=== PATIENT | male | born 1945 | race Caucasian/White ===

== ENCOUNTER → 2016-09-11 | Outpatient (CLI) | payer MEDICARE, OTHER ==
[~2016-09-11] MED LIST: ASPI-231 PO; ATEN50TA PO; ATOR80TA OR; CAPT25TA76 PO; CLOP75TA28 OR; GLYB5TAB8 OR; METF500T OR
== END | disposition home or self-care (01) ==
LOC: Rad HDHVI 09:05
PROVIDERS: ATTEND Internal Medicine Cardiovascular Disease
DX: I25.5 Ischemic cardiomyopathy (principal); I71.4 Abdominal aortic aneurysm, without rupture; I10 Essential (primary) hypertension; I25.2 Old myocardial infarction; E78.00 Pure hypercholesterolemia, unspecified
CPT/HCPCS: 93306

== ENCOUNTER → 2017-02-18 | Outpatient (CLI) | payer MEDICARE, OTHER ==
[~2017-02-18] VITALS: Ht 180.3 cm; Wt 105.7 kg
[~2017-02-18] MED LIST changes: +ADENOSINE 90 MG/30 ML INJ IV ONE
== END | disposition home or self-care (01) ==
LOC: Rad HDHVI 13:11
PROVIDERS: ATTEND Internal Medicine Cardiovascular Disease
DX: I25.5 Ischemic cardiomyopathy (principal); I10 Essential (primary) hypertension; E78.00 Pure hypercholesterolemia, unspecified; E11.9 Type 2 diabetes mellitus without complications; I25.2 Old myocardial infarction; Z95.0 Presence of cardiac pacemaker; Z95.1 Presence of aortocoronary bypass graft
CPT/HCPCS: 78452; 93005; 96374; 96375; A9500

== ENCOUNTER → 2017-02-19 | Outpatient (CLI) | payer MEDICARE, OTHER ==
[~2017-02-19] MED LIST changes: +ADENOSINE 89 MG in GIVE UN-DILUTED 0 ML IV ONE; -ADENOSINE 90 MG/30 ML INJ IV ONE
== END | disposition home or self-care (01) ==
LOC: Rad HDHVI 13:29
PROVIDERS: ATTEND Internal Medicine Cardiovascular Disease
DX: I20.0 Unstable angina (principal); I25.5 Ischemic cardiomyopathy; I10 Essential (primary) hypertension; E78.9 Disorder of lipoprotein metabolism, unspecified; Z95.0 Presence of cardiac pacemaker
CPT/HCPCS: 93306; J0153

== ENCOUNTER → 2017-05-28 | Outpatient (CLI) | payer MEDICARE, OTHER ==
[~2017-05-28] MED LIST changes: -ADENOSINE 89 MG in GIVE UN-DILUTED 0 ML IV ONE; +CAPT25TA5 PO; -CAPT25TA76 PO
[2017-05-28 13:07] LABS: Basophils # (auto) 0.1 uL; Basophils % (auto) 0.7 % (0.0-2.0); Eosinophils # (auto) 0.2 uL; Eosinophils % (auto) 2.3 % (0.0-7.0); Hematocrit 49.3 % (41.0-53.0); Lymphocytes # (auto) 2.1 uL; Lymphocytes % (auto) 24.6 % (10.0-50.0); Mean Corpuscular Hemoglobin 32.8 pg (28.0-32.0); Mean Corpuscular Hgb Conc. 34.5 g/dL (32.0-36.0); Mean Corpuscular Volume 95.2 fL (80.0-100.0); Monocytes # (auto) 0.7 uL; Monocytes % (auto) 8.4 % (0.0-12.0); Neutrophils # (auto) 5.4 uL; Nucleated Red Blood Cells % 1.2 %; Platelet Count (auto) 138 10^3/uL (140-450); Red Blood Cells 5.18 10^6/uL (4.5-5.90); Red Cell Distribution Width 13.5 % (11.8-14.3); White Blood Cell 8.4 10^3/uL (4.4-10.8)
[2017-05-28 13:14] LABS: Urine Blood Negative /uL (Negative); Urine Specific Gravity 1.023 (1.001-1.035)
[2017-05-28 13:30] LABS: Albumin 3.9 g/dL (3.4-5.0); BUN/Creatinine Ratio 16.9; Bilirubin, Direct 0.2 mg/dL (0-0.2); Bilirubin, Total 0.8 mg/dL (0.2-1.0); Calcium 8.9 mg/dL (8.5-10.1); Potassium 3.9 mmol/L (3.5-5.1); Total Protein 7.3 g/dL (6.4-8.2)
== END | disposition home or self-care (01) ==
LOC: LAB 08:08
PROVIDERS: ATTEND Internal Medicine Cardiovascular Disease
DX: I10 Essential (primary) hypertension (principal); E11.9 Type 2 diabetes mellitus without complications; E78.00 Pure hypercholesterolemia, unspecified; K74.1 Hepatic sclerosis; R97.20 Elevated prostate specific antigen [PSA]; R53.81 Other malaise; E03.9 Hypothyroidism, unspecified; D64.9 Anemia, unspecified
CPT/HCPCS: 36415; 80048; 80061; 80076; 81003; 82306; 83036; 84153; 84403; 84443; 85025

== ENCOUNTER → 2017-10-11 | Outpatient (CLI) | payer MEDICARE, OTHER ==
[~2017-10-11] MED LIST changes: +ISOS30TA4 PO; +LEVO150T68 PO
== END | disposition home or self-care (01) ==
LOC: Rad HDHVI 10:45
PROVIDERS: ATTEND Internal Medicine Cardiovascular Disease
DX: I51.7 Cardiomegaly (principal); E11.9 Type 2 diabetes mellitus without complications; I10 Essential (primary) hypertension; E78.00 Pure hypercholesterolemia, unspecified
CPT/HCPCS: 93306

== ENCOUNTER → 2017-10-22 | Outpatient (CLI) | payer MEDICARE, OTHER ==
[~2017-10-22] VITALS: Ht 180.3 cm; Wt 104.3 kg
[~2017-10-22] MED LIST changes: -ISOS30TA4 PO; -LEVO150T68 PO
== END | disposition home or self-care (01) ==
LOC: Rad HDHVI 14:21
PROVIDERS: ATTEND Internal Medicine Cardiovascular Disease
DX: I20.9 Angina pectoris, unspecified (principal); I25.5 Ischemic cardiomyopathy; I11.0 Hypertensive heart disease with heart failure; I50.23 Acute on chronic systolic (congestive) heart failure; E11.9 Type 2 diabetes mellitus without complications
CPT/HCPCS: 78452; 93017; 96374; A9500

== ENCOUNTER → 2017-10-29 | Outpatient (CLI) | payer MEDICARE, OTHER ==
[~2017-10-29] MED LIST changes: +ISOS30TA4 PO; +LEVO150T68 PO
[2017-10-29 08:00] VITALS: BP 123/68
[2017-10-29 12:02] LABS: Basophils # (auto) 0.1 uL; Basophils % (auto) 0.7 % (0.0-2.0); Eosinophils # (auto) 0.2 uL; Eosinophils % (auto) 1.9 % (0.0-7.0); Hematocrit 49.7 % (41.0-53.0); Lymphocytes # (auto) 2.3 uL; Lymphocytes % (auto) 26.6 % (10.0-50.0); Mean Corpuscular Hemoglobin 32.7 pg (28.0-32.0); Mean Corpuscular Hgb Conc. 34.2 g/dL (32.0-36.0); Mean Corpuscular Volume 95.5 fL (80.0-100.0); Monocytes # (auto) 0.7 uL; Monocytes % (auto) 7.8 % (0.0-12.0); Neutrophils # (auto) 5.5 uL; Nucleated Red Blood Cells % 0.4 %; Platelet Count (auto) 133 10^3/uL (140-450); Red Cell Distribution Width 13.4 % (11.8-14.3); White Blood Cell 8.7 10^3/uL (4.4-10.8)
[2017-10-29 12:14] LABS: INR 1.1 (0.9-1.15); Partial Thromboplastin Time 29.1 sec (22.64-33.71)
[2017-10-29 12:27] LABS: BUN/Creatinine Ratio 16.1; Potassium 4.1 mmol/L (3.5-5.1)
== END | disposition home or self-care (01) ==
LOC: Rad HDHVI 08:03
PROVIDERS: ATTEND Internal Medicine Cardiovascular Disease
DX: Z01.818 Encounter for other preprocedural examination (principal); E78.00 Pure hypercholesterolemia, unspecified; E11.22 Type 2 diabetes mellitus with diabetic chronic kidney disease; I12.9 Hypertensive chronic kidney disease with stage 1 through stage 4 chronic kidney disease, or unspecified chronic kidney disease; N18.2 Chronic kidney disease, stage 2 (mild); Z95.810 Presence of automatic (implantable) cardiac defibrillator; Z79.82 Long term (current) use of aspirin
CPT/HCPCS: 36415; 71046; 80048; 82962; 85025; 85610; 85730; 93005; G0463

== ENCOUNTER 2017-10-31 08:00 | Day surgery (SDC) | payer MEDICARE, OTHER ==
[~2017-10-31] VITALS: Ht 180.3 cm; Wt 104.8 kg
[~2017-10-31 08:00] MED LIST changes: -ATOR80TA OR
[2017-10-31] MEDS ORDERED: ANGIOMAX 250 MG VIAL IV ONE (09:31)
[2017-10-31] MEDS ORDERED: fentaNYL CITRATE 100 MCG/2 ML VL ONE (09:31)
[2017-10-31] MEDS ORDERED: SODIUM CHL 0.9% 0 ML ONE (09:32)
[2017-10-31] MEDS ORDERED: MIDAZOLAM HCL 1MG/1ML-2 ML VIAL ONE (09:32)
[2017-10-31] MEDS ORDERED: IOHEXOL 350 MG/ML 100ML IJ ONE (09:34)
[2017-10-31] MEDS ORDERED: LIDOCAINE HCL 2 %PF INJ 10ML AMP IJ ONE (09:34)
== END 2017-10-31 12:20 | disposition home or self-care (01) ==
LOC: CATH 08:00
PROVIDERS: ATTEND Internal Medicine Cardiovascular Disease
DX: I25.10 Atherosclerotic heart disease of native coronary artery without angina pectoris (principal); E66.9 Obesity, unspecified; Z68.32 Body mass index [BMI] 32.0-32.9, adult; Z95.1 Presence of aortocoronary bypass graft; I25.5 Ischemic cardiomyopathy; E78.5 Hyperlipidemia, unspecified; E11.9 Type 2 diabetes mellitus without complications; I25.2 Old myocardial infarction; F17.210 Nicotine dependence, cigarettes, uncomplicated; Z95.810 Presence of automatic (implantable) cardiac defibrillator; Z79.01 Long term (current) use of anticoagulants
CPT/HCPCS: 93459; C1760; C1894; J1644; J2250; J3010; J7030; Q9967; 99152

== ENCOUNTER → 2018-10-29 | Outpatient (CLI) | payer MEDICARE, OTHER | END | disposition home or self-care (01) | LOC: Rad HDHVI 08:47 | PROVIDERS: ATTEND Internal Medicine Cardiovascular Disease | DX: I65.22 Occlusion and stenosis of left carotid artery (principal); I11.0 Hypertensive heart disease with heart failure; I50.23 Acute on chronic systolic (congestive) heart failure; I25.10 Atherosclerotic heart disease of native coronary artery without angina pectoris; E11.9 Type 2 diabetes mellitus without complications; I25.5 Ischemic cardiomyopathy; R09.89 Other specified symptoms and signs involving the circulatory and respiratory systems | CPT/HCPCS: 93306; 93880 ==

== ENCOUNTER → 2018-11-03 | Outpatient (CLI) | payer MEDICARE, OTHER ==
[~2018-11-03] VITALS: Ht 180.3 cm; Wt 106.6 kg
[~2018-11-03] MED LIST changes: +ADENOSINE 90 MG in GIVE UN-DILUTED 0 ML IV ONE; +ADENOSINE 90 MG/30 ML INJ IV ONE
[2018-11-03 12:11] LABS: Urine Blood Negative /uL (Negative); Urine Specific Gravity 1.022 (1.001-1.035)
[2018-11-03 12:21] LABS: Eosinophils # (auto) 0.1 uL; Lymphocytes # (auto) 1.9 uL; White Blood Cell 7.8 10^3/uL (4.4-10.8)
[2018-11-03 12:27] LABS: Basophils # (auto) 0.1 uL; Basophils % (auto) 0.9 % (0.0-2.0); Eosinophils % (auto) 1.9 % (0.0-7.0); Hematocrit 51.8 % (41.0-53.0); Hemoglobin 17.6 g/dL (13.5-17.5); Mean Corpuscular Volume 96.9 fL (80.0-100.0); Monocytes # (auto) 0.7 uL; Monocytes % (auto) 9.2 % (0.0-12.0); Nucleated Red Blood Cells % 0.1 %; Platelet Count (auto) 137 10^3/uL (140-450); Red Blood Cells 5.34 10^6/uL (4.5-5.90); Red Cell Distribution Width 13.5 % (11.8-14.3)
[2018-11-03 12:35] LABS: Potassium 4.5 mmol/L (3.5-5.1)
[2018-11-03 12:43] LABS: Free T4 (Free Thyroxine) 1.36 ng/dL (0.89-1.76)
[2018-11-03 12:44] LABS: Prostate Specific Antigen 0.36 ng/mL (0.0-4.0)
[2018-11-03 13:29] LABS: Albumin 3.8 g/dL (3.4-5.0); BUN/Creatinine Ratio 14.7; Bilirubin, Total 0.6 mg/dL (0.2-1.0); Calcium 8.8 mg/dL (8.5-10.1); Total Protein 7.1 g/dL (6.4-8.2)
== END | disposition home or self-care (01) ==
LOC: Rad HDHVI 07:53
PROVIDERS: ATTEND Internal Medicine Cardiovascular Disease
DX: N39.0 Urinary tract infection, site not specified (principal); E03.9 Hypothyroidism, unspecified; E11.9 Type 2 diabetes mellitus without complications; E55.9 Vitamin D deficiency, unspecified; E29.1 Testicular hypofunction; C61 Malignant neoplasm of prostate; D51.9 Vitamin B12 deficiency anemia, unspecified; I11.0 Hypertensive heart disease with heart failure; I50.23 Acute on chronic systolic (congestive) heart failure; I25.5 Ischemic cardiomyopathy; I47.2 Ventricular tachycardia; R06.02 Shortness of breath
CPT/HCPCS: 36415; 78452; 80053; 80061; 81003; 82306; 82607; 83036; 84153; 84403; 84439; 84443; 85025; 93005; 96374; 96375; A9500; J0153

== ENCOUNTER 2019-02-13 11:23 | Inpatient (IN) | payer MEDICARE, OTHER ==
[~2019-02-13] VITALS: Ht 180.3 cm; Wt 105.2 kg
[~2019-02-13 11:23] MED LIST changes: -ADENOSINE 90 MG in GIVE UN-DILUTED 0 ML IV ONE; -ADENOSINE 90 MG/30 ML INJ IV ONE; -CLOP75TA28 OR; +CLOP75TA28 PO; -METF500T OR; +METF500T PO
[2019-02-13] MEDS ORDERED: LIDOCAINE 2%HCL (LOCAL ANESTH.) INJ 20ML MDV ONE (12:30)
[2019-02-13] MEDS ORDERED: fentaNYL CITRATE 100 MCG/2 ML VL ONE (13:40)
[2019-02-13] MEDS ORDERED: MIDAZOLAM HCL 1MG/1ML-2 ML VIAL ONE (13:40)
[2019-02-13] MEDS ORDERED: VANCOMYCIN HCL 1000 MG VL ONE (13:40)
[2019-02-13] MEDS ORDERED: ceFAZolin 1GM/50ML 50 ML IV ONE (13:40)
[2019-02-13] MEDS ORDERED: VANCOMYCIN 1GM/250ML 250 ML IV ONE (14:52)
[2019-02-13] MEDS ORDERED: MORPHINE SULF INJ 2 MG/ML SYRINGE 1ML IV PRN (15:45)
[2019-02-13] MEDS ORDERED: HYDROcodone-ACET 5/325MG TAB PO PRN (15:45)
[2019-02-13] MEDS ORDERED: NITROGLYCERIN 0.4 MG SL TAB SL PRN (15:45)
[2019-02-13] MEDS ORDERED: ACETAMINOPHEN 325 MG TAB PO PRN (15:45)
[2019-02-13] MEDS ORDERED: IVAB1.7T PO (16:06)
[2019-02-13] MEDS ORDERED: GLIP10TA9 PO (16:06)
[2019-02-13] MEDS ORDERED: ATOR1TAB PO (16:06)
[2019-02-13] MEDS ORDERED: CHOL200021 PO (16:06)
[2019-02-13] MEDS ORDERED: SACU1TAB PO (16:06)
[2019-02-13] MEDS ORDERED: NITR0.4S29 SL (16:06)
--- NOTE | 2019-02-13 16:45 | NUR ---
Telemetry admit from IT SECURITY ARCHITECT CLARISSADERRICK GOMEZ admitted to Telemetry unit after SBAR received. Patient oriented to DEON ERIC, primary RN, unit, room, bed, and unit policies regarding patient care and visiting hours. Patient now on continuous telemetry monitoring, tele box # [id number] and telemetry reading on arrival to unit is paced 77. Patient weighed by bed scale and encouraged to call if they need something. All questions and concerns addressed, patient verbalized understanding. Note: []
[2019-02-13 16:50] VITALS: BP 114/71
[2019-02-13] MEDS: ACCU-CHEK COMFORT CURVE STRIP VI SCH ×2 (17:06→21:31)
[2019-02-13 17:19] VITALS: BP 114/71
[2019-02-13] MEDS: metFORMIN HYDROCHLORIDE 500 MG TAB PO SCH (17:44)
[2019-02-13] MEDS: glipiZIDE 5 MG TAB PO SCH (17:44)
--- NOTE | 2019-02-13 19:30 | NUR ---
Opening Shift Note Assumed care of patient, awake and alertx4. Very pleasant gentlemen. No S/S of distress/SOB or pain. Using Ice packs draped over left shoulder. Dressing to left upper chest clean dry and intact. IV to left wrist patent and flushed with 10 mls NS. Steady gait, BRP. Will administer meds per orders. Instructed on POC and to call for assist PRN, will continue to monitor for changes Q1hr and PRN.
[2019-02-13] MEDS: ceFAZolin 1GM/50ML 50 ML IV SCH (21:30)
--- NOTE | 2019-02-13 21:43 | NUR ---
BS is 124. Asymptomatic. Sugar free jello given for snack
[2019-02-13] MEDS ORDERED: SACUBITRIL-VALSARTAN 24mg/26mg TAB PO SCH (22:00)
[2019-02-13] MEDS ORDERED: ATORVASTATIN 20 MG TAB PO SCH (22:00)
[2019-02-13] MEDS ORDERED: IVABRADINE 5 MG PO SCH (22:00)
[2019-02-14 00:19] VITALS: BP 110/65
[2019-02-14 06:09] VITALS: BP 128/65
[2019-02-14] MEDS ORDERED: LEVOTHYROXINE SODIUM 50 MCG TAB PO SCH (07:00)
[2019-02-14] MEDS: ceFAZolin 1GM/50ML 50 ML IV SCH (07:02)
[2019-02-14] MEDS: ACCU-CHEK COMFORT CURVE STRIP VI SCH (07:02)
--- NOTE | 2019-02-14 07:40 | NUR ---
RECEIVED REPORT FROM NIGHT NURSE. PATIENT RESTING IN BED, NO DISTRESS NOTED. WILL CONTINUE TO MONITOR.
[2019-02-14] MEDS: metFORMIN HYDROCHLORIDE 500 MG TAB PO SCH (08:00)
[2019-02-14] MEDS: glipiZIDE 5 MG TAB PO SCH (08:30)
[2019-02-14 09:00] VITALS: BP_SYST 109; BP_SYST 122; BP_DIAS 76; BP_DIAS 84
[2019-02-14] MEDS ORDERED: CHOLECALCIFEROL (VITD3) 1,000 UNIT TAB PO SCH (10:00)
[2019-02-14] MEDS ORDERED: ATENOLOL 50 MG TAB PO SCH (10:00)
[2019-02-14] MEDS ORDERED: ISOSORBIDE MONONITRATE 60 MG TAB PO SCH (10:00)
== END 2019-02-14 10:20 | disposition home or self-care (01) | DRG 245 ==
LOC: CATH 11:23 → TELE-CENTR 16:32
PROVIDERS: ADMIT Internal Medicine Cardiovascular Disease; ATTEND Internal Medicine Cardiovascular Disease
PROC: 0JPT0PZ Removal of Cardiac Rhythm Related Device from Trunk Subcutaneous Tissue and Fascia, Open Approach (ICD-10-PCS; principal; 2019-02-13)
PROC: 0JH609Z Insertion of Cardiac Resynchronization Defibrillator Pulse Generator into Chest Subcutaneous Tissue and Fascia, Open Approach (ICD-10-PCS; 2019-02-13)
DX: I11.0 Hypertensive heart disease with heart failure (principal); I25.5 Ischemic cardiomyopathy; I50.23 Acute on chronic systolic (congestive) heart failure; E11.9 Type 2 diabetes mellitus without complications; E66.9 Obesity, unspecified; J44.9 Chronic obstructive pulmonary disease, unspecified; N28.9 Disorder of kidney and ureter, unspecified; F17.210 Nicotine dependence, cigarettes, uncomplicated; E78.5 Hyperlipidemia, unspecified; I25.2 Old myocardial infarction; Z95.1 Presence of aortocoronary bypass graft; Z79.899 Other long term (current) drug therapy; Z68.32 Body mass index [BMI] 32.0-32.9, adult
CPT/HCPCS: 36415; 71046; 80048; 82962; 85025; 85610; 85730; 93005; G0378; G0463; J0690; J2250

== ENCOUNTER → 2019-11-24 | Outpatient (CLI) | payer MEDICARE, OTHER ==
[~2019-11-24] MED LIST changes: +ATOR1TAB PO; -CAPT25TA5 PO; +CHOL200021 PO; +GLIP10TA9 PO; -GLYB5TAB8 OR; +IVAB1.7T PO; +NITR0.4S29 SL; +SACU1TAB PO
== END | disposition home or self-care (01) ==
LOC: Rad HDHVI 07:53
PROVIDERS: ATTEND Internal Medicine Cardiovascular Disease
DX: I50.23 Acute on chronic systolic (congestive) heart failure (principal); I25.5 Ischemic cardiomyopathy; R06.02 Shortness of breath
CPT/HCPCS: 93306

== ENCOUNTER → 2019-12-22 | Outpatient (CLI) | payer MEDICARE, OTHER ==
[~2019-12-22] VITALS: Ht 180.3 cm; Wt 105.2 kg
[~2019-12-22] MED LIST changes: +ADENOSINE 88 MG in GIVE UN-DILUTED 0 ML IV ONE; +ADENOSINE 90 MG/30 ML INJ IV ONE
== END | disposition home or self-care (01) ==
LOC: Rad HDHVI 08:50
PROVIDERS: ATTEND Internal Medicine Cardiovascular Disease
DX: I10 Essential (primary) hypertension (principal); I25.2 Old myocardial infarction; I25.10 Atherosclerotic heart disease of native coronary artery without angina pectoris; E78.00 Pure hypercholesterolemia, unspecified; E11.9 Type 2 diabetes mellitus without complications; F17.210 Nicotine dependence, cigarettes, uncomplicated; R07.9 Chest pain, unspecified; Z95.1 Presence of aortocoronary bypass graft; Z95.0 Presence of cardiac pacemaker
CPT/HCPCS: 78452; 93005; 96374; 96375; A9500; J0153

== ENCOUNTER → 2019-12-23 | Outpatient (CLI) | payer MEDICARE, OTHER ==
[~2019-12-23] MED LIST changes: -ADENOSINE 88 MG in GIVE UN-DILUTED 0 ML IV ONE; -ADENOSINE 90 MG/30 ML INJ IV ONE
[2019-12-23 12:07] LABS: Urine Blood Negative /uL (Negative); Urine Specific Gravity 1.022 (1.001-1.035)
[2019-12-23 12:20] LABS: Basophils # (auto) 0.1 10 ^3/uL (0-0.2); Eosinophils # (auto) 0.1 10 ^3/uL (0-0.8); Monocytes # (auto) 0.7 10 ^3/uL (0-1.3); Nucleated Red Blood Cells % 0.1 %
[2019-12-23 12:21] LABS: Basophils % (auto) 1.1 % (0.0-2.0); Eosinophils % (auto) 1.4 % (0.0-7.0); Hematocrit 52.6 % (41.0-53.0); Hemoglobin 17.8 g/dL (13.5-17.5); Lymphocytes # (auto) 2.6 10 ^3/uL (0.4-5.4); Lymphocytes % (auto) 33.2 % (10.0-50.0); Mean Corpuscular Hemoglobin 33.7 pg (28.0-32.0); Mean Corpuscular Hgb Conc. 33.9 g/dL (32.0-36.0); Mean Corpuscular Volume 99.6 fL (80.0-100.0); Monocytes % (auto) 8.5 % (0.0-12.0); Neutrophils # (auto) 4.4 10 ^3/uL (1.6-8.6); Neutrophils % (auto) 55.8 % (37.0-80.0); Platelet Count (auto) 135 10^3/uL (140-450); Red Blood Cells 5.29 10^6/uL (4.5-5.90); Red Cell Distribution Width 13.8 % (11.8-14.3); White Blood Cell 7.9 10^3/uL (4.4-10.8)
[2019-12-23 12:24] LABS: Free T4 (Free Thyroxine) 1.39 ng/dL (0.89-1.76)
[2019-12-23 12:25] LABS: Prostate Specific Antigen 0.29 ng/mL (0.0-4.0)
[2019-12-23 13:10] LABS: Albumin 3.7 g/dL (3.4-5.0)
[2019-12-23 13:20] LABS: BUN/Creatinine Ratio 14.7; Potassium 4.2 mmol/L (3.5-5.1)
[2019-12-23 13:21] LABS: Bilirubin, Total 1.1 mg/dL (0.2-1.0); Calcium 8.4 mg/dL (8.5-10.1)
== END | disposition home or self-care (01) ==
LOC: LAB 09:28
PROVIDERS: ATTEND Internal Medicine Cardiovascular Disease
DX: E03.9 Hypothyroidism, unspecified (principal); K90.9 Intestinal malabsorption, unspecified; D51.9 Vitamin B12 deficiency anemia, unspecified; N39.0 Urinary tract infection, site not specified; R39.15 Urgency of urination; R32 Unspecified urinary incontinence; Z79.899 Other long term (current) drug therapy; Z00.00 Encounter for general adult medical examination without abnormal findings
CPT/HCPCS: 36415; 80053; 80061; 81003; 82306; 82607; 83036; 84153; 84403; 84439; 84443; 85025

== ENCOUNTER → 2020-09-05 | Outpatient (CLI) | payer MEDICARE, OTHER ==
[~2020-09-05] MED LIST changes: +ATOR-47 PO; -ATOR1TAB PO; +LEV150T PO; -LEVO150T68 PO
== END | disposition home or self-care (01) ==
LOC: Rad HDHVI 10:05
PROVIDERS: ATTEND Internal Medicine Cardiovascular Disease
DX: I25.5 Ischemic cardiomyopathy (principal); I42.0 Dilated cardiomyopathy
CPT/HCPCS: 93306

== ENCOUNTER → 2020-11-02 | Outpatient (CLI) | payer MEDICARE, OTHER ==
[2020-11-02 15:41] LABS: Basophils # (auto) 0.1 10 ^3/uL (0-0.2); Basophils % (auto) 0.7 % (0.0-2.0); Eosinophils # (auto) 0.1 10 ^3/uL (0-0.8); Eosinophils % (auto) 1.5 % (0.0-7.0); Hematocrit 46.6 % (41.0-53.0); Hemoglobin 15.9 g/dL (13.5-17.5); Lymphocytes # (auto) 2.6 10 ^3/uL (0.4-5.4); Lymphocytes % (auto) 33.6 % (10.0-50.0); Mean Corpuscular Hemoglobin 33.6 pg (28.0-32.0); Mean Corpuscular Hgb Conc. 34.1 g/dL (32.0-36.0); Mean Corpuscular Volume 98.5 fL (80.0-100.0); Monocytes # (auto) 0.8 10 ^3/uL (0-1.3); Monocytes % (auto) 10.2 % (0.0-12.0); Neutrophils # (auto) 4.1 10 ^3/uL (1.6-8.6); Nucleated Red Blood Cells % 0.4 %; Platelet Count (auto) 129 10^3/uL (140-450); Red Blood Cells 4.73 10^6/uL (4.5-5.90); White Blood Cell 7.6 10^3/uL (4.4-10.8)
[2020-11-02 15:52] LABS: BUN/Creatinine Ratio 18.8; Calcium 8.6 mg/dL (8.5-10.1); Potassium 4.6 mmol/L (3.5-5.1)
[2020-11-02 16:52] LABS: INR 1.1 (0.9-1.15); Partial Thromboplastin Time 30.1 sec (23.0-31.2)
== END | disposition home or self-care (01) ==
LOC: Rad HDHVI 12:13
PROVIDERS: ATTEND Internal Medicine Cardiovascular Disease
DX: Z01.812 Encounter for preprocedural laboratory examination (principal); I11.0 Hypertensive heart disease with heart failure; I50.23 Acute on chronic systolic (congestive) heart failure; Z95.0 Presence of cardiac pacemaker
CPT/HCPCS: 36415; 71046; 80048; 85025; 85610; 85730

== ENCOUNTER 2021-05-07 05:06 | Inpatient (IN) | payer MEDICARE, OTHER ==
[~2021-05-07] VITALS: Ht 180.3 cm; Wt 102.5 kg
[~2021-05-07 05:06] MED LIST changes: -ASPI-231 PO; +ASPI1TAB20 PO; +ISOS1TAB28 PO; -ISOS30TA4 PO
[2021-05-07] MEDS ORDERED: NITROGLYCERIN 0.4 MG SL TAB SL ONE (05:30)
[2021-05-07] MEDS ORDERED: dilTIAZem 25 MG/5 ML VIAL IV ONE (05:30)
[2021-05-07] MEDS ORDERED: MORPHINE SULFATE 4 MG/ML SYR/VIAL IV ONE (05:30)
[2021-05-07 06:12] LABS: Basophils # (auto) 0.1 10 ^3/uL (0-0.2); Basophils % (auto) 0.7 % (0.0-2.0); Eosinophils # (auto) 0.1 10 ^3/uL (0-0.8); Eosinophils % (auto) 1.3 % (0.0-7.0); Hematocrit 50.3 % (41.0-53.0); Hemoglobin 16.9 g/dL (13.5-17.5); Lymphocytes # (auto) 1.5 10 ^3/uL (0.4-5.4); Lymphocytes % (auto) 18.7 % (10.0-50.0); Mean Corpuscular Hgb Conc. 33.7 g/dL (32.0-36.0); Mean Corpuscular Volume 100.8 fL (80.0-100.0); Monocytes # (auto) 0.9 10 ^3/uL (0-1.3); Monocytes % (auto) 10.8 % (0.0-12.0); Neutrophils # (auto) 5.4 10 ^3/uL (1.6-8.6); Neutrophils % (auto) 68.5 % (37.0-80.0); Red Blood Cells 4.99 10^6/uL (4.5-5.90); Red Cell Distribution Width 14.6 % (11.8-14.3); White Blood Cell 7.9 10^3/uL (4.4-10.8)
[2021-05-07 06:24] LABS: INR 1.13 (0.9-1.15); Partial Thromboplastin Time 29.8 sec (23.6-33.0)
[2021-05-07 06:30] LABS: Potassium 4.7 mmol/L (3.5-5.1)
[2021-05-07 06:35] LABS: Albumin 3.6 g/dL (3.4-5.0); BUN/Creatinine Ratio 15.3; Calcium 8.4 mg/dL (8.5-10.1); Magnesium 2.2 mg/dL (1.6-2.6)
[2021-05-07 06:40] LABS: Bilirubin, Total 0.8 mg/dL (0.2-1.0)
[2021-05-07] MEDS ORDERED: ONDANSETRON HCL 4 MG/2 ML VIAL ONE (06:57)
[2021-05-07] MEDS ORDERED: MORPHINE SULFATE INJECTION 2 MG/ML SYRG ONE (06:57)
[2021-05-07] MEDS ORDERED: MORPHINE SULFATE INJECTION 2 MG/ML SYRG IV ONE (07:00)
[2021-05-07] MEDS ORDERED: ONDANSETRON HCL 4 MG/2 ML VIAL IV ONE (07:00)
[2021-05-07] MEDS ORDERED: METOPROLOL TARTRATE 1MG/1ML-5ML VIAL IV ONE (09:45)
[2021-05-07] MEDS ORDERED: NITROGLYCERIN 0.4 MG SL TAB SL PRN (10:15)
[2021-05-07] MEDS ORDERED: DIGOXIN (250MCG/ML) 2 ML AMPULE IV ONE (10:15)
[2021-05-07] MEDS ORDERED: AMIODARONE HCL 150 MG in D5W 5% 100 ML IV ONE (10:15)
[2021-05-07] MEDS ORDERED: ONDANSETRON HCL 4 MG/2 ML VIAL IV PRN (10:15)
[2021-05-07] MEDS ORDERED: ACETAMINOPHEN 500 MG TAB PO PRN (10:15)
[2021-05-07] MEDS ORDERED: MORPHINE SULFATE INJECTION 2 MG/ML SYRG IV PRN ×2 (10:15)
[2021-05-07] MEDS ORDERED: HYDROcodone-ACET 5/325MG TAB PO PRN (10:15)
[2021-05-07] MEDS ORDERED: AMIODARONE 450mg/250ml AE 250 ML IV SCH ×2 (10:15→16:15)
[2021-05-07] MEDS ORDERED: DEXTROSE (50%) 50ML SYRG IV PRN (10:30)
[2021-05-07] MEDS: InsuLIN REG 1unit/0.01ml Soln (100units/ml) SC SCH ×3 (11:30→22:00)
[2021-05-07] MEDS: ACCU-CHEK COMFORT CURVE STRIP VI SCH ×3 (11:38→21:59)
[2021-05-07] MEDS ORDERED: ADENOSINE 6 MG/2 ML INJ IV ONE ×3 (12:06→13:15)
[2021-05-07] MEDS ORDERED: LIDOCAINE 4MG/ML IV SOLN 500 ML IV SCH ×2 (12:30→15:45)
[2021-05-07] MEDS ORDERED: LIDOCAINE 50MG/5ML INJ 5ML SYRINGE IV ONE (12:30)
[2021-05-07] MEDS ORDERED: LIDOCAINE HCL 100 MG/5ML (2%) SYRG INJ IV ONE (12:45)
[2021-05-07] MEDS ORDERED: MIDAZOLAM HCL 5 MG/ML-1ML VIAL IV ONE (13:00)
[2021-05-07] MEDS ORDERED: fentaNYL CITRATE 100 MCG/2 ML VL IV ONE (13:00)
[2021-05-07] MEDS ORDERED: HEPARIN SODIUM (PORCINE) 5000 UNITS/ML 1ML VIAL IV ONE (13:00)
[2021-05-07] MEDS: AMIODARONE HCL 200 MG TAB PO SCH (21:25)
[2021-05-07] MEDS: ATORVASTATIN 20 MG TAB PO SCH (21:58)
[2021-05-07] MEDS: ENOXAPARIN SOD 100 MG/1 ML SYRINGE SC SCH (22:00)
[2021-05-07] MEDS: IVABRADINE 5 MG TAB PO SCH (22:00)
[2021-05-08 04:18] LABS: Basophils # (auto) 0.1 10 ^3/uL (0-0.2); Basophils % (auto) 0.6 % (0.0-2.0); Eosinophils # (auto) 0.1 10 ^3/uL (0-0.8); Hemoglobin 16.1 g/dL (13.5-17.5); Nucleated Red Blood Cells % 0.1 %
[2021-05-08 04:21] LABS: Eosinophils % (auto) 1.2 % (0.0-7.0); Hematocrit 47.9 % (41.0-53.0); Lymphocytes # (auto) 2.5 10 ^3/uL (0.4-5.4); Lymphocytes % (auto) 23.4 % (10.0-50.0); Mean Corpuscular Hgb Conc. 33.7 g/dL (32.0-36.0); Mean Corpuscular Volume 100.9 fL (80.0-100.0); Monocytes % (auto) 9.6 % (0.0-12.0); Neutrophils # (auto) 6.8 10 ^3/uL (1.6-8.6); Neutrophils % (auto) 65.2 % (37.0-80.0); Red Blood Cells 4.75 10^6/uL (4.5-5.90); Red Cell Distribution Width 14.2 % (11.8-14.3); White Blood Cell 10.5 10^3/uL (4.4-10.8)
[2021-05-08 04:59] LABS: Potassium 4.1 mmol/L (3.5-5.1)
[2021-05-08 05:05] LABS: Albumin 3.7 g/dL (3.4-5.0); BUN/Creatinine Ratio 18.9; Bilirubin, Total 0.8 mg/dL (0.2-1.0); Calcium 8.5 mg/dL (8.5-10.1); Total Protein 7.1 g/dL (6.4-8.2)
[2021-05-08] MEDS: InsuLIN REG 1unit/0.01ml Soln (100units/ml) SC SCH ×4 (07:00→21:52)
[2021-05-08] MEDS: ACCU-CHEK COMFORT CURVE STRIP VI SCH ×4 (07:00→21:56)
[2021-05-08] MEDS: LEVOTHYROXINE SODIUM 100 MCG TAB PO SCH (07:43)
[2021-05-08] MEDS ORDERED: FUROSEMIDE 20 MG/2 ML VIAL IV ONE (10:15)
[2021-05-08] MEDS ORDERED: CARVEDILOL 3.125 MG TAB PO ONE (10:15)
[2021-05-08 10:20] VITALS: BP 123/65
[2021-05-08] MEDS: ASPirin-EC 81 mg tab PO SCH (11:03)
[2021-05-08] MEDS: AMIODARONE HCL 200 MG TAB PO SCH ×2 (11:04→21:56)
[2021-05-08] MEDS: ENOXAPARIN SOD 100 MG/1 ML SYRINGE SC SCH ×2 (11:13→23:16)
[2021-05-08] MEDS: CLOPIDOGREL BISULFATE 75 MG TAB PO SCH (11:13)
[2021-05-08] MEDS: IVABRADINE 5 MG TAB PO SCH ×2 (12:35→21:57)
[2021-05-08 13:00] VITALS: BP 123/65
[2021-05-08] MEDS ORDERED: INFLUENZA QUAD 2021-2022 0.5 ML SYRG IM ONE (14:15)
[2021-05-08] MEDS ORDERED: RANO1000 PO (16:11)
[2021-05-08] MEDS ORDERED: UMEC1AER IN (16:11)
[2021-05-08 16:45] VITALS: BP 115/66
[2021-05-08] MEDS ORDERED: FUROSEMIDE 20 MG/2 ML VIAL IV SCH (18:00)
[2021-05-08 20:00] VITALS: BP 126/75
[2021-05-08] MEDS: SACUBITRIL-VALSARTAN 24mg/26mg TAB PO SCH (21:55)
[2021-05-08] MEDS: ATORVASTATIN 20 MG TAB PO SCH (21:56)
[2021-05-08] MEDS: CARVEDILOL 3.125 MG TAB PO SCH (21:57)
[2021-05-08 22:25] VITALS: BP 126/75
[2021-05-09 05:25] VITALS: BP 146/74
[2021-05-09] MEDS ORDERED: FUROSEMIDE 20 MG TAB PO SCH (06:00)
[2021-05-09] MEDS: LEVOTHYROXINE SODIUM 100 MCG TAB PO SCH (06:23)
[2021-05-09] MEDS: ACCU-CHEK COMFORT CURVE STRIP VI SCH ×2 (06:23→12:24)
[2021-05-09] MEDS: InsuLIN REG 1unit/0.01ml Soln (100units/ml) SC SCH ×2 (06:24→12:40)
[2021-05-09 06:53] LABS: Basophils # (auto) 0.1 10 ^3/uL (0-0.2); Basophils % (auto) 1.4 % (0.0-2.0); Eosinophils # (auto) 0.1 10 ^3/uL (0-0.8); Eosinophils % (auto) 1.7 % (0.0-7.0); Hematocrit 46.5 % (41.0-53.0); Hemoglobin 16.3 g/dL (13.5-17.5); Lymphocytes # (auto) 2.4 10 ^3/uL (0.4-5.4); Lymphocytes % (auto) 30.9 % (10.0-50.0); Mean Corpuscular Hemoglobin 35.1 pg (28.0-32.0); Mean Corpuscular Volume 100.3 fL (80.0-100.0); Monocytes # (auto) 0.9 10 ^3/uL (0-1.3); Monocytes % (auto) 11.3 % (0.0-12.0); Neutrophils # (auto) 4.2 10 ^3/uL (1.6-8.6); Neutrophils % (auto) 54.7 % (37.0-80.0); Nucleated Red Blood Cells % 0.3 %; Red Blood Cells 4.64 10^6/uL (4.5-5.90); Red Cell Distribution Width 13.9 % (11.8-14.3); White Blood Cell 7.6 10^3/uL (4.4-10.8)
[2021-05-09 07:15] LABS: BUN/Creatinine Ratio 19.3; Calcium 8.7 mg/dL (8.5-10.1); Potassium 3.8 mmol/L (3.5-5.1)
[2021-05-09 08:00] VITALS: BP 132/70
[2021-05-09 09:00] VITALS: BP 132/70
[2021-05-09] MEDS: AMIODARONE HCL 200 MG TAB PO SCH (09:32)
[2021-05-09] MEDS: CARVEDILOL 3.125 MG TAB PO SCH (09:33)
[2021-05-09] MEDS: ASPirin-EC 81 mg tab PO SCH (09:33)
[2021-05-09] MEDS: CLOPIDOGREL BISULFATE 75 MG TAB PO SCH (09:34)
[2021-05-09] MEDS: SACUBITRIL-VALSARTAN 24mg/26mg TAB PO SCH (09:34)
[2021-05-09] MEDS: ENOXAPARIN SOD 100 MG/1 ML SYRINGE SC SCH (09:35)
[2021-05-09] MEDS ORDERED: FAMOTIDINE 20 MG TAB PO SCH (10:00)
[2021-05-09] MEDS: IVABRADINE 5 MG TAB PO SCH (10:00)
[2021-05-09 13:00] VITALS: BP 127/62
== END 2021-05-09 16:30 | disposition home or self-care (01) | DRG 308 ==
LOC: ER 05:06 → EDBD 05:06 → OVERFLOW 10:01 → CENTRAL 05-08 10:20 → TELE-CENTR 05-08 12:30
PROVIDERS: ADMIT Nurse Practitioner Acute Care; ATTEND Internal Medicine Cardiovascular Disease
PROC: 5A2204Z Restoration of Cardiac Rhythm, Single (ICD-10-PCS; principal; 2021-05-07)
DX: I47.1 Supraventricular tachycardia (principal); I50.21 Acute systolic (congestive) heart failure; I42.0 Dilated cardiomyopathy; I24.9 Acute ischemic heart disease, unspecified; I25.5 Ischemic cardiomyopathy; I25.10 Atherosclerotic heart disease of native coronary artery without angina pectoris; J44.9 Chronic obstructive pulmonary disease, unspecified; Z20.822 Contact with and (suspected) exposure to COVID-19; E11.9 Type 2 diabetes mellitus without complications; E66.9 Obesity, unspecified; Z68.31 Body mass index [BMI] 31.0-31.9, adult; F17.210 Nicotine dependence, cigarettes, uncomplicated; E78.5 Hyperlipidemia, unspecified; I11.0 Hypertensive heart disease with heart failure; Z79.84 Long term (current) use of oral hypoglycemic drugs; Z79.02 Long term (current) use of antithrombotics/antiplatelets; Z79.899 Other long term (current) drug therapy; Z82.49 Family history of ischemic heart disease and other diseases of the circulatory system; Z83.3 Family history of diabetes mellitus; Z95.1 Presence of aortocoronary bypass graft; Z95.5 Presence of coronary angioplasty implant and graft; Z95.810 Presence of automatic (implantable) cardiac defibrillator
CPT/HCPCS: 36415; 71045; 80048; 80053; 82962; 83036; 83735; 83880; 84443; 84484; 85025; 85379; 85610; 85730; 87426; 93005; 93306; 96365; 96367; 96372; 96375; 96376; 99291; G0378; J0153; J1815; J2250; J2405; J7060

== ENCOUNTER → 2021-09-20 | Outpatient (CLI) | payer MEDICARE, OTHER ==
[~2021-09-20] MED LIST changes: +RANO1000 PO; +UMEC1AER IN
== END | disposition home or self-care (01) ==
LOC: Rad HDHVI 11:21
PROVIDERS: ATTEND Internal Medicine Cardiovascular Disease
DX: I51.7 Cardiomegaly (principal); J40 Bronchitis, not specified as acute or chronic; M47.814 Spondylosis without myelopathy or radiculopathy, thoracic region; Z95.1 Presence of aortocoronary bypass graft
CPT/HCPCS: 71046

== ENCOUNTER → 2022-01-10 | Outpatient (CLI) | payer MEDICARE, OTHER ==
[2022-01-10 11:22] LABS: Basophils # (auto) 0.1 10 ^3/uL (0-0.2); Eosinophils # (auto) 0.2 10 ^3/uL (0-0.8); Monocytes # (auto) 0.6 10 ^3/uL (0-1.3); Neutrophils # (auto) 4.1 10 ^3/uL (1.6-8.6); Nucleated Red Blood Cells % 0.1 %
[2022-01-10 11:25] LABS: Urine Blood Negative /uL (Negative); Urine Specific Gravity 1.012 (1.001-1.035)
[2022-01-10 11:26] LABS: Basophils % (auto) 0.8 % (0.0-2.0); Eosinophils % (auto) 2.9 % (0.0-7.0); Hematocrit 43.7 % (41.0-53.0); Hemoglobin 14.7 g/dL (13.5-17.5); Lymphocytes # (auto) 1.8 10 ^3/uL (0.4-5.4); Lymphocytes % (auto) 26.8 % (10.0-50.0); Mean Corpuscular Hemoglobin 34.5 pg (28.0-32.0); Mean Corpuscular Hgb Conc. 33.6 g/dL (32.0-36.0); Mean Corpuscular Volume 102.8 fL (80.0-100.0); Monocytes % (auto) 8.8 % (0.0-12.0); Neutrophils % (auto) 60.7 % (37.0-80.0); Red Blood Cells 4.25 10^6/uL (4.5-5.90); Red Cell Distribution Width 14.8 % (11.8-14.3); White Blood Cell 6.7 10^3/uL (4.4-10.8)
[2022-01-10 11:47] LABS: Free T4 (Free Thyroxine) 1.29 ng/dL (0.89-1.76); Prostate Specific Antigen 0.67 ng/mL (0.0-4.0)
[2022-01-10 11:52] LABS: Calcium 9.2 mg/dL (8.5-10.1); Potassium 4.5 mmol/L (3.5-5.1)
[2022-01-10 11:59] LABS: BUN/Creatinine Ratio 19.9; Bilirubin, Total 0.8 mg/dL (0.2-1.0); Total Protein 7.6 g/dL (6.4-8.2)
== END | disposition home or self-care (01) ==
LOC: Rad HDHVI 08:30
PROVIDERS: ATTEND Internal Medicine Cardiovascular Disease
DX: I34.0 Nonrheumatic mitral (valve) insufficiency (principal); R07.89 Other chest pain; C61 Malignant neoplasm of prostate; D64.9 Anemia, unspecified; D51.3 Other dietary vitamin B12 deficiency anemia; E11.9 Type 2 diabetes mellitus without complications; E55.9 Vitamin D deficiency, unspecified; I10 Essential (primary) hypertension; R00.2 Palpitations; R53.1 Weakness; R30.0 Dysuria; Z95.0 Presence of cardiac pacemaker
CPT/HCPCS: 36415; 80053; 80061; 81003; 82306; 82607; 83036; 84153; 84403; 84439; 84443; 85025; 93306

== ENCOUNTER → 2022-01-15 | Outpatient (CLI) | payer MEDICARE, OTHER | END | disposition home or self-care (01) | LOC: Rad HDHVI 12:19 | PROVIDERS: ATTEND Internal Medicine Cardiovascular Disease | DX: I65.23 Occlusion and stenosis of bilateral carotid arteries (principal); M79.89 Other specified soft tissue disorders | CPT/HCPCS: 93925 ==

== ENCOUNTER → 2022-01-24 | Outpatient (CLI) | payer MEDICARE, OTHER ==
[~2022-01-24] VITALS: Ht 180.3 cm; Wt 107.5 kg
[~2022-01-24] MED LIST changes: +ADENOSINE 90 MG in GIVE UN-DILUTED 0 ML IV ONE; +ADENOSINE 90 MG/30 ML INJ IV ONE; +ALBUTEROL SULF 2.5 MG/0.5ML(0.5%) NEB SOLN ONE
== END | disposition home or self-care (01) ==
LOC: Rad HDHVI 08:06
PROVIDERS: ATTEND Internal Medicine Cardiovascular Disease
DX: R06.02 Shortness of breath (principal); R07.9 Chest pain, unspecified; E78.5 Hyperlipidemia, unspecified; I10 Essential (primary) hypertension; E11.9 Type 2 diabetes mellitus without complications; R42 Dizziness and giddiness; I25.10 Atherosclerotic heart disease of native coronary artery without angina pectoris; I25.2 Old myocardial infarction; Z95.1 Presence of aortocoronary bypass graft; Z95.0 Presence of cardiac pacemaker; F17.210 Nicotine dependence, cigarettes, uncomplicated
CPT/HCPCS: 78452; 93005; 94640; 96374; 96375; A9500; J0153

== ENCOUNTER → 2022-04-25 | Outpatient (CLI) | payer MEDICARE, OTHER ==
[~2022-04-25] MED LIST changes: -ADENOSINE 90 MG in GIVE UN-DILUTED 0 ML IV ONE; -ADENOSINE 90 MG/30 ML INJ IV ONE; -ALBUTEROL SULF 2.5 MG/0.5ML(0.5%) NEB SOLN ONE
== END | disposition home or self-care (01) ==
LOC: Rad HDHVI 10:40
PROVIDERS: ATTEND Internal Medicine Cardiovascular Disease
DX: M16.31 Unilateral osteoarthritis resulting from hip dysplasia, right hip (principal); M25.551 Pain in right hip; M31.9 Necrotizing vasculopathy, unspecified; M51.36 Other intervertebral disc degeneration, lumbar region; M48.061 Spinal stenosis, lumbar region without neurogenic claudication; M51.9 Unspecified thoracic, thoracolumbar and lumbosacral intervertebral disc disorder
CPT/HCPCS: 72131; 73700

== ENCOUNTER → 2022-07-25 | Outpatient (CLI) | payer MEDICARE, OTHER ==
[2022-07-25 11:35] LABS: Hemoglobin 15.6 g/dL (13.5-17.5); Lymphocytes # (auto) 1.6 10 ^3/uL (0.4-5.4); Monocytes # (auto) 0.7 10 ^3/uL (0-1.3); Urine Blood Negative /uL (Negative); Urine Specific Gravity 1.026 (1.001-1.035)
[2022-07-25 11:37] LABS: Basophils # (auto) 0.1 10 ^3/uL (0-0.2); Basophils % (auto) 0.8 % (0.0-2.0); Eosinophils # (auto) 0.1 10 ^3/uL (0-0.8); Hematocrit 46.8 % (41.0-53.0); Lymphocytes % (auto) 23.3 % (10.0-50.0); Mean Corpuscular Hemoglobin 34.2 pg (28.0-32.0); Mean Corpuscular Hgb Conc. 33.4 g/dL (32.0-36.0); Mean Corpuscular Volume 102.4 fL (80.0-100.0); Monocytes % (auto) 9.6 % (0.0-12.0); Neutrophils # (auto) 4.4 10 ^3/uL (1.6-8.6); Neutrophils % (auto) 64.3 % (37.0-80.0); Red Blood Cells 4.57 10^6/uL (4.5-5.90); White Blood Cell 6.9 10^3/uL (4.4-10.8)
[2022-07-25 12:02] LABS: Calcium 8.9 mg/dL (8.5-10.1)
[2022-07-25 12:09] LABS: BUN/Creatinine Ratio 16.7; Bilirubin, Total 0.5 mg/dL (0.2-1.0); Total Protein 7.1 g/dL (6.4-8.2)
[2022-07-25 13:02] LABS: Free T4 (Free Thyroxine) 0.99 ng/dL (0.89-1.76); Prostate Specific Antigen 0.31 ng/mL (0.0-4.0)
== END | disposition home or self-care (01) ==
LOC: LAB 08:31
PROVIDERS: ATTEND Internal Medicine Cardiovascular Disease
DX: I10 Essential (primary) hypertension (principal); E55.9 Vitamin D deficiency, unspecified
CPT/HCPCS: 36415; 80053; 80061; 81003; 82306; 82607; 83036; 84153; 84403; 84439; 84443; 85025

== ENCOUNTER → 2023-01-24 | Outpatient (CLI) | payer MEDICARE, OTHER | END | disposition home or self-care (01) | LOC: Rad HDHVI 07:57 | PROVIDERS: ATTEND Internal Medicine Cardiovascular Disease | DX: I08.3 Combined rheumatic disorders of mitral, aortic and tricuspid valves (principal); I11.9 Hypertensive heart disease without heart failure; E78.5 Hyperlipidemia, unspecified | CPT/HCPCS: 93306 ==

== ENCOUNTER → 2023-08-12 | Outpatient (CLI) | payer MEDICARE, OTHER | END | disposition home or self-care (01) | LOC: Rad HDHVI 12:45 | PROVIDERS: ATTEND Internal Medicine Cardiovascular Disease | DX: M79.89 Other specified soft tissue disorders (principal) | CPT/HCPCS: 93970 ==

== ENCOUNTER → 2023-08-14 | Outpatient (CLI) | payer MEDICARE, OTHER | END | disposition home or self-care (01) | LOC: LAB 12:49 | PROVIDERS: ATTEND Internal Medicine Cardiovascular Disease | DX: R94.4 Abnormal results of kidney function studies (principal) | CPT/HCPCS: 36415; 82565; 84520 ==

== ENCOUNTER 2023-10-17 07:19 | Day surgery (SDC) | payer MEDICARE, OTHER ==
[2023-10-16 15:09] LABS: Basophils # (auto) 0.1 10 ^3/uL (0-0.2); Eosinophils # (auto) 0.1 10 ^3/uL (0-0.8); Lymphocytes # (auto) 1.6 10 ^3/uL (0.4-5.4); Neutrophils # (auto) 4.4 10 ^3/uL (1.6-8.6); Nucleated Red Blood Cells % 0.1 %; Red Cell Distribution Width 14.5 % (11.8-14.3)
[2023-10-16 15:11] LABS: Basophils % (auto) 1.3 % (0.0-2.0); Eosinophils % (auto) 1.5 % (0.0-7.0); Hematocrit 40.5 % (41.0-53.0); Hemoglobin 13.6 g/dL (13.5-17.5); Lymphocytes % (auto) 24.1 % (10.0-50.0); Mean Corpuscular Hemoglobin 34.8 pg (28.0-32.0); Mean Corpuscular Hgb Conc. 33.7 g/dL (32.0-36.0); Mean Corpuscular Volume 103.4 fL (80.0-100.0); Monocytes # (auto) 0.5 10 ^3/uL (0-1.3); Monocytes % (auto) 7.9 % (0.0-12.0); Neutrophils % (auto) 65.2 % (37.0-80.0); Red Blood Cells 3.91 10^6/uL (4.5-5.90); White Blood Cell 6.7 10^3/uL (4.4-10.8)
[2023-10-16 15:26] LABS: Chloride 106 mmol/L (98-107); Potassium 4.8 mmol/L (3.5-5.1); Sodium 139 mmol/L (136-145)
[2023-10-16 15:27] LABS: Anion Gap 3 (5-15); Carbon Dioxide 30 mmol/L (20-30)
[2023-10-16 15:28] LABS: Calcium 8.9 mg/dL (8.5-10.1)
[2023-10-16 15:32] LABS: Glucose 102 mg/dL (74-106)
[2023-10-16 15:33] LABS: BUN/Creatinine Ratio 14.7 (10.0-20.0); Blood Urea Nitrogen 20 mg/dL (9-23)
[2023-10-16 15:39] LABS: INR 1.18 (0.9-1.15); Partial Thromboplastin Time 33.1 SEC (24.5-34.5); Prothrombin Time 12.3 sec (9.3-11.8)
[~2023-10-17] VITALS: Ht 180.3 cm; Wt 100.2 kg
[~2023-10-17 07:19] MED LIST changes: +AMIO400T7 PO; +APIX2.5T PO; -CHOL200021 PO; +CHOL20007 PO; -CLOP75TA28 PO; +DAPA1TAB4 PO; +FURO40TA4 PO; +GABA-1250 PO; +IPRIH INH; -LEV150T PO; +LEV50T PO; +METF-370 PO; -METF500T PO; +POTA-220 PO; +TADA5TAB11 PO
[2023-10-17] MEDS: fentaNYL CITRATE 100 MCG/2 ML VL ONE (10:58)
[2023-10-17] MEDS: ANGIOMAX 250 MG VIAL IV ONE (10:58)
[2023-10-17] MEDS: MIDAZOLAM HCL 2MG/2ML 2ml VIAL (1mg/ml) ONE (10:59)
[2023-10-17] MEDS: SODIUM CHL 0.9% 50 ML ONE (10:59)
[2023-10-17] MEDS: IODIXANOL 320MG/ML 100ML BTL IV ONE ×2 (11:54→12:51)
[2023-10-17] MEDS: HYDROmorphone HCL 2 MG/ML VL/or syr ONE (12:18)
[2023-10-17] MEDS: diphenhdrAMINE HCL 50 MG/1 ML VL ONE (12:51)
[2023-10-17] MEDS: methylPREDNISolone SOD SUCC 125 MG/2 ML VL ONE (12:51)
[2023-10-17] MEDS ORDERED: CLOPIDOGREL BISULFATE 75 MG TAB ONE (13:18)
[2023-10-17 13:27] VITALS: BP 137/74; PULSE 70; RESP 17; TEMP 98; O2SAT 97
[2023-10-17 13:42] VITALS: BP 130/78; PULSE 70; RESP 18; O2SAT 94
[2023-10-17 13:57] VITALS: BP 140/85; PULSE 70; RESP 16; O2SAT 95
[2023-10-17 14:15] VITALS: BP 139/82; PULSE 70; RESP 18; O2SAT 93
[2023-10-17] MEDS ORDERED: [UNRECOGNIZED DRUG - CODE] PO (14:21)
[2023-10-17 14:42] VITALS: BP 138/77; PULSE 70; RESP 16; O2SAT 95
[2023-10-17 15:03] VITALS: BP 140/78; PULSE 70; RESP 17; O2SAT 96
== END 2023-10-17 15:24 | disposition home or self-care (01) ==
LOC: CATH 07:19
PROVIDERS: ATTEND Internal Medicine Cardiovascular Disease
DX: I73.9 Peripheral vascular disease, unspecified (principal); E11.40 Type 2 diabetes mellitus with diabetic neuropathy, unspecified; E11.21 Type 2 diabetes mellitus with diabetic nephropathy; I11.0 Hypertensive heart disease with heart failure; I50.9 Heart failure, unspecified; J44.9 Chronic obstructive pulmonary disease, unspecified; I25.2 Old myocardial infarction; F17.210 Nicotine dependence, cigarettes, uncomplicated; Z79.82 Long term (current) use of aspirin; Z95.1 Presence of aortocoronary bypass graft; Z95.818 Presence of other cardiac implants and grafts; Z83.3 Family history of diabetes mellitus; Z80.8 Family history of malignant neoplasm of other organs or systems; Z82.49 Family history of ischemic heart disease and other diseases of the circulatory system; Z79.4 Long term (current) use of insulin; Z79.84 Long term (current) use of oral hypoglycemic drugs; Z79.899 Other long term (current) drug therapy; Z98.890 Other specified postprocedural states
CPT/HCPCS: 36247; 36415; 75625; 75716; 80048; 85025; 85610; 85730; C1725; C1760; C1769; C1887; C1894; C2623; C9766; C9774; J0583; J1170; J1200; J1644; J2250; J2930; J3010; J7030; Q9967; 75710; 99152; 99153

== ENCOUNTER 2023-12-28 11:36 | Inpatient (IN) | payer MEDICARE, OTHER ==
[~2023-12-28] VITALS: Ht 180.3 cm; Wt 101.8 kg
[~2023-12-28 11:36] MED LIST changes: -TADA5TAB11 PO; +[UNRECOGNIZED DRUG - CODE] PO
[2023-12-28 13:30] LABS: Basophils # (auto) 0 10 ^3/uL (0-0.2); Basophils % (auto) 0.7 % (0.0-2.0); Eosinophils # (auto) 0.1 10 ^3/uL (0-0.8); Lymphocytes # (auto) 1.4 10 ^3/uL (0.4-5.4); Monocytes # (auto) 0.7 10 ^3/uL (0-1.3)
[2023-12-28 13:32] LABS: Eosinophils % (auto) 1.2 % (0.0-7.0); Hematocrit 37.3 % (41.0-53.0); Hemoglobin 12.6 g/dL (13.5-17.5); Lymphocytes % (auto) 21.8 % (10.0-50.0); Mean Corpuscular Hgb Conc. 33.8 g/dL (32.0-36.0); Mean Corpuscular Volume 103.5 fL (80.0-100.0); Monocytes % (auto) 10.4 % (0.0-12.0); Neutrophils # (auto) 4.3 10 ^3/uL (1.6-8.6); Neutrophils % (auto) 65.9 % (37.0-80.0); Nucleated Red Blood Cells % 0.3 %; Red Cell Distribution Width 15.6 % (11.8-14.3); White Blood Cell 6.5 10^3/uL (4.4-10.8)
[2023-12-28 13:45] LABS: Alanine Aminotransferase 41 U/L (7-40); Albumin 3.9 g/dL (3.2-4.8); Alkaline Phosphatase 82 U/L (46-116); Anion Gap 2 (5-15); Aspartate Aminotransferase 23 U/L (13-40); BUN/Creatinine Ratio 15.4 (10.0-20.0); Blood Urea Nitrogen 20 mg/dL (9-23); Calcium 8.9 mg/dL (8.5-10.1); Carbon Dioxide 25 mmol/L (20-30); Chloride 112 mmol/L (98-107); Glucose 105 mg/dL (74-106); Potassium 4.5 mmol/L (3.5-5.1); Sodium 139 mmol/L (136-145)
[2023-12-28 13:46] LABS: Bilirubin, Total 0.7 mg/dL (0.2-1.0); INR 1.23 (0.9-1.15); Partial Thromboplastin Time 30.4 SEC (24.5-34.5); Prothrombin Time 12.8 sec (9.3-11.8); Total Protein 6.4 g/dL (5.7-8.2)
[2023-12-28] MEDS: FUROSEMIDE 20 MG/2 ML VIAL IV ONE (14:47)
[2023-12-28] MEDS: IOHEXOL 350 MG/ML 100ML IJ ONE (15:10)
[2023-12-28] MEDS: methylPREDNISolone SOD SUCC 125 MG/2 ML VL IV ONE (16:15)
[2023-12-28] MEDS ORDERED: MORPHINE SULFATE INJ 2 MG/ml SYRG IV PRN (16:15)
[2023-12-28] MEDS ORDERED: NITROGLYCERIN 0.4 MG SL TAB SL PRN (16:15)
[2023-12-28 17:17] VITALS: BP 122/65; PULSE 70; RESP 16; O2SAT 95
[2023-12-28 18:40] VITALS: PULSE 64; RESP 18; O2SAT 93
[2023-12-28 18:50] VITALS: PULSE 68; RESP 18; O2SAT 96
[2023-12-28] MEDS: IPRATROPIUM BROM 0.5 MG/2.5ML INH SOL NEB SCH (19:48)
[2023-12-28] MEDS: ALBUTEROL SULF 2.5 MG/0.5ML(0.5%) NEB SOLN NEB SCH (19:48)
[2023-12-28 20:09] VITALS: PULSE 70; RESP 18; O2SAT 98
[2023-12-28] MEDS: ATORVASTATIN 20 MG TAB PO SCH (21:35)
[2023-12-28] MEDS: methylPREDNISolone SOD SUCC 125 MG/2 ML VL IV SCH (21:35)
[2023-12-28] MEDS: SACUBITRIL-VALSARTAN 24mg/26mg TAB PO SCH (21:35)
[2023-12-28] MEDS: APIXABAN 2.5 MG TAB PO SCH (21:35)
[2023-12-28] MEDS: GABAPENTIN 300 MG CAP PO SCH (21:35)
[2023-12-28] MEDS: FUROSEMIDE 20 MG/2 ML VIAL IV SCH (21:36)
[2023-12-28] MEDS: IVABRADINE 5 MG TAB PO SCH (23:04)
[2023-12-29] VITALS (18 sets, daily range): BP systolic 110–118; BP diastolic 70–71; PULSE 67–75; RESP 16–20; TEMP 97.5–97.9; O2SAT 92–100
[2023-12-29 07:17] LABS: Basophils # (auto) 0 10 ^3/uL (0-0.2); Basophils % (auto) 0.1 % (0.0-2.0); Eosinophils # (auto) 0 10 ^3/uL (0-0.8); Hemoglobin 14.1 g/dL (13.5-17.5); Lymphocytes # (auto) 0.4 10 ^3/uL (0.4-5.4); Mean Corpuscular Volume 102.9 fL (80.0-100.0); Monocytes # (auto) 0.1 10 ^3/uL (0-1.3); Neutrophils # (auto) 5.1 10 ^3/uL (1.6-8.6); Nucleated Red Blood Cells % 0.1 %; White Blood Cell 5.6 10^3/uL (4.4-10.8)
[2023-12-29 07:19] LABS: Hematocrit 40.8 % (41.0-53.0); Lymphocytes % (auto) 7.3 % (10.0-50.0); Mean Corpuscular Hemoglobin 35.4 pg (28.0-32.0); Mean Corpuscular Hgb Conc. 34.4 g/dL (32.0-36.0); Monocytes % (auto) 1.3 % (0.0-12.0); Neutrophils % (auto) 91.3 % (37.0-80.0); Red Blood Cells 3.97 10^6/uL (4.5-5.90); Red Cell Distribution Width 15.4 % (11.8-14.3)
[2023-12-29] MEDS: AMIODARONE HCL 200 MG TAB PO SCH (07:22)
[2023-12-29 07:23] LABS: Alanine Aminotransferase 41 U/L (7-40); Albumin 4.4 g/dL (3.2-4.8); Alkaline Phosphatase 93 U/L (46-116); Anion Gap 3 (5-15); Aspartate Aminotransferase 23 U/L (13-40); BUN/Creatinine Ratio 19.9 (10.0-20.0); Blood Urea Nitrogen 28 mg/dL (9-23); Calcium 9.5 mg/dL (8.5-10.1); Carbon Dioxide 27 mmol/L (20-30); Chloride 107 mmol/L (98-107); Potassium 4.1 mmol/L (3.5-5.1); Sodium 137 mmol/L (136-145)
[2023-12-29] MEDS: LEVOTHYROXINE SODIUM 50 MCG TAB PO SCH (07:23)
[2023-12-29 07:24] LABS: Bilirubin, Total 0.7 mg/dL (0.2-1.0); Total Protein 7.1 g/dL (5.7-8.2)
[2023-12-29] MEDS: ATENOLOL 25 MG TAB PO SCH (07:24)
[2023-12-29] MEDS: ISOSORBIDE MONONITRATE ER 60 MG TAB PO SCH (07:24)
[2023-12-29] MEDS: ASPirin-EC 81 mg tab PO SCH (07:25)
[2023-12-29 07:31] LABS: Glucose 219 mg/dL (74-106)
[2023-12-29] MEDS: HYDROcodone-ACET 5/325MG TAB PO PRN (15:54)
[2023-12-29] MEDS: THROAT LOZENGES(CEPASTAT) MT PRN (22:38)
[2023-12-30] VITALS (18 sets, daily range): BP systolic 99–134; BP diastolic 54–82; PULSE 68–85; RESP 16–80; TEMP 97.6–98; O2SAT 19–99
[2023-12-30] MEDS: LEVOTHYROXINE PO SCH (08:58)
[2023-12-30] MEDS: [UNRECOGNIZED DRUG - OTHER] PO SCH (08:58)
[2023-12-30 11:12] LABS: Hemoglobin 12.8 g/dL (13.5-17.5)
[2023-12-30 11:15] LABS: Hematocrit 37.5 % (41.0-53.0); Mean Corpuscular Hgb Conc. 34.1 g/dL (32.0-36.0); Mean Corpuscular Volume 102.5 fL (80.0-100.0); Red Blood Cells 3.66 10^6/uL (4.5-5.90); Red Cell Distribution Width 15.6 % (11.8-14.3); White Blood Cell 12.8 10^3/uL (4.4-10.8)
[2023-12-30 11:20] LABS: Chloride 105 mmol/L (98-107); Potassium 4.3 mmol/L (3.5-5.1); Sodium 136 mmol/L (136-145)
[2023-12-30 11:21] LABS: Anion Gap 5 (5-15); Carbon Dioxide 26 mmol/L (20-30)
[2023-12-30 11:22] LABS: Calcium 9.1 mg/dL (8.5-10.1)
[2023-12-30 11:26] LABS: BUN/Creatinine Ratio 20.4 (10.0-20.0); Blood Urea Nitrogen 33 mg/dL (9-23)
[2023-12-30 11:31] LABS: Glucose 325 mg/dL (74-106)
[2023-12-30 12:10] LABS: Band Neutrophils % (manual) 0; Basophils % (manual) 0 (0.0-2.0); Blast Cells 0; Eosinophils % (manual) 0 (0-7); Metamyelocytes % 0; Myelocytes % 0; Promyelocytes % 0; Reactive Lymphocytes 0
[2023-12-30] MEDS: metOLazone 5 MG TAB PO SCH (12:52)
[2023-12-30] MEDS: MILRINONE 20MG/100ML 100 ML IV SCH (13:00)
[2023-12-30 14:44] LABS: Lymphocytes % (manual) 6 (10.0-50.0); Monocytes % (manual) 6 (0-12)
[2023-12-30 14:45] LABS: Macrocytosis Slight; Platelet Estimate Adequate
[2023-12-30] MEDS ORDERED: RANO10003 PO (15:59)
[2023-12-30] MEDS ORDERED: LEVO200T7 PO (16:00)
[2023-12-30] MEDS: FUROSEMIDE 100 MG/10ML VIAL IV SCH (21:08)
[2023-12-31] VITALS (23 sets, daily range): BP systolic 106–118; BP diastolic 53–62; PULSE 64–75; RESP 17–20; TEMP 97.9–98.3; O2SAT 87–100
[2023-12-31] MEDS: DOCUSATE SOD 100 MG CAP PO SCH (21:57)
[2023-12-31] MEDS: POLYETHYLENE GLYCOL 17 GM PWDR PO PRN (21:57)
[2023-12-31] MEDS: ACETYLCYSTEINE 20%(200MG/ML) SOL 4ML NEB SCH (22:10)
[2024-01-01] VITALS (20 sets, daily range): BP systolic 105–131; BP diastolic 42–70; PULSE 58–93; RESP 16–20; TEMP 97.5–98.2; O2SAT 86–99
[2024-01-02] VITALS (19 sets, daily range): BP systolic 95–111; BP diastolic 45–56; PULSE 60–72; RESP 16–20; TEMP 97.3–97.9; O2SAT 92–98
[2024-01-02] MEDS: SORE THROAT SPRAY 6OZ BOTTLE MT PRN (09:05)
[2024-01-02] MEDS: BUMETANIDE 2.5mg/10ml (0.25 mg/ml) INJ IV SCH (10:00)
[2024-01-02] MEDS: LEVOTHYROXINE SODIUM 50 MCG TAB PO SCH (10:36)
[2024-01-02 10:59] LABS: Calcium 9.3 mg/dL (8.5-10.1); Potassium 3.4 mmol/L (3.5-5.1)
[2024-01-02 11:00] LABS: Anion Gap 6 (5-15); Carbon Dioxide 33 mmol/L (20-30)
[2024-01-02 11:05] LABS: Blood Urea Nitrogen 53 mg/dL (9-23)
[2024-01-02 11:12] LABS: Chloride 88 mmol/L (98-107); Sodium 127 mmol/L (136-145)
[2024-01-02 11:14] LABS: Glucose 664 mg/dL (74-106)
[2024-01-02] MEDS ORDERED: DEXTROSE (50%) 50ML SYRG IV PRN (11:45)
[2024-01-02] MEDS: InsuLIN REG 1unit/0.01ml Soln (100units/ml) SC ONE ×2 (11:49→17:18)
[2024-01-02] MEDS: MILRINONE 20MG/100ML 100 ML IV SCH (15:30)
[2024-01-02] MEDS: POTASSIUM EFFERVESENT TAB 25 MEQ PO ONE (16:34)
[2024-01-02] MEDS: ACCU-CHEK COMFORT CURVE STRIP VI SCH (16:34)
[2024-01-02] MEDS: InsuLIN REG 1unit/0.01ml Soln (100units/ml) SC SCH ×2 (16:50→22:28)
[2024-01-02] MEDS: ACETAMINOPHEN 325 MG TAB PO PRN (19:02)
[2024-01-02] MEDS: LACTULOSE 20Gm/30ML SOLN PO SCH (22:42)
[2024-01-03] VITALS (22 sets, daily range): BP systolic 95–129; BP diastolic 45–60; PULSE 18–74; RESP 14–22; TEMP 97.7–98.3; O2SAT 90–100
[2024-01-03 06:32] LABS: Basophils # (auto) 0 10 ^3/uL (0-0.2); Basophils % (auto) 0.1 % (0.0-2.0); Eosinophils # (auto) 0 10 ^3/uL (0-0.8); Hematocrit 41.7 % (41.0-53.0); Hemoglobin 14.5 g/dL (13.5-17.5); Lymphocytes # (auto) 0.7 10 ^3/uL (0.4-5.4); Lymphocytes % (auto) 4.5 % (10.0-50.0); Mean Corpuscular Hemoglobin 34.7 pg (28.0-32.0); Mean Corpuscular Hgb Conc. 34.8 g/dL (32.0-36.0); Mean Corpuscular Volume 99.7 fL (80.0-100.0); Monocytes # (auto) 1.4 10 ^3/uL (0-1.3); Monocytes % (auto) 9.3 % (0.0-12.0); Neutrophils # (auto) 13.1 10 ^3/uL (1.6-8.6); Neutrophils % (auto) 86.1 % (37.0-80.0); Nucleated Red Blood Cells % 0.1 %; Red Blood Cells 4.18 10^6/uL (4.5-5.90); Red Cell Distribution Width 14.9 % (11.8-14.3); White Blood Cell 15.2 10^3/uL (4.4-10.8)
[2024-01-03 06:34] LABS: Anion Gap 4 (5-15); Carbon Dioxide 36 mmol/L (20-30); Chloride 90 mmol/L (98-107); Potassium 3.5 mmol/L (3.5-5.1); Sodium 130 mmol/L (136-145)
[2024-01-03 06:40] LABS: BUN/Creatinine Ratio 33.3 (10.0-20.0); Blood Urea Nitrogen 59 mg/dL (9-23); Glucose 285 mg/dL (74-106)
[2024-01-03] MEDS: POTASSIUM EFFERVESENT TAB 25 MEQ PO ONE (14:05)
[2024-01-03] MEDS: ceFAZolin 1GM/50ML 50 ML IV SCH (14:07)
[2024-01-04] VITALS (18 sets, daily range): BP systolic 90–107; BP diastolic 41–63; PULSE 70–92; RESP 14–72; TEMP 36.6; O2SAT 90–100
[2024-01-04 06:00] LABS: Chloride 87 mmol/L (98-107); Potassium 3.3 mmol/L (3.5-5.1); Sodium 130 mmol/L (136-145)
[2024-01-04 06:06] LABS: BUN/Creatinine Ratio 34.8 (10.0-20.0); Blood Urea Nitrogen 57 mg/dL (9-23); Glucose 282 mg/dL (74-106)
[2024-01-04 06:11] LABS: Anion Gap 2.99999 (5-15)
[2024-01-04 06:14] LABS: Carbon Dioxide > 40 mmol/L (20-30)
[2024-01-04] MEDS: POTASSIUM EFFERVESENT TAB 25 MEQ PO ONE (09:39)
[2024-01-04] MEDS: JARDIANCE 25 MG PO SCH (09:40)
[2024-01-04 14:25] LABS: Base Excess 12.9 mmol/L (-2.0-2.0)
== END 2024-01-04 20:35 | disposition home or self-care (01) | DRG 291 ==
LOC: ER 11:36 → TELE 16:11 → TELE-EAST 12-29 14:06
PROVIDERS: ADMIT Nurse Practitioner Family; ATTEND Internal Medicine Cardiovascular Disease
DX: I11.0 Hypertensive heart disease with heart failure (principal); I50.43 Acute on chronic combined systolic (congestive) and diastolic (congestive) heart failure; J96.01 Acute respiratory failure with hypoxia; J44.1 Chronic obstructive pulmonary disease with (acute) exacerbation; J98.11 Atelectasis; I48.20 Chronic atrial fibrillation, unspecified; Z68.35 Body mass index [BMI] 35.0-35.9, adult; J43.9 Emphysema, unspecified; D69.6 Thrombocytopenia, unspecified; E03.9 Hypothyroidism, unspecified; E11.40 Type 2 diabetes mellitus with diabetic neuropathy, unspecified; E11.65 Type 2 diabetes mellitus with hyperglycemia; E66.9 Obesity, unspecified; E78.00 Pure hypercholesterolemia, unspecified; G47.33 Obstructive sleep apnea (adult) (pediatric); I25.10 Atherosclerotic heart disease of native coronary artery without angina pectoris; I25.5 Ischemic cardiomyopathy; E11.51 Type 2 diabetes mellitus with diabetic peripheral angiopathy without gangrene; K59.00 Constipation, unspecified; F17.210 Nicotine dependence, cigarettes, uncomplicated; E11.21 Type 2 diabetes mellitus with diabetic nephropathy; I25.2 Old myocardial infarction; Z95.1 Presence of aortocoronary bypass graft; Z95.810 Presence of automatic (implantable) cardiac defibrillator; Z79.01 Long term (current) use of anticoagulants; Z87.01 Personal history of pneumonia (recurrent); Z82.49 Family history of ischemic heart disease and other diseases of the circulatory system; Z83.3 Family history of diabetes mellitus; Z79.4 Long term (current) use of insulin; Z68.31 Body mass index [BMI] 31.0-31.9, adult
CPT/HCPCS: 36415; 36600; 71045; 71275; 80048; 80053; 82805; 82962; 83605; 83880; 84484; 85007; 85025; 85027; 85379; 85610; 85730; 87040; 93005; 94640; 97110; 97116; 97163; 97530; G0378; J1815

== ENCOUNTER → 2024-01-06 | Outpatient (CLI) | payer MEDICARE, OTHER ==
[~2024-01-06] MED LIST changes: +LEVO200T7 PO; -RANO1000 PO; +RANO10003 PO
[2024-01-06 12:15] LABS: Basophils # (auto) 0 10 ^3/uL (0-0.2); Basophils % (auto) 0.4 % (0.0-2.0); Eosinophils # (auto) 0.1 10 ^3/uL (0-0.8); Hematocrit 41.2 % (41.0-53.0); Lymphocytes # (auto) 1.2 10 ^3/uL (0.4-5.4); Neutrophils # (auto) 5.6 10 ^3/uL (1.6-8.6); Neutrophils % (auto) 69.8 % (37.0-80.0)
[2024-01-06 12:17] LABS: Eosinophils % (auto) 1.6 % (0.0-7.0); Hemoglobin 14.4 g/dL (13.5-17.5); Lymphocytes % (auto) 15.4 % (10.0-50.0); Mean Corpuscular Hemoglobin 35.2 pg (28.0-32.0); Mean Corpuscular Hgb Conc. 35.1 g/dL (32.0-36.0); Mean Corpuscular Volume 100.4 fL (80.0-100.0); Monocytes % (auto) 12.8 % (0.0-12.0); Nucleated Red Blood Cells % 0.1 %; Red Cell Distribution Width 14.9 % (11.8-14.3); White Blood Cell 8.1 10^3/uL (4.4-10.8)
[2024-01-06 12:28] LABS: Chloride 93 mmol/L (98-107); Potassium 3.9 mmol/L (3.5-5.1); Sodium 131 mmol/L (136-145)
[2024-01-06 12:29] LABS: Anion Gap 1 (5-15); Carbon Dioxide 37 mmol/L (20-30)
[2024-01-06 12:30] LABS: Calcium 8.7 mg/dL (8.5-10.1)
[2024-01-06 12:34] LABS: Glucose 277 mg/dL (74-106)
[2024-01-06 12:35] LABS: BUN/Creatinine Ratio 35.7 (10.0-20.0); Blood Urea Nitrogen 55 mg/dL (9-23); Magnesium 2.6 mg/dL (1.6-2.6)
== END | disposition home or self-care (01) ==
LOC: LAB 11:30
PROVIDERS: ATTEND Internal Medicine Cardiovascular Disease
DX: I50.43 Acute on chronic combined systolic (congestive) and diastolic (congestive) heart failure (principal)
CPT/HCPCS: 36415; 80048; 83735; 83880; 85025

== ENCOUNTER → 2024-01-06 | Outpatient (CLI) | payer MEDICARE, OTHER ==
[2024-01-06] MEDS: DOPamine 1600MCG/ML D5W 250 ML IV SCH (12:30)
[2024-01-06] MEDS: DOPamine 1600MCG/ML D5W 250 ML IV ONE (14:43)
[2024-01-06 14:53] VITALS: BP 98/53; PULSE 70
[2024-01-06 15:10] VITALS: BP 88/51; PULSE 70
[2024-01-06 15:25] VITALS: BP 101/50; PULSE 70
[2024-01-06] MEDS: ALBUMIN 25% 100 ML IV ONE ×2 (17:21→17:30)
[2024-01-06 18:00] VITALS: BP 103/59; PULSE 73; RESP 18; O2SAT 97
== END | disposition home or self-care (01) ==
LOC: Rad HDHVI 12:32
PROVIDERS: ATTEND Internal Medicine Cardiovascular Disease
DX: I11.0 Hypertensive heart disease with heart failure (principal); I50.43 Acute on chronic combined systolic (congestive) and diastolic (congestive) heart failure; I25.10 Atherosclerotic heart disease of native coronary artery without angina pectoris; I48.20 Chronic atrial fibrillation, unspecified; J44.9 Chronic obstructive pulmonary disease, unspecified; E03.9 Hypothyroidism, unspecified; I25.2 Old myocardial infarction; E78.00 Pure hypercholesterolemia, unspecified; E11.40 Type 2 diabetes mellitus with diabetic neuropathy, unspecified; E11.51 Type 2 diabetes mellitus with diabetic peripheral angiopathy without gangrene; F17.210 Nicotine dependence, cigarettes, uncomplicated; Z79.01 Long term (current) use of anticoagulants; Z79.4 Long term (current) use of insulin
CPT/HCPCS: 71046; 96365; 96367; G0463; J1265; P9047; 96366

== ENCOUNTER → 2024-01-08 | Outpatient (CLI) | payer MEDICARE, OTHER ==
[2024-01-08] VITALS (10 sets, daily range): BP systolic 88–110; BP diastolic 30–57; PULSE 69–70; RESP 20; O2SAT 97
[~2024-01-08] MED LIST changes: +CYANOCOBALAMIN (B-12) 1000 MCG/1 ML VIAL IM ONE
[2024-01-08] MEDS: DOBUTamine 1000MCG/ML 250 ML IV ONE ×2 (09:40→10:35)
[2024-01-08] MEDS: CYANOCOBALAMIN (B-12) 1000 MCG/1 ML VIAL ONE (12:45)
== END | disposition home or self-care (01) ==
LOC: CHF HDHVI 09:35
PROVIDERS: ATTEND Internal Medicine Cardiovascular Disease
DX: I11.0 Hypertensive heart disease with heart failure (principal); I50.43 Acute on chronic combined systolic (congestive) and diastolic (congestive) heart failure; I25.10 Atherosclerotic heart disease of native coronary artery without angina pectoris; I25.5 Ischemic cardiomyopathy; I48.20 Chronic atrial fibrillation, unspecified; J43.9 Emphysema, unspecified; E11.40 Type 2 diabetes mellitus with diabetic neuropathy, unspecified; E11.51 Type 2 diabetes mellitus with diabetic peripheral angiopathy without gangrene; E78.00 Pure hypercholesterolemia, unspecified; E03.9 Hypothyroidism, unspecified; Z79.4 Long term (current) use of insulin; Z79.01 Long term (current) use of anticoagulants; Z87.891 Personal history of nicotine dependence; Z95.810 Presence of automatic (implantable) cardiac defibrillator
CPT/HCPCS: 96365; 96366; 96372; G0463; J1250; J3420

== ENCOUNTER → 2024-01-14 | Outpatient (CLI) | payer MEDICARE, OTHER ==
[2024-01-14] VITALS (12 sets, daily range): BP systolic 69–113; BP diastolic 31–59; PULSE 69–74; RESP 18; O2SAT 95
[~2024-01-14] MED LIST changes: -CYANOCOBALAMIN (B-12) 1000 MCG/1 ML VIAL IM ONE
[2024-01-14] MEDS: DOBUTamine 1000MCG/ML 250 ML IV ONE ×2 (08:55→09:16)
[2024-01-14] MEDS: ALBUMIN 25% 100 ML IV ONE ×2 (09:28→09:30)
[2024-01-14] MEDS: ACETAMINOPHEN 500 MG TAB PO ONE ×2 (10:46→10:47)
== END | disposition home or self-care (01) ==
LOC: CHF HDHVI 08:57
PROVIDERS: ATTEND Internal Medicine Cardiovascular Disease
DX: I11.0 Hypertensive heart disease with heart failure (principal); I50.43 Acute on chronic combined systolic (congestive) and diastolic (congestive) heart failure; I95.9 Hypotension, unspecified; I25.10 Atherosclerotic heart disease of native coronary artery without angina pectoris; I25.5 Ischemic cardiomyopathy; I48.20 Chronic atrial fibrillation, unspecified; J43.9 Emphysema, unspecified; E11.40 Type 2 diabetes mellitus with diabetic neuropathy, unspecified; E11.51 Type 2 diabetes mellitus with diabetic peripheral angiopathy without gangrene; E03.9 Hypothyroidism, unspecified; Z79.899 Other long term (current) drug therapy; Z87.891 Personal history of nicotine dependence; Z95.810 Presence of automatic (implantable) cardiac defibrillator
CPT/HCPCS: 96365; 96366; 96367; G0463; J1250; P9047

== ENCOUNTER → 2024-01-17 | Outpatient (CLI) | payer MEDICARE, OTHER ==
[2024-01-17] VITALS (9 sets, daily range): BP systolic 90–120; BP diastolic 44–81; PULSE 69–72; RESP 16; O2SAT 99
[2024-01-17] MEDS: DOBUTamine 1000MCG/ML 250 ML IV ONE ×2 (09:00→09:07)
== END | disposition home or self-care (01) ==
LOC: CHF HDHVI 08:53
PROVIDERS: ATTEND Internal Medicine Cardiovascular Disease
DX: I11.0 Hypertensive heart disease with heart failure (principal); I50.43 Acute on chronic combined systolic (congestive) and diastolic (congestive) heart failure; I25.10 Atherosclerotic heart disease of native coronary artery without angina pectoris; I25.2 Old myocardial infarction; I25.5 Ischemic cardiomyopathy; I48.20 Chronic atrial fibrillation, unspecified; J43.9 Emphysema, unspecified; E11.40 Type 2 diabetes mellitus with diabetic neuropathy, unspecified; E11.51 Type 2 diabetes mellitus with diabetic peripheral angiopathy without gangrene; E78.00 Pure hypercholesterolemia, unspecified; E03.9 Hypothyroidism, unspecified; Z95.810 Presence of automatic (implantable) cardiac defibrillator; Z87.891 Personal history of nicotine dependence; Z79.01 Long term (current) use of anticoagulants; Z79.4 Long term (current) use of insulin; Z79.899 Other long term (current) drug therapy
CPT/HCPCS: 96365; 96366; G0463; J1250

== ENCOUNTER → 2024-01-20 | Outpatient (CLI) | payer MEDICARE, OTHER ==
[2024-01-20] VITALS (9 sets, daily range): BP systolic 97–129; BP diastolic 52–58; PULSE 69–70; RESP 20; O2SAT 93
[~2024-01-20] MED LIST changes: +DOBUTamine 1000MCG/ML 250 ML IV SCH
[2024-01-20] MEDS: DOBUTamine 1000MCG/ML 250 ML IV ONE ×2 (09:15→09:18)
== END | disposition home or self-care (01) ==
LOC: CHF HDHVI 08:54
PROVIDERS: ATTEND Internal Medicine Cardiovascular Disease
DX: I11.0 Hypertensive heart disease with heart failure (principal); I50.23 Acute on chronic systolic (congestive) heart failure; I25.5 Ischemic cardiomyopathy; I25.10 Atherosclerotic heart disease of native coronary artery without angina pectoris; I48.20 Chronic atrial fibrillation, unspecified; J43.9 Emphysema, unspecified; E03.9 Hypothyroidism, unspecified; I25.2 Old myocardial infarction; E78.00 Pure hypercholesterolemia, unspecified; E11.40 Type 2 diabetes mellitus with diabetic neuropathy, unspecified; E11.51 Type 2 diabetes mellitus with diabetic peripheral angiopathy without gangrene; Z79.01 Long term (current) use of anticoagulants; Z79.4 Long term (current) use of insulin; Z87.891 Personal history of nicotine dependence; Z95.810 Presence of automatic (implantable) cardiac defibrillator; Z79.899 Other long term (current) drug therapy
CPT/HCPCS: 96365; 96366; G0463; J1250

== ENCOUNTER → 2024-01-22 | Outpatient (CLI) | payer MEDICARE, OTHER ==
[2024-01-22] VITALS (10 sets, daily range): BP systolic 96–138; BP diastolic 46–76; PULSE 70–72; RESP 16; O2SAT 6–96
[~2024-01-22] MED LIST changes: -DOBUTamine 1000MCG/ML 250 ML IV SCH
[2024-01-22] MEDS: DOBUTamine 1000MCG/ML 250 ML IV ONE ×2 (08:36→08:47)
== END | disposition home or self-care (01) ==
LOC: CHF HDHVI 08:31
PROVIDERS: ATTEND Internal Medicine Cardiovascular Disease
DX: I11.0 Hypertensive heart disease with heart failure (principal); I50.43 Acute on chronic combined systolic (congestive) and diastolic (congestive) heart failure; I25.5 Ischemic cardiomyopathy; I25.10 Atherosclerotic heart disease of native coronary artery without angina pectoris; I48.20 Chronic atrial fibrillation, unspecified; E03.9 Hypothyroidism, unspecified; I25.2 Old myocardial infarction; E78.00 Pure hypercholesterolemia, unspecified; E11.40 Type 2 diabetes mellitus with diabetic neuropathy, unspecified; E11.51 Type 2 diabetes mellitus with diabetic peripheral angiopathy without gangrene; J44.9 Chronic obstructive pulmonary disease, unspecified; Z79.01 Long term (current) use of anticoagulants; Z79.4 Long term (current) use of insulin; Z79.899 Other long term (current) drug therapy; Z87.891 Personal history of nicotine dependence; Z95.810 Presence of automatic (implantable) cardiac defibrillator
CPT/HCPCS: 96365; 96366; G0463; J1250

== ENCOUNTER → 2024-01-28 | Outpatient (CLI) | payer MEDICARE, OTHER ==
[2024-01-28] VITALS (10 sets, daily range): BP systolic 104–122; BP diastolic 52–64; PULSE 69–70; RESP 18; O2SAT 97
[2024-01-28] MEDS: DOBUTamine 1000MCG/ML 250 ML IV ONE ×2 (08:57→09:09)
== END | disposition home or self-care (01) ==
LOC: CHF HDHVI 08:55
PROVIDERS: ATTEND Internal Medicine Cardiovascular Disease
DX: I11.0 Hypertensive heart disease with heart failure (principal); I50.43 Acute on chronic combined systolic (congestive) and diastolic (congestive) heart failure; I25.10 Atherosclerotic heart disease of native coronary artery without angina pectoris; I25.5 Ischemic cardiomyopathy; I25.2 Old myocardial infarction; I48.20 Chronic atrial fibrillation, unspecified; J43.9 Emphysema, unspecified; E11.42 Type 2 diabetes mellitus with diabetic polyneuropathy; E11.51 Type 2 diabetes mellitus with diabetic peripheral angiopathy without gangrene; Z79.01 Long term (current) use of anticoagulants; Z79.4 Long term (current) use of insulin; Z87.891 Personal history of nicotine dependence; Z95.810 Presence of automatic (implantable) cardiac defibrillator
CPT/HCPCS: 96365; 96366; G0463; J1250

== ENCOUNTER → 2024-01-28 | Outpatient (CLI) | payer MEDICARE, OTHER ==
[2024-01-28 13:09] LABS: Basophils # (auto) 0 10 ^3/uL (0-0.2); Basophils % (auto) 0.7 % (0.0-2.0); Eosinophils # (auto) 0.1 10 ^3/uL (0-0.8); Eosinophils % (auto) 1.5 % (0.0-7.0); Hematocrit 35.7 % (41.0-53.0); Lymphocytes # (auto) 1.7 10 ^3/uL (0.4-5.4); Lymphocytes % (auto) 34.1 % (10.0-50.0); Mean Corpuscular Hgb Conc. 33.7 g/dL (32.0-36.0); Mean Corpuscular Volume 100.9 fL (80.0-100.0); Monocytes # (auto) 0.7 10 ^3/uL (0-1.3); Monocytes % (auto) 14.1 % (0.0-12.0); Neutrophils # (auto) 2.5 10 ^3/uL (1.6-8.6); Neutrophils % (auto) 49.6 % (37.0-80.0); Nucleated Red Blood Cells % 0.2 %; Red Blood Cells 3.53 10^6/uL (4.5-5.90); Red Cell Distribution Width 14.9 % (11.8-14.3)
[2024-01-28 13:35] LABS: Alanine Aminotransferase 167 U/L (7-40); Alkaline Phosphatase 78 U/L (46-116); Anion Gap 2 (5-15); Aspartate Aminotransferase 100 U/L (13-40); BUN/Creatinine Ratio 19.5 (10.0-20.0); Blood Urea Nitrogen 26 mg/dL (9-23); Calcium 9.2 mg/dL (8.5-10.1); Carbon Dioxide 33 mmol/L (20-30); Chloride 105 mmol/L (98-107); Glucose 57 mg/dL (74-106); Magnesium 1.9 mg/dL (1.6-2.6); Potassium 4.4 mmol/L (3.5-5.1); Sodium 140 mmol/L (136-145)
[2024-01-28 13:36] LABS: Bilirubin, Total 0.5 mg/dL (0.2-1.0)
[2024-01-28 13:37] LABS: Total Protein 6.4 g/dL (5.7-8.2)
== END | disposition home or self-care (01) ==
LOC: LAB 12:55
PROVIDERS: ATTEND Internal Medicine Cardiovascular Disease
DX: I11.0 Hypertensive heart disease with heart failure (principal); I50.43 Acute on chronic combined systolic (congestive) and diastolic (congestive) heart failure; D64.9 Anemia, unspecified
CPT/HCPCS: 36415; 80053; 83735; 83880; 85025

== ENCOUNTER → 2024-01-31 | Outpatient (CLI) | payer MEDICARE, OTHER ==
[2024-01-31] VITALS (9 sets, daily range): BP systolic 100–119; BP diastolic 55–76; PULSE 70–74; RESP 16; O2SAT 97–99
[2024-01-31] MEDS: DOBUTamine 1000MCG/ML 250 ML IV ONE ×2 (08:51→08:58)
== END | disposition home or self-care (01) ==
LOC: CHF HDHVI 08:29
PROVIDERS: ATTEND Internal Medicine Cardiovascular Disease
DX: I11.0 Hypertensive heart disease with heart failure (principal); I50.23 Acute on chronic systolic (congestive) heart failure; I25.5 Ischemic cardiomyopathy; I25.10 Atherosclerotic heart disease of native coronary artery without angina pectoris; I25.2 Old myocardial infarction; I48.0 Paroxysmal atrial fibrillation; E11.42 Type 2 diabetes mellitus with diabetic polyneuropathy; E11.51 Type 2 diabetes mellitus with diabetic peripheral angiopathy without gangrene; J44.9 Chronic obstructive pulmonary disease, unspecified; E03.9 Hypothyroidism, unspecified; Z87.891 Personal history of nicotine dependence; Z95.810 Presence of automatic (implantable) cardiac defibrillator; Z79.01 Long term (current) use of anticoagulants; Z79.4 Long term (current) use of insulin; E78.00 Pure hypercholesterolemia, unspecified; Z79.899 Other long term (current) drug therapy; Z95.1 Presence of aortocoronary bypass graft
CPT/HCPCS: 96365; 96366; G0463; J1250

== ENCOUNTER → 2024-02-04 | Outpatient (CLI) | payer MEDICARE, OTHER ==
[2024-02-04] VITALS (10 sets, daily range): BP systolic 98–127; BP diastolic 47–77; PULSE 69–71; RESP 20; O2SAT 97
[2024-02-04] MEDS: DOBUTamine 1000MCG/ML 250 ML IV ONE ×2 (09:00→09:23)
== END | disposition home or self-care (01) ==
LOC: CHF HDHVI 09:09
PROVIDERS: ATTEND Internal Medicine Cardiovascular Disease
DX: I11.0 Hypertensive heart disease with heart failure (principal); I50.43 Acute on chronic combined systolic (congestive) and diastolic (congestive) heart failure; I25.10 Atherosclerotic heart disease of native coronary artery without angina pectoris; I25.5 Ischemic cardiomyopathy; I25.2 Old myocardial infarction; I48.0 Paroxysmal atrial fibrillation; J43.9 Emphysema, unspecified; E11.51 Type 2 diabetes mellitus with diabetic peripheral angiopathy without gangrene; E11.42 Type 2 diabetes mellitus with diabetic polyneuropathy; Z95.810 Presence of automatic (implantable) cardiac defibrillator; Z87.891 Personal history of nicotine dependence
CPT/HCPCS: 96365; 96366; G0463; J1250

== ENCOUNTER → 2024-02-07 | Outpatient (CLI) | payer MEDICARE, OTHER ==
[2024-02-07] VITALS (9 sets, daily range): BP systolic 100–125; BP diastolic 48–65; PULSE 69–70; RESP 18–20; O2SAT 96–98
[~2024-02-07] MED LIST changes: +IODIXANOL 320MG/ML 100ML BTL IV ONE
[2024-02-07] MEDS: DOBUTamine 1000MCG/ML 250 ML IV ONE ×2 (09:01→09:10)
[2024-02-07] MEDS: diphenhdrAMINE HCL 50 MG/1 ML VL ONE (12:26)
[2024-02-07] MEDS: diphenhdrAMINE HCL 50 MG/1 ML VL IV ONE (12:28)
[2024-02-07] MEDS: methylPREDNISolone SOD SUCC 125 MG/2 ML VL ONE (12:31)
[2024-02-07] MEDS: methylPREDNISolone SOD SUCC 125 MG/2 ML VL IV ONE (12:32)
== END | disposition home or self-care (01) ==
LOC: CHF HDHVI 08:55
PROVIDERS: ATTEND Internal Medicine Cardiovascular Disease
DX: I11.0 Hypertensive heart disease with heart failure (principal); I50.43 Acute on chronic combined systolic (congestive) and diastolic (congestive) heart failure; J43.9 Emphysema, unspecified; I25.10 Atherosclerotic heart disease of native coronary artery without angina pectoris; I25.5 Ischemic cardiomyopathy; I25.2 Old myocardial infarction; I48.0 Paroxysmal atrial fibrillation; E11.42 Type 2 diabetes mellitus with diabetic polyneuropathy; E11.51 Type 2 diabetes mellitus with diabetic peripheral angiopathy without gangrene; Z87.891 Personal history of nicotine dependence; Z95.810 Presence of automatic (implantable) cardiac defibrillator
CPT/HCPCS: 71260; 96365; 96366; 96375; G0463; J1200; J1250; J2919; Q9967

== ENCOUNTER → 2024-02-10 | Outpatient (CLI) | payer MEDICARE, OTHER ==
[2024-02-10] VITALS (10 sets, daily range): BP systolic 110–131; BP diastolic 53–70; PULSE 69–70; RESP 18; O2SAT 98
[~2024-02-10] MED LIST changes: -IODIXANOL 320MG/ML 100ML BTL IV ONE
[2024-02-10] MEDS: DOBUTamine 1000MCG/ML 250 ML IV ONE (09:42)
[2024-02-10] MEDS: DOBUTamine 1000MCG/ML 250 ML IV SCH (09:47)
== END | disposition home or self-care (01) ==
LOC: CHF HDHVI 09:35
PROVIDERS: ATTEND Internal Medicine Cardiovascular Disease
DX: I11.0 Hypertensive heart disease with heart failure (principal); I50.43 Acute on chronic combined systolic (congestive) and diastolic (congestive) heart failure; I25.10 Atherosclerotic heart disease of native coronary artery without angina pectoris; I25.5 Ischemic cardiomyopathy; I25.2 Old myocardial infarction; I48.0 Paroxysmal atrial fibrillation; E11.42 Type 2 diabetes mellitus with diabetic polyneuropathy; E11.51 Type 2 diabetes mellitus with diabetic peripheral angiopathy without gangrene; Z87.891 Personal history of nicotine dependence; Z95.810 Presence of automatic (implantable) cardiac defibrillator
CPT/HCPCS: 96365; 96366; G0463; J1250

== ENCOUNTER → 2024-02-11 | Outpatient (CLI) | payer MEDICARE, OTHER ==
[2024-02-11 11:21] LABS: Basophils # (auto) 0 10 ^3/uL (0-0.2); Eosinophils # (auto) 0.1 10 ^3/uL (0-0.8); Lymphocytes # (auto) 1.3 10 ^3/uL (0.4-5.4); Monocytes # (auto) 0.7 10 ^3/uL (0-1.3); Nucleated Red Blood Cells % 0.1 %
[2024-02-11 11:23] LABS: Basophils % (auto) 0.4 % (0.0-2.0); Eosinophils % (auto) 1.3 % (0.0-7.0); Hematocrit 34.5 % (41.0-53.0); Hemoglobin 11.8 g/dL (13.5-17.5); Lymphocytes % (auto) 19.5 % (10.0-50.0); Mean Corpuscular Hemoglobin 34.7 pg (28.0-32.0); Mean Corpuscular Hgb Conc. 34.3 g/dL (32.0-36.0); Mean Corpuscular Volume 101.1 fL (80.0-100.0); Monocytes % (auto) 9.9 % (0.0-12.0); Neutrophils # (auto) 4.7 10 ^3/uL (1.6-8.6); Neutrophils % (auto) 68.9 % (37.0-80.0); Red Blood Cells 3.41 10^6/uL (4.5-5.90); Red Cell Distribution Width 15.4 % (11.8-14.3); White Blood Cell 6.8 10^3/uL (4.4-10.8)
[2024-02-11 11:55] LABS: Alanine Aminotransferase 85 U/L (7-40); Albumin 3.8 g/dL (3.2-4.8); Alkaline Phosphatase 80 U/L (46-116); Anion Gap 3 (5-15); Aspartate Aminotransferase 34 U/L (13-40); Blood Urea Nitrogen 24 mg/dL (9-23); Calcium 9.1 mg/dL (8.7-10.4); Carbon Dioxide 34 mmol/L (20-30); Chloride 104 mmol/L (98-107); Glucose 175 mg/dL (74-106); Magnesium 2.2 mg/dL (1.6-2.6); Potassium 4.5 mmol/L (3.5-5.1); Sodium 141 mmol/L (136-145)
[2024-02-11 11:56] LABS: Bilirubin, Total 0.8 mg/dL (0.2-1.0); Total Protein 6.1 g/dL (5.7-8.2)
== END | disposition home or self-care (01) ==
LOC: LAB 11:07
PROVIDERS: ATTEND Internal Medicine Cardiovascular Disease
DX: I50.43 Acute on chronic combined systolic (congestive) and diastolic (congestive) heart failure (principal)
CPT/HCPCS: 36415; 80053; 83735; 83880; 85025

== ENCOUNTER → 2024-02-12 | Outpatient (CLI) | payer MEDICARE, OTHER ==
[2024-02-12] VITALS (10 sets, daily range): BP systolic 96–138; BP diastolic 51–63; PULSE 69–72; RESP 18; O2SAT 98
[2024-02-12] MEDS: DOBUTamine 1000MCG/ML 250 ML IV ONE ×2 (09:05→09:13)
== END | disposition home or self-care (01) ==
LOC: CHF HDHVI 09:01
PROVIDERS: ATTEND Internal Medicine Cardiovascular Disease
DX: I11.0 Hypertensive heart disease with heart failure (principal); I50.43 Acute on chronic combined systolic (congestive) and diastolic (congestive) heart failure; I25.5 Ischemic cardiomyopathy; I25.10 Atherosclerotic heart disease of native coronary artery without angina pectoris; I25.2 Old myocardial infarction; I48.0 Paroxysmal atrial fibrillation; J43.9 Emphysema, unspecified; E11.42 Type 2 diabetes mellitus with diabetic polyneuropathy; E11.51 Type 2 diabetes mellitus with diabetic peripheral angiopathy without gangrene; E78.00 Pure hypercholesterolemia, unspecified; Z79.4 Long term (current) use of insulin; Z79.01 Long term (current) use of anticoagulants; Z87.891 Personal history of nicotine dependence; Z95.810 Presence of automatic (implantable) cardiac defibrillator
CPT/HCPCS: 96365; 96366; G0463; J1250

== ENCOUNTER → 2024-02-17 | Outpatient (CLI) | payer MEDICARE, OTHER ==
[2024-02-17] VITALS (10 sets, daily range): BP systolic 114–166; BP diastolic 52–82; PULSE 69–70; RESP 18; O2SAT 96
[2024-02-17] MEDS: DOPamine 1600MCG/ML D5W 250 ML IV ONE (10:35)
[2024-02-17] MEDS: DOBUTamine 1000MCG/ML 250 ML IV ONE (10:36)
== END | disposition home or self-care (01) ==
LOC: CHF HDHVI 10:03
PROVIDERS: ATTEND Internal Medicine Cardiovascular Disease
DX: I11.0 Hypertensive heart disease with heart failure (principal); I50.23 Acute on chronic systolic (congestive) heart failure; I25.5 Ischemic cardiomyopathy; I25.10 Atherosclerotic heart disease of native coronary artery without angina pectoris; J43.9 Emphysema, unspecified; I25.2 Old myocardial infarction; I48.0 Paroxysmal atrial fibrillation; E78.00 Pure hypercholesterolemia, unspecified; E11.42 Type 2 diabetes mellitus with diabetic polyneuropathy; E11.51 Type 2 diabetes mellitus with diabetic peripheral angiopathy without gangrene; E03.9 Hypothyroidism, unspecified; E66.9 Obesity, unspecified; Z68.35 Body mass index [BMI] 35.0-35.9, adult; Z79.01 Long term (current) use of anticoagulants; Z79.4 Long term (current) use of insulin; Z87.891 Personal history of nicotine dependence; Z79.899 Other long term (current) drug therapy; Z95.810 Presence of automatic (implantable) cardiac defibrillator
CPT/HCPCS: 96365; 96366; G0463; J1250

== ENCOUNTER → 2024-02-20 | Outpatient (CLI) | payer MEDICARE, OTHER ==
[2024-02-20] VITALS (9 sets, daily range): BP systolic 96–136; BP diastolic 48–70; PULSE 69–70; RESP 20; O2SAT 97
[2024-02-20] MEDS: DOBUTamine 1000MCG/ML 250 ML IV ONE ×2 (09:33→10:11)
[2024-02-20] MEDS: CYANOCOBALAMIN (B-12) 1000 MCG/1 ML VIAL ONE (11:36)
[2024-02-20] MEDS: CYANOCOBALAMIN (B-12) 1000 MCG/1 ML VIAL IM ONE (12:23)
== END | disposition home or self-care (01) ==
LOC: CHF HDHVI 08:51
PROVIDERS: ATTEND Internal Medicine Cardiovascular Disease
DX: I11.0 Hypertensive heart disease with heart failure (principal); I50.43 Acute on chronic combined systolic (congestive) and diastolic (congestive) heart failure; I25.10 Atherosclerotic heart disease of native coronary artery without angina pectoris; I25.5 Ischemic cardiomyopathy; I25.2 Old myocardial infarction; I48.0 Paroxysmal atrial fibrillation; J43.9 Emphysema, unspecified; E11.42 Type 2 diabetes mellitus with diabetic polyneuropathy; E11.51 Type 2 diabetes mellitus with diabetic peripheral angiopathy without gangrene; E78.00 Pure hypercholesterolemia, unspecified; E03.9 Hypothyroidism, unspecified; Z87.891 Personal history of nicotine dependence; Z95.810 Presence of automatic (implantable) cardiac defibrillator
CPT/HCPCS: 96365; 96366; 96372; G0463; J1250; J3420

== ENCOUNTER → 2024-02-24 | Outpatient (CLI) | payer MEDICARE, OTHER ==
[2024-02-24] VITALS (10 sets, daily range): BP systolic 109–150; BP diastolic 49–62; PULSE 68–69; RESP 18; O2SAT 94
[2024-02-24] MEDS: BACITRACIN TOP OINT 1 UD PKG TOP ONE ×2 (10:32→10:52)
[2024-02-24] MEDS: DOBUTamine 1000MCG/ML 250 ML IV ONE (10:37)
[2024-02-24] MEDS: DOBUTamine 1000MCG/ML 250 ML IV SCH (10:50)
[2024-02-24] MEDS: ACETAMINOPHEN 500 MG TAB PO ONE ×2 (12:45→12:59)
== END | disposition home or self-care (01) ==
LOC: CHF HDHVI 13:43
PROVIDERS: ATTEND Internal Medicine Cardiovascular Disease
DX: I11.0 Hypertensive heart disease with heart failure (principal); I50.23 Acute on chronic systolic (congestive) heart failure; I25.5 Ischemic cardiomyopathy; I25.10 Atherosclerotic heart disease of native coronary artery without angina pectoris; J43.9 Emphysema, unspecified; E03.9 Hypothyroidism, unspecified; I25.2 Old myocardial infarction; E78.00 Pure hypercholesterolemia, unspecified; I48.20 Chronic atrial fibrillation, unspecified; E11.42 Type 2 diabetes mellitus with diabetic polyneuropathy; E11.51 Type 2 diabetes mellitus with diabetic peripheral angiopathy without gangrene; Z79.01 Long term (current) use of anticoagulants; Z79.4 Long term (current) use of insulin; Z79.899 Other long term (current) drug therapy; Z87.891 Personal history of nicotine dependence; Z95.810 Presence of automatic (implantable) cardiac defibrillator
CPT/HCPCS: 96365; 96366; G0463; J1250

== ENCOUNTER → 2024-02-26 | Outpatient (CLI) | payer MEDICARE, OTHER ==
[2024-02-26] VITALS (10 sets, daily range): BP systolic 104–137; BP diastolic 47–58; PULSE 69–71; RESP 18; O2SAT 96
[~2024-02-26] MED LIST changes: -LEV50T PO; +LEVO-848 PO
[2024-02-26] MEDS: DOBUTamine 1000MCG/ML 250 ML IV ONE ×2 (09:00→09:05)
== END | disposition home or self-care (01) ==
LOC: CHF HDHVI 09:01
PROVIDERS: ATTEND Internal Medicine Cardiovascular Disease
DX: I11.0 Hypertensive heart disease with heart failure (principal); I50.23 Acute on chronic systolic (congestive) heart failure; I25.5 Ischemic cardiomyopathy; I25.10 Atherosclerotic heart disease of native coronary artery without angina pectoris; I48.20 Chronic atrial fibrillation, unspecified; J43.9 Emphysema, unspecified; E03.9 Hypothyroidism, unspecified; I25.2 Old myocardial infarction; E78.00 Pure hypercholesterolemia, unspecified; E11.42 Type 2 diabetes mellitus with diabetic polyneuropathy; E11.51 Type 2 diabetes mellitus with diabetic peripheral angiopathy without gangrene; Z79.899 Other long term (current) drug therapy; Z79.01 Long term (current) use of anticoagulants; Z79.4 Long term (current) use of insulin; Z87.891 Personal history of nicotine dependence; Z95.810 Presence of automatic (implantable) cardiac defibrillator; Z95.1 Presence of aortocoronary bypass graft
CPT/HCPCS: 96365; 96366; G0463; J1250

== ENCOUNTER → 2024-03-05 | Outpatient (CLI) | payer MEDICARE, OTHER ==
[2024-03-05] VITALS (10 sets, daily range): BP systolic 125–159; BP diastolic 49–70; PULSE 70–72; RESP 16; O2SAT 100
[2024-03-05] MEDS: DOBUTamine 1000MCG/ML 250 ML IV ONE ×2 (10:32→10:39)
== END | disposition home or self-care (01) ==
LOC: CHF HDHVI 10:23
PROVIDERS: ATTEND Internal Medicine Cardiovascular Disease
DX: I11.0 Hypertensive heart disease with heart failure (principal); I50.43 Acute on chronic combined systolic (congestive) and diastolic (congestive) heart failure; I25.5 Ischemic cardiomyopathy; I25.10 Atherosclerotic heart disease of native coronary artery without angina pectoris; I48.20 Chronic atrial fibrillation, unspecified; J43.9 Emphysema, unspecified; E03.9 Hypothyroidism, unspecified; I25.2 Old myocardial infarction; E78.00 Pure hypercholesterolemia, unspecified; E11.42 Type 2 diabetes mellitus with diabetic polyneuropathy; E11.51 Type 2 diabetes mellitus with diabetic peripheral angiopathy without gangrene; Z79.01 Long term (current) use of anticoagulants; Z79.4 Long term (current) use of insulin; Z79.899 Other long term (current) drug therapy; Z87.891 Personal history of nicotine dependence; Z95.810 Presence of automatic (implantable) cardiac defibrillator
CPT/HCPCS: 96365; 96366; G0463; J1250

== ENCOUNTER → 2024-03-10 | Outpatient (CLI) | payer MEDICARE, OTHER ==
[2024-03-10] VITALS (10 sets, daily range): BP systolic 117–138; BP diastolic 56–63; PULSE 69–71; RESP 16; O2SAT 97
[2024-03-10] MEDS: DOBUTamine 1000MCG/ML 250 ML IV ONE ×2 (09:16→09:19)
== END | disposition home or self-care (01) ==
LOC: CHF HDHVI 08:46
PROVIDERS: ATTEND Internal Medicine Cardiovascular Disease
DX: I11.0 Hypertensive heart disease with heart failure (principal); I50.43 Acute on chronic combined systolic (congestive) and diastolic (congestive) heart failure; I25.10 Atherosclerotic heart disease of native coronary artery without angina pectoris; I48.20 Chronic atrial fibrillation, unspecified; J43.9 Emphysema, unspecified; E03.9 Hypothyroidism, unspecified; I25.2 Old myocardial infarction; E78.00 Pure hypercholesterolemia, unspecified; E11.42 Type 2 diabetes mellitus with diabetic polyneuropathy; E11.51 Type 2 diabetes mellitus with diabetic peripheral angiopathy without gangrene; E66.9 Obesity, unspecified; Z68.35 Body mass index [BMI] 35.0-35.9, adult; Z79.01 Long term (current) use of anticoagulants; Z79.4 Long term (current) use of insulin; Z79.899 Other long term (current) drug therapy; Z87.891 Personal history of nicotine dependence; Z95.810 Presence of automatic (implantable) cardiac defibrillator
CPT/HCPCS: 96365; 96366; G0463; J1250

== ENCOUNTER → 2024-03-12 | Outpatient (CLI) | payer MEDICARE, OTHER ==
[2024-03-12] VITALS (9 sets, daily range): BP systolic 119–138; BP diastolic 48–78; PULSE 70–71; RESP 16; O2SAT 97
[2024-03-12] MEDS: DOBUTamine 1000MCG/ML 250 ML IV ONE ×2 (08:56→09:13)
== END | disposition home or self-care (01) ==
LOC: CHF HDHVI 08:48
PROVIDERS: ATTEND Internal Medicine Cardiovascular Disease
DX: I11.0 Hypertensive heart disease with heart failure (principal); I50.23 Acute on chronic systolic (congestive) heart failure; I25.5 Ischemic cardiomyopathy; I25.10 Atherosclerotic heart disease of native coronary artery without angina pectoris; I48.20 Chronic atrial fibrillation, unspecified; J43.9 Emphysema, unspecified; E03.9 Hypothyroidism, unspecified; E66.9 Obesity, unspecified; I25.2 Old myocardial infarction; E78.00 Pure hypercholesterolemia, unspecified; E11.42 Type 2 diabetes mellitus with diabetic polyneuropathy; E11.51 Type 2 diabetes mellitus with diabetic peripheral angiopathy without gangrene; Z68.35 Body mass index [BMI] 35.0-35.9, adult; Z79.01 Long term (current) use of anticoagulants; Z79.4 Long term (current) use of insulin; Z87.891 Personal history of nicotine dependence; Z95.810 Presence of automatic (implantable) cardiac defibrillator; Z79.899 Other long term (current) drug therapy
CPT/HCPCS: 96365; 96366; G0463; J1250

== ENCOUNTER → 2024-03-12 | Outpatient (CLI) | payer MEDICARE, OTHER ==
[2024-03-12 13:19] LABS: Basophils # (auto) 0.1 10 ^3/uL (0-0.2); Basophils % (auto) 0.8 % (0.0-2.0); Eosinophils # (auto) 0.2 10 ^3/uL (0-0.8); Eosinophils % (auto) 2.1 % (0.0-7.0); Hemoglobin 12.3 g/dL (13.5-17.5); Lymphocytes # (auto) 1.5 10 ^3/uL (0.4-5.4); Lymphocytes % (auto) 20.7 % (10.0-50.0); Mean Corpuscular Hemoglobin 34.3 pg (28.0-32.0); Mean Corpuscular Hgb Conc. 33.2 g/dL (32.0-36.0); Mean Corpuscular Volume 103.4 fL (80.0-100.0); Monocytes # (auto) 0.8 10 ^3/uL (0-1.3); Neutrophils # (auto) 4.9 10 ^3/uL (1.6-8.6); Neutrophils % (auto) 65.4 % (37.0-80.0); Platelet Count (auto) 145 10^3/uL (140-450); Red Blood Cells 3.58 10^6/uL (4.5-5.90); Red Cell Distribution Width 15.5 % (11.8-14.3); White Blood Cell 7.5 10^3/uL (4.4-10.8)
[2024-03-12 13:50] LABS: Alanine Aminotransferase 34 U/L (7-40); Alkaline Phosphatase 83 U/L (46-116); Anion Gap 4 (5-15); Aspartate Aminotransferase 25 U/L (13-40); BUN/Creatinine Ratio 16.8 (10.0-20.0); Blood Urea Nitrogen 22 mg/dL (9-23); Calcium 9.3 mg/dL (8.7-10.4); Carbon Dioxide 30 mmol/L (20-30); Chloride 106 mmol/L (98-107); Glucose 78 mg/dL (74-106); Potassium 3.8 mmol/L (3.5-5.1); Sodium 140 mmol/L (136-145)
[2024-03-12 13:51] LABS: Bilirubin, Total 0.6 mg/dL (0.2-1.0); Total Protein 6.6 g/dL (5.7-8.2)
== END | disposition home or self-care (01) ==
LOC: LAB 13:02
PROVIDERS: ATTEND Internal Medicine Cardiovascular Disease
DX: I50.43 Acute on chronic combined systolic (congestive) and diastolic (congestive) heart failure (principal)
CPT/HCPCS: 36415; 80053; 83880; 85025

== ENCOUNTER → 2024-04-09 | Outpatient (CLI) | payer MEDICARE, OTHER ==
[2024-04-09 14:29] LABS: Basophils # (auto) 0.1 10 ^3/uL (0-0.2); Eosinophils # (auto) 0.1 10 ^3/uL (0-0.8); Hemoglobin 12.3 g/dL (13.5-17.5)
[2024-04-09 14:30] LABS: Basophils % (auto) 0.9 % (0.0-2.0); Eosinophils % (auto) 1.7 % (0.0-7.0); Hematocrit 35.6 % (41.0-53.0); Lymphocytes # (auto) 1.3 10 ^3/uL (0.4-5.4); Lymphocytes % (auto) 17.1 % (10.0-50.0); Mean Corpuscular Hemoglobin 35.2 pg (28.0-32.0); Mean Corpuscular Hgb Conc. 34.6 g/dL (32.0-36.0); Mean Corpuscular Volume 101.7 fL (80.0-100.0); Monocytes # (auto) 0.8 10 ^3/uL (0-1.3); Monocytes % (auto) 10.4 % (0.0-12.0); Neutrophils # (auto) 5.4 10 ^3/uL (1.6-8.6); Neutrophils % (auto) 69.9 % (37.0-80.0); Nucleated Red Blood Cells % 0.1 %; Platelet Count (auto) 155 10^3/uL (140-450); Red Cell Distribution Width 14.1 % (11.8-14.3); White Blood Cell 7.7 10^3/uL (4.4-10.8)
[2024-04-09 14:53] LABS: Alanine Aminotransferase 47 U/L (7-40); Albumin 4.1 g/dL (3.2-4.8); Alkaline Phosphatase 103 U/L (46-116); Anion Gap 4 (5-15); Aspartate Aminotransferase 37 U/L (13-40); BUN/Creatinine Ratio 14.4 (10.0-20.0); Blood Urea Nitrogen 19 mg/dL (9-23); Calcium 9.3 mg/dL (8.7-10.4); Carbon Dioxide 31 mmol/L (20-30); Chloride 103 mmol/L (98-107); Glucose 160 mg/dL (74-106); Magnesium 2.3 mg/dL (1.6-2.6); Potassium 4.5 mmol/L (3.5-5.1); Sodium 138 mmol/L (136-145)
[2024-04-09 14:54] LABS: Bilirubin, Total 0.6 mg/dL (0.2-1.0); Total Protein 6.8 g/dL (5.7-8.2)
== END | disposition home or self-care (01) ==
LOC: LAB 14:10
PROVIDERS: ATTEND Internal Medicine Cardiovascular Disease
DX: I11.0 Hypertensive heart disease with heart failure (principal); I50.43 Acute on chronic combined systolic (congestive) and diastolic (congestive) heart failure; D64.9 Anemia, unspecified
CPT/HCPCS: 36415; 80053; 83735; 83880; 85025

== ENCOUNTER → 2024-04-16 | Outpatient (CLI) | payer MEDICARE, OTHER ==
[2024-04-16] VITALS (10 sets, daily range): BP systolic 110–137; BP diastolic 44–59; PULSE 70–71; RESP 16; O2SAT 98
[~2024-04-16] MED LIST changes: +ACETAMINOPHEN 500 MG TAB PO ONE; +DOBUTamine 1000MCG/ML 250 ML IV ONE
[2024-04-16] MEDS: DOBUTamine 1000MCG/ML 250 ML IV ONE (09:17)
[2024-04-16] MEDS: ACETAMINOPHEN 500 MG TAB PO ONE (11:40)
== END | disposition home or self-care (01) ==
LOC: CHF HDHVI 08:57
PROVIDERS: ATTEND Internal Medicine Cardiovascular Disease
DX: I11.0 Hypertensive heart disease with heart failure (principal); I50.43 Acute on chronic combined systolic (congestive) and diastolic (congestive) heart failure; I25.5 Ischemic cardiomyopathy; I25.2 Old myocardial infarction; I25.10 Atherosclerotic heart disease of native coronary artery without angina pectoris; J43.9 Emphysema, unspecified; I48.0 Paroxysmal atrial fibrillation; R51.9 Headache, unspecified; E11.51 Type 2 diabetes mellitus with diabetic peripheral angiopathy without gangrene; E11.42 Type 2 diabetes mellitus with diabetic polyneuropathy; E03.9 Hypothyroidism, unspecified; E78.00 Pure hypercholesterolemia, unspecified; Z79.899 Other long term (current) drug therapy; Z79.01 Long term (current) use of anticoagulants; Z79.4 Long term (current) use of insulin; Z87.891 Personal history of nicotine dependence; Z95.810 Presence of automatic (implantable) cardiac defibrillator
CPT/HCPCS: 96365; 96366; G0463; J1250

== ENCOUNTER → 2024-04-23 | Outpatient (CLI) | payer MEDICARE, OTHER ==
[2024-04-23] VITALS (9 sets, daily range): BP systolic 114–142; BP diastolic 44–61; PULSE 69; RESP 16; O2SAT 94
[~2024-04-23] MED LIST changes: -ACETAMINOPHEN 500 MG TAB PO ONE; -DOBUTamine 1000MCG/ML 250 ML IV ONE
[2024-04-23] MEDS: DOBUTamine 1000MCG/ML 250 ML IV ONE ×2 (08:56→09:00)
== END | disposition home or self-care (01) ==
LOC: CHF HDHVI 08:42
PROVIDERS: ATTEND Internal Medicine Cardiovascular Disease
DX: I11.0 Hypertensive heart disease with heart failure (principal); I50.23 Acute on chronic systolic (congestive) heart failure; I25.5 Ischemic cardiomyopathy; I25.10 Atherosclerotic heart disease of native coronary artery without angina pectoris; I48.20 Chronic atrial fibrillation, unspecified; J43.9 Emphysema, unspecified; E03.9 Hypothyroidism, unspecified; I25.2 Old myocardial infarction; E78.00 Pure hypercholesterolemia, unspecified; E11.42 Type 2 diabetes mellitus with diabetic polyneuropathy; E11.51 Type 2 diabetes mellitus with diabetic peripheral angiopathy without gangrene; Z79.01 Long term (current) use of anticoagulants; Z79.4 Long term (current) use of insulin; Z79.899 Other long term (current) drug therapy; Z87.891 Personal history of nicotine dependence; Z95.810 Presence of automatic (implantable) cardiac defibrillator
CPT/HCPCS: 96365; 96366; G0463; J1250

== ENCOUNTER → 2024-04-28 | Outpatient (CLI) | payer MEDICARE, OTHER ==
[2024-04-28] VITALS (10 sets, daily range): BP systolic 117–158; BP diastolic 43–68; PULSE 69–70; RESP 18; O2SAT 96
[2024-04-28] MEDS: DOBUTamine 1000MCG/ML 250 ML IV ONE ×2 (12:06→12:13)
[2024-04-28] MEDS: CYANOCOBALAMIN (B-12) 1000 MCG/1 ML VIAL IM ONE (13:30)
[2024-04-28] MEDS: ACETAMINOPHEN 500 MG TAB PO ONE ×2 (14:00→14:11)
[2024-04-28] MEDS: CYANOCOBALAMIN (B-12) 1000 MCG/1 ML VIAL ONE (14:11)
== END | disposition home or self-care (01) ==
LOC: CHF HDHVI 11:55
PROVIDERS: ATTEND Internal Medicine Cardiovascular Disease
DX: I11.0 Hypertensive heart disease with heart failure (principal); I50.23 Acute on chronic systolic (congestive) heart failure; I25.5 Ischemic cardiomyopathy; I25.10 Atherosclerotic heart disease of native coronary artery without angina pectoris; I48.20 Chronic atrial fibrillation, unspecified; J43.9 Emphysema, unspecified; E03.9 Hypothyroidism, unspecified; I25.2 Old myocardial infarction; E78.00 Pure hypercholesterolemia, unspecified; E11.42 Type 2 diabetes mellitus with diabetic polyneuropathy; E11.51 Type 2 diabetes mellitus with diabetic peripheral angiopathy without gangrene; E66.9 Obesity, unspecified; Z68.35 Body mass index [BMI] 35.0-35.9, adult; Z79.01 Long term (current) use of anticoagulants; Z79.4 Long term (current) use of insulin; Z79.899 Other long term (current) drug therapy; Z87.891 Personal history of nicotine dependence; Z95.810 Presence of automatic (implantable) cardiac defibrillator
CPT/HCPCS: 96365; 96366; 96372; G0463; J1250; J3420

== ENCOUNTER → 2024-04-30 | Outpatient (CLI) | payer MEDICARE, OTHER ==
[2024-04-30] VITALS (9 sets, daily range): BP systolic 105–131; BP diastolic 43–53; PULSE 69–70; RESP 16; O2SAT 94
[2024-04-30] MEDS: DOBUTamine 1000MCG/ML 250 ML IV ONE ×2 (09:15→09:30)
== END | disposition home or self-care (01) ==
LOC: CHF HDHVI 08:52
PROVIDERS: ATTEND Internal Medicine Cardiovascular Disease
DX: I11.0 Hypertensive heart disease with heart failure (principal); I50.23 Acute on chronic systolic (congestive) heart failure; I25.10 Atherosclerotic heart disease of native coronary artery without angina pectoris; I25.5 Ischemic cardiomyopathy; I25.2 Old myocardial infarction; I48.20 Chronic atrial fibrillation, unspecified; J43.9 Emphysema, unspecified; E11.42 Type 2 diabetes mellitus with diabetic polyneuropathy; E11.51 Type 2 diabetes mellitus with diabetic peripheral angiopathy without gangrene; E03.9 Hypothyroidism, unspecified; E78.00 Pure hypercholesterolemia, unspecified; Z79.01 Long term (current) use of anticoagulants; Z79.4 Long term (current) use of insulin; Z79.899 Other long term (current) drug therapy; Z87.891 Personal history of nicotine dependence; Z95.810 Presence of automatic (implantable) cardiac defibrillator
CPT/HCPCS: 96365; 96366; G0463; J1250

== ENCOUNTER → 2024-05-04 | Outpatient (CLI) | payer MEDICARE, OTHER ==
[~2024-05-04] MED LIST changes: +DOBUTamine 1000MCG/ML 0 ML IV ONE; +VANCOMYCIN 1GM/200ML PREMIX 0 ML IV ONE
[2024-05-04 12:45] VITALS: BP 118/56; PULSE 70; RESP 20; O2SAT 97
[2024-05-04] MEDS: VANCOMYCIN 1GM/200ML PREMIX 250 ML IV ONE ×2 (12:45→14:44)
[2024-05-04] MEDS: ACETAMINOPHEN 500 MG TAB PO ONE ×2 (15:34→15:53)
[2024-05-04 15:52] VITALS: BP 124/76; PULSE 70; RESP 18; O2SAT 96
== END | disposition home or self-care (01) ==
LOC: CHF HDHVI 12:57
PROVIDERS: ATTEND Internal Medicine Cardiovascular Disease
DX: T63.301A Toxic effect of unspecified spider venom, accidental (unintentional), initial encounter (principal); E03.9 Hypothyroidism, unspecified; E11.9 Type 2 diabetes mellitus without complications; E78.00 Pure hypercholesterolemia, unspecified; I25.2 Old myocardial infarction; J43.9 Emphysema, unspecified
CPT/HCPCS: 93005; 96365; G0463; J1250; J3370

== ENCOUNTER → 2024-05-05 | Outpatient (CLI) | payer MEDICARE, OTHER ==
[2024-05-05] VITALS (10 sets, daily range): BP systolic 110–154; BP diastolic 48–70; PULSE 69–70; RESP 18; O2SAT 96
[~2024-05-05] MED LIST changes: -DOBUTamine 1000MCG/ML 0 ML IV ONE; -VANCOMYCIN 1GM/200ML PREMIX 0 ML IV ONE
[2024-05-05] MEDS: ACETAMINOPHEN 500 MG TAB PO ONE ×2 (08:55→10:54)
[2024-05-05] MEDS: VANCOMYCIN 1GM/200ML PREMIX 250 ML IV SCH (09:00)
[2024-05-05] MEDS: DOBUTamine 1000MCG/ML 250 ML IV ONE ×2 (09:09→09:34)
== END | disposition home or self-care (01) ==
LOC: CHF HDHVI 08:50
PROVIDERS: ATTEND Internal Medicine Cardiovascular Disease
DX: I25.5 Ischemic cardiomyopathy (principal); I11.0 Hypertensive heart disease with heart failure; I50.23 Acute on chronic systolic (congestive) heart failure; I48.91 Unspecified atrial fibrillation; I25.10 Atherosclerotic heart disease of native coronary artery without angina pectoris; J43.9 Emphysema, unspecified; E03.9 Hypothyroidism, unspecified; E78.00 Pure hypercholesterolemia, unspecified; E11.42 Type 2 diabetes mellitus with diabetic polyneuropathy; E11.51 Type 2 diabetes mellitus with diabetic peripheral angiopathy without gangrene; Z79.4 Long term (current) use of insulin; Z87.891 Personal history of nicotine dependence
CPT/HCPCS: 96365; 96366; 96368; G0463; J1250; J3370; 96367

== ENCOUNTER → 2024-05-07 | Outpatient (CLI) | payer MEDICARE, OTHER ==
[2024-05-07] VITALS (9 sets, daily range): BP systolic 114–134; BP diastolic 46–61; PULSE 69–70; RESP 18; O2SAT 97
[2024-05-07] MEDS: DOBUTamine 1000MCG/ML 250 ML IV ONE ×2 (08:58→09:04)
== END | disposition home or self-care (01) ==
LOC: CHF HDHVI 08:46
PROVIDERS: ATTEND Internal Medicine Cardiovascular Disease
DX: I25.5 Ischemic cardiomyopathy (principal); I11.0 Hypertensive heart disease with heart failure; I50.23 Acute on chronic systolic (congestive) heart failure; E11.42 Type 2 diabetes mellitus with diabetic polyneuropathy; E11.51 Type 2 diabetes mellitus with diabetic peripheral angiopathy without gangrene; E03.9 Hypothyroidism, unspecified; I48.91 Unspecified atrial fibrillation; J43.9 Emphysema, unspecified; Z79.899 Other long term (current) drug therapy
CPT/HCPCS: 96365; 96366; G0463; J1250

== ENCOUNTER → 2024-05-14 | Outpatient (CLI) | payer MEDICARE, OTHER ==
[2024-05-14] VITALS (10 sets, daily range): BP systolic 100–131; BP diastolic 45–69; PULSE 69–71; RESP 16; O2SAT 97
[2024-05-14] MEDS: DOBUTamine 1000MCG/ML 250 ML IV ONE ×2 (09:00→09:05)
== END | disposition home or self-care (01) ==
LOC: CHF HDHVI 08:51
PROVIDERS: ATTEND Internal Medicine Cardiovascular Disease
DX: I11.0 Hypertensive heart disease with heart failure (principal); I50.43 Acute on chronic combined systolic (congestive) and diastolic (congestive) heart failure; I25.10 Atherosclerotic heart disease of native coronary artery without angina pectoris; I25.5 Ischemic cardiomyopathy; I25.2 Old myocardial infarction; I48.0 Paroxysmal atrial fibrillation; J43.9 Emphysema, unspecified; E11.51 Type 2 diabetes mellitus with diabetic peripheral angiopathy without gangrene; E11.42 Type 2 diabetes mellitus with diabetic polyneuropathy; E78.00 Pure hypercholesterolemia, unspecified; E03.9 Hypothyroidism, unspecified; Z87.891 Personal history of nicotine dependence; Z95.810 Presence of automatic (implantable) cardiac defibrillator
CPT/HCPCS: 96365; 96366; G0463; J1250

== ENCOUNTER → 2024-05-18 | Outpatient (CLI) | payer MEDICARE, OTHER ==
[2024-05-18 15:25] LABS: Basophils # (auto) 0.1 10 ^3/uL (0-0.2); Eosinophils # (auto) 0.1 10 ^3/uL (0-0.8); Eosinophils % (auto) 1.7 % (0.0-7.0); Hematocrit 37.7 % (41.0-53.0); Hemoglobin 12.5 g/dL (13.5-17.5); Lymphocytes # (auto) 1.7 10 ^3/uL (0.4-5.4); Lymphocytes % (auto) 25.6 % (10.0-50.0); Mean Corpuscular Hemoglobin 32.3 pg (28.0-32.0); Mean Corpuscular Hgb Conc. 33.1 g/dL (32.0-36.0); Mean Corpuscular Volume 97.5 fL (80.0-100.0); Monocytes # (auto) 0.6 10 ^3/uL (0-1.3); Monocytes % (auto) 8.9 % (0.0-12.0); Neutrophils # (auto) 4.1 10 ^3/uL (1.6-8.6); Neutrophils % (auto) 62.8 % (37.0-80.0); Nucleated Red Blood Cells % 0.1 %; Platelet Count (auto) 150 10^3/uL (140-450); Red Blood Cells 3.87 10^6/uL (4.5-5.90); Red Cell Distribution Width 14.1 % (11.8-14.3); White Blood Cell 6.5 10^3/uL (4.4-10.8)
[2024-05-18 16:37] LABS: Alanine Aminotransferase 56 U/L (7-40); Alkaline Phosphatase 102 U/L (46-116); Anion Gap 6 (5-15); BUN/Creatinine Ratio 16.5 (10.0-20.0); Blood Urea Nitrogen 23 mg/dL (9-23); Calcium 9.5 mg/dL (8.7-10.4); Carbon Dioxide 29 mmol/L (20-31); Chloride 104 mmol/L (98-107); Glucose 134 mg/dL (74-106); Magnesium 2.2 mg/dL (1.6-2.6); Potassium 4.5 mmol/L (3.5-5.1); Sodium 139 mmol/L (136-145)
[2024-05-18 16:38] LABS: Albumin 4.2 g/dL (3.2-4.8); Aspartate Aminotransferase 39 U/L (13-40)
[2024-05-18 16:39] LABS: Bilirubin, Total 0.6 mg/dL (0.2-1.0); Total Protein 7.2 g/dL (5.7-8.2)
== END | disposition home or self-care (01) ==
LOC: LAB 15:05
PROVIDERS: ATTEND Internal Medicine Cardiovascular Disease
DX: I11.0 Hypertensive heart disease with heart failure (principal); I50.43 Acute on chronic combined systolic (congestive) and diastolic (congestive) heart failure; D64.9 Anemia, unspecified
CPT/HCPCS: 36415; 80053; 83735; 83880; 85025

== ENCOUNTER → 2024-05-21 | Outpatient (CLI) | payer MEDICARE, OTHER ==
[2024-05-21] VITALS (9 sets, daily range): BP systolic 105–137; BP diastolic 44–66; PULSE 69–72; RESP 16–18; O2SAT 97
[2024-05-21] MEDS: DOBUTamine 1000MCG/ML 250 ML IV ONE ×2 (09:03→09:37)
--- NOTE | 2024-06-10 13:29 | DVHSR ---
APPROVED REPORT EXAM: Two-dimensional and M-mode echocardiogram with Doppler and color Doppler. DIMENSIONS LVDd7.0 (3.8-5.7cm)LA (2D)5.5 (1.9-4.0cm)Aortic Root3.5 (2.0-3.7cm) LVDs6.0 (2.5-4.0cm)LA (MM) (1.9-4.0cm)Aortic Cusp Exc1.5 (1.5-2.0cm) EF (%) 29.0 (55-70%)Rt. Atrium4.1 (1.9-4.0cm)Asc. Aorta cm IVSd1.1 (0.7-1.1cm)RV (D)4.5 (1.8-2.4cm) PWd1.1 (0.7-1.1cm) Mitral Valve MitralMitral Stenosis E wave0.89m/sMV Mean GR.mmHg A wave0.27m/sMV Peak GR.42mmHg E/A ratio3.32D MVAcm2 DECEL [id number] 1/2 Timems Aortic Valve Aortic ValveAortic Stenosis V10.98m/Vidya Mean GR.4mmHg V21.39m/Vidya Peak GR.8mmHg Pulmonic Valve V20.80m/s Tricuspid Valve TR Velocity2.70m/s [id number] LEFT VENTRICLE The Ejection Fraction is 25-35%. ATRIA The left atrium is mildly dilated. The right atrium is mildly dilated. MITRAL VALVE Mitral annular calcification is mild. Mitral regurgitation is mild. PULMONIC VALVE The pulmonic valve is not well visualized. TRICUSPID VALVE The tricuspid valve is grossly normal. There is mild tricuspid regurgitation. AORTIC VALVE The aortic valve is mildlysclerotic. No aortic regurgitation is present. GREAT VESSELS The aortic root is normal size. PERICARDIAL EFFUSION There is no pericardial effusion. Other Information Technically limited study due to body habitus. Conclusion EF <25% LAE MILD MAC KAMLA MILD AV SCLEROSIS LVE
== END | disposition home or self-care (01) ==
LOC: Rad HDHVI 08:48
PROVIDERS: ATTEND Internal Medicine Cardiovascular Disease
DX: I11.0 Hypertensive heart disease with heart failure (principal); I50.23 Acute on chronic systolic (congestive) heart failure; I25.5 Ischemic cardiomyopathy; I25.10 Atherosclerotic heart disease of native coronary artery without angina pectoris; J43.9 Emphysema, unspecified; E03.9 Hypothyroidism, unspecified; I25.2 Old myocardial infarction; I48.20 Chronic atrial fibrillation, unspecified; E11.42 Type 2 diabetes mellitus with diabetic polyneuropathy; E11.51 Type 2 diabetes mellitus with diabetic peripheral angiopathy without gangrene; I08.1 Rheumatic disorders of both mitral and tricuspid valves; E78.00 Pure hypercholesterolemia, unspecified; E66.9 Obesity, unspecified; Z68.35 Body mass index [BMI] 35.0-35.9, adult; Z79.01 Long term (current) use of anticoagulants; Z79.4 Long term (current) use of insulin; Z87.891 Personal history of nicotine dependence; Z95.810 Presence of automatic (implantable) cardiac defibrillator; Z79.899 Other long term (current) drug therapy; Z95.1 Presence of aortocoronary bypass graft
CPT/HCPCS: 93306; 96365; 96366; G0463; J1250

== ENCOUNTER → 2024-05-26 | Outpatient (CLI) | payer MEDICARE, OTHER ==
[2024-05-26] VITALS (9 sets, daily range): BP systolic 107–137; BP diastolic 49–57; PULSE 69–70; RESP 18; O2SAT 96
[2024-05-26] MEDS: DOBUTamine 1000MCG/ML 250 ML IV ONE ×2 (09:07→09:38)
[2024-05-26] MEDS: CYANOCOBALAMIN (B-12) 1000 MCG/1 ML VIAL IM ONE (12:03)
[2024-05-26] MEDS: CYANOCOBALAMIN (B-12) 1000 MCG/1 ML VIAL ONE (13:03)
== END | disposition home or self-care (01) ==
LOC: CHF HDHVI 08:57
PROVIDERS: ATTEND Internal Medicine Cardiovascular Disease
DX: I11.0 Hypertensive heart disease with heart failure (principal); I50.43 Acute on chronic combined systolic (congestive) and diastolic (congestive) heart failure; I25.5 Ischemic cardiomyopathy; I25.10 Atherosclerotic heart disease of native coronary artery without angina pectoris; I25.2 Old myocardial infarction; J43.9 Emphysema, unspecified; I48.0 Paroxysmal atrial fibrillation; E11.42 Type 2 diabetes mellitus with diabetic polyneuropathy; E11.51 Type 2 diabetes mellitus with diabetic peripheral angiopathy without gangrene; E78.00 Pure hypercholesterolemia, unspecified; Z79.4 Long term (current) use of insulin; Z79.01 Long term (current) use of anticoagulants; Z87.891 Personal history of nicotine dependence; Z95.810 Presence of automatic (implantable) cardiac defibrillator
CPT/HCPCS: 96365; 96366; 96372; G0463; J1250; J3420

== ENCOUNTER → 2024-05-28 | Outpatient (CLI) | payer MEDICARE, OTHER ==
[2024-05-28] VITALS (8 sets, daily range): BP systolic 98–142; BP diastolic 41–60; PULSE 69–70; RESP 18; O2SAT 98
[2024-05-28] MEDS: DOBUTamine 1000MCG/ML 250 ML IV ONE ×2 (09:12→10:36)
== END | disposition home or self-care (01) ==
LOC: CHF HDHVI 08:52
PROVIDERS: ATTEND Internal Medicine Cardiovascular Disease
DX: I11.0 Hypertensive heart disease with heart failure (principal); I50.23 Acute on chronic systolic (congestive) heart failure; I25.5 Ischemic cardiomyopathy; I25.10 Atherosclerotic heart disease of native coronary artery without angina pectoris; J43.9 Emphysema, unspecified; I25.2 Old myocardial infarction; I48.0 Paroxysmal atrial fibrillation; E78.00 Pure hypercholesterolemia, unspecified; E11.42 Type 2 diabetes mellitus with diabetic polyneuropathy; E11.51 Type 2 diabetes mellitus with diabetic peripheral angiopathy without gangrene; E03.9 Hypothyroidism, unspecified; Z79.899 Other long term (current) drug therapy; Z95.1 Presence of aortocoronary bypass graft; Z79.01 Long term (current) use of anticoagulants; Z79.4 Long term (current) use of insulin; Z87.891 Personal history of nicotine dependence; Z95.810 Presence of automatic (implantable) cardiac defibrillator
CPT/HCPCS: 96365; 96366; G0463; J1250

== ENCOUNTER → 2024-06-01 | Outpatient (CLI) | payer MEDICARE, OTHER ==
[2024-06-01] VITALS (10 sets, daily range): BP systolic 114–153; BP diastolic 42–72; PULSE 69–70; RESP 18; O2SAT 98
[2024-06-01] MEDS: DOBUTamine 1000MCG/ML 250 ML IV ONE ×2 (09:27→09:31)
== END | disposition home or self-care (01) ==
LOC: CHF HDHVI 08:41
PROVIDERS: ATTEND Internal Medicine Cardiovascular Disease
DX: I11.0 Hypertensive heart disease with heart failure (principal); I50.43 Acute on chronic combined systolic (congestive) and diastolic (congestive) heart failure; I25.5 Ischemic cardiomyopathy; I25.10 Atherosclerotic heart disease of native coronary artery without angina pectoris; I25.2 Old myocardial infarction; I48.0 Paroxysmal atrial fibrillation; J43.9 Emphysema, unspecified; E11.42 Type 2 diabetes mellitus with diabetic polyneuropathy; E11.51 Type 2 diabetes mellitus with diabetic peripheral angiopathy without gangrene; E03.9 Hypothyroidism, unspecified; Z79.4 Long term (current) use of insulin; Z79.01 Long term (current) use of anticoagulants; Z87.891 Personal history of nicotine dependence; Z95.810 Presence of automatic (implantable) cardiac defibrillator
CPT/HCPCS: 96365; 96366; G0463; J1250

== ENCOUNTER → 2024-06-04 | Outpatient (CLI) | payer MEDICARE, OTHER ==
[2024-06-04] VITALS (9 sets, daily range): BP systolic 123–134; BP diastolic 45–58; PULSE 68–71; RESP 18; O2SAT 94
[2024-06-04] MEDS: DOBUTamine 1000MCG/ML 250 ML IV ONE ×2 (09:18→09:43)
[2024-06-04] MEDS: ACETAMINOPHEN 500 MG TAB PO ONE ×2 (10:29→10:31)
== END | disposition home or self-care (01) ==
LOC: CHF HDHVI 08:46
PROVIDERS: ATTEND Internal Medicine Cardiovascular Disease
DX: I11.0 Hypertensive heart disease with heart failure (principal); I50.43 Acute on chronic combined systolic (congestive) and diastolic (congestive) heart failure; I25.5 Ischemic cardiomyopathy; I25.10 Atherosclerotic heart disease of native coronary artery without angina pectoris; I25.2 Old myocardial infarction; I48.0 Paroxysmal atrial fibrillation; E11.42 Type 2 diabetes mellitus with diabetic polyneuropathy; E11.51 Type 2 diabetes mellitus with diabetic peripheral angiopathy without gangrene; J43.9 Emphysema, unspecified; E03.9 Hypothyroidism, unspecified; Z79.01 Long term (current) use of anticoagulants; Z87.891 Personal history of nicotine dependence; Z95.810 Presence of automatic (implantable) cardiac defibrillator
CPT/HCPCS: 96365; 96366; G0463; J1250

== ENCOUNTER → 2024-06-15 | Outpatient (CLI) | payer MEDICARE, OTHER ==
[2024-06-15] VITALS (8 sets, daily range): BP systolic 120–142; BP diastolic 55–65; PULSE 65–73; RESP 18; O2SAT 96
[2024-06-15] MEDS: DOBUTamine 1000MCG/ML 250 ML IV ONE (08:18)
[2024-06-15] MEDS: DOBUTamine 1000MCG/ML 250 ML IV STA (08:32)
[2024-06-15] MEDS: ACETAMINOPHEN 500 MG TAB PO ONE ×2 (11:03→11:15)
== END | disposition home or self-care (01) ==
LOC: CHF HDHVI 08:01
PROVIDERS: ATTEND Internal Medicine Cardiovascular Disease
DX: I11.0 Hypertensive heart disease with heart failure (principal); I50.43 Acute on chronic combined systolic (congestive) and diastolic (congestive) heart failure; I25.5 Ischemic cardiomyopathy; I25.10 Atherosclerotic heart disease of native coronary artery without angina pectoris; I25.2 Old myocardial infarction; R06.02 Shortness of breath; I48.0 Paroxysmal atrial fibrillation; J43.9 Emphysema, unspecified; E11.42 Type 2 diabetes mellitus with diabetic polyneuropathy; E11.51 Type 2 diabetes mellitus with diabetic peripheral angiopathy without gangrene; E78.00 Pure hypercholesterolemia, unspecified; E03.9 Hypothyroidism, unspecified; Z79.4 Long term (current) use of insulin; Z79.01 Long term (current) use of anticoagulants; Z87.891 Personal history of nicotine dependence; Z95.810 Presence of automatic (implantable) cardiac defibrillator
CPT/HCPCS: 96365; 96366; G0463; J1250

== ENCOUNTER → 2024-06-23 | Outpatient (CLI) | payer MEDICARE, OTHER ==
[2024-06-23] VITALS (10 sets, daily range): BP systolic 117–145; BP diastolic 47–61; PULSE 69–70; RESP 16; O2SAT 92
[2024-06-23] MEDS: DOBUTamine 1000MCG/ML 250 ML IV ONE ×2 (08:55→09:06)
[2024-06-23] MEDS: CYANOCOBALAMIN (B-12) 1000 MCG/1 ML VIAL ONE (10:51)
[2024-06-23] MEDS: CYANOCOBALAMIN (B-12) 1000 MCG/1 ML VIAL IM ONE (11:39)
== END | disposition home or self-care (01) ==
LOC: CHF HDHVI 08:51
PROVIDERS: ATTEND Internal Medicine Cardiovascular Disease
DX: I11.0 Hypertensive heart disease with heart failure (principal); I50.23 Acute on chronic systolic (congestive) heart failure; I25.5 Ischemic cardiomyopathy; D64.9 Anemia, unspecified; I25.10 Atherosclerotic heart disease of native coronary artery without angina pectoris; E03.9 Hypothyroidism, unspecified; I25.2 Old myocardial infarction; I48.0 Paroxysmal atrial fibrillation; E78.00 Pure hypercholesterolemia, unspecified; E11.42 Type 2 diabetes mellitus with diabetic polyneuropathy; E11.51 Type 2 diabetes mellitus with diabetic peripheral angiopathy without gangrene; I48.20 Chronic atrial fibrillation, unspecified; Z95.1 Presence of aortocoronary bypass graft; Z79.01 Long term (current) use of anticoagulants; Z79.4 Long term (current) use of insulin; Z87.891 Personal history of nicotine dependence; Z95.810 Presence of automatic (implantable) cardiac defibrillator; Z79.899 Other long term (current) drug therapy
CPT/HCPCS: 96365; 96366; 96372; G0463; J1250; J3420

== ENCOUNTER → 2024-06-26 | Outpatient (CLI) | payer MEDICARE, OTHER ==
[2024-06-26] VITALS (9 sets, daily range): BP systolic 99–127; BP diastolic 42–59; PULSE 69; RESP 16; O2SAT 95
[2024-06-26] MEDS: DOBUTamine 1000MCG/ML 250 ML IV ONE ×2 (11:59→12:13)
[2024-06-26] MEDS: ACETAMINOPHEN 500 MG TAB or CAP PO ONE ×2 (14:35→15:01)
== END | disposition home or self-care (01) ==
LOC: CHF HDHVI 11:59
PROVIDERS: ATTEND Internal Medicine Cardiovascular Disease
DX: I11.0 Hypertensive heart disease with heart failure (principal); I50.23 Acute on chronic systolic (congestive) heart failure; I25.5 Ischemic cardiomyopathy; I25.10 Atherosclerotic heart disease of native coronary artery without angina pectoris; I25.2 Old myocardial infarction; I48.20 Chronic atrial fibrillation, unspecified; J43.9 Emphysema, unspecified; E11.42 Type 2 diabetes mellitus with diabetic polyneuropathy; E11.51 Type 2 diabetes mellitus with diabetic peripheral angiopathy without gangrene; E03.9 Hypothyroidism, unspecified; E78.00 Pure hypercholesterolemia, unspecified; Z79.4 Long term (current) use of insulin; Z79.01 Long term (current) use of anticoagulants; Z79.899 Other long term (current) drug therapy; Z87.891 Personal history of nicotine dependence; Z95.810 Presence of automatic (implantable) cardiac defibrillator
CPT/HCPCS: 96365; 96366; G0463; J1250

== ENCOUNTER → 2024-06-29 | Outpatient (CLI) | payer MEDICARE, OTHER ==
[2024-06-29] VITALS (9 sets, daily range): BP systolic 114–136; BP diastolic 49–56; PULSE 69–75; RESP 16; O2SAT 96
[2024-06-29] MEDS: DOBUTamine 1000MCG/ML 250 ML IV ONE ×2 (09:31→09:42)
[2024-06-29] MEDS: ACETAMINOPHEN 500 MG TAB or CAP PO ONE ×2 (11:55→12:20)
== END | disposition home or self-care (01) ==
LOC: CHF HDHVI 09:26
PROVIDERS: ATTEND Internal Medicine Cardiovascular Disease
DX: I11.0 Hypertensive heart disease with heart failure (principal); I50.23 Acute on chronic systolic (congestive) heart failure; I25.5 Ischemic cardiomyopathy; I25.10 Atherosclerotic heart disease of native coronary artery without angina pectoris; I48.20 Chronic atrial fibrillation, unspecified; E03.9 Hypothyroidism, unspecified; I25.2 Old myocardial infarction; E78.00 Pure hypercholesterolemia, unspecified; E11.42 Type 2 diabetes mellitus with diabetic polyneuropathy; E11.51 Type 2 diabetes mellitus with diabetic peripheral angiopathy without gangrene; E66.9 Obesity, unspecified; Z68.35 Body mass index [BMI] 35.0-35.9, adult; Z79.01 Long term (current) use of anticoagulants; Z79.4 Long term (current) use of insulin; Z79.899 Other long term (current) drug therapy; Z87.891 Personal history of nicotine dependence; Z95.1 Presence of aortocoronary bypass graft; Z95.810 Presence of automatic (implantable) cardiac defibrillator
CPT/HCPCS: 96365; 96366; G0463; J1250

== ENCOUNTER → 2024-07-01 | Outpatient (CLI) | payer MEDICARE, OTHER ==
[2024-07-01] VITALS (9 sets, daily range): BP systolic 108–133; BP diastolic 46–55; PULSE 69–80; RESP 18; O2SAT 98
[2024-07-01] MEDS: DOBUTamine 1000MCG/ML 250 ML IV ONE ×2 (09:28→09:29)
[2024-07-01] MEDS: ACETAMINOPHEN 500 MG TAB or CAP PO ONE ×2 (12:03→12:04)
== END | disposition home or self-care (01) ==
LOC: CHF HDHVI 09:07
PROVIDERS: ATTEND Internal Medicine Cardiovascular Disease
DX: I11.0 Hypertensive heart disease with heart failure (principal); I50.23 Acute on chronic systolic (congestive) heart failure; I25.5 Ischemic cardiomyopathy; I25.10 Atherosclerotic heart disease of native coronary artery without angina pectoris; I48.20 Chronic atrial fibrillation, unspecified; E03.9 Hypothyroidism, unspecified; I25.2 Old myocardial infarction; E78.00 Pure hypercholesterolemia, unspecified; E11.42 Type 2 diabetes mellitus with diabetic polyneuropathy; E11.51 Type 2 diabetes mellitus with diabetic peripheral angiopathy without gangrene; J43.9 Emphysema, unspecified; E66.9 Obesity, unspecified; Z95.810 Presence of automatic (implantable) cardiac defibrillator; Z95.1 Presence of aortocoronary bypass graft; Z87.891 Personal history of nicotine dependence; Z79.899 Other long term (current) drug therapy; Z79.4 Long term (current) use of insulin; Z79.01 Long term (current) use of anticoagulants; Z68.35 Body mass index [BMI] 35.0-35.9, adult
CPT/HCPCS: 96365; 96366; G0463; J1250

== ENCOUNTER → 2024-07-07 | Outpatient (CLI) | payer MEDICARE, OTHER ==
[2024-07-07] VITALS (10 sets, daily range): BP systolic 97–119; BP diastolic 46–57; PULSE 69–71; RESP 18; O2SAT 96
[2024-07-07] MEDS: ACETAMINOPHEN 500 MG TAB or CAP PO ONE ×2 (08:50→11:48)
[2024-07-07] MEDS: DOBUTamine 1000MCG/ML 250 ML IV ONE ×2 (09:07→09:10)
== END | disposition home or self-care (01) ==
LOC: CHF HDHVI 08:47
PROVIDERS: ATTEND Internal Medicine Cardiovascular Disease
DX: R51.9 Headache, unspecified (principal); E78.5 Hyperlipidemia, unspecified; I48.91 Unspecified atrial fibrillation; I11.0 Hypertensive heart disease with heart failure; I50.9 Heart failure, unspecified; E03.9 Hypothyroidism, unspecified; Z79.899 Other long term (current) drug therapy; Z87.891 Personal history of nicotine dependence; Z68.35 Body mass index [BMI] 35.0-35.9, adult
CPT/HCPCS: 96365; 96366; G0463; J1250

== ENCOUNTER → 2024-07-16 | Outpatient (CLI) | payer MEDICARE, OTHER ==
[2024-07-16] VITALS (10 sets, daily range): BP systolic 107–118; BP diastolic 42–49; PULSE 69–70; RESP 16; O2SAT 98
[2024-07-16] MEDS: ONDANSETRON HCL 4 MG/2 ML VIAL ONE (09:12)
[2024-07-16] MEDS: DOBUTamine 1000MCG/ML 250 ML IV ONE ×2 (09:12→09:20)
[2024-07-16] MEDS: ONDANSETRON HCL 4 MG/2 ML VIAL IV ONE (09:19)
[2024-07-16] MEDS: ACETAMINOPHEN 500 MG TAB or CAP PO ONE ×2 (09:34→09:35)
--- NOTE | 2024-07-16 11:08 | DVH ---
EXAM: XY CHEST TWO VIEWS ROUTINE CLINICAL HISTORY: SOB COMPARISON: XY CHEST TWO VIEWS ROUTINE on DOS: 01/06/24, XY CHEST TWO VIEWS ROUTINE on DOS: 10/16/23, C HEST TWO VIEWS ROUTINE on DOS: 07/24/21 TECHNIQUE: Frontal and lateral view of the chest was obtained FINDINGS: Lines and Tubes: Cardiac pacemaker projects over left chest wall. Lungs: No focal consolidation. Pleura: No effusion. No pneumothorax. Cardiomediastinal contours: Unremarkable Bones: No acute osseous abnormality. Diffuse osteopenia. IMPRESSION: No acute cardiopulmonary disease.
[2024-07-16] MEDS: LACTULOSE 20Gm/30ML SOLN ONE (11:36)
[2024-07-16] MEDS: LACTULOSE 20Gm/30ML SOLN PO ONE (12:13)
== END | disposition home or self-care (01) ==
LOC: CHF HDHVI 08:59
PROVIDERS: ATTEND Internal Medicine Cardiovascular Disease
DX: I50.23 Acute on chronic systolic (congestive) heart failure (principal); I25.5 Ischemic cardiomyopathy; R06.02 Shortness of breath; R11.0 Nausea; E11.9 Type 2 diabetes mellitus without complications; I48.91 Unspecified atrial fibrillation; I25.2 Old myocardial infarction; E66.01 Morbid (severe) obesity due to excess calories; Z68.35 Body mass index [BMI] 35.0-35.9, adult; Z79.899 Other long term (current) drug therapy
CPT/HCPCS: 71046; 96365; 96366; 96375; G0463; J1250; J2405

== ENCOUNTER → 2024-07-21 | Outpatient (CLI) | payer MEDICARE, OTHER ==
[2024-07-21] VITALS (9 sets, daily range): BP systolic 121–139; BP diastolic 50–61; PULSE 68–70; RESP 16; O2SAT 99
[2024-07-21] MEDS: DOBUTamine 1000MCG/ML 250 ML IV ONE ×2 (09:02→09:12)
== END | disposition home or self-care (01) ==
LOC: CHF HDHVI 08:30
PROVIDERS: ATTEND Internal Medicine Cardiovascular Disease
DX: I11.0 Hypertensive heart disease with heart failure (principal); I50.23 Acute on chronic systolic (congestive) heart failure; I25.5 Ischemic cardiomyopathy; E66.01 Morbid (severe) obesity due to excess calories; I25.2 Old myocardial infarction; E11.9 Type 2 diabetes mellitus without complications; E03.9 Hypothyroidism, unspecified; I25.10 Atherosclerotic heart disease of native coronary artery without angina pectoris; I48.20 Chronic atrial fibrillation, unspecified; E11.42 Type 2 diabetes mellitus with diabetic polyneuropathy; E11.51 Type 2 diabetes mellitus with diabetic peripheral angiopathy without gangrene; I48.0 Paroxysmal atrial fibrillation; E78.00 Pure hypercholesterolemia, unspecified; Z87.891 Personal history of nicotine dependence; Z79.01 Long term (current) use of anticoagulants; Z79.4 Long term (current) use of insulin; Z95.1 Presence of aortocoronary bypass graft; Z95.810 Presence of automatic (implantable) cardiac defibrillator; Z79.899 Other long term (current) drug therapy; Z68.35 Body mass index [BMI] 35.0-35.9, adult
CPT/HCPCS: 96365; 96366; G0463; J1250

== ENCOUNTER → 2024-07-28 | Outpatient (CLI) | payer MEDICARE, OTHER ==
[2024-07-28] VITALS (10 sets, daily range): BP systolic 111–141; BP diastolic 51–87; PULSE 69–84; RESP 18; O2SAT 96
[~2024-07-28] VITALS: Ht 30.5 cm; Wt 0.5 kg
[2024-07-28] MEDS: DOBUTamine 1000MCG/ML 250 ML IV ONE ×2 (08:56→09:08)
[2024-07-28] MEDS: ACETAMINOPHEN 325 MG TAB PO ONE (11:10)
[2024-07-28] MEDS: ACETAMINOPHEN 500 MG TAB or CAP PO ONE (11:11)
[2024-07-28] MEDS: CYANOCOBALAMIN (B-12) 1000 MCG/1 ML VIAL IM ONE (11:55)
[2024-07-28] MEDS: CYANOCOBALAMIN (B-12) 1000 MCG/1 ML VIAL ONE (11:56)
== END | disposition home or self-care (01) ==
LOC: CHF HDHVI 08:57
PROVIDERS: ATTEND Internal Medicine Cardiovascular Disease
DX: I11.0 Hypertensive heart disease with heart failure (principal); I50.23 Acute on chronic systolic (congestive) heart failure; D64.9 Anemia, unspecified; E66.01 Morbid (severe) obesity due to excess calories; E78.5 Hyperlipidemia, unspecified; E11.65 Type 2 diabetes mellitus with hyperglycemia; I25.10 Atherosclerotic heart disease of native coronary artery without angina pectoris; I48.91 Unspecified atrial fibrillation; E03.9 Hypothyroidism, unspecified; Z79.899 Other long term (current) drug therapy; Z68.35 Body mass index [BMI] 35.0-35.9, adult; Z87.891 Personal history of nicotine dependence
CPT/HCPCS: 96365; 96366; 96372; G0463; J1250; J3420

== ENCOUNTER → 2024-08-05 | Outpatient (CLI) | payer MEDICARE, OTHER ==
[2024-08-05] VITALS (9 sets, daily range): BP systolic 102–121; BP diastolic 45–70; PULSE 69–70; RESP 16; O2SAT 97
[2024-08-05] MEDS: DOBUTamine 1000MCG/ML 250 ML IV ONE ×2 (08:48→09:30)
== END | disposition home or self-care (01) ==
LOC: CHF HDHVI 08:46
PROVIDERS: ATTEND Internal Medicine Cardiovascular Disease
DX: I11.0 Hypertensive heart disease with heart failure (principal); I50.23 Acute on chronic systolic (congestive) heart failure; I25.5 Ischemic cardiomyopathy; I25.10 Atherosclerotic heart disease of native coronary artery without angina pectoris; I48.20 Chronic atrial fibrillation, unspecified; E03.9 Hypothyroidism, unspecified; I25.2 Old myocardial infarction; E78.00 Pure hypercholesterolemia, unspecified; E11.42 Type 2 diabetes mellitus with diabetic polyneuropathy; E11.51 Type 2 diabetes mellitus with diabetic peripheral angiopathy without gangrene; J43.9 Emphysema, unspecified; E66.01 Morbid (severe) obesity due to excess calories; Z68.35 Body mass index [BMI] 35.0-35.9, adult; Z95.810 Presence of automatic (implantable) cardiac defibrillator; Z95.1 Presence of aortocoronary bypass graft; Z87.891 Personal history of nicotine dependence; Z79.899 Other long term (current) drug therapy; Z79.4 Long term (current) use of insulin; Z79.01 Long term (current) use of anticoagulants
CPT/HCPCS: 96365; 96366; G0463; J1250

== ENCOUNTER → 2024-08-12 | Outpatient (CLI) | payer MEDICARE, OTHER ==
[2024-08-12] VITALS (10 sets, daily range): BP systolic 110–147; BP diastolic 46–68; PULSE 68–71; RESP 18; O2SAT 97
[~2024-08-12] MED LIST changes: +BACITRACIN TOP OINT 1 UD PKG TOP ONE
[2024-08-12] MEDS: DOBUTamine 1000MCG/ML 250 ML IV ONE ×2 (09:06→09:10)
[2024-08-12] MEDS: ACETAMINOPHEN 325 MG TAB PO ONE (11:20)
[2024-08-12] MEDS: ACETAMINOPHEN 500 MG TAB or CAP PO ONE (11:21)
[2024-08-12] MEDS: BACITRACIN TOP OINT 1 UD PKG TOP ONE (12:23)
== END | disposition home or self-care (01) ==
LOC: CHF HDHVI 08:53
PROVIDERS: ATTEND Internal Medicine Cardiovascular Disease
DX: I11.0 Hypertensive heart disease with heart failure (principal); I50.23 Acute on chronic systolic (congestive) heart failure; I25.5 Ischemic cardiomyopathy; J43.9 Emphysema, unspecified; J18.9 Pneumonia, unspecified organism; F17.200 Nicotine dependence, unspecified, uncomplicated; R06.02 Shortness of breath; R51.9 Headache, unspecified; Z95.1 Presence of aortocoronary bypass graft
CPT/HCPCS: 96365; 96366; G0463; J1250

== ENCOUNTER → 2024-08-19 | Outpatient (CLI) | payer MEDICARE, OTHER ==
[2024-08-19] VITALS (10 sets, daily range): BP systolic 110–136; BP diastolic 47–72; PULSE 68–72; RESP 18; O2SAT 98
[~2024-08-19] MED LIST changes: -BACITRACIN TOP OINT 1 UD PKG TOP ONE; +KETOROLAC TROMETH 30 MG/ML 1ML VIAL IV ONE
[2024-08-19] MEDS: DOBUTamine 1000MCG/ML 250 ML IV ONE ×2 (08:58→09:10)
[2024-08-19] MEDS: KETOROLAC TROMETH 60MG/2ML VIAL IM ONE (10:15)
[2024-08-19] MEDS: KETOROLAC TROMETH 60MG/2ML VIAL ONE (10:49)
== END | disposition home or self-care (01) ==
LOC: CHF HDHVI 08:49
PROVIDERS: ATTEND Internal Medicine Cardiovascular Disease
DX: I11.0 Hypertensive heart disease with heart failure (principal); I50.23 Acute on chronic systolic (congestive) heart failure; E11.51 Type 2 diabetes mellitus with diabetic peripheral angiopathy without gangrene; E11.42 Type 2 diabetes mellitus with diabetic polyneuropathy; E11.65 Type 2 diabetes mellitus with hyperglycemia; I48.0 Paroxysmal atrial fibrillation; I25.5 Ischemic cardiomyopathy; M54.50 Low back pain, unspecified; J43.9 Emphysema, unspecified; F17.200 Nicotine dependence, unspecified, uncomplicated; I25.10 Atherosclerotic heart disease of native coronary artery without angina pectoris; E66.01 Morbid (severe) obesity due to excess calories; I25.2 Old myocardial infarction; E78.00 Pure hypercholesterolemia, unspecified; R06.02 Shortness of breath; Z68.35 Body mass index [BMI] 35.0-35.9, adult; Z95.1 Presence of aortocoronary bypass graft
CPT/HCPCS: 96365; 96366; 96372; G0463; J1250; J1885

== ENCOUNTER → 2024-08-24 | Outpatient (CLI) | payer MEDICARE, OTHER ==
[2024-08-24] VITALS (10 sets, daily range): BP systolic 103–119; BP diastolic 46–60; PULSE 69–72; RESP 16; O2SAT 96–98
[~2024-08-24] MED LIST changes: -KETOROLAC TROMETH 30 MG/ML 1ML VIAL IV ONE
[2024-08-24] MEDS: DOBUTamine 1000MCG/ML 250 ML IV ONE ×2 (08:43→09:10)
[2024-08-24] MEDS: ACETAMINOPHEN 325 MG TAB PO ONE (11:21)
[2024-08-24] MEDS: ACETAMINOPHEN 500 MG TAB or CAP PO ONE (11:21)
== END | disposition home or self-care (01) ==
LOC: CHF HDHVI 08:57
PROVIDERS: ATTEND Internal Medicine Cardiovascular Disease
DX: I11.0 Hypertensive heart disease with heart failure (principal); I50.23 Acute on chronic systolic (congestive) heart failure; E11.42 Type 2 diabetes mellitus with diabetic polyneuropathy; E11.65 Type 2 diabetes mellitus with hyperglycemia; E11.51 Type 2 diabetes mellitus with diabetic peripheral angiopathy without gangrene; I25.5 Ischemic cardiomyopathy; I25.10 Atherosclerotic heart disease of native coronary artery without angina pectoris; J43.9 Emphysema, unspecified; I25.2 Old myocardial infarction; I48.0 Paroxysmal atrial fibrillation; E78.00 Pure hypercholesterolemia, unspecified; E66.01 Morbid (severe) obesity due to excess calories; J18.9 Pneumonia, unspecified organism; E03.9 Hypothyroidism, unspecified; R51.9 Headache, unspecified; Z79.899 Other long term (current) drug therapy; Z68.35 Body mass index [BMI] 35.0-35.9, adult; Z95.1 Presence of aortocoronary bypass graft; Z79.4 Long term (current) use of insulin; Z79.01 Long term (current) use of anticoagulants
CPT/HCPCS: 96365; 96366; G0463; J1250

== ENCOUNTER → 2024-08-27 | Outpatient (CLI) | payer MEDICARE, OTHER ==
[2024-08-27] VITALS (10 sets, daily range): BP systolic 97–131; BP diastolic 46–59; PULSE 69–70; RESP 18; O2SAT 96
[2024-08-27] MEDS: DOBUTamine 1000MCG/ML 250 ML IV ONE ×2 (09:07→09:32)
[2024-08-27] MEDS: CYANOCOBALAMIN (B-12) 1000 MCG/1 ML VIAL ONE (09:32)
[2024-08-27] MEDS: KETOROLAC TROMETH 60MG/2ML VIAL ONE (10:14)
[2024-08-27] MEDS: KETOROLAC TROMETH 60MG/2ML VIAL IM ONE (10:15)
[2024-08-27] MEDS: CYANOCOBALAMIN (B-12) 1000 MCG/1 ML VIAL IM ONE (10:19)
== END | disposition home or self-care (01) ==
LOC: CHF HDHVI 08:42
PROVIDERS: ATTEND Internal Medicine Cardiovascular Disease
DX: I11.0 Hypertensive heart disease with heart failure (principal); I50.23 Acute on chronic systolic (congestive) heart failure; D64.9 Anemia, unspecified; I25.5 Ischemic cardiomyopathy; M54.9 Dorsalgia, unspecified; I25.10 Atherosclerotic heart disease of native coronary artery without angina pectoris; E03.9 Hypothyroidism, unspecified; I25.2 Old myocardial infarction; I48.0 Paroxysmal atrial fibrillation; E11.42 Type 2 diabetes mellitus with diabetic polyneuropathy; E11.51 Type 2 diabetes mellitus with diabetic peripheral angiopathy without gangrene; E66.01 Morbid (severe) obesity due to excess calories; Z68.35 Body mass index [BMI] 35.0-35.9, adult; Z79.01 Long term (current) use of anticoagulants; Z79.4 Long term (current) use of insulin; Z79.899 Other long term (current) drug therapy; Z87.891 Personal history of nicotine dependence; Z95.1 Presence of aortocoronary bypass graft
CPT/HCPCS: 96365; 96366; 96372; G0463; J1250; J1885; J3420

== ENCOUNTER → 2024-09-03 | Outpatient (CLI) | payer MEDICARE, OTHER ==
[2024-09-03] VITALS (9 sets, daily range): BP systolic 106–128; BP diastolic 45–88; PULSE 69–71; RESP 18; O2SAT 100
[2024-09-03] MEDS: DOBUTamine 1000MCG/ML 250 ML IV ONE ×2 (09:09→09:18)
== END | disposition home or self-care (01) ==
LOC: CHF HDHVI 08:49
PROVIDERS: ATTEND Internal Medicine Cardiovascular Disease
DX: I13.0 Hypertensive heart and chronic kidney disease with heart failure and stage 1 through stage 4 chronic kidney disease, or unspecified chronic kidney disease (principal); E11.22 Type 2 diabetes mellitus with diabetic chronic kidney disease; I50.23 Acute on chronic systolic (congestive) heart failure; N18.2 Chronic kidney disease, stage 2 (mild); E11.65 Type 2 diabetes mellitus with hyperglycemia; E11.51 Type 2 diabetes mellitus with diabetic peripheral angiopathy without gangrene; E11.42 Type 2 diabetes mellitus with diabetic polyneuropathy; I25.10 Atherosclerotic heart disease of native coronary artery without angina pectoris; I25.5 Ischemic cardiomyopathy; E03.9 Hypothyroidism, unspecified; I25.2 Old myocardial infarction; I48.0 Paroxysmal atrial fibrillation; E78.00 Pure hypercholesterolemia, unspecified; J43.9 Emphysema, unspecified; E66.01 Morbid (severe) obesity due to excess calories; Z68.35 Body mass index [BMI] 35.0-35.9, adult; Z95.1 Presence of aortocoronary bypass graft; Z87.891 Personal history of nicotine dependence; Z79.899 Other long term (current) drug therapy; Z79.4 Long term (current) use of insulin
CPT/HCPCS: 96365; 96366; G0463; J1250

== ENCOUNTER → 2024-09-10 | Outpatient (CLI) | payer MEDICARE, OTHER ==
[2024-09-10] VITALS (10 sets, daily range): BP systolic 107–127; BP diastolic 40–55; PULSE 69–70; RESP 16; O2SAT 99
[2024-09-10] MEDS: DOBUTamine 1000MCG/ML 250 ML IV ONE ×2 (08:49→08:53)
== END | disposition home or self-care (01) ==
LOC: CHF HDHVI 08:41
PROVIDERS: ATTEND Internal Medicine Cardiovascular Disease
DX: I13.0 Hypertensive heart and chronic kidney disease with heart failure and stage 1 through stage 4 chronic kidney disease, or unspecified chronic kidney disease (principal); E11.22 Type 2 diabetes mellitus with diabetic chronic kidney disease; I50.23 Acute on chronic systolic (congestive) heart failure; N18.4 Chronic kidney disease, stage 4 (severe); I25.10 Atherosclerotic heart disease of native coronary artery without angina pectoris; I25.5 Ischemic cardiomyopathy; I25.2 Old myocardial infarction; I48.0 Paroxysmal atrial fibrillation; J43.9 Emphysema, unspecified; E11.51 Type 2 diabetes mellitus with diabetic peripheral angiopathy without gangrene; E11.42 Type 2 diabetes mellitus with diabetic polyneuropathy; E78.5 Hyperlipidemia, unspecified; E03.9 Hypothyroidism, unspecified; Z87.891 Personal history of nicotine dependence; Z95.810 Presence of automatic (implantable) cardiac defibrillator
CPT/HCPCS: 96365; 96366; G0463; J1250

== ENCOUNTER → 2024-09-15 | Outpatient (CLI) | payer MEDICARE, OTHER ==
[2024-09-15] VITALS (9 sets, daily range): BP systolic 108–127; BP diastolic 44–57; PULSE 69–70; RESP 16; O2SAT 99
[2024-09-15] MEDS: DOBUTamine 1000MCG/ML 250 ML IV ONE ×2 (08:46→09:02)
[2024-09-15] MEDS: ACETAMINOPHEN 500 MG TAB or CAP PO ONE ×2 (10:13→10:20)
[2024-09-15] MEDS: KETOROLAC TROMETH 60MG/2ML VIAL ONE (10:40)
[2024-09-15] MEDS: KETOROLAC TROMETH 60MG/2ML VIAL IM ONE (10:46)
== END | disposition home or self-care (01) ==
LOC: CHF HDHVI 08:42
PROVIDERS: ATTEND Internal Medicine Cardiovascular Disease
DX: I13.0 Hypertensive heart and chronic kidney disease with heart failure and stage 1 through stage 4 chronic kidney disease, or unspecified chronic kidney disease (principal); E11.22 Type 2 diabetes mellitus with diabetic chronic kidney disease; N18.4 Chronic kidney disease, stage 4 (severe); I50.23 Acute on chronic systolic (congestive) heart failure; I25.5 Ischemic cardiomyopathy; M54.50 Low back pain, unspecified; I25.10 Atherosclerotic heart disease of native coronary artery without angina pectoris; J43.9 Emphysema, unspecified; E03.9 Hypothyroidism, unspecified; I25.2 Old myocardial infarction; I48.0 Paroxysmal atrial fibrillation; E11.42 Type 2 diabetes mellitus with diabetic polyneuropathy; E11.51 Type 2 diabetes mellitus with diabetic peripheral angiopathy without gangrene; E78.00 Pure hypercholesterolemia, unspecified; Z79.01 Long term (current) use of anticoagulants; Z79.4 Long term (current) use of insulin; Z79.82 Long term (current) use of aspirin; E66.01 Morbid (severe) obesity due to excess calories; Z68.35 Body mass index [BMI] 35.0-35.9, adult; Z79.899 Other long term (current) drug therapy; Z95.1 Presence of aortocoronary bypass graft; Z87.891 Personal history of nicotine dependence; Z95.810 Presence of automatic (implantable) cardiac defibrillator
CPT/HCPCS: 96365; 96366; 96372; G0463; J1250; J1885

== ENCOUNTER → 2024-09-17 | Outpatient (CLI) | payer MEDICARE, OTHER ==
[2024-09-17] VITALS (9 sets, daily range): BP systolic 110–131; BP diastolic 43–60; PULSE 69–70; RESP 18; O2SAT 98
[2024-09-17] MEDS: DOBUTamine 1000MCG/ML 250 ML IV ONE ×2 (08:59→09:05)
== END | disposition home or self-care (01) ==
LOC: CHF HDHVI 08:50
PROVIDERS: ATTEND Internal Medicine Cardiovascular Disease
DX: I13.0 Hypertensive heart and chronic kidney disease with heart failure and stage 1 through stage 4 chronic kidney disease, or unspecified chronic kidney disease (principal); E11.22 Type 2 diabetes mellitus with diabetic chronic kidney disease; N18.4 Chronic kidney disease, stage 4 (severe); I50.23 Acute on chronic systolic (congestive) heart failure; I48.91 Unspecified atrial fibrillation; I25.5 Ischemic cardiomyopathy; E03.9 Hypothyroidism, unspecified; E66.01 Morbid (severe) obesity due to excess calories; Z79.01 Long term (current) use of anticoagulants; Z79.899 Other long term (current) drug therapy; Z87.891 Personal history of nicotine dependence; Z95.810 Presence of automatic (implantable) cardiac defibrillator; Z95.1 Presence of aortocoronary bypass graft; Z68.35 Body mass index [BMI] 35.0-35.9, adult
CPT/HCPCS: 96365; 96366; G0463; J1250

== ENCOUNTER → 2024-09-22 | Outpatient (CLI) | payer MEDICARE, OTHER ==
[2024-09-22] VITALS (9 sets, daily range): BP systolic 104–131; BP diastolic 37–55; PULSE 69–70; RESP 18; O2SAT 100
[~2024-09-22] VITALS: Ht 33 cm; Wt 90.3 kg
[2024-09-22] MEDS: DOBUTamine 1000MCG/ML 250 ML IV ONE ×2 (09:02→09:12)
[2024-09-22] MEDS: CYANOCOBALAMIN (B-12) 1000 MCG/1 ML VIAL ONE (11:54)
[2024-09-22] MEDS: CYANOCOBALAMIN (B-12) 1000 MCG/1 ML VIAL IM ONE (12:18)
== END | disposition home or self-care (01) ==
LOC: CHF HDHVI 08:54
PROVIDERS: ATTEND Internal Medicine Cardiovascular Disease
DX: I13.0 Hypertensive heart and chronic kidney disease with heart failure and stage 1 through stage 4 chronic kidney disease, or unspecified chronic kidney disease (principal); E11.22 Type 2 diabetes mellitus with diabetic chronic kidney disease; N18.4 Chronic kidney disease, stage 4 (severe); I50.23 Acute on chronic systolic (congestive) heart failure; D64.9 Anemia, unspecified; I25.10 Atherosclerotic heart disease of native coronary artery without angina pectoris; I25.5 Ischemic cardiomyopathy; I48.91 Unspecified atrial fibrillation; E03.9 Hypothyroidism, unspecified; E66.01 Morbid (severe) obesity due to excess calories; Z79.4 Long term (current) use of insulin; Z95.810 Presence of automatic (implantable) cardiac defibrillator; Z95.1 Presence of aortocoronary bypass graft; Z79.899 Other long term (current) drug therapy; Z87.891 Personal history of nicotine dependence
CPT/HCPCS: 96365; 96366; 96372; G0463; J1250; J3420

== ENCOUNTER → 2024-09-24 | Outpatient (CLI) | payer MEDICARE, OTHER ==
[2024-09-24] VITALS (9 sets, daily range): BP systolic 109–132; BP diastolic 41–60; PULSE 69–70; RESP 18; O2SAT 98
[2024-09-24] MEDS: DOBUTamine 1000MCG/ML 250 ML IV ONE ×2 (09:07→09:10)
[2024-09-24] MEDS: ACETAMINOPHEN 500 MG TAB or CAP PO ONE ×2 (10:38→10:39)
== END | disposition home or self-care (01) ==
LOC: CHF HDHVI 08:57
PROVIDERS: ATTEND Internal Medicine Cardiovascular Disease
DX: I11.0 Hypertensive heart disease with heart failure (principal); I50.23 Acute on chronic systolic (congestive) heart failure; E11.22 Type 2 diabetes mellitus with diabetic chronic kidney disease; I13.0 Hypertensive heart and chronic kidney disease with heart failure and stage 1 through stage 4 chronic kidney disease, or unspecified chronic kidney disease; N18.4 Chronic kidney disease, stage 4 (severe); E03.9 Hypothyroidism, unspecified; E78.5 Hyperlipidemia, unspecified; F32.A Depression, unspecified; I25.10 Atherosclerotic heart disease of native coronary artery without angina pectoris; Z87.891 Personal history of nicotine dependence; Z79.899 Other long term (current) drug therapy
CPT/HCPCS: 96365; 96366; G0463; J1250

== ENCOUNTER → 2024-10-06 | Outpatient (CLI) | payer MEDICARE, OTHER ==
[2024-10-06] VITALS (9 sets, daily range): BP systolic 108–140; BP diastolic 44–62; PULSE 69–70; RESP 16–18; O2SAT 96
[2024-10-06] MEDS: DOBUTamine 1000MCG/ML 250 ML IV ONE ×2 (07:40→08:57)
[2024-10-06] MEDS: KETOROLAC TROMETH 60MG/2ML VIAL ONE (08:01)
[2024-10-06] MEDS: KETOROLAC TROMETH 60MG/2ML VIAL IM ONE (09:03)
== END | disposition home or self-care (01) ==
LOC: CHF HDHVI 08:52
PROVIDERS: ATTEND Internal Medicine Cardiovascular Disease
DX: I13.0 Hypertensive heart and chronic kidney disease with heart failure and stage 1 through stage 4 chronic kidney disease, or unspecified chronic kidney disease (principal); E11.22 Type 2 diabetes mellitus with diabetic chronic kidney disease; I50.23 Acute on chronic systolic (congestive) heart failure; N18.4 Chronic kidney disease, stage 4 (severe); M54.50 Low back pain, unspecified; I25.10 Atherosclerotic heart disease of native coronary artery without angina pectoris; I25.2 Old myocardial infarction; I48.0 Paroxysmal atrial fibrillation; J43.9 Emphysema, unspecified; E11.42 Type 2 diabetes mellitus with diabetic polyneuropathy; E11.51 Type 2 diabetes mellitus with diabetic peripheral angiopathy without gangrene; E03.9 Hypothyroidism, unspecified; E78.5 Hyperlipidemia, unspecified; F32.A Depression, unspecified; Z79.899 Other long term (current) drug therapy; Z95.810 Presence of automatic (implantable) cardiac defibrillator
CPT/HCPCS: 96365; 96366; 96372; G0463; J1250; J1885

== ENCOUNTER → 2024-10-08 | Outpatient (CLI) | payer MEDICARE, OTHER ==
[2024-10-08] VITALS (9 sets, daily range): BP systolic 104–136; BP diastolic 44–68; PULSE 69–70; RESP 18; O2SAT 97
[2024-10-08] MEDS: DOBUTamine 1000MCG/ML 250 ML IV ONE ×2 (07:53→08:59)
[2024-10-08] MEDS: ACETAMINOPHEN 325 MG TAB PO ONE (10:23)
[2024-10-08] MEDS: ACETAMINOPHEN 500 MG TAB or CAP PO ONE (10:45)
== END | disposition home or self-care (01) ==
LOC: CHF HDHVI 08:46
PROVIDERS: ATTEND Internal Medicine Cardiovascular Disease
DX: I13.0 Hypertensive heart and chronic kidney disease with heart failure and stage 1 through stage 4 chronic kidney disease, or unspecified chronic kidney disease (principal); I50.23 Acute on chronic systolic (congestive) heart failure; N18.4 Chronic kidney disease, stage 4 (severe); I25.10 Atherosclerotic heart disease of native coronary artery without angina pectoris; F32.A Depression, unspecified; J43.9 Emphysema, unspecified; E03.9 Hypothyroidism, unspecified; I25.2 Old myocardial infarction; I48.0 Paroxysmal atrial fibrillation; E11.22 Type 2 diabetes mellitus with diabetic chronic kidney disease; E11.42 Type 2 diabetes mellitus with diabetic polyneuropathy; E11.65 Type 2 diabetes mellitus with hyperglycemia; E78.00 Pure hypercholesterolemia, unspecified; G47.33 Obstructive sleep apnea (adult) (pediatric); E11.51 Type 2 diabetes mellitus with diabetic peripheral angiopathy without gangrene; I25.5 Ischemic cardiomyopathy; E66.01 Morbid (severe) obesity due to excess calories; Z68.35 Body mass index [BMI] 35.0-35.9, adult; Z79.4 Long term (current) use of insulin; Z87.891 Personal history of nicotine dependence; Z79.899 Other long term (current) drug therapy; Z95.1 Presence of aortocoronary bypass graft
CPT/HCPCS: 96365; 96366; G0463; J1250

== ENCOUNTER → 2024-10-13 | Outpatient (CLI) | payer MEDICARE, OTHER ==
[~2024-10-13] VITALS: Ht 30.5 cm; Wt 90.3 kg
[2024-10-13] VITALS (9 sets, daily range): BP systolic 118–135; BP diastolic 48–63; PULSE 68–70; RESP 16; O2SAT 99
[~2024-10-13] MED LIST changes: +IOHEXOL 350 MG/ML 100ML IJ ONE
[2024-10-13] MEDS: DOBUTamine 1000MCG/ML 0 ML IV ONE (08:57)
[2024-10-13] MEDS: DOBUTamine 1000MCG/ML 250 ML IV ONE ×2 (09:39→10:49)
[2024-10-13] MEDS: diphenhdrAMINE HCL 50 MG/1 ML VL ONE (10:35)
[2024-10-13] MEDS: methylPREDNISolone SOD SUCC 125 MG/2 ML VL ONE (10:35)
[2024-10-13] MEDS: diphenhdrAMINE HCL 50 MG/1 ML VL IV ONE (10:41)
[2024-10-13] MEDS: methylPREDNISolone SOD SUCC 125 MG/2 ML VL IV ONE (10:42)
[2024-10-13] MEDS: ACETAMINOPHEN 500 MG TAB or CAP PO ONE (10:54)
[2024-10-13] MEDS: ACETAMINOPHEN 325 MG TAB PO ONE (10:54)
[2024-10-13] MEDS: FUROSEMIDE 20 MG TAB ONE (10:56)
[2024-10-13] MEDS: FUROSEMIDE 20 MG TAB PO ONE (10:57)
[2024-10-13] MEDS: KETOROLAC TROMETH 60MG/2ML VIAL ONE (13:07)
[2024-10-13] MEDS: KETOROLAC TROMETH 60MG/2ML VIAL IM ONE (13:13)
--- NOTE | 2024-10-13 13:36 | DVH ---
EXAM: CT NECK WITH CONTRAST SOFT INDICATION: PAIN/ MASS Exam Date: 10/13/2024 10:37 AM COMPARISON: None TECHNIQUE: CT of the neck with intravenous contrast. RADIATION DOSE: CTDIvol: 14.91 mGy, DLP: 384.62 mGy*cm FINDINGS: There is no evidence of cervical mass lesion, pathologically enlarged lymph nodes or fluid collection . Mild diffuse esophageal wall thickening. The fat planes of the neck appear intact. The airway and larynx are unremarkable. The parotid, submandibular and thyroid glands are unremarkable. The vascular structures of the neck appear patent. Vascular calcifications are present in the aorta a nd its main branches. The visualized lung apices are clear. The limited visualized portions of the brain are unremarkable. Multilevel degenerative changes of the spine. IMPRESSION: No evidence of cervical mass lesion, pathologically enlarged lymph nodes or fluid collection. Mild diffuse esophageal wall thickening; nonspecific. Differential considerations could include esoph agitis. EGD could be considered to further evaluate if clinically indicated.
== END | disposition home or self-care (01) ==
LOC: CHF HDHVI 08:43
PROVIDERS: ATTEND Internal Medicine Cardiovascular Disease
DX: I13.0 Hypertensive heart and chronic kidney disease with heart failure and stage 1 through stage 4 chronic kidney disease, or unspecified chronic kidney disease (principal); E11.22 Type 2 diabetes mellitus with diabetic chronic kidney disease; N18.4 Chronic kidney disease, stage 4 (severe); I50.43 Acute on chronic combined systolic (congestive) and diastolic (congestive) heart failure; I25.10 Atherosclerotic heart disease of native coronary artery without angina pectoris; I25.5 Ischemic cardiomyopathy; I48.91 Unspecified atrial fibrillation; K22.89 Other specified disease of esophagus; E03.9 Hypothyroidism, unspecified; E11.40 Type 2 diabetes mellitus with diabetic neuropathy, unspecified; E66.01 Morbid (severe) obesity due to excess calories; F32.A Depression, unspecified; Z87.891 Personal history of nicotine dependence; Z79.899 Other long term (current) drug therapy; Z79.82 Long term (current) use of aspirin; Z95.1 Presence of aortocoronary bypass graft
CPT/HCPCS: 70491; 96365; 96366; 96372; 96375; G0463; J1200; J1250; J1885; J2919; Q9967

== ENCOUNTER → 2024-10-15 | Outpatient (CLI) | payer MEDICARE, OTHER ==
[2024-10-15] VITALS (10 sets, daily range): BP systolic 100–128; BP diastolic 37–80; PULSE 68–73; RESP 16; O2SAT 97
[~2024-10-15] MED LIST changes: -IOHEXOL 350 MG/ML 100ML IJ ONE
[2024-10-15] MEDS: DOBUTamine 1000MCG/ML 250 ML IV ONE ×2 (08:55→09:06)
== END | disposition home or self-care (01) ==
LOC: CHF HDHVI 08:47
PROVIDERS: ATTEND Internal Medicine Cardiovascular Disease
DX: I13.0 Hypertensive heart and chronic kidney disease with heart failure and stage 1 through stage 4 chronic kidney disease, or unspecified chronic kidney disease (principal); E11.22 Type 2 diabetes mellitus with diabetic chronic kidney disease; N18.4 Chronic kidney disease, stage 4 (severe); I50.23 Acute on chronic systolic (congestive) heart failure; I25.5 Ischemic cardiomyopathy; I25.10 Atherosclerotic heart disease of native coronary artery without angina pectoris; I48.91 Unspecified atrial fibrillation; E03.9 Hypothyroidism, unspecified; E11.40 Type 2 diabetes mellitus with diabetic neuropathy, unspecified; E66.01 Morbid (severe) obesity due to excess calories; F32.A Depression, unspecified; Z68.35 Body mass index [BMI] 35.0-35.9, adult; Z87.891 Personal history of nicotine dependence; Z79.899 Other long term (current) drug therapy; Z95.1 Presence of aortocoronary bypass graft; Z95.810 Presence of automatic (implantable) cardiac defibrillator; Z79.82 Long term (current) use of aspirin
CPT/HCPCS: 96365; 96366; G0463; J1250

== ENCOUNTER → 2024-10-20 | Outpatient (CLI) | payer MEDICARE, OTHER ==
[2024-10-20] VITALS (9 sets, daily range): BP systolic 101–119; BP diastolic 45–56; PULSE 69–71; RESP 16; O2SAT 97
[2024-10-20] MEDS: DOBUTamine 1000MCG/ML 250 ML IV ONE ×2 (08:46→09:10)
[2024-10-20] MEDS: CYANOCOBALAMIN (B-12) 1000 MCG/1 ML VIAL ONE (11:35)
[2024-10-20] MEDS: CYANOCOBALAMIN (B-12) 1000 MCG/1 ML VIAL IM ONE (12:13)
== END | disposition home or self-care (01) ==
LOC: CHF HDHVI 08:44
PROVIDERS: ATTEND Internal Medicine Cardiovascular Disease
DX: I13.0 Hypertensive heart and chronic kidney disease with heart failure and stage 1 through stage 4 chronic kidney disease, or unspecified chronic kidney disease (principal); E11.22 Type 2 diabetes mellitus with diabetic chronic kidney disease; N18.4 Chronic kidney disease, stage 4 (severe); I50.23 Acute on chronic systolic (congestive) heart failure; D64.9 Anemia, unspecified; I25.5 Ischemic cardiomyopathy; I25.10 Atherosclerotic heart disease of native coronary artery without angina pectoris; I48.91 Unspecified atrial fibrillation; E03.9 Hypothyroidism, unspecified; E66.01 Morbid (severe) obesity due to excess calories; E11.40 Type 2 diabetes mellitus with diabetic neuropathy, unspecified; F32.A Depression, unspecified; Z68.35 Body mass index [BMI] 35.0-35.9, adult; Z95.1 Presence of aortocoronary bypass graft; Z79.899 Other long term (current) drug therapy; Z87.891 Personal history of nicotine dependence; Z95.810 Presence of automatic (implantable) cardiac defibrillator; Z79.82 Long term (current) use of aspirin
CPT/HCPCS: 96365; 96366; 96372; G0463; J1250; J3420

== ENCOUNTER → 2024-10-27 | Outpatient (CLI) | payer MEDICARE, OTHER ==
[2024-10-27] VITALS (9 sets, daily range): BP systolic 110–125; BP diastolic 47–59; PULSE 69–71; RESP 16; O2SAT 98
[2024-10-27] MEDS: DOBUTamine 1000MCG/ML 250 ML IV ONE ×2 (08:39→09:01)
[2024-10-27] MEDS: KETOROLAC TROMETH 60MG/2ML VIAL ONE (10:22)
[2024-10-27] MEDS: KETOROLAC TROMETH 60MG/2ML VIAL IM ONE (10:30)
== END | disposition home or self-care (01) ==
LOC: CHF HDHVI 08:46
PROVIDERS: ATTEND Internal Medicine Cardiovascular Disease
DX: I11.0 Hypertensive heart disease with heart failure (principal); I50.23 Acute on chronic systolic (congestive) heart failure; E78.5 Hyperlipidemia, unspecified; E66.01 Morbid (severe) obesity due to excess calories; E11.22 Type 2 diabetes mellitus with diabetic chronic kidney disease; I13.0 Hypertensive heart and chronic kidney disease with heart failure and stage 1 through stage 4 chronic kidney disease, or unspecified chronic kidney disease; N18.4 Chronic kidney disease, stage 4 (severe); I50.9 Heart failure, unspecified; I48.91 Unspecified atrial fibrillation; I25.10 Atherosclerotic heart disease of native coronary artery without angina pectoris; E03.9 Hypothyroidism, unspecified; Z87.891 Personal history of nicotine dependence; Z79.899 Other long term (current) drug therapy; Z68.35 Body mass index [BMI] 35.0-35.9, adult
CPT/HCPCS: 96365; 96366; 96372; G0463; J1250; J1885

== ENCOUNTER → 2024-10-29 | Outpatient (CLI) | payer MEDICARE, OTHER ==
[2024-10-29] VITALS (8 sets, daily range): BP systolic 99–132; BP diastolic 42–69; PULSE 69–72; RESP 16–18; O2SAT 97
[2024-10-29] MEDS: CYANOCOBALAMIN (B-12) 1000 MCG/1 ML VIAL ONE (08:51)
[2024-10-29] MEDS: DOBUTamine 1000MCG/ML 250 ML IV ONE ×2 (08:51→09:08)
== END | disposition home or self-care (01) ==
LOC: CHF HDHVI 08:48
PROVIDERS: ATTEND Internal Medicine Cardiovascular Disease
DX: I13.0 Hypertensive heart and chronic kidney disease with heart failure and stage 1 through stage 4 chronic kidney disease, or unspecified chronic kidney disease (principal); I50.43 Acute on chronic combined systolic (congestive) and diastolic (congestive) heart failure; N18.4 Chronic kidney disease, stage 4 (severe); E11.22 Type 2 diabetes mellitus with diabetic chronic kidney disease; E11.42 Type 2 diabetes mellitus with diabetic polyneuropathy; E11.65 Type 2 diabetes mellitus with hyperglycemia; E11.51 Type 2 diabetes mellitus with diabetic peripheral angiopathy without gangrene; F32.A Depression, unspecified; E78.00 Pure hypercholesterolemia, unspecified; I25.2 Old myocardial infarction; J44.9 Chronic obstructive pulmonary disease, unspecified; I25.10 Atherosclerotic heart disease of native coronary artery without angina pectoris; I48.0 Paroxysmal atrial fibrillation; E03.9 Hypothyroidism, unspecified; G47.33 Obstructive sleep apnea (adult) (pediatric); E66.01 Morbid (severe) obesity due to excess calories; R05.9 Cough, unspecified; Z68.35 Body mass index [BMI] 35.0-35.9, adult; Z79.899 Other long term (current) drug therapy; Z87.891 Personal history of nicotine dependence; Z95.1 Presence of aortocoronary bypass graft; Z79.4 Long term (current) use of insulin
CPT/HCPCS: 94640; 96365; 96366; G0463; J1250

== ENCOUNTER → 2024-11-03 | Outpatient (CLI) | payer MEDICARE, OTHER ==
[2024-11-03] VITALS (9 sets, daily range): BP systolic 112–128; BP diastolic 47–59; PULSE 69–71; RESP 16–18; O2SAT 97
[2024-11-03] MEDS: DOBUTamine 1000MCG/ML 250 ML IV ONE ×2 (08:40→08:56)
--- NOTE | 2024-11-06 13:52 | DVHSR ---
APPROVED REPORT EXAM: Two-dimensional and M-mode echocardiogram with Doppler and color Doppler. DIMENSIONS LVDd6.7 (3.8-5.7cm)LA (2D)5.4 (1.9-4.0cm)Aortic Root3.5 (2.0-3.7cm) LVDs6.1 (2.5-4.0cm)LA (MM) (1.9-4.0cm)Aortic Cusp Exc1.7 (1.5-2.0cm) EF (%) 18.2 (55-70%)Rt. Atrium4.1 (1.9-4.0cm)Asc. Aorta cm IVSd1.1 (0.7-1.1cm)RV (D)3.8 (1.8-2.4cm) PWd1.5 (0.7-1.1cm) Mitral Valve MitralMitral Stenosis E wave0.98m/sMV Mean GR.mmHg A wave0.18m/sMV Peak GR.34mmHg E/A ratio5.42D MVAcm2 DECEL [id number] 1/2 Timems Aortic Valve Aortic ValveAortic Stenosis V10.99m/Vidya Mean GR.3mmHg V21.10m/Vidya Peak GR.5mmHg Pulmonic Valve V20.70m/s Tricuspid Valve TR Velocity2.17m/s [id number] LEFT VENTRICLE The Ejection Fraction is <25%. ATRIA The left atrium is mildly dilated. The right atrium is mildly dilated. MITRAL VALVE The mitral valve is normal in structure and function. Mitral regurgitation is mild. PULMONIC VALVE The pulmonic valve is not well visualized. TRICUSPID VALVE The tricuspid valve is grossly normal. There is trace tricuspid regurgitation. AORTIC VALVE The aortic valve is mildlysclerotic. No aortic regurgitation is present. GREAT VESSELS The aortic root is normal size. PERICARDIAL EFFUSION There is no pericardial effusion. Conclusion EF <20% LVE LAE MILD MR
== END | disposition home or self-care (01) ==
LOC: Rad HDHVI 07:58
PROVIDERS: ATTEND Internal Medicine Cardiovascular Disease
DX: I13.0 Hypertensive heart and chronic kidney disease with heart failure and stage 1 through stage 4 chronic kidney disease, or unspecified chronic kidney disease (principal); E11.22 Type 2 diabetes mellitus with diabetic chronic kidney disease; I50.43 Acute on chronic combined systolic (congestive) and diastolic (congestive) heart failure; N18.4 Chronic kidney disease, stage 4 (severe); I25.10 Atherosclerotic heart disease of native coronary artery without angina pectoris; I25.5 Ischemic cardiomyopathy; I25.2 Old myocardial infarction; I48.0 Paroxysmal atrial fibrillation; J44.9 Chronic obstructive pulmonary disease, unspecified; E11.42 Type 2 diabetes mellitus with diabetic polyneuropathy; E11.51 Type 2 diabetes mellitus with diabetic peripheral angiopathy without gangrene; E78.00 Pure hypercholesterolemia, unspecified; F32.A Depression, unspecified; Z87.891 Personal history of nicotine dependence; Z79.01 Long term (current) use of anticoagulants; Z79.899 Other long term (current) drug therapy; Z79.82 Long term (current) use of aspirin; Z95.810 Presence of automatic (implantable) cardiac defibrillator
CPT/HCPCS: 93306; 96365; 96366; G0463; J1250

== ENCOUNTER → 2024-11-05 | Outpatient (CLI) | payer MEDICARE, OTHER ==
[2024-11-05] VITALS (10 sets, daily range): BP systolic 107–124; BP diastolic 43–53; PULSE 69–74; RESP 16; O2SAT 93
[2024-11-05] MEDS: DOBUTamine 1000MCG/ML 250 ML IV ONE ×2 (09:00→09:07)
== END | disposition home or self-care (01) ==
LOC: CHF HDHVI 08:42
PROVIDERS: ATTEND Internal Medicine Cardiovascular Disease
DX: I11.0 Hypertensive heart disease with heart failure (principal); I50.23 Acute on chronic systolic (congestive) heart failure; I48.91 Unspecified atrial fibrillation; E03.9 Hypothyroidism, unspecified; I25.2 Old myocardial infarction; F32.A Depression, unspecified; I13.0 Hypertensive heart and chronic kidney disease with heart failure and stage 1 through stage 4 chronic kidney disease, or unspecified chronic kidney disease; E11.22 Type 2 diabetes mellitus with diabetic chronic kidney disease; N18.4 Chronic kidney disease, stage 4 (severe); I50.9 Heart failure, unspecified; I25.10 Atherosclerotic heart disease of native coronary artery without angina pectoris; Z68.35 Body mass index [BMI] 35.0-35.9, adult
CPT/HCPCS: 96365; 96366; G0463; J1250

== ENCOUNTER → 2024-11-10 | Outpatient (CLI) | payer MEDICARE, OTHER ==
[2024-11-10] VITALS (9 sets, daily range): BP systolic 111–136; BP diastolic 44–58; PULSE 69–76; RESP 16; O2SAT 100
[2024-11-10] MEDS: DOBUTamine 1000MCG/ML 250 ML IV ONE ×2 (08:47→09:06)
== END | disposition home or self-care (01) ==
LOC: CHF HDHVI 08:49
PROVIDERS: ATTEND Internal Medicine Cardiovascular Disease
DX: I13.0 Hypertensive heart and chronic kidney disease with heart failure and stage 1 through stage 4 chronic kidney disease, or unspecified chronic kidney disease (principal); E11.22 Type 2 diabetes mellitus with diabetic chronic kidney disease; I50.43 Acute on chronic combined systolic (congestive) and diastolic (congestive) heart failure; N18.4 Chronic kidney disease, stage 4 (severe); I25.5 Ischemic cardiomyopathy; I25.10 Atherosclerotic heart disease of native coronary artery without angina pectoris; I25.2 Old myocardial infarction; I48.0 Paroxysmal atrial fibrillation; E11.42 Type 2 diabetes mellitus with diabetic polyneuropathy; E11.51 Type 2 diabetes mellitus with diabetic peripheral angiopathy without gangrene; E78.00 Pure hypercholesterolemia, unspecified; F32.A Depression, unspecified; Z87.891 Personal history of nicotine dependence; Z95.810 Presence of automatic (implantable) cardiac defibrillator
CPT/HCPCS: 96365; 96366; G0463; J1250

== ENCOUNTER → 2024-11-12 | Outpatient (CLI) | payer MEDICARE, OTHER ==
[2024-11-12] VITALS (9 sets, daily range): BP systolic 99–133; BP diastolic 47–67; PULSE 69–71; RESP 16; O2SAT 98
[2024-11-12] MEDS: DOBUTamine 1000MCG/ML 250 ML IV ONE ×2 (08:55→09:05)
[2024-11-12] MEDS: ACETAMINOPHEN 500 MG TAB or CAP PO ONE (10:12)
[2024-11-12] MEDS: ACETAMINOPHEN 325 MG TAB PO ONE (10:13)
[2024-11-12] MEDS: KETOROLAC TROMETH 60MG/2ML VIAL ONE (10:29)
[2024-11-12] MEDS: KETOROLAC TROMETH 60MG/2ML VIAL IM ONE (10:36)
== END | disposition home or self-care (01) ==
LOC: CHF HDHVI 08:46
PROVIDERS: ATTEND Internal Medicine Cardiovascular Disease
DX: I13.0 Hypertensive heart and chronic kidney disease with heart failure and stage 1 through stage 4 chronic kidney disease, or unspecified chronic kidney disease (principal); I50.23 Acute on chronic systolic (congestive) heart failure; E11.22 Type 2 diabetes mellitus with diabetic chronic kidney disease; N18.4 Chronic kidney disease, stage 4 (severe); M54.50 Low back pain, unspecified; E11.42 Type 2 diabetes mellitus with diabetic polyneuropathy; E11.51 Type 2 diabetes mellitus with diabetic peripheral angiopathy without gangrene; E11.65 Type 2 diabetes mellitus with hyperglycemia; I25.5 Ischemic cardiomyopathy; I25.10 Atherosclerotic heart disease of native coronary artery without angina pectoris; I48.91 Unspecified atrial fibrillation; E03.9 Hypothyroidism, unspecified; I25.2 Old myocardial infarction; E78.00 Pure hypercholesterolemia, unspecified; J44.9 Chronic obstructive pulmonary disease, unspecified; F32.A Depression, unspecified; G47.33 Obstructive sleep apnea (adult) (pediatric); E66.01 Morbid (severe) obesity due to excess calories; Z68.35 Body mass index [BMI] 35.0-35.9, adult; Z79.899 Other long term (current) drug therapy; Z87.891 Personal history of nicotine dependence; Z95.1 Presence of aortocoronary bypass graft; Z95.810 Presence of automatic (implantable) cardiac defibrillator; Z79.4 Long term (current) use of insulin; Z79.01 Long term (current) use of anticoagulants; Z79.82 Long term (current) use of aspirin
CPT/HCPCS: 96365; 96366; 96372; G0463; J1250; J1885

== ENCOUNTER → 2024-11-17 | Outpatient (CLI) | payer MEDICARE, OTHER ==
[2024-11-17] VITALS (9 sets, daily range): BP systolic 110–130; BP diastolic 41–53; PULSE 68–70; RESP 16–18; O2SAT 99
[2024-11-17] MEDS: DOBUTamine 1000MCG/ML 250 ML IV ONE ×2 (09:14→09:25)
--- NOTE | 2024-11-17 10:17 | DVH ---
CLINICAL INFORMATION: Low-back pain. TECHNIQUE: Axial CT images of the lumbar spine were obtained without IV contrast. Coronal and sagitt al reformatted images were obtained, reviewed, and stored. One or more of the following dose reducti on techniques were used: Automated exposure control. Adjustment of mA and/or kV according to patient size. CTDIvol = 33.9 mGy DLP = 988.27 mGy-cm COMPARISON: LS2CT on DOS: 04/25/22, LS SPINE WO CONTRAST on DOS: 04/25/22 FINDINGS: Straightening of the normal lumbar lordosis. No significant spondylolisthesis. Mild dextroconvex curv ature of the lumbar spine. Vertebral body heights are maintained. Postsurgical changes of prior grey ectomies at L4 and L5. No acute fracture. Paraspinal soft tissues are unremarkable. Moderate fatty a trophy of the paraspinal musculature in the lower lumbosacral spine. Partially visualized aneurysmal appearance of the distal infrarenal abdominal aorta measuring up to 4 cm in diameter in transverse di mension, incompletely included in the field of view in the AP dimension. Leads extend into the sterile tech ior epidural space of the T12-L1 level course cephalad, the [id number] of the exam. Lumbar disc levels: L1-L2: Severe disc space narrowing with associated endplate sclerosis and endplate spurring. No signi ficant spinal canal stenosis. Facet hypertrophy and dorsal spurring with moderate to severe bilateral neural foraminal stenoses. Vacuum disc disease also noted. L2-L3: Severe disc space narrowing with associated endplate sclerosis and endplate spurring. Posterio r disc osteophyte complex mildly indenting the ventral aspect of the thecal sac. Mild spinal canal st enosis. Facet hypertrophy and dorsal spurring contributes to moderate to severe bilateral neural fora radha stenoses. Vacuum disc disease. L3-L4: Severe disc space narrowing. Posterior disc osteophyte complex moderately indenting the ventra l aspect of the thecal sac with decompressive laminectomy. Facet and uncinate hypertrophy with severe bilateral neural foraminal stenoses. Vacuum disc disease also noted. L4-L5: There is osseous fusion across the L4-L5 disc space. Decompressive laminectomy. Facet hypertr ophy and dorsal spurring with moderate to severe bilateral neural foraminal stenoses. L5-S1: Moderate to severe spinal canal stenosis. Decompressive laminectomy. Facet hypertrophy and liu uri spurring contributes to moderate to severe bilateral neural foraminal stenoses. Vacuum disc disea se also noted IMPRESSION: 1. No evidence of acute fracture or spondylolisthesis. 2. Postsurgical changes of L4 and L5 laminectomies. 3. Degenerative disc disease and facet disease with associated spinal canal and neural foraminal sten oses as detailed above. 4. Partially visualized infrarenal abdominal aortic aneurysm. Correlate with clinical findings. Dedic ated CT of the abdomen and pelvis could be considered to further characterize if clinically indicated . 5. Additional findings as detailed above.
== END | disposition home or self-care (01) ==
LOC: Rad HDHVI 08:46
PROVIDERS: ATTEND Internal Medicine Cardiovascular Disease
DX: I13.0 Hypertensive heart and chronic kidney disease with heart failure and stage 1 through stage 4 chronic kidney disease, or unspecified chronic kidney disease (principal); I50.23 Acute on chronic systolic (congestive) heart failure; N18.4 Chronic kidney disease, stage 4 (severe); E11.22 Type 2 diabetes mellitus with diabetic chronic kidney disease; M47.816 Spondylosis without myelopathy or radiculopathy, lumbar region; I71.43 Infrarenal abdominal aortic aneurysm, without rupture; E11.42 Type 2 diabetes mellitus with diabetic polyneuropathy; E11.65 Type 2 diabetes mellitus with hyperglycemia; E11.51 Type 2 diabetes mellitus with diabetic peripheral angiopathy without gangrene; J44.9 Chronic obstructive pulmonary disease, unspecified; F32.A Depression, unspecified; E03.9 Hypothyroidism, unspecified; I25.10 Atherosclerotic heart disease of native coronary artery without angina pectoris; I25.5 Ischemic cardiomyopathy; I25.2 Old myocardial infarction; G47.33 Obstructive sleep apnea (adult) (pediatric); I48.0 Paroxysmal atrial fibrillation; M54.50 Low back pain, unspecified; E78.00 Pure hypercholesterolemia, unspecified; E66.01 Morbid (severe) obesity due to excess calories; Z68.35 Body mass index [BMI] 35.0-35.9, adult; Z79.899 Other long term (current) drug therapy; Z87.891 Personal history of nicotine dependence; Z95.1 Presence of aortocoronary bypass graft; Z79.01 Long term (current) use of anticoagulants; Z79.4 Long term (current) use of insulin; Z79.82 Long term (current) use of aspirin; Z95.810 Presence of automatic (implantable) cardiac defibrillator
CPT/HCPCS: 72131; 96365; 96366; G0463; J1250

== ENCOUNTER → 2024-11-19 | Outpatient (CLI) | payer MEDICARE, OTHER ==
[2024-11-19] VITALS (8 sets, daily range): BP systolic 108–124; BP diastolic 44–51; PULSE 65–70; RESP 16–71; O2SAT 99
[2024-11-19] MEDS: CYANOCOBALAMIN (B-12) 1000 MCG/1 ML VIAL ONE (08:56)
[2024-11-19] MEDS: DOBUTamine 1000MCG/ML 250 ML IV ONE ×2 (08:56→09:11)
[2024-11-19] MEDS: CYANOCOBALAMIN (B-12) 1000 MCG/1 ML VIAL IM ONE (09:07)
== END | disposition home or self-care (01) ==
LOC: CHF HDHVI 08:47
PROVIDERS: ATTEND Internal Medicine Cardiovascular Disease
DX: I13.0 Hypertensive heart and chronic kidney disease with heart failure and stage 1 through stage 4 chronic kidney disease, or unspecified chronic kidney disease (principal); I50.23 Acute on chronic systolic (congestive) heart failure; N18.4 Chronic kidney disease, stage 4 (severe); E11.22 Type 2 diabetes mellitus with diabetic chronic kidney disease; D64.9 Anemia, unspecified; E11.42 Type 2 diabetes mellitus with diabetic polyneuropathy; E11.65 Type 2 diabetes mellitus with hyperglycemia; E11.51 Type 2 diabetes mellitus with diabetic peripheral angiopathy without gangrene; I25.10 Atherosclerotic heart disease of native coronary artery without angina pectoris; I25.5 Ischemic cardiomyopathy; J44.9 Chronic obstructive pulmonary disease, unspecified; E03.9 Hypothyroidism, unspecified; G47.33 Obstructive sleep apnea (adult) (pediatric); I48.0 Paroxysmal atrial fibrillation; I25.2 Old myocardial infarction; F32.A Depression, unspecified; E11.40 Type 2 diabetes mellitus with diabetic neuropathy, unspecified; E78.00 Pure hypercholesterolemia, unspecified; E66.01 Morbid (severe) obesity due to excess calories; Z68.35 Body mass index [BMI] 35.0-35.9, adult; Z79.899 Other long term (current) drug therapy; Z87.891 Personal history of nicotine dependence; Z95.1 Presence of aortocoronary bypass graft; Z79.01 Long term (current) use of anticoagulants; Z79.4 Long term (current) use of insulin; Z79.82 Long term (current) use of aspirin
CPT/HCPCS: 96365; 96366; 96372; G0463; J1250; J3420

== ENCOUNTER → 2024-11-26 | Outpatient (CLI) | payer MEDICARE, OTHER ==
[2024-11-26] VITALS (9 sets, daily range): BP systolic 106–127; BP diastolic 45–57; PULSE 69–72; RESP 16; O2SAT 99
[2024-11-26] MEDS: DOBUTamine 1000MCG/ML 250 ML IV ONE ×2 (08:56→09:20)
[2024-11-26] MEDS: ACETAMINOPHEN 325 MG TAB PO ONE (10:07)
[2024-11-26] MEDS: ACETAMINOPHEN 500 MG TAB or CAP PO ONE (10:07)
== END | disposition home or self-care (01) ==
LOC: CHF HDHVI 08:45
PROVIDERS: ATTEND Internal Medicine Cardiovascular Disease
DX: I13.0 Hypertensive heart and chronic kidney disease with heart failure and stage 1 through stage 4 chronic kidney disease, or unspecified chronic kidney disease (principal); E11.22 Type 2 diabetes mellitus with diabetic chronic kidney disease; I50.43 Acute on chronic combined systolic (congestive) and diastolic (congestive) heart failure; N18.4 Chronic kidney disease, stage 4 (severe); I25.5 Ischemic cardiomyopathy; R06.02 Shortness of breath; M54.50 Low back pain, unspecified; I25.10 Atherosclerotic heart disease of native coronary artery without angina pectoris; I25.2 Old myocardial infarction; I48.0 Paroxysmal atrial fibrillation; E11.51 Type 2 diabetes mellitus with diabetic peripheral angiopathy without gangrene; E11.42 Type 2 diabetes mellitus with diabetic polyneuropathy; E78.00 Pure hypercholesterolemia, unspecified; E03.9 Hypothyroidism, unspecified; F41.9 Anxiety disorder, unspecified; F32.A Depression, unspecified; E66.01 Morbid (severe) obesity due to excess calories; Z68.35 Body mass index [BMI] 35.0-35.9, adult; Z87.891 Personal history of nicotine dependence; Z79.01 Long term (current) use of anticoagulants; Z79.4 Long term (current) use of insulin; Z79.82 Long term (current) use of aspirin; Z79.899 Other long term (current) drug therapy; Z95.810 Presence of automatic (implantable) cardiac defibrillator
CPT/HCPCS: 96365; 96366; G0463; J1250

== ENCOUNTER → 2024-12-01 | Outpatient (CLI) | payer MEDICARE, OTHER ==
[2024-12-01] VITALS (9 sets, daily range): BP systolic 113–125; BP diastolic 39–56; PULSE 69–71; RESP 18; O2SAT 97
[2024-12-01] MEDS: DOBUTamine 1000MCG/ML 250 ML IV ONE ×2 (08:55→09:05)
[2024-12-01] MEDS: ACETAMINOPHEN 500 MG TAB or CAP PO ONE (09:36)
[2024-12-01] MEDS: ACETAMINOPHEN 325 MG TAB PO ONE (09:37)
[2024-12-01] MEDS: BUMETANIDE INJECTION 10 ML ONE (10:38)
[2024-12-01] MEDS: BUMETANIDE 2.5mg/10ml (0.25 mg/ml) INJ IV ONE (10:40)
[2024-12-01] MEDS: POTASSIUM CHL 20 Meq TABLET PO ONE (10:43)
[2024-12-01] MEDS: KETOROLAC TROMETH 60MG/2ML VIAL ONE (10:43)
[2024-12-01] MEDS: POTASSIUM CHL 10 Meq TABLET PO ONE (10:45)
[2024-12-01] MEDS: KETOROLAC TROMETH 60MG/2ML VIAL IM ONE (10:56)
== END | disposition home or self-care (01) ==
LOC: CHF HDHVI 08:47
PROVIDERS: ATTEND Internal Medicine Cardiovascular Disease
DX: I13.0 Hypertensive heart and chronic kidney disease with heart failure and stage 1 through stage 4 chronic kidney disease, or unspecified chronic kidney disease (principal); E11.22 Type 2 diabetes mellitus with diabetic chronic kidney disease; I50.43 Acute on chronic combined systolic (congestive) and diastolic (congestive) heart failure; N18.4 Chronic kidney disease, stage 4 (severe); I25.5 Ischemic cardiomyopathy; I25.2 Old myocardial infarction; I25.10 Atherosclerotic heart disease of native coronary artery without angina pectoris; I48.0 Paroxysmal atrial fibrillation; E11.51 Type 2 diabetes mellitus with diabetic peripheral angiopathy without gangrene; E11.42 Type 2 diabetes mellitus with diabetic polyneuropathy; E78.00 Pure hypercholesterolemia, unspecified; E03.9 Hypothyroidism, unspecified; F41.9 Anxiety disorder, unspecified; F32.A Depression, unspecified; Z79.01 Long term (current) use of anticoagulants; Z79.4 Long term (current) use of insulin; Z79.82 Long term (current) use of aspirin; Z87.891 Personal history of nicotine dependence; Z95.810 Presence of automatic (implantable) cardiac defibrillator
CPT/HCPCS: 96365; 96366; 96372; 96375; G0463; J1250; J1885

== ENCOUNTER → 2024-12-03 | Outpatient (CLI) | payer MEDICARE, OTHER ==
[2024-12-03] VITALS (9 sets, daily range): BP systolic 100–133; BP diastolic 47–60; PULSE 69–72; RESP 18; O2SAT 98
[~2024-12-03] MED LIST changes: +LEVO200T PO; +VERI2.5T PO
[2024-12-03] MEDS: DOBUTamine 1000MCG/ML 250 ML IV ONE ×2 (08:56→09:08)
[2024-12-03] MEDS: POTASSIUM CHL 20 Meq TABLET PO ONE ×2 (08:59→10:21)
[2024-12-03] MEDS: BUMETANIDE INJECTION 10 ML ONE (08:59)
[2024-12-03] MEDS: BUMETANIDE 2.5mg/10ml (0.25 mg/ml) INJ IV ONE (10:19)
== END | disposition home or self-care (01) ==
LOC: CHF HDHVI 08:52
PROVIDERS: ATTEND Internal Medicine Cardiovascular Disease
DX: I13.0 Hypertensive heart and chronic kidney disease with heart failure and stage 1 through stage 4 chronic kidney disease, or unspecified chronic kidney disease (principal); E11.22 Type 2 diabetes mellitus with diabetic chronic kidney disease; I50.43 Acute on chronic combined systolic (congestive) and diastolic (congestive) heart failure; N18.4 Chronic kidney disease, stage 4 (severe); I25.5 Ischemic cardiomyopathy; I25.10 Atherosclerotic heart disease of native coronary artery without angina pectoris; I25.2 Old myocardial infarction; I48.0 Paroxysmal atrial fibrillation; E11.51 Type 2 diabetes mellitus with diabetic peripheral angiopathy without gangrene; E11.42 Type 2 diabetes mellitus with diabetic polyneuropathy; E78.00 Pure hypercholesterolemia, unspecified; E03.9 Hypothyroidism, unspecified; F41.9 Anxiety disorder, unspecified; F32.A Depression, unspecified; Z79.4 Long term (current) use of insulin; Z79.82 Long term (current) use of aspirin; Z79.899 Other long term (current) drug therapy; Z79.01 Long term (current) use of anticoagulants; Z87.891 Personal history of nicotine dependence; Z95.810 Presence of automatic (implantable) cardiac defibrillator
CPT/HCPCS: 96365; 96366; 96375; G0463; J1250

== ENCOUNTER 2024-12-09 03:06 | Inpatient (IN) | payer MEDICARE, OTHER ==
[2024-12-09] VITALS (10 sets, daily range): BP systolic 105–123; BP diastolic 51–60; PULSE 70–74; RESP 16–24; TEMP 97.6–98.5; O2SAT 97–100
[~2024-12-09] VITALS: Ht 180.3 cm; Wt 90.0 kg
[~2024-12-09 03:06] MED LIST changes: -LEVO200T PO; -VERI2.5T PO
--- NOTE | 2024-12-09 03:40 | ED.PDOC ---
History of Present Illness HPI Comments 79 y/o M presents with spouse for 3x day history of nonradiating, diffused abdominal pain, with associated nausea, vomiting, small stools, and excessive flatulence. Patient endorses on pain worsening, today, and describes it as tight in quality. States on feeling constipated but states on no improvement with stool softener use. Patient denies any bloody or bilious vomitus, diarrhea, rectal pain, urinary symptoms, fever, chills, or further associated symptoms or modifiers. Patient has a history of CAD, CHF, DM, HLD, HTN, ID, CABG, AICD, thyroid disease, and tobacco abuse. Chief Complaint: Constipation Time Seen by MD: 03:30 Reviewed Notes: Nurses Notes, Medications, Allergies Allergies: Coded Allergies: Iodixanol (Verified Allergy, Unknown, 02/07/24) ITCHING, REDNESS Home Meds Reported Medications Levothyroxine Sodium (Levothyroxine Sodium) 200 Mcg Tab, 200 MCG PO QAM, MCG TAKE WITH LEVOTHYROXINE 50 MCG TABLET FOR TOTAL 250 MCG DAILY 12/30/23 Ranolazine (Ranolazine ER) 1,000 Mg Tab, 1000 MG PO BID, TAB 12/30/23 Tadalafil (Tadalafil) 20 Mg Tab, 1 TAB PO DIRECTED PRN for ED 10/17/23 Umeclidinium-Vilanterol (Anoro Ellipta 62.5-25 Mcg/INH) 1 Aer Aer, 1 PUFF IN DAILY for COPD 10/16/23 Levothyroxine Sodium (SYNTHROID TABLET) 50 Mcg Tb, 1 TAB PO QAM for HYPOTHYROIDISM TAKE WITH LEVOTHYROXINE 200 MCG TABLET FOR TOTAL 250 MCG DAILY 10/16/23 Ipratropium [place] Hfa (Atrovent Hfa) 17 Mcg Aer, 2 PUFF INH BID PRN for SHORTNESS OF BREATH 10/16/23 Amiodarone HCl (Amiodarone Hydrochloride) 400 Mg Tab, 1 TAB PO DAILY for ARRHYTHMIA 10/16/23 Dapagliflozin Propanediol (Farxiga) 10 Mg Tab, 1 TAB PO DAILY for DIABETES 10/16/23 Furosemide (Furosemide) 40 Mg Tab, 1 TAB PO DAILY for EDEMA 10/16/23 Potassium Chloride (Klor-Con M20) 20 Meq Tab, 1 TAB PO DAILY for SUPPLEMENT 10/16/23 Apixaban Base (ELIQUIS) 2.5 Mg Tab, 1 TAB PO BID for ARRYTHMIA 10/16/23 Gabapentin (Gabapentin) 300 Mg Cap, 1 CAP PO TID for PERIPHERAL NEUROPATHY 10/16/23 Ivabradine Hydrochloride (Corlanor) 5 Mg Tab, 1 TAB PO BID for HEART FAILURE 10/16/23 Atorvastatin Calcium (ATORVASTATIN CALCIUM) 80 Mg Tab, 1 TAB PO QPM for HIGH CHOLESTEROL 10/16/23 Cholecalciferol (VITAMIN D3) 2,000 Unit Tab, 1 TAB PO DAILY for SUPPLEMENT 10/16/23 Metformin Hydrochloride (Metformin Hcl) 500 Mg Tab, 1 TAB PO BID for DIABETES 10/16/23 Nitroglycerin (NTROSTAT SUBLINGUAL) 0.4 Mg Sl, 1 MG SL PRN for FOR CHEST PAIN *MAY REPEAT EVERY 5 MINUTES X 3 TOTAL IF NO RELIEF, INITIATE ANALGESIC THERAPY. NOTIFY PHYSICIAN *Do not crush. 02/13/19 Glipizide (Glipizide) 10 Mg Tab, 1 TAB PO BID for DIABETES 02/13/19 Sacubitril-Valsartan (Entresto 24-26 mg) 1 Tab Tab, 1 TAB PO BID for HYPERTENSION 02/13/19 Isosorbide Mononitrate (Isosorbide Mononitrate Er) 30 Mg Tab, 1 TAB PO DAILY for ANGINA 10/29/17 Atenolol (Atenolol) 50 Mg Tab, 1 TAB PO DAILY for HYPERTENSION 06/27/12 Aspirin (Aspir-81) 81 Mg Tab, 1 TAB PO DAILY for HEART ATTACK PREVENTION 06/27/12 Information Source: Patient, Spouse Mode of Arrival: EMS Severity: Moderate Timing: Days Duration: Since onset Prehospital treatment: Other (see HPI) Past Medical History PAST MEDICAL HISTORY: CAD, CHF, DM, High Lipids, HTN, ID, Thyroid Surgical History: CABG Surgical History (Other): AICD Family History Family History: Unobtainable Social History Smoker: Cigarettes, Greater Than 1 Pack/Day Alcohol: Denies ETOH Use Drugs: Denies Drug Use Lives In: Home All Other Systems: Reviewed and Negative (Comprehensive systems review obtained and negative except for what is stated in the HPI.) Physical Exam General Appearance: No Apparent Distress, Normal HEENT: Normal ENT Inspection, Pharynx Normal, TMs Normal Neck: Full Range of Motion, Non-Tender, Normal, Normal Inspection Respiratory: Chest Non-Tender, Lungs Clear, No Accessory Muscle Use, No Respiratory Distress, Normal Breath Sounds Cardiovascular: No Edema, No JVD, No Murmur, No Gallop, Normal Peripheral Pulses, Regular Rate/Rhythm Breast Exam: Deferred Gastrointestinal: Diffuse (tenderness ), No Organomegaly, No Pulsatile Mass, Normal Bowel Sounds, Soft, Tenderness (diffused ) Genitalia: Deferred Pelvic: Deferred Rectal: Deferred Extremities: No calf tenderness, Normal capillary refill, Normal inspection, Normal range of motion, Non-tender, No pedal edema Musculoskeletal : Apperance: Normal Neurologic: Alert, seam finisher II-XII nml as Tested, No Motor Deficits, Normal Affect, Normal Mood, No Sensory Deficits Cerebellar Function: Normal Reflexes: Normal Skin: Dry, Normal Color, Warm Lymphatic: No Adenopathy Was a procedure done? Was a procedure done?: No Differential Dx Considerations may include: constipation, bowel obstruction, gastritis, gastroenteritis, cholelithiasis, cholecystitis, appendicitis, diverticulitis, UTI, among others X-Ray, Labs, Meds, VS Vital Signs Date Time Temp Pulse Resp B/P (MAP) Pulse Ox O2 Delivery O2 Flow Rate FiO2 12/09/24 05:32 69 21 98 Nasal Cannula 2.0 12/09/24 05:28 97.8 69 21 133/62 (85) 98 97.8 12/09/24 03:24 98.0 70 16 113/57 (75) 97 98.0 Lab Test 12/09/24 04:50 12/09/24 03:44 Range/Units Urine Color Yellow Yellow Urine Clarity Clear Clear Urine pH 5.5 5.0-9.0 Urine Specific [place] 1.021 1.001-1.035 Urine Protein Trace H Negative Urine Ketones Negative Negative Urine Blood Negative Negative /uL Urine Nitrite Negative Negative Urine Bilirubin Negative Negative Urine Urobilinogen Normal Negative mg/dL Urine Leukocyte Esterase Negative Negative /uL Urine RBC 1 0 - 3 /hpf Urine Microscopic WBC 1 0-3 /HPF Urine Squamous Epithelial Cells Few <5 /hpf Urine Bacteria None seen None Seen /hpf Urine Hyaline Casts Few 0 - 2 /lpf Urine Glucose 4+ H Normal mg/dL White Blood Count 6.6 4.4-10.8 10^3/uL Red Blood Count 3.44 L 4.5-5.90 10^6/uL Hemoglobin 9.0 L 13.5-17.5 g/dL Hematocrit 28.0 L 41.0-53.0 % Mean Corpuscular Volume 81.3 80.0-100.0 fL Mean Corpuscular Hemoglobin 26.1 L 28.0-32.0 pg Mean Corpuscular Hemoglobin Concent 32.1 32.0-36.0 g/dL Red Cell Distribution Width 17.1 H 11.8-14.3 % Platelet Count 168 140-450 10^3/uL Mean Platelet Volume 8.9 6.9-10.8 fL Neutrophils (%) (Auto) 82.4 H 37.0-80.0 % Lymphocytes (%) (Auto) 8.1 L 10.0-50.0 % Monocytes (%) (Auto) 9.1 0.0-12.0 % Eosinophils (%) (Auto) 0.2 0.0-7.0 % Basophils (%) (Auto) 0.2 0.0-2.0 % Neutrophils # (Auto) 5.4 1.6-8.6 10 ^3/uL Lymphocytes # (Auto) 0.5 0.4-5.4 10 ^3/uL Monocytes # (Auto) 0.6 0-1.3 10 ^3/uL Eosinophils # (Auto) 0 0-0.8 10 ^3/uL Basophils # (Auto) 0 0-0.2 10 ^3/uL Nucleated Red Blood Cells 0.0 % Sodium Level 135 L 136-145 mmol/L Potassium Level 4.3 3.5-5.1 mmol/L Chloride Level 101 98-107 mmol/L Carbon Dioxide Level 24 20-31 mmol/L Anion Gap 10 5-15 Blood Urea Nitrogen 22 9-23 mg/dL Creatinine 1.41 H 0.700-1.30 mg/dL Glomerular Filtration Rate Calc 51 >90 mL/min BUN/Creatinine Ratio 15.6 10.0-20.0 Serum Glucose 194 H 74-106 mg/dL Calcium Level 8.7 8.7-10.4 mg/dL Total Bilirubin 0.7 0.2-1.0 mg/dL Aspartate Amino Transferase (AST) 44 H 13-40 U/L Alanine Aminotransferase (ALT) 55 H 7-40 U/L Alkaline Phosphatase 150 H 46-116 U/L Total Protein 7.1 5.7-8.2 g/dL Albumin 4.4 3.2-4.8 g/dL Lipase 29 12-53 U/L Current Medications Medications (Trade) Dose Ordered Sig/Migue Route Start Time Stop Time Status Last Admin Sodium Chloride 1,000 ml @ 1,000 mls/hr Q1H ONCE IVB 12/09/24 03:45 12/09/24 04:44 DC 12/09/24 05:31 Ketorolac Tromethamine (Toradol Injection) 15 mg ONCE ONCE IV 12/09/24 03:45 12/09/24 03:46 DC 12/09/24 05:34 Ondansetron HCl (Zofran) 4 mg ONCE ONCE IV 12/09/24 03:45 12/09/24 03:46 DC 12/09/24 05:33 Diphenhydramine HCl (Benadryl Injection) 25 mg ONCE ONCE IV 12/09/24 05:45 12/09/24 05:46 DC 12/09/24 05:55 Methylprednisolone Sodium Succinate (Solu Medrol) 40 mg ONCE ONCE IV 12/09/24 05:45 12/09/24 05:46 DC 12/09/24 05:54 Time of 1ST Reevaluation: 04:00 Reevaluation 1ST: Unchanged Patient Education/Counseling: Diagnosis, Treatment Family Education/Counseling: Diagnosis, Treatment Departure 1 Departure Time of Disposition: 05:59 Impression: Primary Impression: Intractable abdominal pain Additional Impressions: Partial bowel obstruction Normocytic anemia Disposition: ADMITTED INPATIENT Condition: Guarded Discharged With: Self Comments Abdominal Pain with Suspected Partial Bowel Obstruction Chief Complaint: Abdominal pain with nausea and vomiting History of Present Illness: Patient is a 79-year-old male presenting with three days of diffuse abdominal pain accompanied by nausea and vomiting. He reports minimal stool output but is passing flatus. The pain is described as diffuse throughout the abdomen. Associated symptoms include abdominal distention. Review of Systems: Constitutional: Negative for fever Gastrointestinal: Positive for abdominal pain, nausea, vomiting, decreased bowel movements, and abdominal distention. Passing flatus. All other systems reviewed and negative Physical Exam: Abdomen: - Distended - Diffusely tender - Passing flatus Lab Results: CBC: - Hemoglobin: 9.28 g/dL (Low) - MCV: 81 (Normal) Chemistry: - Creatinine: 1.41 mg/dL (Elevated) - Glucose: 194 mg/dL (Elevated) Imaging and Other Relevant Results: CT Abdomen/Pelvis: Results pending Medical Decision Making: Summary Statement: 79-year-old male presenting with three days of diffuse abdominal pain, nausea, vomiting, and minimal stool output, concerning for partial bowel obstruction. Notable for normocytic anemia and acute kidney injury. Problem List: 1. Suspected partial bowel obstruction 2. Normocytic anemia (Hgb 9.28) 3. Acute kidney injury (Cr 1.41) 4. Hyperglycemia Differential Diagnosis: 1. Partial bowel obstruction 2. Ileus 3. Gastroenteritis 4. Mesenteric ischemia 5. Intra-abdominal malignancy ED Course: Patient presented with symptoms concerning for partial bowel obstruction. Labs revealed significant normocytic anemia and mild acute kidney injury. CT abdomen/pelvis ordered and pending. Given clinical presentation and lab abnormalities, admission is warranted. Assessment and Plan: 1. Suspected Partial Bowel Obstruction: - Admit to hospital for further evaluation and management - NPO status - IV fluid hydration - Serial abdominal exams - Await CT abdomen/pelvis results 2. Normocytic Anemia (Hgb 9.28): - Further workup during admission - Consider GI source given abdominal symptoms 3. Acute Kidney Injury: - IV fluid hydration - Monitor urine output - Trend creatinine 4. Hyperglycemia: - Monitor blood glucose - Consider diabetic protocol if persistent Billing Information: ICD-10: K56.69 - Other intestinal obstruction ICD-10: D64.9 - Anemia, unspecified ICD-10: N17.9 - Acute kidney failure, unspecified ICD-10: R10.84 - Generalized abdominal pain Critical Care Note Critical Care Time?: No Stability Stability form required: No Heart Score Heart Score: Heart Score Response (Comments) Value History N/A 0 EKG N/A 0 Age N/A 0 Risk Factors N/A 0 Troponin N/A 0 Total 0 I personally scribed for RAMONITA IRIZARRY MD ([email or web address]) on 12/09/24 at 03:40. Electronically submitted by Skip Ferreira [email or web address]). RAMONITA IRIZARRY MD December 09, 2024 03:40
[2024-12-09 03:55] LABS: Basophils # (auto) 0 10 ^3/uL (0-0.2); Basophils % (auto) 0.2 % (0.0-2.0); Eosinophils # (auto) 0 10 ^3/uL (0-0.8); Eosinophils % (auto) 0.2 % (0.0-7.0); Lymphocytes # (auto) 0.5 10 ^3/uL (0.4-5.4); Lymphocytes % (auto) 8.1 % (10.0-50.0); Mean Corpuscular Hemoglobin 26.1 pg (28.0-32.0); Mean Corpuscular Hgb Conc. 32.1 g/dL (32.0-36.0); Mean Corpuscular Volume 81.3 fL (80.0-100.0); Monocytes # (auto) 0.6 10 ^3/uL (0-1.3); Monocytes % (auto) 9.1 % (0.0-12.0); Neutrophils # (auto) 5.4 10 ^3/uL (1.6-8.6); Neutrophils % (auto) 82.4 % (37.0-80.0); Platelet Count (auto) 168 10^3/uL (140-450); Red Blood Cells 3.44 10^6/uL (4.5-5.90); Red Cell Distribution Width 17.1 % (11.8-14.3); White Blood Cell 6.6 10^3/uL (4.4-10.8)
[2024-12-09] MEDS: IOHEXOL 300 MG/ML 100ML BOTTLE IJ ONE (04:40)
[2024-12-09 04:52] LABS: Albumin 4.4 g/dL (3.2-4.8); Anion Gap 10 (5-15); BUN/Creatinine Ratio 15.6 (10.0-20.0); Blood Urea Nitrogen 22 mg/dL (9-23); Calcium 8.7 mg/dL (8.7-10.4); Carbon Dioxide 24 mmol/L (20-31); Chloride 101 mmol/L (98-107); Lipase 29 U/L (12-53); Potassium 4.3 mmol/L (3.5-5.1); Total Protein 7.1 g/dL (5.7-8.2)
[2024-12-09 04:53] LABS: Bilirubin, Total 0.7 mg/dL (0.2-1.0)
[2024-12-09 05:01] LABS: Urine Bacteria None Seen /hpf (None Seen)
[2024-12-09 05:03] LABS: Alkaline Phosphatase 150 U/L (46-116); Glucose 194 mg/dL (74-106); Sodium 135 mmol/L (136-145)
[2024-12-09 05:04] LABS: Alanine Aminotransferase 55 U/L (7-40); Aspartate Aminotransferase 44 U/L (13-40)
[2024-12-09 05:11] LABS: Urine Blood Negative /uL (Negative); Urine Clarity Clear (Clear); Urine Color Yellow (Yellow); Urine Hyaline Cast FEW /lpf (0 - 2); Urine Protein, UAD TRACE (Negative); Urine Specific Gravity 1.021 (1.001-1.035); Urine Squamous Epithelial Cell FEW /hpf (<5); Urine Urobilinogen Normal (Negative); Urine WBC 1 /HPF (0-3); Urine pH 5.5 (5.0-9.0)
[2024-12-09] MEDS: SODIUM CHLORIDE 0.9% 1,000 ML IVB ONE (05:31)
[2024-12-09] MEDS: ONDANSETRON HCL 4 MG/2 ML VIAL IV ONE (05:33)
[2024-12-09] MEDS: KETOROLAC TROMETH 30 MG/ML 1ML VIAL IV ONE (05:34)
[2024-12-09] MEDS: methylPREDNISolone SOD SUCC 40 MG/ML VL IV ONE (05:54)
[2024-12-09] MEDS: diphenhdrAMINE HCL 50 MG/1 ML VL IV ONE (05:55)
--- NOTE | 2024-12-09 06:55 | DVHHP2 ---
History of Present Illness Reason for Visit: SBO History of Present Illness 79-year-old male with history of CAD sp CABG, CHF, DM2, COPD, hypothyroidism, and abdominal aortic aneurysm s/p ICD, presents with 3-day history of obstipation, diffuse abdominal pain, associated nausea, vomiting, small stools, and excessive flatulence. He reports the abdominal pain has worsened today, describing it as tight in quality. Last bowel movement was yesterday, but with incomplete evacuation. Denies hematemesis, melena, hematochezia, rectal pain, fever, chills, dysuria, or other urinary symptoms. He endorsed only partial relief with stool softeners. Patient refused opioids, requesting only Toradol for pain relief. Allergies: Iodinated contrast Review of Systems Review of Systems Positive: abdominal pain, nausea, constipation, bloating Negative: chest pain, shortness of breath, fever, diarrhea, urinary symptoms Allergies: Coded Allergies: Iodixanol (Verified Allergy, Unknown, 02/07/24) ITCHING, REDNESS Medications Current Medications Medications Dose Ordered Sig/Migue Route Start Time Stop Time Status Last Admin Dose Admin Sodium Chloride 1,000 ml @ 60 mls/hr [id number] IV 12/09/24 06:30 Ketorolac Tromethamine 15 mg Q6HPRN PRN IV 12/09/24 06:30 12/14/24 06:29 Exam Vital Signs Vital Signs Date Time Temp Pulse Resp B/P (MAP) Pulse Ox O2 Delivery O2 Flow Rate FiO2 12/09/24 05:32 69 21 98 Nasal Cannula 2.0 12/09/24 05:28 97.8 133/62 (85) 97.8 Exam General: Alert, in mild discomfort Abdomen: Distended, tympanic, diffusely tender to palpation, no rebound or guarding Rectal: Deferred Other Systems: Non-focal Labs/Xrays Labs Test 12/09/24 04:50 12/09/24 03:44 Range/Units Urine Color Yellow Yellow Urine Clarity Clear Clear Urine pH 5.5 5.0-9.0 Urine Specific Nicholls 1.021 1.001-1.035 Urine Protein Trace H Negative Urine Ketones Negative Negative Urine Blood Negative Negative /uL Urine Nitrite Negative Negative Urine Bilirubin Negative Negative Urine Urobilinogen Normal Negative mg/dL Urine Leukocyte Esterase Negative Negative /uL Urine RBC 1 0 - 3 /hpf Urine Microscopic WBC 1 0-3 /HPF Urine Squamous Epithelial Cells Few <5 /hpf Urine Bacteria None seen None Seen /hpf Urine Hyaline Casts Few 0 - 2 /lpf Urine Glucose 4+ H Normal mg/dL White Blood Count 6.6 4.4-10.8 10^3/uL Red Blood Count 3.44 L 4.5-5.90 10^6/uL Hemoglobin 9.0 L 13.5-17.5 g/dL Hematocrit 28.0 L 41.0-53.0 % Mean Corpuscular Volume 81.3 80.0-100.0 fL Mean Corpuscular Hemoglobin 26.1 L 28.0-32.0 pg Mean Corpuscular Hemoglobin Concent 32.1 32.0-36.0 g/dL Red Cell Distribution Width 17.1 H 11.8-14.3 % Platelet Count 168 140-450 10^3/uL Mean Platelet Volume 8.9 6.9-10.8 fL Neutrophils (%) (Auto) 82.4 H 37.0-80.0 % Lymphocytes (%) (Auto) 8.1 L 10.0-50.0 % Monocytes (%) (Auto) 9.1 0.0-12.0 % Eosinophils (%) (Auto) 0.2 0.0-7.0 % Basophils (%) (Auto) 0.2 0.0-2.0 % Neutrophils # (Auto) 5.4 1.6-8.6 10 ^3/uL Lymphocytes # (Auto) 0.5 0.4-5.4 10 ^3/uL Monocytes # (Auto) 0.6 0-1.3 10 ^3/uL Eosinophils # (Auto) 0 0-0.8 10 ^3/uL Basophils # (Auto) 0 0-0.2 10 ^3/uL Nucleated Red Blood Cells 0.0 % Sodium Level 135 L 136-145 mmol/L Potassium Level 4.3 3.5-5.1 mmol/L Chloride Level 101 98-107 mmol/L Carbon Dioxide Level 24 20-31 mmol/L Anion Gap 10 5-15 Blood Urea Nitrogen 22 9-23 mg/dL Creatinine 1.41 H 0.700-1.30 mg/dL Glomerular Filtration Rate Calc 51 >90 mL/min BUN/Creatinine Ratio 15.6 10.0-20.0 Serum Glucose 194 H 74-106 mg/dL Calcium Level 8.7 8.7-10.4 mg/dL Total Bilirubin 0.7 0.2-1.0 mg/dL Aspartate Amino Transferase (AST) 44 H 13-40 U/L Alanine Aminotransferase (ALT) 55 H 7-40 U/L Alkaline Phosphatase 150 H 46-116 U/L Total Protein 7.1 5.7-8.2 g/dL Albumin 4.4 3.2-4.8 g/dL Lipase 29 12-53 U/L Assessment/Plan Assessment/Plan #Small bowel obstruction #CAD sp CABG #CHF #DM2 #COPD #Afib? #Hypothyroidism #AAA #s/p ICD #Tobacco use disorder #Diabetes with hyperglycemia #Normocytic anemia (likely chronic disease or GI-related) #Elevated transaminases and alkaline phosphatase #MARIANNE on CKD Plan: Admit Telemetry NPO CT Abdomen/Pelvis with contrast showed SBO pending surgical evaluation IV hydration No anticoagulation for now until surgical decision No PO meds for no, sign out given to am team to define restart of home meds IV Toradol for pain control per patient preference Case discussed with Dr Berger Full code Plan discussed with: Patient, Other My Orders Orders - FERDINAND MASTERSON RESIDENT Procedure Category Date Status Time Admit ADMIT 12/09/24 Transmitted 06:26 Code Status CODE 12/09/24 Transmitted 06:26 Vital Signs CHARLI 12/09/24 In Process 06:26 Review Orders With CHARLI 12/09/24 In Process Adm. 06:26 Npo (Nothing By DIET 12/09/24 Transmitted Mouth) Diet Breakfast Sodium Chloride 0.9% PHA 12/09/24 In Process 06:30 Notify Of Changes CHARLI 12/09/24 In Process From Base 06:26 Advance Directive CHARLI 12/09/24 In Process 06:26 Patient Condition ORDERS 12/09/24 Transmitted 06:26 Allergies CHARLI 12/09/24 In Process 06:26 Ketorolac Injection PHA 12/09/24 In Process (Toradol Injection) 06:30 PTPTT LAB 12/09/24 In Process 06:41 Iron Panel LAB 12/09/24 In Process 06:41 Ferritin LAB 12/09/24 In Process 06:41 Folate (Folic Acid) LAB 12/09/24 In Process 06:41 Vitamin B12 LAB 12/09/24 In Process 06:41 Date of Service: December 09, 2024 Billing Provider: BOB BERGER MD Common Visit Codes: 96416-[id number] INP/OBS CARE (HIGH) Secondary Visit Codes: 86874-[id number] CARE PLAN 30 MINUTES FERDINAND MASTERSON RESIDENT December 09, 2024 06:55
[2024-12-09 07:09] LABS: INR 1.24 (0.9-1.15); Partial Thromboplastin Time 29.9 SEC (24.5-34.5); Prothrombin Time 12.9 sec (9.3-11.8)
[2024-12-09 07:17] LABS: % Iron Saturation 6.2 % (20-55)
--- NOTE | 2024-12-09 07:18 | DVH ---
CLINICAL INFORMATION: Abdominal pain. TECHNIQUE: Axial CT images of the abdomen and pelvis were obtained after the uneventful administratio n of 100 mL Omnipaque 300 IV contrast. Coronal and sagittal reformatted images were obtained, reviewe d, and stored. All CT scans at this medical facility are performed using dose modulation techniques a s appropriate to a performed exam including the following: Automated exposure control was utilized; a djustment of the MA and/or KV according to patient size; and use of iterative reconstruction techniqu e. CTDIvol = 14.6 mGy DLP = 850.29 mGy-cm COMPARISON: No prior dedicated imaging of the abdomen and pelvis was available for comparison at the time of dictation. Correlation made to CT lumbar spine exam dated 11/17/2024. FINDINGS: Lung bases: Atelectasis in the lung bases. Partially visualized moderate cardiomegaly. Liver: Unremarkable. No abnormal density or focal lesion. Biliary: Multiple small calcified gallstones layering dependently in the gallbladder. Spleen: Unremarkable. Pancreas: Moderate atrophy. Adrenal glands: Unremarkable. No mass. Kidneys: No hydronephrosis. Right renal cysts, with the largest measuring up to 2.9 cm. Aorta/Vascular: Fusiform infrarenal abdominal aortic aneurysm measuring up to 4.9 cm in AP dimension and 5.0 cm in transverse dimension. Dense atherosclerotic calcification. Retroperitoneum: No mass or lymphadenopathy. Bowel/mesentery: Dilated fluid-filled small bowel loops with transition to nondilated small bowel of the central aspect of the abdomen, suspected small-bowel obstruction. Appendix is not visualized. No free air or free fluid visualized. Pelvic organs: Grossly unremarkable. Bladder: Unremarkable. No mass. Abdominal wall: No mass or hernia. Stimulator device in the left gluteal subcutaneous tissues with le ad extending into the spinal canal at the T12-L1 level and extending cephalad along the dorsal epidur al space to the T7-T8 level. Bones: No acute fracture or focal intraosseous lesion. IMPRESSION: 1. Suspected small-bowel obstruction as described above. 2. Fusiform infrarenal abdominal aortic aneurysm measuring up to 5 cm in greatest dimension. 3. Cholelithiasis. 4. Additional findings as detailed above.
[2024-12-09 07:21] LABS: Ferritin 31.6 ng/mL (22-322)
[2024-12-09 07:22] LABS: Folate (Folic Acid) 21.37 ng/mL (>5.38)
[2024-12-09] MEDS: SODIUM CHLORIDE 0.9% 1,000 ML IV SCH (08:54)
[2024-12-09] MEDS: KETOROLAC TROMETH 30 MG/ML 1ML VIAL IV PRN (09:05)
[2024-12-09] MEDS ORDERED: MORPHINE SULFATE INJ 2 MG/ml SYRG IV PRN (10:30)
--- NOTE | 2024-12-09 10:44 | DVHPNRES ---
Progress Note Date Seen: December 09, 2024 Resident Creating Document: DAMION SMITH RESIDENT Has the PT tested + for MRSA If YES, has PT been informed?: No Medical Necessity Reason Pt with a Central, PICC or Fol: No Medical Necessity Reason History of Present Illness 79-year-old male with history of CAD sp CABG, CHF, DM2, COPD, hypothyroidism, and abdominal aortic aneurysm s/p ICD, presents with 3-day history of obstipation, diffuse abdominal pain, associated nausea, vomiting, small stools, and excessive flatulence. He reports the abdominal pain has worsened today, describing it as tight in quality. Last bowel movement was yesterday, but with incomplete evacuation. Denies hematemesis, melena, hematochezia, rectal pain, fever, chills, dysuria, or other urinary symptoms. He endorsed only partial relief with stool softeners. Patient refused opioids, requesting only Toradol for pain relief. Pmhx: CAD sp CABG, CHF, DM2, COPD, hypothyroidism, and abdominal aortic aneurysm, Pshx: AICD, Spinal fixation, nerve stimulator 12/09/2024 Patient is 79-year-old male with a past medical history of CAD status post CABG few years back, CHF, diabetes, COPD, hypothyroidism and and a history of aortic aneurysm presented to the ED with abdominal pain that started about 3 days ago. According to the patient, 3 days ago he started having mild abdominal pain that became generalized. Pain associated with nausea and vomiting, passing of flatulence,but with small bowel movement. The abdominal pain became progressively worse thus prompting him to come to the ED to be evaluated. He denied any fever,chills, melena stool hematochezia or rectal pain or any abdominal surgeries. Nose notable scars in his upper abdomen epigastrium region without from the CABG. Patient denied any urinary symptoms however he did. Initial vitals revealed mildly low blood pressure, mildly elevated creatinine, a hemoglobin anemia with hemoglobin of 9.0, iron studies reveal iron level of 22 with saturation level of 6.2 urinalysis was unremarkable for infection it showed 5 levels of glucose in the urine. Subjective Review of Systems Constitutional: Denies fever no chills no feeling of malaise HEENT: Denies headache, ear pain, ear discharges, conjunctivitis, nasal discharge throat pain Cardiovascular: Denies chest pain, palpitation, orthopnea, PND, or pedal edema Respiratory: Denies shortness of breath, cough cough, sputum production, hemoptysis, GI: severe abdominal pain, nausea, vomiting, No diarrhea, hematemesis, hematochezia, : Denies frequency, urgency, hematuria, Endocrine: Denies unintentional weight gain or weight loss, feeling of hot flashes, Issac: Denies easy bruising, bleeding disorders, epistaxis Musculoskeletal: back pain, spinal stenosis Psych: No evidence of depression, idalmis, suicidal ideation Objective vital signs Vital Sign Date Time Temp Pulse Resp B/P (MAP) Pulse Ox O2 Delivery O2 Flow Rate FiO2 12/09/24 08:00 70 12/09/24 05:32 21 98 Nasal Cannula 2.0 12/09/24 05:28 97.8 133/62 (85) 97.8 medications Current Medications Medications Dose Ordered Sig/Migue Route Start Time Stop Time Status Last Admin Dose Admin Sodium Chloride 1,000 ml @ 60 mls/hr [id number] IV 12/09/24 06:30 12/09/24 08:54 60 MLS/HR Ketorolac Tromethamine 15 mg Q6HPRN PRN IV 12/09/24 06:30 12/14/24 06:29 12/09/24 09:05 15 MG Morphine Sulfate 1 mg Q6HPRN PRN IV 12/09/24 10:30 Examination General Appearance: Alert, Oriented X3, Cooperative, mild distress, on 2 L NC HEENT: Atraumatic, PERRLA, EOMI, Mucous membrane moist/pink Respiratory: Clear to auscultation, Normal air movement Cardiovascular: Regular rate, Normal S1, Normal S2, No murmurs, no chest wall tenderness Abdominal: distention, tenderness, bowel sounds present, scars noted in the epigastric region from CABG Extremities: No clubbing, No cyanosis, No edema, Normal pulses, No tenderness/swelling Skin: No rashes, No breakdown, No significant lesion Neuro: Normal gait, Normal speech, Strength at 5/5 X4 ext, Normal tone, Sensation intact, Cranial nerves 3-12 NL, Reflexes 2+ Psych/Mental Status: Mental status NL, Mood NL laboratory and microbiology Laboratory Tests 12/09/24 03:44 Test 12/09/24 03:44 Range/Units Serum Glucose 194 H 74-106 mg/dL Problem List/Assessment/Plan Problem List/Assessment/Plan Assessment and plan Diffuses abdominal likely secondary to small-bowel obstruction CAD sp CABG, CHF not in exacerbation DM2 Diabetes with hyperglycemia Possible gastroparesis COPD, not in exacerbation hypothyroid and abdominal aortic aneurysm Afib? MARIANNE due to VMN MARIANNE on CKD Hypothyroidism AAA 5cm noted on CT c Presence of AICD Tobacco use disorder Normocytic anemia (likely chronic disease or GI-related) Mildly elevated transaminases and alkaline phosphatase Plan Keep on Telemetry Keep patient NPO Pain management, non opiate medication prefered IV hydration NG tube; A trial of NG tube was stuck in the esophagus Vascular Surgery consult for AAA; recommended follow up in six-months Surgical consult pending Continue IV home medications Goal of care discussed more than 20 minute: Full code Case and plan discussed with Dr. Becerra Plan discussed with: Patient My Orders My Orders Orders - DAMION SMITH RESIDENT Procedure Category Date Status Time Kub Abdomen Single XY 12/09/24 Taken View 10:16 Consult CONS 12/09/24 Transmitted Vascular/Endovascular 10:16 Morphine Sulfate PHA 12/09/24 In Process Injection 10:30 DAMION SMITH RESIDENT December 09, 2024 10:44
--- NOTE | 2024-12-09 10:54 | DVH ---
Date: 12/09/2024 10:19 AM Examination: XY KUB ABDOMEN SINGLE VIEW History: confirm ng tube placement Comparison: None TECHNIQUE: Frontal views of the abdomen was obtained. FINDINGS: Visualized bowel is unremarkable. Enteric tube tip is coiled in the proximal esophagus. Cardiac pacem sarah projects over left chest wall. The lung bases are unremarkable. Cardiac pacemaker projects over left chest wall. Evaluation is limited due to multiple external wires projecting over the chest. IMPRESSION: Enteric tube tip is coiled in the proximal esophagus. Recommend repositioning
[2024-12-09] MEDS: MORPHINE SULFATE INJ 2 MG/ml SYRG IV PRN (11:38)
[2024-12-09] MEDS ORDERED: IPRATROPIUM BROMIDE HFA AER IN PRN (13:15)
--- NOTE | 2024-12-09 13:42 | DVHPN2 ---
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 NEUROPATHY CKD III COPD HX OF TOBACCO USE PAD INFRA RENAL AAA CHOLELITHIASIS vital signs Vital Sign Date Time Temp Pulse Resp B/P (MAP) Pulse Ox O2 Delivery O2 Flow Rate FiO2 12/09/24 11:40 70 18 123/60 (81) 97 12/09/24 08:00 97.6 97.6 12/09/24 08:00 Nasal Cannula* 2 28 medications Current Medications Medications Dose Ordered Sig/Migue Route Start Time Stop Time Status Last Admin Dose Admin Sodium Chloride 1,000 ml @ 60 mls/hr [id number] IV 12/09/24 06:30 12/09/24 08:54 60 MLS/HR Ketorolac Tromethamine 15 mg Q6HPRN PRN IV 12/09/24 06:30 12/14/24 06:29 12/09/24 09:05 15 MG Morphine Sulfate 1 mg Q6HPRN PRN IV 12/09/24 10:30 12/09/24 11:38 1 MG Furosemide 40 mg DAILY PO 12/10/24 10:00 UNV Gabapentin 400 mg TID PO 12/09/24 14:00 UNV Ipratropium [place] 2 BID PRN IN 12/09/24 13:15 UNV Ivabradine 5 mg BID PO 12/09/24 22:00 UNV Levothyroxine Sodium 50 mcg QAM PO 12/10/24 07:00 UNV Sacubitril/ Valsartan 1 tab BID PO 12/09/24 22:00 UNV Amiodarone HCl 400 mg DAILY PO 12/10/24 10:00 UNV Metoclopramide HCl 5 mg Q8HR IV 12/09/24 14:00 UNV laboratory and microbiology Laboratory Tests 12/09/24 03:44 Test 12/09/24 03:44 Range/Units Serum Glucose 194 H 74-106 mg/dL Problem List SS COMPLEX ABD PAIN CT C/W SBO PMH: ORGANIC HD ISCHEMIC CM S/P CABG S/P PTCA STENT HX OF PTCA STENT S/P BiV AICD 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
--- NOTE | 2024-12-09 13:42 | DVHPN2 ---
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 NEUROPATHY CKD III COPD HX OF TOBACCO USE PAD INFRA RENAL AAA CHOLELITHIASIS vital signs Vital Sign Date Time Temp Pulse Resp B/P (MAP) Pulse Ox O2 Delivery O2 Flow Rate FiO2 12/09/24 11:40 70 18 123/60 (81) 97 12/09/24 08:00 97.6 97.6 12/09/24 08:00 Nasal Cannula* 2 28 medications Current Medications Medications Dose Ordered Sig/Migue Route Start Time Stop Time Status Last Admin Dose Admin Sodium Chloride 1,000 ml @ 60 mls/hr [id number] IV 12/09/24 06:30 12/09/24 08:54 60 MLS/HR Ketorolac Tromethamine 15 mg Q6HPRN PRN IV 12/09/24 06:30 12/14/24 06:29 12/09/24 09:05 15 MG Morphine Sulfate 1 mg Q6HPRN PRN IV 12/09/24 10:30 12/09/24 11:38 1 MG Furosemide 40 mg DAILY PO 12/10/24 10:00 UNV Gabapentin 400 mg TID PO 12/09/24 14:00 UNV Ipratropium [place] 2 BID PRN IN 12/09/24 13:15 UNV Ivabradine 5 mg BID PO 12/09/24 22:00 UNV Levothyroxine Sodium 50 mcg QAM PO 12/10/24 07:00 UNV Sacubitril/ Valsartan 1 tab BID PO 12/09/24 22:00 UNV Amiodarone HCl 400 mg DAILY PO 12/10/24 10:00 UNV Metoclopramide HCl 5 mg Q8HR IV 12/09/24 14:00 UNV laboratory and microbiology Laboratory Tests 12/09/24 03:44 Test 12/09/24 03:44 Range/Units Serum Glucose 194 H 74-106 mg/dL Problem List SS COMPLEX ABD PAIN CT C/W SBO PMH: ORGANIC HD ISCHEMIC CM S/P CABG S/P PTCA STENT HX OF PTCA STENT S/P BiV AICD 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
--- NOTE | 2024-12-09 14:36 | DVHCONRES ---
Date Seen: December 09, 2024 Resident Creating Document: LUCERO FOX Jr., MD Referring Physician er Reason for Consultation AAA and sbo History of Present Illness 79-year-old male with history of CAD sp CABG, CHF, DM2, COPD, hypothyroidism, and abdominal aortic aneurysm s/p ICD, presents with 3-day history of obstipation, diffuse abdominal pain, associated nausea, vomiting, small stools, and excessive flatulence. He reports the abdominal pain has worsened today, describing it as tight in quality. Last bowel movement was yesterday, but with incomplete evacuation. Denies hematemesis, melena, hematochezia, rectal pain, fever, chills, dysuria, or other urinary symptoms. He endorsed only partial relief with stool softeners. pt. unable to tolerate ngt. pt. has been know to have AAA but unaware of size. CT today demonstrates 5cm Past Medical History CAD sp CABG, CHF, DM2, COPD, hypothyroidism, and abdominal aortic aneurysm s/p ICD, Past Surgical History cabg appy Family History: Alcoholism G8 FATHER FH: uterine cancer G8 MOTHER Family history: Cardiovascular disease G8 FATHER Family history: Diabetes mellitus G8 MOTHER G8 FATHER Family history: Hypercholesterolemia (situation) Family history: Hypertension G8 MOTHER G8 FATHER Social History non smoker Allergies: Coded Allergies: Iodixanol (Verified Allergy, Unknown, 02/07/24) ITCHING, REDNESS Home Meds Reported Medications Levothyroxine Sodium (Levothyroxine Sodium) 200 Mcg Tab, 200 MCG PO QAM, MCG TAKE WITH LEVOTHYROXINE 50 MCG TABLET FOR TOTAL 250 MCG DAILY 12/30/23 Ranolazine (Ranolazine ER) 1,000 Mg Tab, 1000 MG PO BID, TAB 12/30/23 Tadalafil (Tadalafil) 20 Mg Tab, 1 TAB PO DIRECTED PRN for ED 10/17/23 Umeclidinium-Vilanterol (Anoro Ellipta 62.5-25 Mcg/INH) 1 Aer Aer, 1 PUFF IN DA GWEN for COPD 10/16/23 Levothyroxine Sodium (SYNTHROID TABLET) 50 Mcg Tb, 1 TAB PO QAM for HYPOTHYROIDISM TAKE WITH LEVOTHYROXINE 200 MCG TABLET FOR TOTAL 250 MCG DAILY 10/16/23 Ipratropium [place] Hfa (Atrovent Hfa) 17 Mcg Aer, 2 PUFF INH BID PRN for SHORTNESS OF BREATH 10/16/23 Amiodarone HCl (Amiodarone Hydrochloride) 400 Mg Tab, 1 TAB PO DAILY for ARRHYTHMIA 10/16/23 Dapagliflozin Propanediol (Farxiga) 10 Mg Tab, 1 TAB PO DAILY for DIABETES 10/16/23 Furosemide (Furosemide) 40 Mg Tab, 1 TAB PO DAILY for EDEMA 10/16/23 Potassium Chloride (Klor-Con M20) 20 Meq Tab, 1 TAB PO DAILY for SUPPLEMENT 10/16/23 Apixaban Base (ELIQUIS) 2.5 Mg Tab, 1 TAB PO BID for ARRYTHMIA 10/16/23 Gabapentin (Gabapentin) 300 Mg Cap, 1 CAP PO TID for PERIPHERAL NEUROPATHY 10/16/23 Ivabradine Hydrochloride (Corlanor) 5 Mg Tab, 1 TAB PO BID for HEART FAILURE 10/16/23 Atorvastatin Calcium (ATORVASTATIN CALCIUM) 80 Mg Tab, 1 TAB PO QPM for HIGH CHOLESTEROL 10/16/23 Cholecalciferol (VITAMIN D3) 2,000 Unit Tab, 1 TAB PO DAILY for SUPPLEMENT 10/16/23 Metformin Hydrochloride (Metformin Hcl) 500 Mg Tab, 1 TAB PO BID for DIABETES 10/16/23 Nitroglycerin (NTROSTAT SUBLINGUAL) 0.4 Mg Sl, 1 MG SL PRN for FOR CHEST PAIN *MAY REPEAT EVERY 5 MINUTES X 3 TOTAL IF NO RELIEF, INITIATE ANALGESIC THERAPY. NOTIFY PHYSICIAN *Do not crush. 02/13/19 Glipizide (Glipizide) 10 Mg Tab, 1 TAB PO BID for DIABETES 02/13/19 Sacubitril-Valsartan (Entresto 24-26 mg) 1 Tab Tab, 1 TAB PO BID for HYPERTENSION 02/13/19 Isosorbide Mononitrate (Isosorbide Mononitrate Er) 30 Mg Tab, 1 TAB PO DAILY for ANGINA 10/29/17 Atenolol (Atenolol) 50 Mg Tab, 1 TAB PO DAILY for HYPERTENSION 06/27/12 Aspirin (Aspir-81) 81 Mg Tab, 1 TAB PO DAILY for HEART ATTACK PREVENTION 06/27/12 Current Medications Current Medications Medications (Trade) Dose Ordered Sig/Migue Route PRN Reason Start Time Stop Time Status Last Admin Sodium Chloride 1,000 ml @ 60 mls/hr [id number] IV 12/09/24 06:30 12/09/24 08:54 Ketorolac Tromethamine (Toradol Injection) 15 mg Q6HPRN PRN IV MILD PAIN (1-3 PAIN SCALE) 12/09/24 06:30 12/14/24 06:29 12/09/24 09:05 Morphine Sulfate 2 mg Q6HPRN PRN IV SEVERE PAIN (7-10 PAIN SCALE) 12/09/24 10:30 12/09/24 10:23 DC Morphine Sulfate 1 mg Q6HPRN PRN IV SEVERE PAIN (7-10 PAIN SCALE) 12/09/24 10:30 12/09/24 11:38 Furosemide (Lasix Tablet) 40 mg DAILY PO 12/10/24 10:00 Gabapentin (Neurontin Capsule) 400 mg TID PO 12/09/24 14:00 UNV Ipratropium [place] (Atrovent Hfa) 2 BID PRN IN SHORTNESS OF BREATH 12/09/24 13:15 Ivabradine (Corlanor) 5 mg BID PO 12/09/24 22:00 Levothyroxine Sodium (Synthroid Tablet) 50 mcg QAM PO 12/10/24 07:00 Sacubitril/ Valsartan (Entresto 24-26 Mg tab) 1 tab BID PO 12/09/24 22:00 Amiodarone HCl (Cordarone Tablet) 400 mg DAILY PO 12/10/24 10:00 Metoclopramide HCl (Reglan Injection) 5 mg Q8HR IV 12/09/24 14:00 Review of Systems all systems reviewed otherwise negative Vital Signs Vital Signs Date Time Temp Pulse Resp B/P (MAP) Pulse Ox O2 Delivery O2 Flow Rate FiO2 12/09/24 12:55 70 18 98 Nasal Cannula* 2 28 12/09/24 12:15 115/78 12/09/24 08:00 97.6 97.6 Physical Exam abd. mild distended, minimal diffuse tenderness. no rebound/guarding. lower ext. pulse exam intact bilaterally Labs/Diagnostic Data Labs Test 12/09/24 11:59 12/09/24 04:50 12/09/24 03:44 Range/Units POC Glucose 190 H 70-106 mg/dl Urine Color Yellow Yellow Urine Clarity Clear Clear Urine pH 5.5 5.0-9.0 Urine Specific [place] 1.021 1.001-1.035 Urine Protein Trace H Negative Urine Ketones Negative Negative Urine Blood Negative Negative /uL Urine Nitrite Negative Negative Urine Bilirubin Negative Negative Urine Urobilinogen Normal Negative mg/dL Urine Leukocyte Esterase Negative Negative /uL Urine RBC 1 0 - 3 /hpf Urine Microscopic WBC 1 0-3 /HPF Urine Squamous Epithelial Cells Few <5 /hpf Urine Bacteria None seen None Seen /hpf Urine Hyaline Casts Few 0 - 2 /lpf Urine Glucose 4+ H Normal mg/dL White Blood Count 6.6 4.4-10.8 10^3/uL Red Blood Count 3.44 L 4.5-5.90 10^6/uL Hemoglobin 9.0 L 13.5-17.5 g/dL Hematocrit 28.0 L 41.0-53.0 % Mean Corpuscular Volume 81.3 80.0-100.0 fL Mean Corpuscular Hemoglobin 26.1 L 28.0-32.0 pg Mean Corpuscular Hemoglobin Concent 32.1 32.0-36.0 g/dL Red Cell Distribution Width 17.1 H 11.8-14.3 % Platelet Count 168 140-450 10^3/uL Mean Platelet Volume 8.9 6.9-10.8 fL Neutrophils (%) (Auto) 82.4 H 37.0-80.0 % Lymphocytes (%) (Auto) 8.1 L 10.0-50.0 % Monocytes (%) (Auto) 9.1 0.0-12.0 % Eosinophils (%) (Auto) 0.2 0.0-7.0 % Basophils (%) (Auto) 0.2 0.0-2.0 % Neutrophils # (Auto) 5.4 1.6-8.6 10 ^3/uL Lymphocytes # (Auto) 0.5 0.4-5.4 10 ^3/uL Monocytes # (Auto) 0.6 0-1.3 10 ^3/uL Eosinophils # (Auto) 0 0-0.8 10 ^3/uL Basophils # (Auto) 0 0-0.2 10 ^3/uL Nucleated Red Blood Cells 0.0 % Prothrombin Time 12.9 H 9.3-11.8 sec Prothrombin Time INR 1.24 H 0.9-1.15 Activated Partial Thromboplast Time 29.9 24.5-34.5 SEC Sodium Level 135 L 136-145 mmol/L Potassium Level 4.3 3.5-5.1 mmol/L Chloride Level 101 98-107 mmol/L Carbon Dioxide Level 24 20-31 mmol/L Anion Gap 10 5-15 Blood Urea Nitrogen 22 9-23 mg/dL Creatinine 1.41 H 0.700-1.30 mg/dL Glomerular Filtration Rate Calc 51 >90 mL/min BUN/Creatinine Ratio 15.6 10.0-20.0 Serum Glucose 194 H 74-106 mg/dL Calcium Level 8.7 8.7-10.4 mg/dL Iron Level 22 L 65-175 ug/dL Total Iron Binding Capacity 355 250-425 ug/dL Percent Iron Saturation 6.2 L 20-55 % Ferritin 31.6 22-322 ng/mL Total Bilirubin 0.7 0.2-1.0 mg/dL Aspartate Amino Transferase (AST) 44 H 13-40 U/L Alanine Aminotransferase (ALT) 55 H 7-40 U/L Alkaline Phosphatase 150 H 46-116 U/L Total Protein 7.1 5.7-8.2 g/dL Albumin 4.4 3.2-4.8 g/dL Lipase 29 12-53 U/L Vitamin B12 Level 805 211-911 pg/mL Folic Acid 21.37 >5.38 ng/mL PROCEDURE(s): ABPLIV - CT AB PEL WITH IV CON ONLY REASON: abd pain ORDER NUMBER(s): [id number], ACCESSION NUMBER(s): [id number] CLINICAL INFORMATION: Abdominal pain. TECHNIQUE: Axial CT images of the abdomen and pelvis were obtained after the uneventful administration of 100 mL Omnipaque 300 IV contrast. Coronal and sagittal reformatted images were obtained, reviewed, and stored. All CT scans at this medical facility are performed using dose modulation techniques as appropriate to a performed exam including the following: Automated exposure control was utilized; adjustment of the MA and/or KV according to patient size; and use of iterative reconstruction technique. CTDIvol = 14.6 mGy DLP = 850.29 mGy-cm COMPARISON: No prior dedicated imaging of the abdomen and pelvis was available for comparison at the time of dictation. Correlation made to CT lumbar spine exam dated 11/17/2024. FINDINGS: Lung bases: Atelectasis in the lung bases. Partially visualized moderate cardiomegaly. Liver: Unremarkable. No abnormal density or focal lesion. Biliary: Multiple small calcified gallstones layering dependently in the gallbladder. Spleen: Unremarkable. Pancreas: Moderate atrophy. Adrenal glands: Unremarkable. No mass. Kidneys: No hydronephrosis. Right renal cysts, with the largest measuring up to 2.9 cm. Aorta/Vascular: Fusiform infrarenal abdominal aortic aneurysm measuring up to 4.9 cm in AP dimension and 5.0 cm in transverse dimension. Dense atherosclerotic calcification. Retroperitoneum: No mass or lymphadenopathy. Bowel/mesentery: Dilated fluid-filled small bowel loops with transition to nondilated small bowel of the central aspect of the abdomen, suspected small- bowel obstruction. Appendix is not visualized. No free air or free fluid visualized. Pelvic organs: Grossly unremarkable. Bladder: Unremarkable. No mass. Abdominal wall: No mass or hernia. Stimulator device in the left gluteal subcutaneous tissues with lead extending into the spinal canal at the T12-L1 level and extending cephalad along the dorsal epidural space to the T7-T8 level. Bones: No acute fracture or focal intraosseous lesion. IMPRESSION: 1. Suspected small-bowel obstruction as described above. 2. Fusiform infrarenal abdominal aortic aneurysm measuring up to 5 cm in greatest dimension. Assessment abd. pain. partial sbo, asymptomatic 5cm AAA npo oob ambulate monitor electrolytes. repeat aaa u/s 6months Plan/Recommendation abd. pain. partial sbo, asymptomatic 5cm AAA npo oob ambulate monitor electrolytes. repeat aaa u/s 6months Plan discussed with: Patient LUCERO FOX Jr., MD December 09, 2024 14:36
[2024-12-09] MEDS ORDERED: LEVO200T PO (16:03)
[2024-12-09] MEDS ORDERED: VERI2.5T PO (16:10)
[2024-12-09] MEDS: METOCLOPRAMIDE HCL 5MG/ml INJ 2ml VIAL IV SCH (16:31)
[2024-12-09] MEDS ORDERED: DEXTROSE (50%) 50ML SYRG IV PRN (18:15)
[2024-12-09] MEDS: IPRATROPIUM BROM 0.5 MG/2.5ML INH SOL NEB PRN (19:12)
[2024-12-09] MEDS ORDERED: ENOXAPARIN SOD 100 MG/1 ML SYRINGE SC ONE (21:45)
[2024-12-09] MEDS: InsuLIN REG 1unit/0.01ml Soln (100units/ml) SC SCH (22:00)
[2024-12-09] MEDS: ACCU-CHEK COMFORT CURVE STRIP VI SCH (22:00)
[2024-12-09] MEDS: IVABRADINE 5 MG TAB PO SCH (22:00)
[2024-12-09] MEDS: SACUBITRIL-VALSARTAN 24mg/26mg TAB PO SCH (22:45)
[2024-12-09] MEDS: GABAPENTIN 100 MG CAP PO SCH (22:45)
[2024-12-09] MEDS: ENOXAPARIN SOD 100 MG/1 ML SYRINGE SC SCH (22:45)
[2024-12-10] VITALS (11 sets, daily range): BP systolic 88–107; BP diastolic 46–58; PULSE 69–71; RESP 16–20; TEMP 97.5–98.1; O2SAT 96–100
[2024-12-10] MEDS: LEVOTHYROXINE SODIUM 50 MCG TAB PO SCH (06:27)
[2024-12-10] MEDS: AMIODARONE HCL 200 MG TAB PO SCH (10:04)
[2024-12-10] MEDS: FUROSEMIDE 40 MG TAB PO SCH (10:06)
--- NOTE | 2024-12-10 11:38 | DVHPN2 ---
Progress Note - Dictate Date Seen: December 10, 2024 Has the PT tested + for MRSA If YES, has PT been informed?: No Medical Necessity Reason Pt with a Central, PICC or Fol: No Subjective PT WITH SS COMPLEX ABD PAIN CT C/W SBO PMH: ORGANIC HD ISCHEMIC CM S/P CABG S/P PTCA STENT HX OF PTCA STENT S/P BiV AICD INTERMITTENT DOBUTAMINE INFUSION DIABETES VASCULOPATHY NEPHROPATHY NEUROPATHY CKD III COPD HX OF TOBACCO USE PAD INFRA RENAL AAA CHOLELITHIASIS vital signs Vital Sign Date Time Temp Pulse Resp B/P (MAP) Pulse Ox O2 Delivery O2 Flow Rate FiO2 12/10/24 10:06 102/55 12/10/24 09:58 97 Nasal Cannula 2.0 12/10/24 09:58 28 12/10/24 09:00 97.6 71 17 97.6 Total Intake and Output 12/09/24 12/09/24 12/10/24 15:00 23:00 07:00 Intake Total 400 ml 0 ml Output Total 500 ml 850 ml Balance -100 ml -850 ml medications Current Medications Medications Dose Ordered Sig/Migue Route Start Time Stop Time Status Last Admin Dose Admin Sodium Chloride 1,000 ml @ 60 mls/hr [id number] IV 12/09/24 06:30 12/10/24 10:45 60 MLS/HR Ketorolac Tromethamine 15 mg Q6HPRN PRN IV 12/09/24 06:30 12/14/24 06:29 12/10/24 04:54 15 MG Morphine Sulfate 1 mg Q6HPRN PRN IV 12/09/24 10:30 12/09/24 21:23 1 MG Furosemide 40 mg DAILY PO 12/10/24 10:00 12/10/24 10:06 40 MG Gabapentin 400 mg BID PO 12/09/24 22:00 12/10/24 10:03 400 MG Ipratropium [place] 2 BID PRN IN 12/09/24 13:15 Cancel Ivabradine 5 mg BID PO 12/09/24 22:00 12/10/24 10:03 5 MG Levothyroxine Sodium 50 mcg QAM PO 12/10/24 07:00 12/10/24 06:27 50 MCG Sacubitril/ Valsartan 1 tab BID PO 12/09/24 22:00 12/10/24 10:04 1 TAB Amiodarone HCl 400 mg DAILY PO 12/10/24 10:00 12/10/24 10:04 400 MG Metoclopramide HCl 5 mg Q8HR IV 12/09/24 14:00 12/10/24 06:27 5 MG Ipratropium [place] 0.5 mg Q8HPRN PRN NEB 12/09/24 16:45 12/09/24 19:12 0.5 MG Diagnostic Test (Pha) 1 strip ACHS 12/09/24 22:00 12/10/24 07:47 1 STRIP Insulin Human Regular ACHS SC 12/09/24 22:00 12/09/24 22:00 3 UNITS Dextrose 50 ml UD PRN IV 12/09/24 18:15 Enoxaparin Sodium 90 mg Q12HR SC 12/09/24 22:00 12/10/24 10:05 90 MG laboratory and microbiology Laboratory Tests 12/09/24 03:44 Test 12/09/24 03:44 Range/Units Serum Glucose 194 H 74-106 mg/dL Problem List SS COMPLEX ABD PAIN CT C/W SBO PMH: ORGANIC HD ISCHEMIC CM S/P CABG S/P PTCA STENT HX OF PTCA STENT S/P BiV AICD INTERMITTENT DOBUTAMINE INFUSION DIABETES VASCULOPATHY NEPHROPATHY NEUROPATHY CKD III COPD HX OF TOBACCO USE PAD INFRA RENAL AAA CHOLELITHIASIS Assessment/Plan [facility] HOME MEDS DIABETIC GASTROPARESIS reglan MILIRINONE DRIP RECHECK KUB, LABS CHECK K+ Plan discussed with: Patient, Spouse Critical Care Time(min): 35 MIRIAN VALENTINO MD December 10, 2024 11:38
[2024-12-10] MEDS ORDERED: MILRINONE 20MG/100ML 100 ML IV SCH (11:45)
--- NOTE | 2024-12-10 13:19 | DVH ---
Date: 12/10/2024 11:53 AM Examination: XY KUB ABDOMEN SINGLE VIEW History: sbo Comparison: XY KUB ABDOMEN SINGLE VIEW on DOS: 12/09/24, XY KUB ABDOMEN SINGLE VIEW on DOS: 12/09/24 TECHNIQUE: Frontal views of the abdomen was obtained. FINDINGS: Diffusely dilated loops of small bowel measuring up to 4 cm Cardiac pacemaker projects over left chest wall. NG tube not seen The lung bases are unremarkable. Cardiac pacemaker projects over left chest wall. Evaluation is limited due to multiple external wires projecting over the chest. IMPRESSION: NG tube not seen Diffusely dilated loops of small bowel measuring up to 4 cm
--- NOTE | 2024-12-10 13:20 | DVHPN2 ---
Subjective History of Present Illness 79-year-old male with history of CAD sp CABG, CHF, DM2, COPD, hypothyroidism, and abdominal aortic aneurysm s/p ICD, presents with 3-day history of obstipation, diffuse abdominal pain, associated nausea, vomiting, small stools, and excessive flatulence. He reports the abdominal pain has worsened today, describing it as tight in quality. Last bowel movement was yesterday, but with incomplete evacuation. Denies hematemesis, melena, hematochezia, rectal pain, fever, chills, dysuria, or other urinary symptoms. He endorsed only partial relief with stool softeners. Patient refused opioids, requesting only Toradol for pain relief. Pmhx: CAD sp CABG, CHF, DM2, COPD, hypothyroidism, and abdominal aortic aneurysm, Pshx: AICD, Spinal fixation, nerve stimulator patient seen at bedside today. Reviewed: H&P Changes from previous H/P or p: No Changes General: Per HPI Objective Vitals Vital Signs Date Time Temp Pulse Resp B/P (MAP) Pulse Ox O2 Delivery O2 Flow Rate FiO2 12/10/24 10:06 102/55 12/10/24 09:58 97 Nasal Cannula 2.0 12/10/24 09:58 28 12/10/24 09:00 97.6 71 17 97.6 Intake/Output Intake and Output 12/10/24 07:00 Intake Total 400 ml Output Total 1350 ml Balance -950 ml Intake Oral 0 ml IV Total 400 ml Output Urine Total 1350 ml Exam General Appearance: Alert, Oriented X3, Cooperative, mild distress, on 2 L NC HEENT: Atraumatic, PERRLA, EOMI, Mucous membrane moist/pink Respiratory: Clear to auscultation, Normal air movement Cardiovascular: Regular rate, Normal S1, Normal S2, No murmurs, no chest wall tenderness Abdominal: tenderness improving, bowel sounds hypoactive/absent, scars noted in the epigastric region from CABG Extremities: No clubbing, No cyanosis, No edema, Normal pulses, No tenderness/swelling Skin: No rashes, No breakdown, No significant lesion Neuro: Normal gait, Normal speech, Strength at 5/5 X4 ext, Normal tone, Sensation intact, Cranial nerves 3-12 NL, Reflexes 2+ Psych/Mental Status: Mental status NL, Mood NL Medications Current Medications Medications Dose Ordered Sig/Migue Route Start Time Stop Time Status Last Admin Dose Admin Sodium Chloride 1,000 ml @ 60 mls/hr [id number] IV 12/09/24 06:30 12/10/24 10:45 60 MLS/HR Ketorolac Tromethamine 15 mg Q6HPRN PRN IV 12/09/24 06:30 12/14/24 06:29 12/10/24 04:54 15 MG Morphine Sulfate 1 mg Q6HPRN PRN IV 12/09/24 10:30 12/09/24 21:23 1 MG Furosemide 40 mg DAILY PO 12/10/24 10:00 12/10/24 10:06 40 MG Gabapentin 400 mg BID PO 12/09/24 22:00 12/10/24 10:03 400 MG Ipratropium [place] 2 BID PRN IN 12/09/24 13:15 Cancel Ivabradine 5 mg BID PO 12/09/24 22:00 12/10/24 10:03 5 MG Levothyroxine Sodium 50 mcg QAM PO 12/10/24 07:00 12/10/24 06:27 50 MCG Sacubitril/ Valsartan 1 tab BID PO 12/09/24 22:00 12/10/24 10:04 1 TAB Amiodarone HCl 400 mg DAILY PO 12/10/24 10:00 12/10/24 10:04 400 MG Metoclopramide HCl 5 mg Q8HR IV 12/09/24 14:00 12/10/24 06:27 5 MG Ipratropium [place] 0.5 mg Q8HPRN PRN NEB 12/09/24 16:45 12/09/24 19:12 0.5 MG Diagnostic Test (Pha) 1 strip ACHS 12/09/24 22:00 12/10/24 11:37 1 STRIP Insulin Human Regular ACHS SC 12/09/24 22:00 12/09/24 22:00 3 UNITS Dextrose 50 ml UD PRN IV 12/09/24 18:15 Enoxaparin Sodium 90 mg Q12HR SC 12/09/24 22:00 12/10/24 10:05 90 MG Bisacodyl 10 mg DAILYP PRN [place] 12/10/24 11:45 Milrinone Lactate 100 ml @ 9.979 mls/ hr Q10H2M IV 12/10/24 14:00 UNV Laboratory Results Laboratory Tests 12/09/24 03:44 Urinalysis Test 12/09/24 04:50 Urine Color Yellow (Yellow) Urine Clarity Clear (Clear) Urine pH 5.5 (5.0-9.0) Urine Specific [place] 1.021 (1.001-1.035) Urine Protein Trace (Negative) H Urine Ketones Negative (Negative) Urine Blood Negative /uL (Negative) Urine Nitrite Negative (Negative) Urine Bilirubin Negative (Negative) Urine Urobilinogen Normal mg/dL (Negative) Urine Leukocyte Esterase Negative /uL (Negative) Urine RBC 1 /hpf (0 - 3) Urine Microscopic WBC 1 /HPF (0-3) Urine Squamous Epithelial Cells Few /hpf (<5) Urine Bacteria None seen /hpf (None Seen) Urine Hyaline Casts Few /lpf (0 - 2) Urine Glucose 4+ mg/dL (Normal) H Labs and/or images reviewed: Labs reviewed by me, Image(s) reviewed by me Assessment/Plan Assessment/Plan 12/10-patient here for SBO, surgery/vascular following. Also incidental AAA which vascular recommends outpatient q.6 H ultrasound following. For SBO surgery recommending NPO, bowel rest. PCP of patient also following, is primary on case, Dr. Camargo with diagnosis of gastroparesis and started Reglan. Also started Milrinone fixed dose as patient missed his outpatient treatment of this medication. Hospital medicine is following peripherally. Defer treatment to PCP Dr. Camargo. Assessment and plan Diffuses abdominal likely secondary to small-bowel obstruction Ischemic cardiomyopathy/CAD sp CABG, PTCA stent CHF not in exacerbation, status post Bi V AICD, regular intermittent ionotropic infusions DM2 Diabetes with hyperglycemia, nephropathy, vasculopathy ?Possible gastroparesis COPD, not in exacerbation hypothyroid Infrarenal abdominal aortic aneurysm Cholelithiasis Afib? MARIANNE due to VMN MARIANNE on CKD Hypothyroidism AAA 5cm noted on CT Presence of AICD Tobacco use disorder Normocytic anemia (likely chronic disease or GI-related) Mildly elevated transaminases and alkaline phosphatase Plan Keep on Telemetry Keep patient NPO Pain management, non opiate medication preferred IV hydration NG tube; A trial of NG tube was stuck in the esophagus Vascular Surgery consult for AAA; recommended follow up in six-months Surgical consult pending Continue IV home medications Goal of care discussed more than 20 minute: Full code Plan discussed with: Patient Date of Service: December 10, 2024 Billing Provider: DEBORAH GARCIA MD Common Visit Codes: [id number] INP/OBS CARE(HIGH) DEBORAH GARCIA MD December 10, 2024 13:20
[2024-12-10] MEDS: MILRINONE 20MG/100ML 100 ML IV SCH (15:34)
[2024-12-10] MEDS: ALBUMIN 25% 100 ML IV SCH (18:33)
[2024-12-10] MEDS: BISACODYL 10 MG RECT SUPP PR PRN (21:00)
[2024-12-10] MEDS: MELATONIN 5 MG TAB PO ONE (21:26)
[2024-12-11] VITALS (10 sets, daily range): BP systolic 90–113; BP diastolic 48–65; PULSE 67–71; RESP 16–18; TEMP 97.3–98.3; O2SAT 95–100
[2024-12-11] MEDS: LACTULOSE 20Gm/30ML SOLN PO ONE (00:47)
[2024-12-11 06:24] LABS: Albumin 3.7 g/dL (3.2-4.8); Alkaline Phosphatase 112 U/L (46-116); Anion Gap 9 (5-15); BUN/Creatinine Ratio 20.3 (10.0-20.0); Calcium 8.9 mg/dL (8.7-10.4); Carbon Dioxide 26 mmol/L (20-31); Glucose 100 mg/dL (74-106); Potassium 3.9 mmol/L (3.5-5.1); Sodium 142 mmol/L (136-145); Total Protein 5.8 g/dL (5.7-8.2)
[2024-12-11 06:25] LABS: Bilirubin, Total 0.6 mg/dL (0.2-1.0)
[2024-12-11 06:26] LABS: Alanine Aminotransferase 65 U/L (7-40); Aspartate Aminotransferase 52 U/L (13-40); Blood Urea Nitrogen 25 mg/dL (9-23); Chloride 107 mmol/L (98-107)
[2024-12-11 06:42] LABS: Basophils # (auto) 0 10 ^3/uL (0-0.2); Eosinophils # (auto) 0.1 10 ^3/uL (0-0.8); Lymphocytes # (auto) 1.2 10 ^3/uL (0.4-5.4); Neutrophils # (auto) 3.7 10 ^3/uL (1.6-8.6); Red Blood Cells 3.24 10^6/uL (4.5-5.90)
[2024-12-11 06:45] LABS: Basophils % (auto) 0.8 % (0.0-2.0); Eosinophils % (auto) 1.9 % (0.0-7.0); Hematocrit 26.6 % (41.0-53.0); Hemoglobin 8.4 g/dL (13.5-17.5); Mean Corpuscular Hgb Conc. 31.8 g/dL (32.0-36.0); Monocytes # (auto) 0.6 10 ^3/uL (0-1.3); Monocytes % (auto) 10.1 % (0.0-12.0); Neutrophils % (auto) 66.2 % (37.0-80.0); Nucleated Red Blood Cells % 0.1 %; Platelet Count (auto) 155 10^3/uL (140-450); White Blood Cell 5.5 10^3/uL (4.4-10.8)
--- NOTE | 2024-12-11 09:01 | DVHPN2 ---
Progress Note - Dictate Date Seen: December 11, 2024 Has the PT tested + for MRSA If YES, has PT been informed?: No Medical Necessity Reason Pt with a Central, PICC or Fol: No Subjective PT WITH SS COMPLEX ABD PAIN CT C/W SBO PMH: ORGANIC HD ISCHEMIC CM S/P CABG S/P PTCA STENT HX OF PTCA STENT S/P BiV AICD INTERMITTENT DOBUTAMINE INFUSION DIABETES VASCULOPATHY NEPHROPATHY NEUROPATHY CKD III COPD HX OF TOBACCO USE PAD INFRA RENAL AAA CHOLELITHIASIS vital signs Vital Sign Date Time Temp Pulse Resp B/P (MAP) Pulse Ox O2 Delivery O2 Flow Rate FiO2 12/11/24 05:00 98.2 70 18 113/58 (76) 100 98.2 12/10/24 22:32 Nasal Cannula* 2 28 Total Intake and Output 12/10/24 12/10/24 12/11/24 15:00 23:00 07:00 Intake Total 1000 ml 69.9 ml 720 ml Balance 1000 ml 69.9 ml 720 ml medications Current Medications Medications Dose Ordered Sig/Migue Route Start Time Stop Time Status Last Admin Dose Admin Sodium Chloride 1,000 ml @ 60 mls/hr [id number] IV 12/09/24 06:30 12/10/24 10:45 60 MLS/HR Ketorolac Tromethamine 15 mg Q6HPRN PRN IV 12/09/24 06:30 12/14/24 06:29 12/11/24 03:13 15 MG Morphine Sulfate 1 mg Q6HPRN PRN IV 12/09/24 10:30 12/09/24 21:23 1 MG Furosemide 40 mg DAILY PO 12/10/24 10:00 12/10/24 10:06 40 MG Gabapentin 400 mg BID PO 12/09/24 22:00 12/10/24 21:26 400 MG Ipratropium [place] 2 BID PRN IN 12/09/24 13:15 Cancel Ivabradine 5 mg BID PO 12/09/24 22:00 12/10/24 21:25 5 MG Levothyroxine Sodium 50 mcg QAM PO 12/10/24 07:00 12/11/24 06:09 50 MCG Sacubitril/ Valsartan 1 tab BID PO 12/09/24 22:00 12/10/24 21:25 1 TAB Amiodarone HCl 400 mg DAILY PO 12/10/24 10:00 12/10/24 10:04 400 MG Metoclopramide HCl 5 mg Q8HR IV 12/09/24 14:00 12/11/24 06:09 5 MG Ipratropium [place] 0.5 mg Q8HPRN PRN NEB 12/09/24 16:45 12/09/24 19:12 0.5 MG Diagnostic Test (Pha) 1 strip ACHS 12/09/24 22:00 12/10/24 17:11 1 STRIP Insulin Human Regular ACHS SC 12/09/24 22:00 12/09/24 22:00 3 UNITS Dextrose 50 ml UD PRN IV 12/09/24 18:15 Enoxaparin Sodium 90 mg Q12HR SC 12/09/24 22:00 12/10/24 21:26 90 MG Bisacodyl 10 mg DAILYP PRN [place] 12/10/24 11:45 12/10/24 21:00 10 MG Milrinone Lactate 100 ml @ 9.979 mls/ hr Q10H2M IV 12/10/24 14:00 12/10/24 15:34 9.979 MLS/HR laboratory and microbiology Laboratory Tests 12/11/24 04:39 Test 12/11/24 04:39 Range/Units Serum Glucose 100 74-106 mg/dL Problem List SS COMPLEX ABD PAIN CT C/W SBO PMH: ORGANIC HD ISCHEMIC CM S/P CABG S/P PTCA STENT HX OF PTCA STENT S/P BiV AICD INTERMITTENT DOBUTAMINE INFUSION DIABETES VASCULOPATHY NEPHROPATHY NEUROPATHY CKD III COPD HX OF TOBACCO USE PAD INFRA RENAL AAA CHOLELITHIASIS Assessment/Plan [facility] MEDS DIABETIC GASTROPARESIS reglan MILIRINONE DRIP DC MILRINONE RECHECK KUB, LABS Stiill with sbo CHECK K+ NOW WITH 2 BOWEL MOVEMENTS CHECK KUB ANEMIA IRON DEFICIENCY REPEAT KUB Plan discussed with: Patient MIRIAN VALENTINO MD December 11, 2024 09:01
--- NOTE | 2024-12-11 10:48 | DVH ---
Date: 12/11/2024 09:31 AM Examination: XY KUB ABDOMEN SINGLE VIEW History: SBO Comparison: XY KUB ABDOMEN SINGLE VIEW on DOS: 12/10/24, XY KUB ABDOMEN SINGLE VIEW on DOS: 12/09/24 TECHNIQUE: Frontal views of the abdomen was obtained. FINDINGS: Bowel gas pattern is unremarkable. The lung bases are unremarkable. No acute osseous abnormality identified. IMPRESSION: Nonobstructive bowel gas pattern. Large stool burden
[2024-12-11] MEDS: metroNIDAZOLE 500MG/100ML 100 ML IV SCH (11:56)
--- NOTE | 2024-12-11 12:54 | DVHPN2 ---
Subjective History of Present Illness 79-year-old male with history of CAD sp CABG, CHF, DM2, COPD, hypothyroidism, and abdominal aortic aneurysm s/p ICD, presents with 3-day history of obstipation, diffuse abdominal pain, associated nausea, vomiting, small stools, and excessive flatulence. He reports the abdominal pain has worsened today, describing it as tight in quality. Last bowel movement was yesterday, but with incomplete evacuation. Denies hematemesis, melena, hematochezia, rectal pain, fever, chills, dysuria, or other urinary symptoms. He endorsed only partial relief with stool softeners. Patient refused opioids, requesting only Toradol for pain relief. Pmhx: CAD sp CABG, CHF, DM2, COPD, hypothyroidism, and abdominal aortic aneurysm, Pshx: AICD, Spinal fixation, nerve stimulator patient seen at bedside today. Reviewed: H&P Changes from previous H/P or p: No Changes General: Per HPI Objective Vitals Vital Signs Date Time Temp Pulse Resp B/P (MAP) Pulse Ox O2 Delivery O2 Flow Rate FiO2 12/11/24 12:47 98.1 70 16 90/48 (62) 95 98.1 12/10/24 22:32 Nasal Cannula* 2 28 Intake/Output Intake and Output 12/11/24 07:00 Intake Total 1789.9 ml Balance 1789.9 ml Intake Oral 0 ml IV Total 1789.9 ml # Voids 6 # Bowel Movements 2 Exam General Appearance: Alert, Oriented X3, Cooperative, mild distress, on 2 L NC HEENT: Atraumatic, PERRLA, EOMI, Mucous membrane moist/pink Respiratory: Clear to auscultation, Normal air movement Cardiovascular: Regular rate, Normal S1, Normal S2, No murmurs, no chest wall tenderness Abdominal: tenderness improving, bowel sounds hypoactive/absent, scars noted in the epigastric region from CABG Extremities: No clubbing, No cyanosis, No edema, Normal pulses, No tenderness/swelling Skin: No rashes, No breakdown, No significant lesion Neuro: Normal gait, Normal speech, Strength at 5/5 X4 ext, Normal tone, Sensation intact, Cranial nerves 3-12 NL, Reflexes 2+ Psych/Mental Status: Mental status NL, Mood NL Medications Current Medications Medications Dose Ordered Sig/Migue Route Start Time Stop Time Status Last Admin Dose Admin Sodium Chloride 1,000 ml @ 60 mls/hr [id number] IV 12/09/24 06:30 12/11/24 09:15 60 MLS/HR Ketorolac Tromethamine 15 mg Q6HPRN PRN IV 12/09/24 06:30 12/14/24 06:29 12/11/24 11:56 15 MG Morphine Sulfate 1 mg Q6HPRN PRN IV 12/09/24 10:30 12/09/24 21:23 1 MG Furosemide 40 mg DAILY PO 12/10/24 10:00 12/10/24 10:06 40 MG Gabapentin 400 mg BID PO 12/09/24 22:00 12/11/24 09:12 400 MG Ipratropium [place] 2 BID PRN IN 12/09/24 13:15 Cancel Ivabradine 5 mg BID PO 12/09/24 22:00 12/11/24 09:11 5 MG Levothyroxine Sodium 50 mcg QAM PO 12/10/24 07:00 12/11/24 06:09 50 MCG Sacubitril/ Valsartan 1 tab BID PO 12/09/24 22:00 12/11/24 09:11 1 TAB Amiodarone HCl 400 mg DAILY PO 12/10/24 10:00 12/11/24 09:11 400 MG Metoclopramide HCl 5 mg Q8HR IV 12/09/24 14:00 12/11/24 06:09 5 MG Ipratropium [place] 0.5 mg Q8HPRN PRN NEB 12/09/24 16:45 12/09/24 19:12 0.5 MG Diagnostic Test (Pha) 1 strip ACHS 12/09/24 22:00 12/11/24 11:37 1 STRIP Insulin Human Regular ACHS SC 12/09/24 22:00 12/09/24 22:00 3 UNITS Dextrose 50 ml UD PRN IV 12/09/24 18:15 Enoxaparin Sodium 90 mg Q12HR SC 12/09/24 22:00 12/11/24 09:13 90 MG Bisacodyl 10 mg DAILYP PRN RI 12/10/24 11:45 12/10/24 21:00 10 MG Metronidazole 100 ml @ 100 mls/hr Q8HR IV 12/11/24 12:00 12/11/24 11:56 100 MLS/HR Piperacillin Sod/ Tazobactam Sod 100 ml @ 25 mls/hr Q8HR IV 12/11/24 14:00 Laboratory Results Laboratory Tests 12/11/24 04:39 Chemistry Test 12/11/24 04:39 Albumin 3.7 g/dL (3.2-4.8) Calcium Level 8.9 mg/dL (8.7-10.4) Total Protein 5.8 g/dL (5.7-8.2) LFT Test 12/11/24 04:39 Alanine Aminotransferase (ALT) 65 U/L (7-40) H Alkaline Phosphatase 112 U/L (46-116) Aspartate Amino Transferase (AST) 52 U/L (13-40) H Total Bilirubin 0.6 mg/dL (0.2-1.0) Urinalysis Test 12/09/24 04:50 Urine Color Yellow (Yellow) Urine Clarity Clear (Clear) Urine pH 5.5 (5.0-9.0) Urine Specific [place] 1.021 (1.001-1.035) Urine Protein Trace (Negative) H Urine Ketones Negative (Negative) Urine Blood Negative /uL (Negative) Urine Nitrite Negative (Negative) Urine Bilirubin Negative (Negative) Urine Urobilinogen Normal mg/dL (Negative) Urine Leukocyte Esterase Negative /uL (Negative) Urine RBC 1 /hpf (0 - 3) Urine Microscopic WBC 1 /HPF (0-3) Urine Squamous Epithelial Cells Few /hpf (<5) Urine Bacteria None seen /hpf (None Seen) Urine Hyaline Casts Few /lpf (0 - 2) Urine Glucose 4+ mg/dL (Normal) H Labs and/or images reviewed: Labs reviewed by me, Image(s) reviewed by me Assessment/Plan Assessment/Plan 12/10-patient here for SBO, surgery/vascular following. Also incidental AAA which vascular recommends outpatient q.6 H ultrasound following. For SBO surgery recommending NPO, bowel rest. PCP of patient also following, is primary on case, Dr. Camargo with diagnosis of gastroparesis and started Reglan. Also started Milrinone fixed dose as patient missed his outpatient treatment of this medication. Hospital medicine is following peripherally. Defer treatment to PCP Dr. Camargo. 12/11- changing plan on stopping Milrinone. No inotropic x-ray now.. Otherwise continuing home p.o. meds. Continuing IV antibiotics Zosyn/Flagyl. We will stop Flagyl at this time as that is double coverage.. Continues to be on Reglan IV. Surgery following. Treatment managed by primary doctor, Dr. Camargo. Assessment and plan Diffuses abdominal likely secondary to small-bowel obstruction Ischemic cardiomyopathy/CAD sp CABG, PTCA stent CHF not in exacerbation, status post Bi V AICD, regular intermittent ionotropic infusions DM2 Diabetes with hyperglycemia, nephropathy, vasculopathy ?Possible gastroparesis COPD, not in exacerbation hypothyroid Infrarenal abdominal aortic aneurysm Cholelithiasis Afib? MARIANNE due to VMN MARIANNE on CKD Hypothyroidism AAA 5cm noted on CT Presence of AICD Tobacco use disorder Normocytic anemia (likely chronic disease or GI-related) Mildly elevated transaminases and alkaline phosphatase Plan Keep on Telemetry Pain management, non opiate medication preferred IV hydration NG tube trial Vascular Surgery consult for AAA; recommended follow up in six-months surgery rec NG tube and bowel rest. Continue IV home medications Continuing IV antibiotics Zosyn/Flagyl. We will stop Flagyl at this time as that is double coverage.. Continues to be on Reglan IV. Surgery following. Goal of care discussed more than 20 minute: Full code Plan discussed with: Patient Date of Service: December 11, 2024 Billing Provider: DEBORAH GARCIA MD Common Visit Codes: [id number] INP/OBS CARE(HIGH) DEBORAH GARCIA MD December 11, 2024 12:54
[2024-12-11] MEDS: PIPERACILLIN-TAZO 4.5GM 100 ML IV SCH (15:52)
[2024-12-12] VITALS (11 sets, daily range): BP systolic 96–117; BP diastolic 52–66; PULSE 70–84; RESP 18–20; TEMP 97.4–97.8; O2SAT 93–100
[2024-12-12 06:00] LABS: Basophils # (auto) 0 10 ^3/uL (0-0.2); Eosinophils # (auto) 0.1 10 ^3/uL (0-0.8); Hemoglobin 9.3 g/dL (13.5-17.5); Lymphocytes # (auto) 1.1 10 ^3/uL (0.4-5.4); Monocytes # (auto) 0.5 10 ^3/uL (0-1.3); White Blood Cell 4.9 10^3/uL (4.4-10.8)
[2024-12-12 06:07] LABS: Basophils % (auto) 0.8 % (0.0-2.0); Eosinophils % (auto) 1.4 % (0.0-7.0); Hematocrit 29.1 % (41.0-53.0); Lymphocytes % (auto) 21.9 % (10.0-50.0); Mean Corpuscular Hgb Conc. 31.9 g/dL (32.0-36.0); Mean Corpuscular Volume 81.5 fL (80.0-100.0); Monocytes % (auto) 10.8 % (0.0-12.0); Neutrophils # (auto) 3.2 10 ^3/uL (1.6-8.6); Neutrophils % (auto) 65.1 % (37.0-80.0); Nucleated Red Blood Cells % 0.1 %; Platelet Count (auto) 166 10^3/uL (140-450); Red Blood Cells 3.57 10^6/uL (4.5-5.90)
[2024-12-12 06:23] LABS: Alkaline Phosphatase 110 U/L (46-116); Anion Gap 10 (5-15); BUN/Creatinine Ratio 17.9 (10.0-20.0); Blood Urea Nitrogen 21 mg/dL (9-23); Carbon Dioxide 24 mmol/L (20-31); Chloride 105 mmol/L (98-107); Potassium 3.9 mmol/L (3.5-5.1); Sodium 139 mmol/L (136-145)
[2024-12-12 06:24] LABS: Albumin 3.6 g/dL (3.2-4.8); Aspartate Aminotransferase 38 U/L (13-40)
[2024-12-12 06:25] LABS: Bilirubin, Total 0.6 mg/dL (0.2-1.0)
[2024-12-12 06:27] LABS: Alanine Aminotransferase 53 U/L (7-40); Calcium 8.6 mg/dL (8.7-10.4); Glucose 123 mg/dL (74-106); Total Protein 5.6 g/dL (5.7-8.2)
[2024-12-12] MEDS: FLEET ENEMA(ADULT) 135 ML PR ONE (19:08)
--- NOTE | 2024-12-12 19:34 | DVHPN2 ---
Subjective NGT removed Reviewed: H&P Changes from previous H/P or p: No Changes General: Per HPI Objective Vitals Vital Signs Date Time Temp Pulse Resp B/P (MAP) Pulse Ox O2 Delivery O2 Flow Rate FiO2 12/12/24 17:00 97.4 71 20 96/52 (67) 97 97.4 12/12/24 16:00 2.0 28 12/12/24 08:00 Room Air* Intake/Output Intake and Output 12/12/24 07:00 Intake Total 200 ml Balance 200 ml IV Total 200 ml # Voids 4 General Appearance: Alert, Oriented X3 HEENT: Atraumatic Cardiovascular: Regular rate, Normal S1, Normal S2 Abdomen: Normal bowel sounds Medications Current Medications Medications Dose Ordered Sig/Migue Route Start Time Stop Time Status Last Admin Dose Admin Sodium Chloride 1,000 ml @ 60 mls/hr [id number] IV 12/09/24 06:30 12/12/24 15:19 60 MLS/HR Ketorolac Tromethamine 15 mg Q6HPRN PRN IV 12/09/24 06:30 12/14/24 06:29 12/12/24 10:06 15 MG Morphine Sulfate 1 mg Q6HPRN PRN IV 12/09/24 10:30 12/09/24 21:23 1 MG Furosemide 40 mg DAILY PO 12/10/24 10:00 12/12/24 10:09 40 MG Gabapentin 400 mg BID PO 12/09/24 22:00 12/12/24 10:10 400 MG Ipratropium [place] 2 BID PRN IN 12/09/24 13:15 Cancel Ivabradine 5 mg BID PO 12/09/24 22:00 12/12/24 10:08 5 MG Levothyroxine Sodium 50 mcg QAM PO 12/10/24 07:00 12/12/24 06:07 50 MCG Sacubitril/ Valsartan 1 tab BID PO 12/09/24 22:00 12/12/24 10:08 1 TAB Amiodarone HCl 400 mg DAILY PO 12/10/24 10:00 12/12/24 10:07 400 MG Metoclopramide HCl 5 mg Q8HR IV 12/09/24 14:00 12/12/24 15:13 5 MG Ipratropium [place] 0.5 mg Q8HPRN PRN NEB 12/09/24 16:45 12/09/24 19:12 0.5 MG Diagnostic Test (Pha) 1 strip ACHS 12/09/24 22:00 12/12/24 17:48 1 STRIP Insulin Human Regular ACHS SC 12/09/24 22:00 12/12/24 17:57 3 UNITS Dextrose 50 ml UD PRN IV 12/09/24 18:15 Enoxaparin Sodium 90 mg Q12HR SC 12/09/24 22:00 12/12/24 10:10 90 MG Bisacodyl 10 mg DAILYP PRN SC 12/10/24 11:45 12/10/24 21:00 10 MG Piperacillin Sod/ Tazobactam Sod 100 ml @ 25 mls/hr Q8HR IV 12/11/24 14:00 12/12/24 15:12 25 MLS/HR Laboratory Results Laboratory Tests 12/12/24 05:16 Chemistry Test 12/12/24 05:16 Albumin 3.6 g/dL (3.2-4.8) Calcium Level 8.6 mg/dL (8.7-10.4) L Total Protein 5.6 g/dL (5.7-8.2) L LFT Test 12/12/24 05:16 Alanine Aminotransferase (ALT) 53 U/L (7-40) H Alkaline Phosphatase 110 U/L (46-116) Aspartate Amino Transferase (AST) 38 U/L (13-40) Total Bilirubin 0.6 mg/dL (0.2-1.0) Urinalysis Test 12/09/24 04:50 Urine Color Yellow (Yellow) Urine Clarity Clear (Clear) Urine pH 5.5 (5.0-9.0) Urine Specific [place] 1.021 (1.001-1.035) Urine Protein Trace (Negative) H Urine Ketones Negative (Negative) Urine Blood Negative /uL (Negative) Urine Nitrite Negative (Negative) Urine Bilirubin Negative (Negative) Urine Urobilinogen Normal mg/dL (Negative) Urine Leukocyte Esterase Negative /uL (Negative) Urine RBC 1 /hpf (0 - 3) Urine Microscopic WBC 1 /HPF (0-3) Urine Squamous Epithelial Cells Few /hpf (<5) Urine Bacteria None seen /hpf (None Seen) Urine Hyaline Casts Few /lpf (0 - 2) Urine Glucose 4+ mg/dL (Normal) H Assessment/Plan Assessment/Plan 12/10-patient here for SBO, surgery/vascular following. Also incidental AAA which vascular recommends outpatient q.6 H ultrasound following. For SBO surgery recommending NPO, bowel rest. PCP of patient also following, is primary on case, Dr. Camargo with diagnosis of gastroparesis and started Reglan. Also started Milrinone fixed dose as patient missed his outpatient treatment of this medication. Hospital medicine is following peripherally. Defer treatment to PCP Dr. Camargo. 12/11- changing plan on stopping Milrinone. No inotropic x-ray now.. Otherwise continuing home p.o. meds. Continuing IV antibiotics Zosyn/Flagyl. We will stop Flagyl at this time as that is double coverage.. Continues to be on Reglan IV. Surgery following. Treatment managed by primary doctor, Dr. Camargo. 12/12 Continues to require NGT, primary doctor Dr Camargo managing Assessment and plan Diffuses abdominal likely secondary to small-bowel obstruction Ischemic cardiomyopathy/CAD sp CABG, PTCA stent CHF not in exacerbation, status post Bi V AICD, regular intermittent ionotropic infusions DM2 Diabetes with hyperglycemia, nephropathy, vasculopathy ?Possible gastroparesis COPD, not in exacerbation hypothyroid Infrarenal abdominal aortic aneurysm Cholelithiasis Afib? MARIANNE due to VMN MARIANNE on CKD Hypothyroidism AAA 5cm noted on CT Presence of AICD Tobacco use disorder Normocytic anemia (likely chronic disease or GI-related) Mildly elevated transaminases and alkaline phosphatase Plan Keep on Telemetry Pain management, non opiate medication preferred IV hydration NG tube trial Vascular Surgery consult for AAA; recommended follow up in six-months surgery rec NG tube and bowel rest. Continue IV home medications Continuing IV antibiotics Zosyn/Flagyl. We will stop Flagyl at this time as that is double coverage.. Continues to be on Reglan IV. Surgery following. Plan discussed with: Patient My Orders Orders - DEO JACKSON MD Procedure Category Date Status Time Cardiac DIET 12/12/24 Transmitted Diet-2gna,Lofat,Lochol Lunch Date of Service: December 12, 2024 Billing Provider: DEO JACKSON MD Common Visit Codes: [id number] INP/OBS CARE(HIGH) DEO JACKSON MD December 12, 2024 19:34
[2024-12-13] VITALS (7 sets, daily range): BP systolic 92–105; BP diastolic 46–66; PULSE 67–71; RESP 18–19; TEMP 97.4–97.9; O2SAT 95–100
== END 2024-12-13 18:30 | disposition home or self-care (01) | DRG 388 ==
LOC: ER 03:06 → OVERFLOW 06:26 → TELE-WESTW 12:45
PROVIDERS: ADMIT Student in an Organized Health Care Education/Training Program; ATTEND Student in an Organized Health Care Education/Training Program
DX: K56.600 Partial intestinal obstruction, unspecified as to cause (principal); N17.0 Acute kidney failure with tubular necrosis; I13.0 Hypertensive heart and chronic kidney disease with heart failure and stage 1 through stage 4 chronic kidney disease, or unspecified chronic kidney disease; K31.84 Gastroparesis; E11.43 Type 2 diabetes mellitus with diabetic autonomic (poly)neuropathy; E78.5 Hyperlipidemia, unspecified; J44.9 Chronic obstructive pulmonary disease, unspecified; I50.9 Heart failure, unspecified; I25.10 Atherosclerotic heart disease of native coronary artery without angina pectoris; F17.210 Nicotine dependence, cigarettes, uncomplicated; D64.9 Anemia, unspecified; E03.9 Hypothyroidism, unspecified; E11.22 Type 2 diabetes mellitus with diabetic chronic kidney disease; E11.65 Type 2 diabetes mellitus with hyperglycemia; R74.01 Elevation of levels of liver transaminase levels; I71.43 Infrarenal abdominal aortic aneurysm, without rupture; E11.40 Type 2 diabetes mellitus with diabetic neuropathy, unspecified; K80.20 Calculus of gallbladder without cholecystitis without obstruction; I25.5 Ischemic cardiomyopathy; N18.30 Chronic kidney disease, stage 3 unspecified; Z91.048 Other nonmedicinal substance allergy status; Z79.01 Long term (current) use of anticoagulants; Z79.84 Long term (current) use of oral hypoglycemic drugs; Z79.899 Other long term (current) drug therapy; Z95.810 Presence of automatic (implantable) cardiac defibrillator; Z95.1 Presence of aortocoronary bypass graft; Z82.49 Family history of ischemic heart disease and other diseases of the circulatory system; Z80.8 Family history of malignant neoplasm of other organs or systems; Z95.5 Presence of coronary angioplasty implant and graft
CPT/HCPCS: 36415; 74018; 74177; 80053; 81001; 82607; 82728; 82746; 82962; 83540; 83550; 83690; 85025; 85610; 85730; 94640; G0378; J1815; J1885; J2405; J2543; J3490; P9047

== ENCOUNTER 2024-12-15 08:41 | Outpatient (CLI) | payer MEDICARE, OTHER ==
[2024-12-15] VITALS (9 sets, daily range): BP systolic 109–115; BP diastolic 50–65; PULSE 69–70; RESP 16; O2SAT 100
[~2024-12-15 08:41] MED LIST changes: +LEVO200T PO; +VERI2.5T PO
[2024-12-15] MEDS: DOBUTamine 1000MCG/ML 250 ML IV ONE ×2 (08:57→09:00)
--- NOTE | 2024-12-15 11:33 | DVH ---
XY CHEST TWO VIEWS ROUTINE CLINICAL HISTORY: ABD PAIN COMPARISON: XY CHEST TWO VIEWS ROUTINE on DOS: 07/16/24, XY CHEST TWO VIEWS ROUTINE on DOS: 01/06/24, XY CHEST TWO VIEWS ROUTINE on DOS: 10/16/23, CHEST TWO VIEWS ROUTINE on DOS: 07/24/21 TECHNIQUE: Frontal and lateral view of the chest was obtained FINDINGS: Lines and Tubes: None Lungs: No focal consolidation. Pleura: No effusion. No pneumothorax. Cardiomediastinal contours: Unremarkable Bones: No acute osseous abnormality. IMPRESSION: No acute cardiopulmonary disease. Battery Pack LLQ Large stool burden
== END 2024-12-15 17:00 | disposition home or self-care (01) ==
LOC: CHF HDHVI 08:41 → Rad HDHVI 17:00
PROVIDERS: ATTEND Internal Medicine Cardiovascular Disease
DX: I13.0 Hypertensive heart and chronic kidney disease with heart failure and stage 1 through stage 4 chronic kidney disease, or unspecified chronic kidney disease (principal); E11.22 Type 2 diabetes mellitus with diabetic chronic kidney disease; I50.43 Acute on chronic combined systolic (congestive) and diastolic (congestive) heart failure; N18.30 Chronic kidney disease, stage 3 unspecified; I25.10 Atherosclerotic heart disease of native coronary artery without angina pectoris; I25.5 Ischemic cardiomyopathy; I25.2 Old myocardial infarction; I48.0 Paroxysmal atrial fibrillation; J44.9 Chronic obstructive pulmonary disease, unspecified; E11.43 Type 2 diabetes mellitus with diabetic autonomic (poly)neuropathy; E11.51 Type 2 diabetes mellitus with diabetic peripheral angiopathy without gangrene; E78.00 Pure hypercholesterolemia, unspecified; E03.9 Hypothyroidism, unspecified; R06.02 Shortness of breath; R10.9 Unspecified abdominal pain; Z79.01 Long term (current) use of anticoagulants; Z79.84 Long term (current) use of oral hypoglycemic drugs; Z79.899 Other long term (current) drug therapy; Z87.891 Personal history of nicotine dependence; Z95.810 Presence of automatic (implantable) cardiac defibrillator
CPT/HCPCS: 71046; 96365; 96366; G0463; J1250

== ENCOUNTER 2024-12-17 08:42 | Outpatient (CLI) | payer MEDICARE, OTHER ==
[2024-12-17] VITALS (9 sets, daily range): BP systolic 105–126; BP diastolic 37–54; PULSE 69–70; RESP 18; O2SAT 100
[2024-12-17] MEDS: DOBUTamine 1000MCG/ML 250 ML IV ONE ×2 (09:04→09:27)
== END 2024-12-17 17:00 | disposition home or self-care (01) ==
LOC: CHF HDHVI 08:42
PROVIDERS: ATTEND Internal Medicine Cardiovascular Disease
DX: I13.0 Hypertensive heart and chronic kidney disease with heart failure and stage 1 through stage 4 chronic kidney disease, or unspecified chronic kidney disease (principal); E11.22 Type 2 diabetes mellitus with diabetic chronic kidney disease; I50.43 Acute on chronic combined systolic (congestive) and diastolic (congestive) heart failure; N18.4 Chronic kidney disease, stage 4 (severe); E11.42 Type 2 diabetes mellitus with diabetic polyneuropathy; E11.51 Type 2 diabetes mellitus with diabetic peripheral angiopathy without gangrene; E11.65 Type 2 diabetes mellitus with hyperglycemia; I25.5 Ischemic cardiomyopathy; I25.10 Atherosclerotic heart disease of native coronary artery without angina pectoris; J44.9 Chronic obstructive pulmonary disease, unspecified; E03.9 Hypothyroidism, unspecified; I25.2 Old myocardial infarction; I48.0 Paroxysmal atrial fibrillation; E78.00 Pure hypercholesterolemia, unspecified; D64.9 Anemia, unspecified; F41.9 Anxiety disorder, unspecified; F32.A Depression, unspecified; G47.33 Obstructive sleep apnea (adult) (pediatric); E66.01 Morbid (severe) obesity due to excess calories; Z68.35 Body mass index [BMI] 35.0-35.9, adult; Z79.84 Long term (current) use of oral hypoglycemic drugs; Z79.01 Long term (current) use of anticoagulants; Z87.891 Personal history of nicotine dependence; Z79.899 Other long term (current) drug therapy; Z95.1 Presence of aortocoronary bypass graft
CPT/HCPCS: 96365; 96366; G0463; J1250

== ENCOUNTER 2024-12-22 08:49 | Outpatient (CLI) | payer MEDICARE, OTHER ==
[2024-12-22] VITALS (9 sets, daily range): BP systolic 98–133; BP diastolic 50–66; PULSE 69–73; RESP 16; O2SAT 100
[2024-12-22] MEDS: DOBUTamine 1000MCG/ML 250 ML IV ONE ×2 (09:15→10:43)
[2024-12-22] MEDS: KETOROLAC TROMETH 60MG/2ML VIAL ONE (10:43)
[2024-12-22] MEDS: CYANOCOBALAMIN (B-12) 1000 MCG/1 ML VIAL ONE (10:43)
[2024-12-22] MEDS: KETOROLAC TROMETH 60MG/2ML VIAL IM ONE (10:55)
[2024-12-22] MEDS: CYANOCOBALAMIN (B-12) 1000 MCG/1 ML VIAL IM ONE (11:00)
[2024-12-22] MEDS: POTASSIUM CHL 10 Meq TABLET PO ONE (11:27)
[2024-12-22] MEDS: BUMETANIDE INJECTION 10 ML ONE (11:27)
[2024-12-22] MEDS: BUMETANIDE 2.5mg/10ml (0.25 mg/ml) INJ IV ONE (11:34)
[2024-12-22] MEDS: POTASSIUM CHL 20 Meq TABLET PO ONE (11:37)
== END 2024-12-22 17:00 | disposition home or self-care (01) ==
LOC: CHF HDHVI 08:49
PROVIDERS: ATTEND Internal Medicine Cardiovascular Disease
DX: I13.0 Hypertensive heart and chronic kidney disease with heart failure and stage 1 through stage 4 chronic kidney disease, or unspecified chronic kidney disease (principal); E11.22 Type 2 diabetes mellitus with diabetic chronic kidney disease; I50.43 Acute on chronic combined systolic (congestive) and diastolic (congestive) heart failure; N18.4 Chronic kidney disease, stage 4 (severe); M54.50 Low back pain, unspecified; D64.9 Anemia, unspecified; E11.42 Type 2 diabetes mellitus with diabetic polyneuropathy; E11.65 Type 2 diabetes mellitus with hyperglycemia; E11.51 Type 2 diabetes mellitus with diabetic peripheral angiopathy without gangrene; F41.9 Anxiety disorder, unspecified; I25.10 Atherosclerotic heart disease of native coronary artery without angina pectoris; J44.9 Chronic obstructive pulmonary disease, unspecified; F32.A Depression, unspecified; I25.2 Old myocardial infarction; E03.9 Hypothyroidism, unspecified; I48.0 Paroxysmal atrial fibrillation; I25.5 Ischemic cardiomyopathy; G47.33 Obstructive sleep apnea (adult) (pediatric); R60.9 Edema, unspecified; J43.9 Emphysema, unspecified; E78.00 Pure hypercholesterolemia, unspecified; M47.816 Spondylosis without myelopathy or radiculopathy, lumbar region; E66.01 Morbid (severe) obesity due to excess calories; Z68.35 Body mass index [BMI] 35.0-35.9, adult; Z79.01 Long term (current) use of anticoagulants; Z79.84 Long term (current) use of oral hypoglycemic drugs; Z79.899 Other long term (current) drug therapy; Z87.891 Personal history of nicotine dependence; Z95.1 Presence of aortocoronary bypass graft; Z79.82 Long term (current) use of aspirin; Z79.4 Long term (current) use of insulin
CPT/HCPCS: 96365; 96366; 96372; 96375; G0463; J1250; J1885; J3420

== ENCOUNTER 2024-12-25 08:17 | Outpatient (CLI) | payer MEDICARE, OTHER ==
[2024-12-25] VITALS (11 sets, daily range): BP systolic 90–114; BP diastolic 50–65; PULSE 69–72; RESP 18; O2SAT 99
[2024-12-25] MEDS: MILRINONE 20MG/100ML 100 ML IV ONE ×2 (08:50→08:53)
[2024-12-25] MEDS: KETOROLAC TROMETH 60MG/2ML VIAL ONE (12:04)
[2024-12-25] MEDS: KETOROLAC TROMETH 60MG/2ML VIAL IM ONE (12:08)
== END 2024-12-25 17:00 | disposition home or self-care (01) ==
LOC: CHF HDHVI 08:17
PROVIDERS: ATTEND Internal Medicine Cardiovascular Disease
DX: I13.0 Hypertensive heart and chronic kidney disease with heart failure and stage 1 through stage 4 chronic kidney disease, or unspecified chronic kidney disease (principal); E11.22 Type 2 diabetes mellitus with diabetic chronic kidney disease; I50.43 Acute on chronic combined systolic (congestive) and diastolic (congestive) heart failure; N18.4 Chronic kidney disease, stage 4 (severe); E11.65 Type 2 diabetes mellitus with hyperglycemia; E11.51 Type 2 diabetes mellitus with diabetic peripheral angiopathy without gangrene; E11.42 Type 2 diabetes mellitus with diabetic polyneuropathy; F41.9 Anxiety disorder, unspecified; D64.9 Anemia, unspecified; J44.9 Chronic obstructive pulmonary disease, unspecified; F32.A Depression, unspecified; J43.9 Emphysema, unspecified; E78.00 Pure hypercholesterolemia, unspecified; G47.33 Obstructive sleep apnea (adult) (pediatric); I25.2 Old myocardial infarction; I48.0 Paroxysmal atrial fibrillation; E03.9 Hypothyroidism, unspecified; I25.5 Ischemic cardiomyopathy; M47.816 Spondylosis without myelopathy or radiculopathy, lumbar region; M54.50 Low back pain, unspecified; E66.01 Morbid (severe) obesity due to excess calories; Z68.35 Body mass index [BMI] 35.0-35.9, adult; Z79.899 Other long term (current) drug therapy; Z91.048 Other nonmedicinal substance allergy status; Z87.891 Personal history of nicotine dependence; Z79.82 Long term (current) use of aspirin; Z79.84 Long term (current) use of oral hypoglycemic drugs; Z79.4 Long term (current) use of insulin; Z79.01 Long term (current) use of anticoagulants; Z95.1 Presence of aortocoronary bypass graft
CPT/HCPCS: 96365; 96366; 96372; G0463; J1885; J2260

== ENCOUNTER 2024-12-29 08:49 | Outpatient (CLI) | payer MEDICARE, OTHER ==
[2024-12-29] VITALS (10 sets, daily range): BP systolic 100–127; BP diastolic 45–59; PULSE 69–71; RESP 16–18; O2SAT 99
[2024-12-29] MEDS: MILRINONE 20MG/100ML 100 ML IV ONE ×2 (08:57→09:14)
[2024-12-29] MEDS: BUMETANIDE INJECTION 10 ML ONE (09:34)
[2024-12-29] MEDS: POTASSIUM CHL 10 Meq TABLET PO ONE (09:34)
[2024-12-29] MEDS: BUMETANIDE 2.5mg/10ml (0.25 mg/ml) INJ IV ONE (09:36)
[2024-12-29] MEDS: POTASSIUM CHL 20 Meq TABLET PO ONE (09:38)
[2024-12-29] MEDS: ACETAMINOPHEN 500 MG TAB or CAP PO ONE ×2 (10:59→11:00)
== END 2024-12-29 17:00 | disposition home or self-care (01) ==
LOC: CHF HDHVI 08:49
PROVIDERS: ATTEND Internal Medicine Cardiovascular Disease
DX: I13.0 Hypertensive heart and chronic kidney disease with heart failure and stage 1 through stage 4 chronic kidney disease, or unspecified chronic kidney disease (principal); E11.22 Type 2 diabetes mellitus with diabetic chronic kidney disease; I50.43 Acute on chronic combined systolic (congestive) and diastolic (congestive) heart failure; N18.4 Chronic kidney disease, stage 4 (severe); I25.5 Ischemic cardiomyopathy; I25.10 Atherosclerotic heart disease of native coronary artery without angina pectoris; I25.2 Old myocardial infarction; I48.0 Paroxysmal atrial fibrillation; J43.9 Emphysema, unspecified; E11.51 Type 2 diabetes mellitus with diabetic peripheral angiopathy without gangrene; E11.42 Type 2 diabetes mellitus with diabetic polyneuropathy; E78.00 Pure hypercholesterolemia, unspecified; E03.9 Hypothyroidism, unspecified; Z79.4 Long term (current) use of insulin; Z79.01 Long term (current) use of anticoagulants; Z79.899 Other long term (current) drug therapy; Z87.891 Personal history of nicotine dependence; Z95.810 Presence of automatic (implantable) cardiac defibrillator
CPT/HCPCS: 96365; 96366; 96375; G0463; J2260

== ENCOUNTER 2025-01-01 08:49 | Outpatient (CLI) | payer MEDICARE, OTHER ==
[2025-01-01] VITALS (11 sets, daily range): BP systolic 101–115; BP diastolic 50–65; PULSE 70–71; RESP 16; O2SAT 100
[2025-01-01] MEDS: MILRINONE 20MG/100ML 100 ML IV ONE ×2 (08:56→09:12)
[2025-01-01] MEDS: ACETAMINOPHEN 500 MG TAB or CAP PO ONE ×2 (10:33)
== END 2025-01-01 17:00 | disposition home or self-care (01) ==
LOC: CHF HDHVI 08:49
PROVIDERS: ATTEND Internal Medicine Cardiovascular Disease
DX: I13.0 Hypertensive heart and chronic kidney disease with heart failure and stage 1 through stage 4 chronic kidney disease, or unspecified chronic kidney disease (principal); E11.22 Type 2 diabetes mellitus with diabetic chronic kidney disease; N18.4 Chronic kidney disease, stage 4 (severe); I50.23 Acute on chronic systolic (congestive) heart failure; I25.10 Atherosclerotic heart disease of native coronary artery without angina pectoris; J43.9 Emphysema, unspecified; E03.9 Hypothyroidism, unspecified; I25.2 Old myocardial infarction; I48.0 Paroxysmal atrial fibrillation; E78.00 Pure hypercholesterolemia, unspecified; E11.42 Type 2 diabetes mellitus with diabetic polyneuropathy; E11.51 Type 2 diabetes mellitus with diabetic peripheral angiopathy without gangrene; F41.9 Anxiety disorder, unspecified; F32.A Depression, unspecified; F17.210 Nicotine dependence, cigarettes, uncomplicated; E66.01 Morbid (severe) obesity due to excess calories; Z68.35 Body mass index [BMI] 35.0-35.9, adult; Z79.82 Long term (current) use of aspirin; Z79.84 Long term (current) use of oral hypoglycemic drugs; Z79.01 Long term (current) use of anticoagulants; Z79.4 Long term (current) use of insulin; Z79.899 Other long term (current) drug therapy; Z95.810 Presence of automatic (implantable) cardiac defibrillator; Z95.1 Presence of aortocoronary bypass graft
CPT/HCPCS: 96365; 96366; G0463; J2260

== ENCOUNTER 2025-01-05 08:50 | Outpatient (CLI) | payer MEDICARE, OTHER ==
[2025-01-05] VITALS (11 sets, daily range): BP systolic 91–113; BP diastolic 46–58; PULSE 69–71; RESP 16; O2SAT 100
[2025-01-05] MEDS: MILRINONE 20MG/100ML 100 ML IV ONE ×2 (09:00→09:09)
[2025-01-05] MEDS: ACETAMINOPHEN 500 MG TAB or CAP PO ONE ×2 (12:38)
== END 2025-01-05 17:00 | disposition home or self-care (01) ==
LOC: CHF HDHVI 08:50
PROVIDERS: ATTEND Internal Medicine Cardiovascular Disease
DX: I13.0 Hypertensive heart and chronic kidney disease with heart failure and stage 1 through stage 4 chronic kidney disease, or unspecified chronic kidney disease (principal); E11.22 Type 2 diabetes mellitus with diabetic chronic kidney disease; N18.4 Chronic kidney disease, stage 4 (severe); I50.23 Acute on chronic systolic (congestive) heart failure; I25.5 Ischemic cardiomyopathy; I25.10 Atherosclerotic heart disease of native coronary artery without angina pectoris; F41.9 Anxiety disorder, unspecified; F32.A Depression, unspecified; J43.9 Emphysema, unspecified; E03.9 Hypothyroidism, unspecified; I25.2 Old myocardial infarction; I48.0 Paroxysmal atrial fibrillation; E78.00 Pure hypercholesterolemia, unspecified; E11.42 Type 2 diabetes mellitus with diabetic polyneuropathy; E11.51 Type 2 diabetes mellitus with diabetic peripheral angiopathy without gangrene; G47.33 Obstructive sleep apnea (adult) (pediatric); E66.01 Morbid (severe) obesity due to excess calories; Z68.35 Body mass index [BMI] 35.0-35.9, adult; F17.210 Nicotine dependence, cigarettes, uncomplicated; Z79.01 Long term (current) use of anticoagulants; Z79.82 Long term (current) use of aspirin; Z79.4 Long term (current) use of insulin; Z79.899 Other long term (current) drug therapy; Z95.1 Presence of aortocoronary bypass graft; Z95.810 Presence of automatic (implantable) cardiac defibrillator; Z79.84 Long term (current) use of oral hypoglycemic drugs
CPT/HCPCS: 96365; 96366; G0463; J2260

== ENCOUNTER 2025-01-07 08:43 | Outpatient (CLI) | payer MEDICARE, OTHER ==
[2025-01-07] VITALS (9 sets, daily range): BP systolic 90–116; BP diastolic 42–59; PULSE 69–71; RESP 18; O2SAT 99
[2025-01-07] MEDS: MILRINONE 20MG/100ML 100 ML IV ONE ×2 (08:53→09:14)
== END 2025-01-07 17:00 | disposition home or self-care (01) ==
LOC: CHF HDHVI 08:43
PROVIDERS: ATTEND Internal Medicine Cardiovascular Disease
DX: I13.0 Hypertensive heart and chronic kidney disease with heart failure and stage 1 through stage 4 chronic kidney disease, or unspecified chronic kidney disease (principal); E11.22 Type 2 diabetes mellitus with diabetic chronic kidney disease; I50.43 Acute on chronic combined systolic (congestive) and diastolic (congestive) heart failure; N18.4 Chronic kidney disease, stage 4 (severe); I25.5 Ischemic cardiomyopathy; I25.10 Atherosclerotic heart disease of native coronary artery without angina pectoris; I25.2 Old myocardial infarction; I48.0 Paroxysmal atrial fibrillation; J44.9 Chronic obstructive pulmonary disease, unspecified; E11.42 Type 2 diabetes mellitus with diabetic polyneuropathy; E11.52 Type 2 diabetes mellitus with diabetic peripheral angiopathy with gangrene; E78.00 Pure hypercholesterolemia, unspecified; E03.9 Hypothyroidism, unspecified; E66.01 Morbid (severe) obesity due to excess calories; Z68.35 Body mass index [BMI] 35.0-35.9, adult; Z79.4 Long term (current) use of insulin; Z79.01 Long term (current) use of anticoagulants; Z79.82 Long term (current) use of aspirin; Z87.891 Personal history of nicotine dependence; Z95.810 Presence of automatic (implantable) cardiac defibrillator
CPT/HCPCS: 96365; 96366; G0463; J2260

== ENCOUNTER 2025-01-14 08:41 | Outpatient (CLI) | payer MEDICARE, OTHER ==
[2025-01-14] VITALS (9 sets, daily range): BP systolic 98–108; BP diastolic 45–56; PULSE 69–70; RESP 18; O2SAT 100
[2025-01-14] MEDS: MILRINONE 20MG/100ML 100 ML IV ONE ×2 (08:57→09:06)
[2025-01-14] MEDS: KETOROLAC TROMETH 60MG/2ML VIAL ONE (11:09)
[2025-01-14] MEDS: KETOROLAC TROMETH 60MG/2ML VIAL IM ONE (11:11)
[2025-01-14 13:22] LABS: INR 1.29 (0.9-1.15); Partial Thromboplastin Time 31.9 SEC (24.5-34.5); Prothrombin Time 13.3 sec (9.3-11.8)
== END 2025-01-14 17:00 | disposition home or self-care (01) ==
LOC: CHF HDHVI 08:41
PROVIDERS: ATTEND Internal Medicine Cardiovascular Disease
DX: I13.0 Hypertensive heart and chronic kidney disease with heart failure and stage 1 through stage 4 chronic kidney disease, or unspecified chronic kidney disease (principal); E11.22 Type 2 diabetes mellitus with diabetic chronic kidney disease; I50.43 Acute on chronic combined systolic (congestive) and diastolic (congestive) heart failure; N18.4 Chronic kidney disease, stage 4 (severe); E11.42 Type 2 diabetes mellitus with diabetic polyneuropathy; E11.51 Type 2 diabetes mellitus with diabetic peripheral angiopathy without gangrene; E11.65 Type 2 diabetes mellitus with hyperglycemia; I25.10 Atherosclerotic heart disease of native coronary artery without angina pectoris; E03.9 Hypothyroidism, unspecified; M54.50 Low back pain, unspecified; D64.9 Anemia, unspecified; I25.5 Ischemic cardiomyopathy; F32.A Depression, unspecified; J43.9 Emphysema, unspecified; G47.33 Obstructive sleep apnea (adult) (pediatric); F41.9 Anxiety disorder, unspecified; E78.00 Pure hypercholesterolemia, unspecified; I25.2 Old myocardial infarction; I48.0 Paroxysmal atrial fibrillation; R79.1 Abnormal coagulation profile; E66.01 Morbid (severe) obesity due to excess calories; Z68.35 Body mass index [BMI] 35.0-35.9, adult; Z79.4 Long term (current) use of insulin; Z79.01 Long term (current) use of anticoagulants; F17.210 Nicotine dependence, cigarettes, uncomplicated; Z79.899 Other long term (current) drug therapy; Z95.1 Presence of aortocoronary bypass graft; Z79.84 Long term (current) use of oral hypoglycemic drugs
CPT/HCPCS: 36415; 85610; 85730; 96365; 96366; 96372; G0463; J1885; J2260

== ENCOUNTER → 2025-01-15 | Outpatient (CLI) | payer MEDICARE, OTHER ==
[2025-01-15] VITALS (9 sets, daily range): BP systolic 88–116; BP diastolic 46–57; PULSE 69–70; RESP 16; O2SAT 100
[2025-01-15] MEDS: MILRINONE 20MG/100ML 100 ML IV ONE ×2 (08:59→09:06)
== END | disposition home or self-care (01) ==
LOC: CHF HDHVI 08:45
PROVIDERS: ATTEND Internal Medicine Cardiovascular Disease
DX: I13.0 Hypertensive heart and chronic kidney disease with heart failure and stage 1 through stage 4 chronic kidney disease, or unspecified chronic kidney disease (principal); E11.22 Type 2 diabetes mellitus with diabetic chronic kidney disease; N18.4 Chronic kidney disease, stage 4 (severe); I50.23 Acute on chronic systolic (congestive) heart failure; F41.9 Anxiety disorder, unspecified; I25.10 Atherosclerotic heart disease of native coronary artery without angina pectoris; F32.A Depression, unspecified; J43.9 Emphysema, unspecified; E03.9 Hypothyroidism, unspecified; E66.01 Morbid (severe) obesity due to excess calories; I25.2 Old myocardial infarction; I48.0 Paroxysmal atrial fibrillation; E78.00 Pure hypercholesterolemia, unspecified; E11.42 Type 2 diabetes mellitus with diabetic polyneuropathy; E11.51 Type 2 diabetes mellitus with diabetic peripheral angiopathy without gangrene; F17.210 Nicotine dependence, cigarettes, uncomplicated; Z79.01 Long term (current) use of anticoagulants; Z79.4 Long term (current) use of insulin; Z79.84 Long term (current) use of oral hypoglycemic drugs; Z68.35 Body mass index [BMI] 35.0-35.9, adult; Z95.810 Presence of automatic (implantable) cardiac defibrillator; Z79.899 Other long term (current) drug therapy; Z79.82 Long term (current) use of aspirin; Z95.1 Presence of aortocoronary bypass graft
CPT/HCPCS: 96365; 96366; G0463; J2260

== ENCOUNTER 2025-01-19 08:41 | Outpatient (CLI) | payer MEDICARE, OTHER ==
[2025-01-19] VITALS (10 sets, daily range): BP systolic 96–118; BP diastolic 48–60; PULSE 69–70; RESP 16; O2SAT 98–99
[2025-01-19] MEDS: MILRINONE 20MG/100ML 100 ML IV ONE ×2 (08:48→09:09)
[2025-01-19] MEDS: CYANOCOBALAMIN (B-12) 1000 MCG/1 ML VIAL ONE (10:44)
[2025-01-19] MEDS: CYANOCOBALAMIN (B-12) 1000 MCG/1 ML VIAL IM ONE (11:16)
[2025-01-21] MEDS ORDERED: diphenhdrAMINE HCL 50 MG/1 ML VL ONE (09:13)
== END 2025-01-19 17:00 | disposition home or self-care (01) ==
LOC: CHF HDHVI 08:41
PROVIDERS: ATTEND Internal Medicine Cardiovascular Disease
DX: I13.0 Hypertensive heart and chronic kidney disease with heart failure and stage 1 through stage 4 chronic kidney disease, or unspecified chronic kidney disease (principal); E11.22 Type 2 diabetes mellitus with diabetic chronic kidney disease; I50.43 Acute on chronic combined systolic (congestive) and diastolic (congestive) heart failure; N18.4 Chronic kidney disease, stage 4 (severe); I25.10 Atherosclerotic heart disease of native coronary artery without angina pectoris; I25.5 Ischemic cardiomyopathy; I48.0 Paroxysmal atrial fibrillation; I25.2 Old myocardial infarction; J43.9 Emphysema, unspecified; E11.51 Type 2 diabetes mellitus with diabetic peripheral angiopathy without gangrene; E11.42 Type 2 diabetes mellitus with diabetic polyneuropathy; E03.9 Hypothyroidism, unspecified; E78.00 Pure hypercholesterolemia, unspecified; F41.9 Anxiety disorder, unspecified; F32.A Depression, unspecified; E66.01 Morbid (severe) obesity due to excess calories; Z68.35 Body mass index [BMI] 35.0-35.9, adult; Z79.4 Long term (current) use of insulin; Z79.84 Long term (current) use of oral hypoglycemic drugs; Z79.01 Long term (current) use of anticoagulants; Z87.891 Personal history of nicotine dependence; Z95.810 Presence of automatic (implantable) cardiac defibrillator
CPT/HCPCS: 96365; 96366; 96372; G0463; J2260; J3420

== ENCOUNTER 2025-01-20 08:46 | Outpatient (CLI) | payer MEDICARE, OTHER ==
[2025-01-20] VITALS (9 sets, daily range): BP systolic 99–108; BP diastolic 45–58; PULSE 69–71; RESP 16–18; O2SAT 99
[2025-01-20] MEDS: MILRINONE 20MG/100ML 100 ML IV ONE ×2 (09:02→11:14)
== END 2025-01-20 17:00 | disposition home or self-care (01) ==
LOC: CHF HDHVI 08:46
PROVIDERS: ATTEND Internal Medicine Cardiovascular Disease
DX: I13.0 Hypertensive heart and chronic kidney disease with heart failure and stage 1 through stage 4 chronic kidney disease, or unspecified chronic kidney disease (principal); E11.22 Type 2 diabetes mellitus with diabetic chronic kidney disease; I50.43 Acute on chronic combined systolic (congestive) and diastolic (congestive) heart failure; N18.4 Chronic kidney disease, stage 4 (severe); I25.5 Ischemic cardiomyopathy; I25.10 Atherosclerotic heart disease of native coronary artery without angina pectoris; I25.2 Old myocardial infarction; I48.0 Paroxysmal atrial fibrillation; J43.9 Emphysema, unspecified; M48.07 Spinal stenosis, lumbosacral region; E11.51 Type 2 diabetes mellitus with diabetic peripheral angiopathy without gangrene; E11.42 Type 2 diabetes mellitus with diabetic polyneuropathy; E78.00 Pure hypercholesterolemia, unspecified; E03.9 Hypothyroidism, unspecified; F41.9 Anxiety disorder, unspecified; F32.A Depression, unspecified; E66.01 Morbid (severe) obesity due to excess calories; Z68.35 Body mass index [BMI] 35.0-35.9, adult; Z79.82 Long term (current) use of aspirin; Z79.4 Long term (current) use of insulin; Z79.01 Long term (current) use of anticoagulants; Z79.899 Other long term (current) drug therapy; Z87.891 Personal history of nicotine dependence; Z95.810 Presence of automatic (implantable) cardiac defibrillator
CPT/HCPCS: 96365; 96366; G0463; J2260

== ENCOUNTER → 2025-01-21 | Outpatient (CLI) | payer MEDICARE, OTHER ==
[~2025-01-21] MED LIST changes: +diphenhdrAMINE HCL 50 MG/1 ML VL IM ONE
[2025-01-21] MEDS: LIDOCAINE 2%HCL (LOCAL ANESTH.) INJ 10ml MDV ONE (09:07)
[2025-01-21] MEDS: IOHEXOL 300 MG/ML 100ML BOTTLE IJ ONE (09:09)
--- NOTE | 2025-01-21 11:04 | DVH ---
CT LS SPINE W CONTRAST, HISTORY: CT MYELOGRAM LS- SPINAL STENOSIS LUMBAR SPONDYLOSI COMPARISON: CT LS SPINE WO CONTRAST on DOS: 11/17/24, LS SPINE WO CONTRAST on DOS: 04/25/22 PROCEDURE: Written informed consent was obtained. The patient was placed prone on the CT scanner and prepped/draped in usual sterile fashion. Under fluoroscopy, a midline approach to the L2-3 interlamin ar space was selected and the overlying skin anesthetized with several mL of 1% lidocaine. A 22G spin al needle was advanced under CT vision into the thecal sac with return of clear CSF. 6 cc of Omni 300 was then injected into the subarachnoid space. The needle was removed and myelograms obtained in sta ndard projections. The patient tolerated the procedure well without immediate complication. FINDINGS: There are 5 lumbar segments. There is fusion of the L4-5 vertebral bodies with laminectomy changes. A spinal stimulator enters at T12-L1. The lumbar vertebral body heights and alignment are o therwise maintained. The intervertebral disc spaces are narrow and degenerative. The cortical margins are intact. The paraspinal soft tissues are normal. AAA measures 4.9 cm in diameter. On axial images: At L1-2, there is a posterior disc osteophyte complex. The central canal measures 10 mm in AP dimensi on. There is severe bilateral neuroforaminal narrowing. The facet joints are degenerative. At L2-3, there is a posterior disc osteophyte complex. The central canal measures 8 mm in AP dimensio n. There is severe bilateral neuroforaminal narrowing. The facet joints are degenerative. At L3-4, there is a posterior disc osteophyte complex. The central canal measures 8 mm in AP dimensio n. There is severe bilateral neuroforaminal narrowing. The facet joints are degenerative. At L4-5, there is a posterior disc osteophyte complex. The central canal is widely patent. There is s evere bilateral neuroforaminal narrowing. The facet joints are degenerative. At L5-S1, there is a posterior disc osteophyte complex. The central canal is widely patent. There is severe bilateral neuroforaminal narrowing. The facet joints are degenerative. IMPRESSION: Multi level degenerative changes of the lumbar spine with [id number] central canal narrowing at L2-3, L3-4. Intrathecal contrast material is able to pass through the central canal narrowings howev er clumping of the nerve roots is seen. Multi level bilateral severe neuroforamina narrowing at all t he lumbar levels. Postsurgical changes from L4-5 laminectomy with near fusion of the L4-5 vertebral bodies. AAA measures 4.9 cm in diameter. Successful lumbar myelography. Please see the report of the postmyelography CT for further results.
== END | disposition home or self-care (01) ==
LOC: XYW 08:29
PROVIDERS: ATTEND Internal Medicine Cardiovascular Disease
DX: M47.817 Spondylosis without myelopathy or radiculopathy, lumbosacral region (principal); M48.07 Spinal stenosis, lumbosacral region; M25.78 Osteophyte, vertebrae; M43.26 Fusion of spine, lumbar region; I71.40 Abdominal aortic aneurysm, without rupture, unspecified
CPT/HCPCS: 72132; J2003; Q9967

== ENCOUNTER 2025-02-02 08:42 | Outpatient (CLI) | payer MEDICARE, OTHER ==
[2025-02-02] VITALS (10 sets, daily range): BP systolic 89–115; BP diastolic 45–63; PULSE 69–70; RESP 16; O2SAT 97–99
[~2025-02-02 08:42] MED LIST changes: -diphenhdrAMINE HCL 50 MG/1 ML VL IM ONE
[2025-02-02] MEDS: MILRINONE 20MG/100ML 100 ML IV ONE ×2 (08:48→08:58)
== END 2025-02-02 17:00 | disposition home or self-care (01) ==
LOC: CHF HDHVI 08:42
PROVIDERS: ATTEND Internal Medicine Cardiovascular Disease
DX: I13.0 Hypertensive heart and chronic kidney disease with heart failure and stage 1 through stage 4 chronic kidney disease, or unspecified chronic kidney disease (principal); E11.22 Type 2 diabetes mellitus with diabetic chronic kidney disease; I50.43 Acute on chronic combined systolic (congestive) and diastolic (congestive) heart failure; N18.4 Chronic kidney disease, stage 4 (severe); I25.10 Atherosclerotic heart disease of native coronary artery without angina pectoris; I25.5 Ischemic cardiomyopathy; I25.2 Old myocardial infarction; I48.0 Paroxysmal atrial fibrillation; J43.9 Emphysema, unspecified; E11.42 Type 2 diabetes mellitus with diabetic polyneuropathy; E11.51 Type 2 diabetes mellitus with diabetic peripheral angiopathy without gangrene; E03.9 Hypothyroidism, unspecified; E78.00 Pure hypercholesterolemia, unspecified; F41.9 Anxiety disorder, unspecified; F32.A Depression, unspecified; E66.01 Morbid (severe) obesity due to excess calories; Z68.35 Body mass index [BMI] 35.0-35.9, adult; Z79.01 Long term (current) use of anticoagulants; Z79.899 Other long term (current) drug therapy; Z87.891 Personal history of nicotine dependence; Z95.810 Presence of automatic (implantable) cardiac defibrillator
CPT/HCPCS: 96365; 96366; G0463; J2260

== ENCOUNTER 2025-02-04 08:45 | Outpatient (CLI) | payer MEDICARE, OTHER ==
[2025-02-04] VITALS (9 sets, daily range): BP systolic 97–116; BP diastolic 40–58; PULSE 69–71; RESP 16; O2SAT 97
[2025-02-04] MEDS: CYANOCOBALAMIN (B-12) 1000 MCG/1 ML VIAL ONE (08:52)
[2025-02-04] MEDS: MILRINONE 20MG/100ML 100 ML IV ONE ×2 (08:52→09:06)
== END 2025-02-04 17:00 | disposition home or self-care (01) ==
LOC: CHF HDHVI 08:45
PROVIDERS: ATTEND Internal Medicine Cardiovascular Disease
DX: I13.0 Hypertensive heart and chronic kidney disease with heart failure and stage 1 through stage 4 chronic kidney disease, or unspecified chronic kidney disease (principal); E11.22 Type 2 diabetes mellitus with diabetic chronic kidney disease; I50.43 Acute on chronic combined systolic (congestive) and diastolic (congestive) heart failure; N18.4 Chronic kidney disease, stage 4 (severe); E11.42 Type 2 diabetes mellitus with diabetic polyneuropathy; E11.51 Type 2 diabetes mellitus with diabetic peripheral angiopathy without gangrene; E11.65 Type 2 diabetes mellitus with hyperglycemia; I25.2 Old myocardial infarction; F41.9 Anxiety disorder, unspecified; I25.10 Atherosclerotic heart disease of native coronary artery without angina pectoris; D64.9 Anemia, unspecified; F32.A Depression, unspecified; J43.9 Emphysema, unspecified; E03.9 Hypothyroidism, unspecified; E78.00 Pure hypercholesterolemia, unspecified; I48.0 Paroxysmal atrial fibrillation; G47.33 Obstructive sleep apnea (adult) (pediatric); I25.5 Ischemic cardiomyopathy; I71.40 Abdominal aortic aneurysm, without rupture, unspecified; M47.817 Spondylosis without myelopathy or radiculopathy, lumbosacral region; M25.78 Osteophyte, vertebrae; M54.50 Low back pain, unspecified; M43.26 Fusion of spine, lumbar region; M48.07 Spinal stenosis, lumbosacral region; Z79.82 Long term (current) use of aspirin; Z79.4 Long term (current) use of insulin; E66.01 Morbid (severe) obesity due to excess calories; Z68.35 Body mass index [BMI] 35.0-35.9, adult; Z87.891 Personal history of nicotine dependence; Z79.01 Long term (current) use of anticoagulants; Z79.84 Long term (current) use of oral hypoglycemic drugs; Z95.1 Presence of aortocoronary bypass graft; Z91.048 Other nonmedicinal substance allergy status; Z79.899 Other long term (current) drug therapy
CPT/HCPCS: 96365; 96366; G0463; J2260; J3420

== ENCOUNTER 2025-02-05 08:38 | Outpatient (CLI) | payer MEDICARE, OTHER ==
[2025-02-05] VITALS (9 sets, daily range): BP systolic 99–125; BP diastolic 51–59; PULSE 69–70; RESP 16; O2SAT 99
[2025-02-05] MEDS: MILRINONE 20MG/100ML 100 ML IV ONE ×2 (08:51→09:00)
[2025-02-05] MEDS: IRON SUCROSE 20 mg/ml 10ml VIAL IV ONE (11:29)
[2025-02-05] MEDS: IRON SUCROSE COMPLEX 110 ML IV ONE (11:32)
== END 2025-02-05 17:00 | disposition home or self-care (01) ==
LOC: CHF HDHVI 08:38
PROVIDERS: ATTEND Internal Medicine Cardiovascular Disease
DX: I13.0 Hypertensive heart and chronic kidney disease with heart failure and stage 1 through stage 4 chronic kidney disease, or unspecified chronic kidney disease (principal); E11.22 Type 2 diabetes mellitus with diabetic chronic kidney disease; I50.43 Acute on chronic combined systolic (congestive) and diastolic (congestive) heart failure; N18.4 Chronic kidney disease, stage 4 (severe); D50.9 Iron deficiency anemia, unspecified; E11.42 Type 2 diabetes mellitus with diabetic polyneuropathy; E11.65 Type 2 diabetes mellitus with hyperglycemia; E11.51 Type 2 diabetes mellitus with diabetic peripheral angiopathy without gangrene; F41.9 Anxiety disorder, unspecified; I25.10 Atherosclerotic heart disease of native coronary artery without angina pectoris; F32.A Depression, unspecified; J43.9 Emphysema, unspecified; M43.20 Fusion of spine, site unspecified; E78.00 Pure hypercholesterolemia, unspecified; I48.0 Paroxysmal atrial fibrillation; I71.40 Abdominal aortic aneurysm, without rupture, unspecified; E03.9 Hypothyroidism, unspecified; G47.33 Obstructive sleep apnea (adult) (pediatric); I25.5 Ischemic cardiomyopathy; M54.50 Low back pain, unspecified; M47.817 Spondylosis without myelopathy or radiculopathy, lumbosacral region; R06.02 Shortness of breath; Z79.01 Long term (current) use of anticoagulants; Z79.82 Long term (current) use of aspirin; Z79.4 Long term (current) use of insulin; Z79.84 Long term (current) use of oral hypoglycemic drugs; E66.01 Morbid (severe) obesity due to excess calories; Z68.35 Body mass index [BMI] 35.0-35.9, adult; Z91.048 Other nonmedicinal substance allergy status; Z87.891 Personal history of nicotine dependence; Z95.1 Presence of aortocoronary bypass graft; Z79.899 Other long term (current) drug therapy
CPT/HCPCS: 96365; 96366; 96368; G0463; J1756; J2260; 96367

== ENCOUNTER 2025-02-09 08:36 | Outpatient (CLI) | payer MEDICARE, OTHER ==
[2025-02-09] VITALS (9 sets, daily range): BP systolic 88–113; BP diastolic 46–54; PULSE 65–72; RESP 16; O2SAT 99–100
[2025-02-09] MEDS: IRON SUCROSE 20 mg/ml 10ml VIAL IV ONE (08:50)
[2025-02-09] MEDS: MILRINONE 20MG/100ML 100 ML IV ONE ×2 (08:50→09:05)
[2025-02-09] MEDS: IRON SUCROSE COMPLEX 110 ML IV ONE (09:05)
[2025-02-09] MEDS: ACETAMINOPHEN 500 MG TAB or CAP PO ONE ×2 (12:12→12:13)
== END 2025-02-09 17:00 | disposition home or self-care (01) ==
LOC: CHF HDHVI 08:36
PROVIDERS: ATTEND Internal Medicine Cardiovascular Disease
DX: I13.0 Hypertensive heart and chronic kidney disease with heart failure and stage 1 through stage 4 chronic kidney disease, or unspecified chronic kidney disease (principal); E11.22 Type 2 diabetes mellitus with diabetic chronic kidney disease; I50.43 Acute on chronic combined systolic (congestive) and diastolic (congestive) heart failure; N18.4 Chronic kidney disease, stage 4 (severe); D50.9 Iron deficiency anemia, unspecified; M54.50 Low back pain, unspecified; I25.10 Atherosclerotic heart disease of native coronary artery without angina pectoris; I25.5 Ischemic cardiomyopathy; I25.2 Old myocardial infarction; I48.0 Paroxysmal atrial fibrillation; J43.9 Emphysema, unspecified; E11.42 Type 2 diabetes mellitus with diabetic polyneuropathy; E11.51 Type 2 diabetes mellitus with diabetic peripheral angiopathy without gangrene; E78.00 Pure hypercholesterolemia, unspecified; E03.9 Hypothyroidism, unspecified; G47.33 Obstructive sleep apnea (adult) (pediatric); F41.9 Anxiety disorder, unspecified; F32.A Depression, unspecified; E66.01 Morbid (severe) obesity due to excess calories; Z68.35 Body mass index [BMI] 35.0-35.9, adult; Z79.01 Long term (current) use of anticoagulants; Z79.82 Long term (current) use of aspirin; Z79.4 Long term (current) use of insulin; Z87.891 Personal history of nicotine dependence; Z95.810 Presence of automatic (implantable) cardiac defibrillator
CPT/HCPCS: 96365; 96366; 96368; G0463; J1756; J2260; 96367

== ENCOUNTER 2025-02-11 08:43 | Outpatient (CLI) | payer MEDICARE, OTHER ==
[2025-02-11] VITALS (9 sets, daily range): BP systolic 98–121; BP diastolic 43–59; PULSE 68–70; RESP 18; O2SAT 100
[2025-02-11] MEDS: IRON SUCROSE 20 mg/ml 10ml VIAL IV ONE (08:51)
[2025-02-11] MEDS: MILRINONE 20MG/100ML 100 ML IV ONE ×2 (08:51→09:09)
[2025-02-11] MEDS: IRON SUCROSE COMPLEX 110 ML IV ONE (09:28)
== END 2025-02-11 17:00 | disposition home or self-care (01) ==
LOC: CHF HDHVI 08:43
PROVIDERS: ATTEND Internal Medicine Cardiovascular Disease
DX: I13.0 Hypertensive heart and chronic kidney disease with heart failure and stage 1 through stage 4 chronic kidney disease, or unspecified chronic kidney disease (principal); E11.22 Type 2 diabetes mellitus with diabetic chronic kidney disease; I50.43 Acute on chronic combined systolic (congestive) and diastolic (congestive) heart failure; N18.4 Chronic kidney disease, stage 4 (severe); D50.9 Iron deficiency anemia, unspecified; I25.5 Ischemic cardiomyopathy; I25.10 Atherosclerotic heart disease of native coronary artery without angina pectoris; I25.2 Old myocardial infarction; I48.0 Paroxysmal atrial fibrillation; J43.9 Emphysema, unspecified; E11.51 Type 2 diabetes mellitus with diabetic peripheral angiopathy without gangrene; E11.42 Type 2 diabetes mellitus with diabetic polyneuropathy; E78.00 Pure hypercholesterolemia, unspecified; E03.9 Hypothyroidism, unspecified; F41.9 Anxiety disorder, unspecified; F32.A Depression, unspecified; E66.01 Morbid (severe) obesity due to excess calories; Z68.35 Body mass index [BMI] 35.0-35.9, adult; Z79.01 Long term (current) use of anticoagulants; Z79.82 Long term (current) use of aspirin; Z79.4 Long term (current) use of insulin; Z79.899 Other long term (current) drug therapy; Z87.891 Personal history of nicotine dependence; Z95.810 Presence of automatic (implantable) cardiac defibrillator
CPT/HCPCS: 96365; 96366; 96368; G0463; J1756; J2260; 96367

== ENCOUNTER 2025-02-12 08:46 | Outpatient (CLI) | payer MEDICARE, OTHER ==
[2025-02-12] VITALS (9 sets, daily range): BP systolic 93–107; BP diastolic 47–57; PULSE 69–70; RESP 16; O2SAT 99–100
[2025-02-12] MEDS: MILRINONE 20MG/100ML 100 ML IV ONE ×2 (09:01→09:06)
== END 2025-02-12 17:00 | disposition home or self-care (01) ==
LOC: CHF HDHVI 08:46
PROVIDERS: ATTEND Internal Medicine Cardiovascular Disease
DX: I13.0 Hypertensive heart and chronic kidney disease with heart failure and stage 1 through stage 4 chronic kidney disease, or unspecified chronic kidney disease (principal); E11.22 Type 2 diabetes mellitus with diabetic chronic kidney disease; I50.43 Acute on chronic combined systolic (congestive) and diastolic (congestive) heart failure; N18.4 Chronic kidney disease, stage 4 (severe); I25.5 Ischemic cardiomyopathy; I25.10 Atherosclerotic heart disease of native coronary artery without angina pectoris; I25.2 Old myocardial infarction; I48.0 Paroxysmal atrial fibrillation; J43.9 Emphysema, unspecified; D50.9 Iron deficiency anemia, unspecified; E11.51 Type 2 diabetes mellitus with diabetic peripheral angiopathy without gangrene; E11.42 Type 2 diabetes mellitus with diabetic polyneuropathy; E78.00 Pure hypercholesterolemia, unspecified; E03.9 Hypothyroidism, unspecified; G47.33 Obstructive sleep apnea (adult) (pediatric); F41.9 Anxiety disorder, unspecified; F32.A Depression, unspecified; E66.01 Morbid (severe) obesity due to excess calories; Z68.35 Body mass index [BMI] 35.0-35.9, adult; Z79.01 Long term (current) use of anticoagulants; Z79.899 Other long term (current) drug therapy; Z79.82 Long term (current) use of aspirin; Z79.4 Long term (current) use of insulin; Z87.891 Personal history of nicotine dependence; Z95.810 Presence of automatic (implantable) cardiac defibrillator
CPT/HCPCS: 96365; 96366; G0463; J2260

== ENCOUNTER 2025-02-16 08:50 | Outpatient (CLI) | payer MEDICARE, OTHER ==
[2025-02-16] VITALS (9 sets, daily range): BP systolic 88–113; BP diastolic 48–63; PULSE 69–72; RESP 16; O2SAT 99–100
[2025-02-16] MEDS: MILRINONE 20MG/100ML 100 ML IV ONE ×2 (09:13→12:00)
== END 2025-02-16 17:00 | disposition home or self-care (01) ==
LOC: CHF HDHVI 08:50
PROVIDERS: ATTEND Internal Medicine Cardiovascular Disease
DX: I13.0 Hypertensive heart and chronic kidney disease with heart failure and stage 1 through stage 4 chronic kidney disease, or unspecified chronic kidney disease (principal); E11.22 Type 2 diabetes mellitus with diabetic chronic kidney disease; N18.4 Chronic kidney disease, stage 4 (severe); I50.23 Acute on chronic systolic (congestive) heart failure; I25.5 Ischemic cardiomyopathy; F41.9 Anxiety disorder, unspecified; I25.10 Atherosclerotic heart disease of native coronary artery without angina pectoris; F32.A Depression, unspecified; J43.9 Emphysema, unspecified; E03.9 Hypothyroidism, unspecified; E66.01 Morbid (severe) obesity due to excess calories; I25.2 Old myocardial infarction; I48.0 Paroxysmal atrial fibrillation; E78.00 Pure hypercholesterolemia, unspecified; E11.42 Type 2 diabetes mellitus with diabetic polyneuropathy; E11.51 Type 2 diabetes mellitus with diabetic peripheral angiopathy without gangrene; Z79.84 Long term (current) use of oral hypoglycemic drugs; Z68.35 Body mass index [BMI] 35.0-35.9, adult; Z79.01 Long term (current) use of anticoagulants; Z79.4 Long term (current) use of insulin; Z79.82 Long term (current) use of aspirin; Z79.899 Other long term (current) drug therapy; Z95.1 Presence of aortocoronary bypass graft; Z87.891 Personal history of nicotine dependence; Z95.810 Presence of automatic (implantable) cardiac defibrillator
CPT/HCPCS: 96365; 96366; G0463; J2260

== ENCOUNTER 2025-02-18 08:39 | Outpatient (CLI) | payer MEDICARE, OTHER ==
[2025-02-18] VITALS (9 sets, daily range): BP systolic 91–123; BP diastolic 49–64; PULSE 69–70; RESP 16; O2SAT 100
[2025-02-18] MEDS: CYANOCOBALAMIN (B-12) 1000 MCG/1 ML VIAL ONE (08:45)
[2025-02-18] MEDS: MILRINONE 20MG/100ML 100 ML IV ONE ×2 (08:45→09:05)
[2025-02-18] MEDS: CYANOCOBALAMIN (B-12) 1000 MCG/1 ML VIAL IM ONE (08:55)
== END 2025-02-18 17:00 | disposition home or self-care (01) ==
LOC: CHF HDHVI 08:39
PROVIDERS: ATTEND Internal Medicine Cardiovascular Disease
DX: I13.0 Hypertensive heart and chronic kidney disease with heart failure and stage 1 through stage 4 chronic kidney disease, or unspecified chronic kidney disease (principal); E11.22 Type 2 diabetes mellitus with diabetic chronic kidney disease; I50.23 Acute on chronic systolic (congestive) heart failure; N18.4 Chronic kidney disease, stage 4 (severe); E11.42 Type 2 diabetes mellitus with diabetic polyneuropathy; E11.51 Type 2 diabetes mellitus with diabetic peripheral angiopathy without gangrene; E11.65 Type 2 diabetes mellitus with hyperglycemia; D51.8 Other vitamin B12 deficiency anemias; F41.9 Anxiety disorder, unspecified; I25.10 Atherosclerotic heart disease of native coronary artery without angina pectoris; F32.A Depression, unspecified; I48.0 Paroxysmal atrial fibrillation; J43.9 Emphysema, unspecified; D50.0 Iron deficiency anemia secondary to blood loss (chronic); E03.9 Hypothyroidism, unspecified; I25.5 Ischemic cardiomyopathy; J44.9 Chronic obstructive pulmonary disease, unspecified; I25.2 Old myocardial infarction; E78.00 Pure hypercholesterolemia, unspecified; Z79.01 Long term (current) use of anticoagulants; Z79.4 Long term (current) use of insulin; Z79.899 Other long term (current) drug therapy; Z79.82 Long term (current) use of aspirin; Z79.84 Long term (current) use of oral hypoglycemic drugs; Z95.1 Presence of aortocoronary bypass graft; Z87.891 Personal history of nicotine dependence
CPT/HCPCS: 96365; 96366; 96372; G0463; J2260; J3420

== ENCOUNTER 2025-02-19 08:42 | Outpatient (CLI) | payer MEDICARE, OTHER ==
[2025-02-19] VITALS (10 sets, daily range): BP systolic 102–115; BP diastolic 52–66; PULSE 69–70; RESP 16; O2SAT 95
[2025-02-19] MEDS: MILRINONE 20MG/100ML 100 ML IV ONE ×2 (08:51→08:59)
== END 2025-02-19 17:00 | disposition home or self-care (01) ==
LOC: CHF HDHVI 08:42
PROVIDERS: ATTEND Internal Medicine Cardiovascular Disease
DX: I13.0 Hypertensive heart and chronic kidney disease with heart failure and stage 1 through stage 4 chronic kidney disease, or unspecified chronic kidney disease (principal); E11.22 Type 2 diabetes mellitus with diabetic chronic kidney disease; I50.43 Acute on chronic combined systolic (congestive) and diastolic (congestive) heart failure; N18.4 Chronic kidney disease, stage 4 (severe); I25.10 Atherosclerotic heart disease of native coronary artery without angina pectoris; I25.5 Ischemic cardiomyopathy; I25.2 Old myocardial infarction; I48.0 Paroxysmal atrial fibrillation; J43.9 Emphysema, unspecified; E11.51 Type 2 diabetes mellitus with diabetic peripheral angiopathy without gangrene; E11.42 Type 2 diabetes mellitus with diabetic polyneuropathy; E78.00 Pure hypercholesterolemia, unspecified; E03.9 Hypothyroidism, unspecified; F41.9 Anxiety disorder, unspecified; F32.A Depression, unspecified; E66.01 Morbid (severe) obesity due to excess calories; Z68.35 Body mass index [BMI] 35.0-35.9, adult; Z79.01 Long term (current) use of anticoagulants; Z79.4 Long term (current) use of insulin; Z79.82 Long term (current) use of aspirin; Z79.899 Other long term (current) drug therapy; Z87.891 Personal history of nicotine dependence; Z95.810 Presence of automatic (implantable) cardiac defibrillator
CPT/HCPCS: 96365; 96366; G0463; J2260

== ENCOUNTER 2025-02-23 08:37 | Outpatient (CLI) | payer MEDICARE, OTHER ==
[2025-02-23] VITALS (9 sets, daily range): BP systolic 89–115; BP diastolic 48–58; PULSE 69–70; RESP 16; O2SAT 99
[2025-02-23] MEDS: MILRINONE 20MG/100ML 100 ML IV ONE ×2 (09:04→09:10)
== END 2025-02-23 17:00 | disposition home or self-care (01) ==
LOC: CHF HDHVI 08:37
PROVIDERS: ATTEND Internal Medicine Cardiovascular Disease
DX: I13.0 Hypertensive heart and chronic kidney disease with heart failure and stage 1 through stage 4 chronic kidney disease, or unspecified chronic kidney disease (principal); E11.22 Type 2 diabetes mellitus with diabetic chronic kidney disease; I50.43 Acute on chronic combined systolic (congestive) and diastolic (congestive) heart failure; N18.4 Chronic kidney disease, stage 4 (severe); I25.10 Atherosclerotic heart disease of native coronary artery without angina pectoris; I25.5 Ischemic cardiomyopathy; I25.2 Old myocardial infarction; I48.0 Paroxysmal atrial fibrillation; J43.9 Emphysema, unspecified; E11.51 Type 2 diabetes mellitus with diabetic peripheral angiopathy without gangrene; E11.42 Type 2 diabetes mellitus with diabetic polyneuropathy; E78.00 Pure hypercholesterolemia, unspecified; E03.9 Hypothyroidism, unspecified; F41.9 Anxiety disorder, unspecified; F32.A Depression, unspecified; E66.01 Morbid (severe) obesity due to excess calories; Z68.35 Body mass index [BMI] 35.0-35.9, adult; Z79.01 Long term (current) use of anticoagulants; Z79.4 Long term (current) use of insulin; Z79.82 Long term (current) use of aspirin; Z79.899 Other long term (current) drug therapy; Z87.891 Personal history of nicotine dependence; Z95.810 Presence of automatic (implantable) cardiac defibrillator
CPT/HCPCS: 96365; 96366; G0463; J2260

== ENCOUNTER 2025-02-24 08:41 | Outpatient (CLI) | payer MEDICARE, OTHER ==
[2025-02-24] VITALS (9 sets, daily range): BP systolic 103–122; BP diastolic 52–67; PULSE 67–70; RESP 16; O2SAT 97–100
[2025-02-24] MEDS: MILRINONE 20MG/100ML 100 ML IV ONE ×2 (08:58→09:10)
== END 2025-02-24 17:00 | disposition home or self-care (01) ==
LOC: CHF HDHVI 08:41
PROVIDERS: ATTEND Internal Medicine Cardiovascular Disease
DX: I13.0 Hypertensive heart and chronic kidney disease with heart failure and stage 1 through stage 4 chronic kidney disease, or unspecified chronic kidney disease (principal); E11.22 Type 2 diabetes mellitus with diabetic chronic kidney disease; I50.43 Acute on chronic combined systolic (congestive) and diastolic (congestive) heart failure; N18.4 Chronic kidney disease, stage 4 (severe); E11.42 Type 2 diabetes mellitus with diabetic polyneuropathy; E11.51 Type 2 diabetes mellitus with diabetic peripheral angiopathy without gangrene; I25.5 Ischemic cardiomyopathy; F41.9 Anxiety disorder, unspecified; F32.A Depression, unspecified; I25.2 Old myocardial infarction; I25.10 Atherosclerotic heart disease of native coronary artery without angina pectoris; I48.0 Paroxysmal atrial fibrillation; E03.9 Hypothyroidism, unspecified; E78.00 Pure hypercholesterolemia, unspecified; J43.9 Emphysema, unspecified; D50.0 Iron deficiency anemia secondary to blood loss (chronic); D51.8 Other vitamin B12 deficiency anemias; G47.33 Obstructive sleep apnea (adult) (pediatric); E66.01 Morbid (severe) obesity due to excess calories; Z68.35 Body mass index [BMI] 35.0-35.9, adult; Z79.01 Long term (current) use of anticoagulants; Z79.4 Long term (current) use of insulin; Z79.82 Long term (current) use of aspirin; Z79.899 Other long term (current) drug therapy; Z87.891 Personal history of nicotine dependence; Z95.1 Presence of aortocoronary bypass graft; Z79.84 Long term (current) use of oral hypoglycemic drugs
CPT/HCPCS: 96365; 96366; G0463; J2260

== ENCOUNTER 2025-03-02 08:46 | Outpatient (CLI) | payer MEDICARE, OTHER ==
[2025-03-02] VITALS (9 sets, daily range): BP systolic 96–115; BP diastolic 51–59; PULSE 65–70; RESP 16; O2SAT 97
[~2025-03-02] VITALS: Ht 30.5 cm; Wt 0.5 kg
[2025-03-02] MEDS: MILRINONE 20MG/100ML 100 ML IV ONE ×2 (08:58→09:09)
== END 2025-03-02 17:00 | disposition home or self-care (01) ==
LOC: CHF HDHVI 08:46
PROVIDERS: ATTEND Internal Medicine Cardiovascular Disease
DX: I13.0 Hypertensive heart and chronic kidney disease with heart failure and stage 1 through stage 4 chronic kidney disease, or unspecified chronic kidney disease (principal); E11.22 Type 2 diabetes mellitus with diabetic chronic kidney disease; I50.43 Acute on chronic combined systolic (congestive) and diastolic (congestive) heart failure; N18.4 Chronic kidney disease, stage 4 (severe); E11.42 Type 2 diabetes mellitus with diabetic polyneuropathy; E11.51 Type 2 diabetes mellitus with diabetic peripheral angiopathy without gangrene; E11.65 Type 2 diabetes mellitus with hyperglycemia; F41.9 Anxiety disorder, unspecified; I25.10 Atherosclerotic heart disease of native coronary artery without angina pectoris; F32.A Depression, unspecified; G47.33 Obstructive sleep apnea (adult) (pediatric); J43.9 Emphysema, unspecified; E03.9 Hypothyroidism, unspecified; D50.0 Iron deficiency anemia secondary to blood loss (chronic); I25.2 Old myocardial infarction; I48.0 Paroxysmal atrial fibrillation; D51.8 Other vitamin B12 deficiency anemias; E78.00 Pure hypercholesterolemia, unspecified; I25.5 Ischemic cardiomyopathy; E66.01 Morbid (severe) obesity due to excess calories; Z68.35 Body mass index [BMI] 35.0-35.9, adult; Z79.01 Long term (current) use of anticoagulants; Z79.82 Long term (current) use of aspirin; Z79.4 Long term (current) use of insulin; Z79.84 Long term (current) use of oral hypoglycemic drugs; Z79.899 Other long term (current) drug therapy; Z95.1 Presence of aortocoronary bypass graft; Z87.891 Personal history of nicotine dependence
CPT/HCPCS: 96365; 96366; G0463; J2260

== ENCOUNTER 2025-03-04 08:48 | Outpatient (CLI) | payer MEDICARE, OTHER ==
[2025-03-04] VITALS (9 sets, daily range): BP systolic 98–111; BP diastolic 49–58; PULSE 71–74; RESP 18; O2SAT 97
[2025-03-04] MEDS: MILRINONE 20MG/100ML 100 ML IV ONE ×2 (08:57→09:05)
--- NOTE | 2025-03-04 12:05 | DVH ---
XY CHEST TWO VIEWS ROUTINE CLINICAL HISTORY: PRE OP CARDIAC CLEARANCE COMPARISON: XY CHEST TWO VIEWS ROUTINE on DOS: 12/15/24, XY CHEST TWO VIEWS ROUTINE on DOS: 07/16/24, CT CHEST WITH CONTRAST on DOS: 02/07/24, XY CHEST TWO VIEWS ROUTINE on DOS: 01/06/24, CT CT ANGIO CHEST CONTRAST on DOS: 12/28/23 TECHNIQUE: Frontal and lateral view of the chest was obtained FINDINGS: Lines and Tubes: Left pacemaker/AICD Lungs: No focal consolidation. Pleura: No effusion. No pneumothorax. Cardiomediastinal contours: Unremarkable Bones: No acute osseous abnormality. IMPRESSION: No acute cardiopulmonary disease.
== END 2025-03-04 17:00 | disposition home or self-care (01) ==
LOC: CHF HDHVI 08:48 → Rad HDHVI 17:00
PROVIDERS: ATTEND Internal Medicine Cardiovascular Disease
DX: I13.0 Hypertensive heart and chronic kidney disease with heart failure and stage 1 through stage 4 chronic kidney disease, or unspecified chronic kidney disease (principal); E11.22 Type 2 diabetes mellitus with diabetic chronic kidney disease; N18.4 Chronic kidney disease, stage 4 (severe); I50.23 Acute on chronic systolic (congestive) heart failure; I25.5 Ischemic cardiomyopathy; F41.9 Anxiety disorder, unspecified; I25.10 Atherosclerotic heart disease of native coronary artery without angina pectoris; F32.A Depression, unspecified; J43.9 Emphysema, unspecified; E03.9 Hypothyroidism, unspecified; I25.2 Old myocardial infarction; I48.0 Paroxysmal atrial fibrillation; E78.00 Pure hypercholesterolemia, unspecified; E11.42 Type 2 diabetes mellitus with diabetic polyneuropathy; E11.51 Type 2 diabetes mellitus with diabetic peripheral angiopathy without gangrene; E66.01 Morbid (severe) obesity due to excess calories; Z79.4 Long term (current) use of insulin; Z79.01 Long term (current) use of anticoagulants; Z79.82 Long term (current) use of aspirin; Z79.84 Long term (current) use of oral hypoglycemic drugs; Z68.35 Body mass index [BMI] 35.0-35.9, adult; Z79.899 Other long term (current) drug therapy; Z87.891 Personal history of nicotine dependence; Z95.1 Presence of aortocoronary bypass graft; Z95.810 Presence of automatic (implantable) cardiac defibrillator
CPT/HCPCS: 71046; 96365; 96366; G0463; J2260

== ENCOUNTER → 2025-03-09 | Outpatient (CLI) | payer MEDICARE, OTHER ==
[2025-03-09] VITALS (9 sets, daily range): BP systolic 98–121; BP diastolic 42–53; PULSE 69–85; RESP 18; O2SAT 96
[2025-03-09] MEDS: MILRINONE 20MG/100ML 100 ML IV ONE ×2 (08:55→09:00)
== END | disposition home or self-care (01) ==
LOC: CHF HDHVI 08:43
PROVIDERS: ATTEND Internal Medicine Cardiovascular Disease
DX: I13.0 Hypertensive heart and chronic kidney disease with heart failure and stage 1 through stage 4 chronic kidney disease, or unspecified chronic kidney disease (principal); E11.22 Type 2 diabetes mellitus with diabetic chronic kidney disease; I50.43 Acute on chronic combined systolic (congestive) and diastolic (congestive) heart failure; N18.4 Chronic kidney disease, stage 4 (severe); E11.42 Type 2 diabetes mellitus with diabetic polyneuropathy; E11.51 Type 2 diabetes mellitus with diabetic peripheral angiopathy without gangrene; E11.65 Type 2 diabetes mellitus with hyperglycemia; F41.9 Anxiety disorder, unspecified; I25.10 Atherosclerotic heart disease of native coronary artery without angina pectoris; F32.A Depression, unspecified; J43.9 Emphysema, unspecified; G47.33 Obstructive sleep apnea (adult) (pediatric); E78.00 Pure hypercholesterolemia, unspecified; I25.2 Old myocardial infarction; I48.0 Paroxysmal atrial fibrillation; E03.9 Hypothyroidism, unspecified; I25.5 Ischemic cardiomyopathy; D51.8 Other vitamin B12 deficiency anemias; Z79.01 Long term (current) use of anticoagulants; Z79.4 Long term (current) use of insulin; Z79.82 Long term (current) use of aspirin; Z79.84 Long term (current) use of oral hypoglycemic drugs; Z79.899 Other long term (current) drug therapy; Z87.891 Personal history of nicotine dependence; Z95.1 Presence of aortocoronary bypass graft
CPT/HCPCS: 96365; 96366; G0463; J2260

== ENCOUNTER 2025-03-11 08:38 | Outpatient (CLI) | payer MEDICARE, OTHER ==
[2025-03-11] VITALS (9 sets, daily range): BP systolic 92–116; BP diastolic 49–57; PULSE 71–72; RESP 16; O2SAT 96
[2025-03-11] MEDS: MILRINONE 20MG/100ML 100 ML IV ONE ×2 (08:50→08:57)
[2025-03-15] MEDS ORDERED: BUMEX2MG PO (10:32)
[2025-03-15] MEDS ORDERED: GABA250S7 PO (10:33)
[2025-03-15] MEDS ORDERED: ALPR0.5T PO (10:38)
== END 2025-03-11 17:00 | disposition home or self-care (01) ==
LOC: CHF HDHVI 08:38
PROVIDERS: ATTEND Internal Medicine Cardiovascular Disease
DX: I13.0 Hypertensive heart and chronic kidney disease with heart failure and stage 1 through stage 4 chronic kidney disease, or unspecified chronic kidney disease (principal); E11.22 Type 2 diabetes mellitus with diabetic chronic kidney disease; I50.43 Acute on chronic combined systolic (congestive) and diastolic (congestive) heart failure; N18.4 Chronic kidney disease, stage 4 (severe); I71.40 Abdominal aortic aneurysm, without rupture, unspecified; R94.31 Abnormal electrocardiogram [ECG] [EKG]; I25.10 Atherosclerotic heart disease of native coronary artery without angina pectoris; I25.5 Ischemic cardiomyopathy; I25.2 Old myocardial infarction; I48.0 Paroxysmal atrial fibrillation; J43.9 Emphysema, unspecified; E11.42 Type 2 diabetes mellitus with diabetic polyneuropathy; E11.51 Type 2 diabetes mellitus with diabetic peripheral angiopathy without gangrene; E78.00 Pure hypercholesterolemia, unspecified; E03.9 Hypothyroidism, unspecified; F41.9 Anxiety disorder, unspecified; F32.A Depression, unspecified; G47.33 Obstructive sleep apnea (adult) (pediatric); E66.01 Morbid (severe) obesity due to excess calories; Z68.35 Body mass index [BMI] 35.0-35.9, adult; Z79.01 Long term (current) use of anticoagulants; Z79.82 Long term (current) use of aspirin; Z79.4 Long term (current) use of insulin; Z79.899 Other long term (current) drug therapy; Z87.891 Personal history of nicotine dependence; Z95.810 Presence of automatic (implantable) cardiac defibrillator
CPT/HCPCS: 93005; 96365; 96366; G0463; J2260

== ENCOUNTER 2025-03-18 06:30 | Inpatient (IN) | payer MEDICARE, OTHER ==
[2025-03-15 11:47] LABS: Hematocrit 33.4 % (41.0-53.0); Hemoglobin 10.8 g/dL (13.5-17.5); Mean Corpuscular Hemoglobin 27.5 pg (28.0-32.0); Mean Corpuscular Volume 84.9 fL (80.0-100.0); Nucleated Red Blood Cells % 0.2 %
[2025-03-15 12:01] LABS: INR 1.14 (0.9-1.15); Partial Thromboplastin Time 28.8 SEC (24.5-34.5); Prothrombin Time 11.9 sec (9.3-11.8)
[2025-03-15 12:39] LABS: Albumin 4.4 g/dL (3.2-4.8); Anion Gap 10 (5-15); BUN/Creatinine Ratio 18.7 (10.0-20.0); Bilirubin, Total 0.4 mg/dL (0.2-1.0); Calcium 8.8 mg/dL (8.7-10.4); Carbon Dioxide 28 mmol/L (20-31); Chloride 102 mmol/L (98-107); Potassium 3.8 mmol/L (3.5-5.1); Sodium 140 mmol/L (136-145); Total Protein 7.0 g/dL (5.7-8.2)
[2025-03-15 12:44] LABS: Alanine Aminotransferase 40 U/L (7-40); Alkaline Phosphatase 132 U/L (46-116); Blood Urea Nitrogen 26 mg/dL (9-23); Glucose 109 mg/dL (74-106)
[~2025-03-18] VITALS: Ht 182.9 cm; Wt 90.3 kg
[2025-03-18] VITALS (30 sets, daily range): BP systolic 111–146; BP diastolic 42–103; PULSE 65–67; RESP 9–20; TEMP 98.1–98.6; O2SAT 89–98
[~2025-03-18 06:30] MED LIST changes: +ALPR0.5T PO; -ASPI1TAB20 PO; -ATEN50TA PO; +BUMEX2MG PO; -FURO40TA4 PO; -GABA-1250 PO; +GABA250S7 PO; -LEVO200T PO; -METF-370 PO; -RANO10003 PO; -SACU1TAB PO; -UMEC1AER IN; -[UNRECOGNIZED DRUG - CODE] PO
[2025-03-18] MEDS: HEPARIN IN NS 1000Units/500mL 2,000 ML ONE (07:33)
[2025-03-18] MEDS: IOHEXOL 350 MG/ML 100ML IJ ONE (07:33)
[2025-03-18] MEDS: fentaNYL CITRATE 100 MCG/2 ML VL ONE (08:10)
[2025-03-18] MEDS: ANGIOMAX 250 MG VIAL IV ONE ×2 (08:10→09:23)
[2025-03-18] MEDS: IODIXANOL 320MG/ML 100ML BTL IV ONE ×3 (08:11→10:10)
[2025-03-18] MEDS: LIDOCAINE 2%HCL (LOCAL ANESTH.) INJ 20ML MDV ONE ×3 (08:11→08:52)
[2025-03-18] MEDS: MIDAZOLAM HCL 2MG/2ML 2ml VIAL (1mg/ml) ONE (08:11)
[2025-03-18] MEDS: SODIUM CHL 0.9% 50 ML ONE ×2 (08:11→09:23)
[2025-03-18] MEDS: EPINEPHrine HCL 1 MG/10 ML SYRG ONE (08:12)
[2025-03-18] MEDS: NOREPINEPHRINE 8 MG/250ML KIT 0 ML IV ONE (08:12)
[2025-03-18] MEDS: ATROPINE SULF 1 MG/10ml SYR ONE (08:12)
[2025-03-18] MEDS: FAMOTIDINE (10MG/ML) 2ML VL IV ONE (08:37)
[2025-03-18] MEDS: diphenhdrAMINE HCL 50 MG/1 ML VL ONE ×2 (08:37→09:30)
[2025-03-18] MEDS: methylPREDNISolone SOD SUCC 125 MG/2 ML VL ONE (08:37)
[2025-03-18] MEDS: SODIUM CHLORIDE 0.9% 500 ML IV ONE ×2 (10:45→11:30)
[2025-03-18] MEDS ORDERED: NITROGLYCERIN 0.4 MG SL TAB SL PRN ×2 (10:45)
[2025-03-18] MEDS ORDERED: MORPHINE SULFATE INJ 2 MG/ml SYRG IV PRN ×2 (10:45)
[2025-03-18] MEDS: HYDROmorphone HCL 2 MG/ML VL/or syr ONE (10:48)
--- NOTE | 2025-03-18 12:20 | DVHDS ---
DATE OF DISCHARGE: 03/18/2025 DISCHARGE DIAGNOSES: * Ischemic cardiomyopathy. * Heart failure. * Now successful abdominal aortic aneurysm stent graft placement, [place] endoprosthesis. HOSPITAL COURSE: The patient is clinically stable, ambulating, was discharged home today, will follow up with me in 1 week. Stable at the time of discharge. ACTIVITY: As instructed. DIET: Will be 2 g sodium diet. Raman Felton MD SA/ARNAUD TID: [id number] RECEIPT: [id number]
[2025-03-18] MEDS: HYDROmorphone HCL 2 MG/ML VL/or syr IV PRN ×2 (13:12→16:16)
[2025-03-18 13:37] LABS: Hematocrit 34.5 % (41.0-53.0); Hemoglobin 11.0 g/dL (13.5-17.5); Mean Corpuscular Hemoglobin 27.7 pg (28.0-32.0); Mean Corpuscular Volume 86.9 fL (80.0-100.0); Nucleated Red Blood Cells % 0.1 %
[2025-03-18 14:23] LABS: Anion Gap 13 (5-15); BUN/Creatinine Ratio 22.7 (10.0-20.0); Carbon Dioxide 22 mmol/L (20-31); Chloride 104 mmol/L (98-107); Magnesium 2.2 mg/dL (1.6-2.6); Potassium 4.1 mmol/L (3.5-5.1); Sodium 139 mmol/L (136-145); Total Protein 7.1 g/dL (5.7-8.2)
[2025-03-18 14:24] LABS: Alanine Aminotransferase 44 U/L (7-40); Alkaline Phosphatase 140 U/L (46-116); Bilirubin, Total 0.6 mg/dL (0.2-1.0); Blood Urea Nitrogen 29 mg/dL (9-23); Calcium 8.6 mg/dL (8.7-10.4); Glucose 187 mg/dL (74-106)
[2025-03-18 14:42] LABS: Albumin 4.1 g/dL (3.2-4.8)
--- NOTE | 2025-03-18 14:57 | DVHOP ---
DATE OF SURGERY: 03/18/2025 PROCEDURE PERFORMED: * Abdominal aortic aneurysm stent graft placement. * Left and right common femoral arteriotomy site repair. * Conscious sedation. DESCRIPTION OF PROCEDURE: The patient was prepped and draped under sterile conditions. 1% Xylocaine used to anesthetize the right and left groin. Using a Cook needle, the left femoral artery was engaged with Seldinger technique. A 6-[place] sheath was introduced in the left femoral artery. Then, two closure devices were placed for possible internal and external closure. Two ProGlide catheters were deployed per protocol and the sheath was then upsized to an 8-[place]. Similarly, two more sheaths were deployed in the right groin and was staged up to 8-[place]. Then, following this closure device the deployment, the right groin was progressively dilated and an 18-[place] guide catheter was then appropriately positioned just below the renal arteries. Similarly, a 12-[place] sheath was then introduced into the left groin. The sheath was deployed just above the iliac bifurcation using Lunderquist wires to advance those sheaths. Following the deployment of the sheaths, the endograft was then deployed through the 18-[place], main body and the endograft was deployed through the main body of the 18-[place] system and the contralateral rim was then cannulated via the left lower extremity and then the lower extremity extension was then appropriately deployed as well. Following that, hemostasis and apposition was done using Hilger large caliber balloon. There were no complications. All segments that were deployed were ballooned including the proximal aspect of the main graft to the overlapping of the left and right graft as well as the distal aspect of the grafts in the left and right iliac extensions. Abdominal aortography was performed; and following that, the arteriotomy site was then closed using the Perclose device in an open technique. The right closure devices, however, did not deploy appropriately and we had to repair and place a FemoStop with manual hold. RESULTS: The patient had successful deployment of Hilger abdominal stent graft. The main body is the Hilger Excluder AAA, model number [id number], serial number [id number], is a 23 mm graft. The main body was the Excluder endoprosthesis, model number [id number], serial number [id number]. The contralateral extension was a 12 cm x 20 mm contralateral limb, model number [id number], serial number [id number], is a 12 x 20 mm contralateral limb. The ipsilateral limb was a 10 mm x 23 mm. There were no complications. The patient tolerated the procedure well. However, hemostasis had to be manually obtained on the right groin. CONCLUSION: The patient had successful deployment of abdominal Hilger stent graft with contralateral limbs appropriately positioned. Intravascular ultrasound was used to determine that when we cannulated the contralateral limb, we were intra-prosthesis. It was confirmed and also intravascular ultrasound was used to size the grafts as well. The patient will be spending the day with us. Anticoagulation will resume in the morning. Raman Felton MD SA/ALICIA/JEFRY/KAYLYN TID: [id number] RECEIPT: [id number]
[2025-03-18] MEDS ORDERED: IPRATROPIUM BROM 0.5 MG/2.5ML INH SOL NEB PRN (15:30)
[2025-03-18] MEDS ORDERED: DEXTROSE (50%) 50ML SYRG IV PRN (15:45)
[2025-03-18] MEDS: InsuLIN REG 1unit/0.01ml Soln (100units/ml) SC SCH (17:00)
[2025-03-18] MEDS: ACCU-CHEK COMFORT CURVE STRIP VI SCH (17:00)
--- NOTE | 2025-03-18 18:18 | DVHHP ---
ADMIT DATE: 03/18/2025 HISTORY OF PRESENT ILLNESS: A 79 years old with history of: * Organic heart disease: A. Coronary artery disease. B. Coronary artery bypass grafting. C. Ischemic cardiomyopathy. D. Multivessel angioplasty. E. BiV AICD implantation. * History of tobacco use continues. * Advanced COPD. He continues to smoke. * Heart failure with reduced ejection fraction. * Ischemic cardiomyopathy. Now the patient with abdominal aortic aneurysm, peripheral vascular disease, now to undergo abdominal aortic aneurysm repair. The patient also has mild renal insufficiency, chronic kidney disease stage II/III and the patient with a creatinine of 1.79. Therefore, adequate measures will be taken prior to intervention because high dye load may be required. Risks and benefits were explained to the patient. The patient understands even though he does not have any bleeding diathesis, high risk for bleeding from abdominal aortic aneurysm repair especially groin repair and perforation. PHYSICAL EXAMINATION: VITAL SIGNS: Blood pressure is 128/84. Pulse is 77. O2 saturation 94% on 2 liters. HEENT: Pupils are reactive. Funduscopic exam shows some AV nicking, some exudates. No papilledema. Sclerae anicteric. Extraocular muscles are intact. NECK: No JVD appreciated. Carotid pulses are 2+ and symmetrical. No cervical adenopathy. No supraclavicular adenopathy. PULMONARY: Scattered rhonchi throughout. CARDIOVASCULAR: Regular rate. PMI is diffuse laterally displaced. ABDOMEN: Obese. Unable to appreciate organomegaly. EXTREMITIES: 2+ pulses bilaterally. ASSESSMENT AND PLAN: Thus, the patient with abdominal aortic aneurysm, now rapidly growing. Therefore, the patient is also having symptoms of abdominal pain and now to undergo abdominal aortic aneurysm repair. Risks and benefits were explained to the patient. The patient understands and agrees. Raman Felton MD SA/CELESTINO/MARY TID: [id number] RECEIPT: [id number]
[2025-03-18] MEDS: ATORVASTATIN 20 MG TAB PO SCH (21:35)
[2025-03-18] MEDS: GABAPENTIN 300 MG CAP PO SCH (21:35)
[2025-03-18] MEDS: BUMETANIDE 1 MG TAB PO SCH (21:36)
[2025-03-18] MEDS: IVABRADINE 5 MG TAB PO SCH (21:38)
[2025-03-18] MEDS: ALPRAZolam 0.5 MG TAB PO PRN (22:43)
[2025-03-19] VITALS (44 sets, daily range): BP systolic 99–136; BP diastolic 49–81; PULSE 65–67; RESP 10–24; TEMP 97.5–98.7; O2SAT 90–100
[2025-03-19] MEDS: LEVOTHYROXINE SODIUM 100 MCG TAB PO SCH (05:26)
[2025-03-19] MEDS: LEVOTHYROXINE SODIUM 50 MCG TAB PO SCH (05:26)
[2025-03-19 05:49] LABS: Hematocrit 32.1 % (41.0-53.0); Hemoglobin 10.2 g/dL (13.5-17.5); Mean Corpuscular Hemoglobin 28.0 pg (28.0-32.0); Mean Corpuscular Volume 88.2 fL (80.0-100.0); Nucleated Red Blood Cells % 0.0 %
[2025-03-19 06:17] LABS: Albumin 4.1 g/dL (3.2-4.8); Anion Gap 11 (5-15); BUN/Creatinine Ratio 17.4 (10.0-20.0); Calcium 9.0 mg/dL (8.7-10.4); Carbon Dioxide 25 mmol/L (20-31); Chloride 99 mmol/L (98-107); Magnesium 2.3 mg/dL (1.6-2.6); Potassium 4.1 mmol/L (3.5-5.1); Total Protein 7.0 g/dL (5.7-8.2)
[2025-03-19 06:18] LABS: Bilirubin, Total 0.7 mg/dL (0.2-1.0)
[2025-03-19 06:28] LABS: Alanine Aminotransferase 42 U/L (7-40); Alkaline Phosphatase 132 U/L (46-116); Blood Urea Nitrogen 26 mg/dL (9-23); Glucose 182 mg/dL (74-106); Sodium 135 mmol/L (136-145)
[2025-03-19] MEDS: POTASSIUM CHL 20 Meq TABLET PO SCH (08:41)
[2025-03-19] MEDS: AMIODARONE HCL 200 MG TAB PO SCH (08:41)
[2025-03-19] MEDS: FARXIGA 5MG TABLETS PO SCH (09:46)
[2025-03-19] MEDS: VERQUVO 2.5 MG PO SCH (09:46)
--- NOTE | 2025-03-19 13:41 | DVHPN2 ---
Progress Note - Dictate Date Seen: Mar 19, 2025 Subjective A 79 years old with history of: * Organic heart disease: A. Coronary artery disease. B. Coronary artery bypass grafting. C. Ischemic cardiomyopathy. D. Multivessel angioplasty. E. BiV AICD implantation. * History of tobacco use continues. * Advanced COPD. He continues to smoke. * Heart failure with reduced ejection fraction. * Ischemic cardiomyopathy. Now the patient with abdominal aortic aneurysm, peripheral vascular disease, now to undergo abdominal aortic aneurysm repair. The patient also has mild renal insufficiency, chronic kidney disease stage II/III and the patient with a creatinine of 1.79. Therefore, adequate measures will be taken prior to intervention because high dye load may be required. Risks and benefits were explained to the patient. The patient understands even though he does not have any bleeding diathesis, high risk for bleeding from abdominal aortic aneurysm repair especially groin repair and perforation. S/P AAA STENT GRAFT PLACEMENT WE WERE UNABLE TO PERCLOSE RIGHT ARTERIOTOMY SITE CATA HOLD vital signs Vital Sign Date Time Temp Pulse Resp B/P (MAP) Pulse Ox O2 Delivery O2 Flow Rate FiO2 03/19/25 13:00 65 24 116/49 (71) 90 03/19/25 12:00 98.1 98.1 03/19/25 08:00 Nasal Cannula* 2 28 Total Intake and Output 03/18/25 03/18/25 03/19/25 15:00 23:00 07:00 Intake Total 500 ml 540 ml Output Total 650 ml 1400 ml Balance -150 ml -860 ml medications Current Medications Medications Dose Ordered Sig/Migue Route Start Time Stop Time Status Last Admin Dose Admin Nitroglycerin 0.4 mg Q5MINP PRN SL 03/18/25 10:45 UNV Morphine Sulfate 2 mg Q30M PRN IV 03/18/25 10:45 Nitroglycerin 0.4 mg Q5MINP PRN SL 03/18/25 10:45 Morphine Sulfate 2 mg Q30M PRN IV 03/18/25 10:45 UNV Hydromorphone HCl 1 mg Q4HPRN PRN IV 03/18/25 11:30 03/18/25 13:12 1 MG Hydromorphone HCl 2 mg Q4HPRN PRN IV 03/18/25 13:00 03/19/25 05:25 2 MG Gabapentin 300 mg TID PO 03/18/25 22:00 03/19/25 12:09 300 MG Potassium Chloride 20 meq DAILY PO 03/19/25 10:00 03/19/25 08:41 20 MEQ Bumetanide 2 mg BIDD PO 03/18/25 22:00 03/19/25 05:29 2 MG Amiodarone HCl 400 mg DAILY PO 03/19/25 10:00 03/19/25 08:41 400 MG Atorvastatin Calcium 80 mg HS PO 03/18/25 22:00 03/18/25 21:35 80 MG Levothyroxine Sodium 200 mcg QAM@0600 PO 03/19/25 06:00 03/19/25 05:26 200 MCG Levothyroxine Sodium 50 mcg QAM@0600 PO 03/19/25 06:00 03/19/25 05:26 50 MCG Ivabradine 5 mg BID PO 03/18/25 22:00 03/19/25 08:42 5 MG Ipratropium [place] 0.5 mg Q6HPRN PRN NEB 03/18/25 15:30 Patient Own Medication 1 DAILY PO 03/19/25 10:00 03/19/25 09:46 1 Patient Own Medication 1 DAILY PO 03/19/25 10:00 03/19/25 09:46 1 Diagnostic Test (Pha) 1 strip ACHS 03/18/25 17:00 03/19/25 12:09 1 STRIP Insulin Human Regular ACHS SC 03/18/25 17:00 03/19/25 11:54 3 UNITS Dextrose 50 ml UD PRN IV 03/18/25 15:45 Alprazolam 0.5 mg Q6HP PRN PO 03/18/25 16:00 03/18/25 22:43 0.5 MG objective PHYSICAL EXAMINATION: VITAL SIGNS: Blood pressure is 128/84. Pulse is 77. O2 saturation 94% on 2 liters. HEENT: Pupils are reactive. Funduscopic exam shows some AV nicking, some exudates. No papilledema. Sclerae anicteric. Extraocular muscles are intact. NECK: No JVD appreciated. Carotid pulses are 2+ and symmetrical. No cervical adenopathy. No supraclavicular adenopathy. PULMONARY: Scattered rhonchi throughout. CARDIOVASCULAR: Regular rate. PMI is diffuse laterally displaced. ABDOMEN: Obese. Unable to appreciate organomegaly. EXTREMITIES: 2+ pulses bilaterally. Right groin ecchymosis SMALL HEMATOMA laboratory and microbiology Laboratory Tests 03/19/25 05:18 Test 03/19/25 05:18 Range/Units Serum Glucose 182 H 74-106 mg/dL Problem List A 79 years old with history of: * Organic heart disease: A. Coronary artery disease. B. Coronary artery bypass grafting. C. Ischemic cardiomyopathy. D. Multivessel angioplasty. E. BiV AICD implantation. * History of tobacco use continues. * Advanced COPD. He continues to smoke. * Heart failure with reduced ejection fraction. * Ischemic cardiomyopathy. Now the patient with abdominal aortic aneurysm, peripheral vascular disease, now to undergo abdominal aortic aneurysm repair. The patient also has mild renal insufficiency, chronic kidney disease stage II/III and the patient with a creatinine of 1.79. Therefore, adequate measures will be taken prior to intervention because high dye load may be required. Risks and benefits were explained to the patient. The patient understands even though he does not have any bleeding diathesis, high risk for bleeding from abdominal aortic aneurysm repair especially groin repair and perforation. S/P AAA STENT GRAFT PLACEMENT WE WERE UNABLE TO PERCLOSE RIGHT ARTERIOTOMY SITE CATA HOLD Assessment/Plan S/P AAA STENT GRAFT PLACEMENT CATA HOLD OF RIGHT GROIN COULD NOT EPAIR RIGHT ARTERIOTOMY HEMOSTASIS ATTAINED AMBULATE DC HOME IN AM Plan discussed with: Patient MIRIAN VALENTINO MD Mar 19, 2025 13:41
[2025-03-19] MEDS: MILK OF MAGNESIA 30ML SUSP PO PRN (17:20)
[2025-03-19] MEDS: MUPIROCIN 2% OINT 15gm or 22gm FOR MRSA NARES EACHNOSTRI SCH (22:00)
[2025-03-20] VITALS (35 sets, daily range): BP systolic 99–134; BP diastolic 41–61; PULSE 65–68; RESP 10–18; TEMP 97.3–98.5; O2SAT 86–100
[2025-03-20 07:54] LABS: Hematocrit 28.8 % (41.0-53.0); Hemoglobin 9.7 g/dL (13.5-17.5); Mean Corpuscular Hemoglobin 28.7 pg (28.0-32.0); Mean Corpuscular Volume 84.9 fL (80.0-100.0); Nucleated Red Blood Cells % 0.0 %
[2025-03-20 08:05] LABS: Albumin 3.8 g/dL (3.2-4.8); Anion Gap 11 (5-15); BUN/Creatinine Ratio 14.4 (10.0-20.0); Calcium 8.7 mg/dL (8.7-10.4); Carbon Dioxide 27 mmol/L (20-31); Magnesium 2.2 mg/dL (1.6-2.6); Potassium 3.7 mmol/L (3.5-5.1); Total Protein 6.7 g/dL (5.7-8.2)
[2025-03-20 08:06] LABS: Bilirubin, Total 0.7 mg/dL (0.2-1.0)
[2025-03-20 08:07] LABS: Alanine Aminotransferase 41 U/L (7-40); Alkaline Phosphatase 118 U/L (46-116); Blood Urea Nitrogen 25 mg/dL (9-23); Chloride 97 mmol/L (98-107); Glucose 163 mg/dL (74-106); Sodium 135 mmol/L (136-145)
[2025-03-20] MEDS: ONDANSETRON HCL 4 MG/2 ML VIAL IV ONE (14:43)
== END 2025-03-20 16:54 | disposition home or self-care (01) | DRG 271 ==
LOC: CATH 06:30 → OVERFLOW 10:41 → DOU 11:19
PROVIDERS: ADMIT Internal Medicine Cardiovascular Disease; ATTEND Internal Medicine Cardiovascular Disease
PROC: 04V00DZ Restriction of Abdominal Aorta with Intraluminal Device, Open Approach (ICD-10-PCS; principal; 2025-03-18)
PROC: B410YZZ Fluoroscopy of Abdominal Aorta using Other Contrast (ICD-10-PCS; 2025-03-18)
DX: I71.40 Abdominal aortic aneurysm, without rupture, unspecified (principal); I50.22 Chronic systolic (congestive) heart failure; J44.9 Chronic obstructive pulmonary disease, unspecified; F17.200 Nicotine dependence, unspecified, uncomplicated; I25.10 Atherosclerotic heart disease of native coronary artery without angina pectoris; N18.30 Chronic kidney disease, stage 3 unspecified; I73.9 Peripheral vascular disease, unspecified; Z95.1 Presence of aortocoronary bypass graft; Z79.899 Other long term (current) drug therapy
CPT/HCPCS: 34705; 36415; 75625; 80053; 82962; 83735; 85025; 85610; 85730; 86850; 86900; 86901; 86920; 87081; 94640; 96365; 96366; 97163; G0378; G0463; J1815; J2250; J2405; J3490; Q9967

== ENCOUNTER 2025-03-24 08:40 | Outpatient (CLI) | payer MEDICARE, OTHER ==
[2025-03-24] VITALS (7 sets, daily range): BP systolic 112–132; BP diastolic 51–60; PULSE 65; RESP 18; O2SAT 97
[2025-03-24] MEDS: MILRINONE 20MG/100ML 100 ML IV ONE ×2 (08:57→09:06)
== END 2025-03-24 17:00 | disposition home or self-care (01) ==
LOC: CHF HDHVI 08:40
PROVIDERS: ATTEND Internal Medicine Cardiovascular Disease
DX: I13.0 Hypertensive heart and chronic kidney disease with heart failure and stage 1 through stage 4 chronic kidney disease, or unspecified chronic kidney disease (principal); E11.22 Type 2 diabetes mellitus with diabetic chronic kidney disease; N18.4 Chronic kidney disease, stage 4 (severe); I50.23 Acute on chronic systolic (congestive) heart failure; D51.8 Other vitamin B12 deficiency anemias; I25.10 Atherosclerotic heart disease of native coronary artery without angina pectoris; J44.9 Chronic obstructive pulmonary disease, unspecified; E11.51 Type 2 diabetes mellitus with diabetic peripheral angiopathy without gangrene; F32.A Depression, unspecified; F41.9 Anxiety disorder, unspecified; E03.9 Hypothyroidism, unspecified; E66.01 Morbid (severe) obesity due to excess calories; I25.2 Old myocardial infarction; I48.0 Paroxysmal atrial fibrillation; E78.00 Pure hypercholesterolemia, unspecified; E11.42 Type 2 diabetes mellitus with diabetic polyneuropathy; F17.200 Nicotine dependence, unspecified, uncomplicated; Z79.84 Long term (current) use of oral hypoglycemic drugs; Z79.01 Long term (current) use of anticoagulants; Z79.4 Long term (current) use of insulin; Z95.810 Presence of automatic (implantable) cardiac defibrillator; Z68.35 Body mass index [BMI] 35.0-35.9, adult; Z79.82 Long term (current) use of aspirin; Z79.899 Other long term (current) drug therapy
CPT/HCPCS: 96365; 96366; G0463; J2260

== ENCOUNTER 2025-03-25 09:20 | Outpatient (CLI) | payer MEDICARE, OTHER ==
[2025-03-25] VITALS (9 sets, daily range): BP systolic 110–132; BP diastolic 52–63; PULSE 65; RESP 18; O2SAT 99
[2025-03-25] MEDS: MILRINONE 20MG/100ML 100 ML IV ONE ×2 (09:10→09:38)
[2025-03-25] MEDS: CYANOCOBALAMIN (B-12) 1000 MCG/1 ML VIAL ONE (09:38)
[2025-03-25] MEDS: CYANOCOBALAMIN (B-12) 1000 MCG/1 ML VIAL IM ONE (12:10)
== END 2025-03-25 17:00 | disposition home or self-care (01) ==
LOC: CHF HDHVI 09:20
PROVIDERS: ATTEND Internal Medicine Cardiovascular Disease
DX: I13.0 Hypertensive heart and chronic kidney disease with heart failure and stage 1 through stage 4 chronic kidney disease, or unspecified chronic kidney disease (principal); E11.22 Type 2 diabetes mellitus with diabetic chronic kidney disease; I50.43 Acute on chronic combined systolic (congestive) and diastolic (congestive) heart failure; N18.4 Chronic kidney disease, stage 4 (severe); D51.8 Other vitamin B12 deficiency anemias; I25.5 Ischemic cardiomyopathy; I25.10 Atherosclerotic heart disease of native coronary artery without angina pectoris; I25.2 Old myocardial infarction; I48.0 Paroxysmal atrial fibrillation; J44.9 Chronic obstructive pulmonary disease, unspecified; E11.51 Type 2 diabetes mellitus with diabetic peripheral angiopathy without gangrene; E11.42 Type 2 diabetes mellitus with diabetic polyneuropathy; E78.00 Pure hypercholesterolemia, unspecified; E03.9 Hypothyroidism, unspecified; E66.01 Morbid (severe) obesity due to excess calories; Z68.35 Body mass index [BMI] 35.0-35.9, adult; Z79.01 Long term (current) use of anticoagulants; Z79.82 Long term (current) use of aspirin; Z79.4 Long term (current) use of insulin; Z79.899 Other long term (current) drug therapy; Z87.891 Personal history of nicotine dependence; Z95.810 Presence of automatic (implantable) cardiac defibrillator
CPT/HCPCS: 96365; 96366; 96372; G0463; J2260; J3420

== ENCOUNTER 2025-03-30 08:46 | Outpatient (CLI) | payer MEDICARE, OTHER ==
[2025-03-30] VITALS (8 sets, daily range): BP systolic 115–136; BP diastolic 54–71; PULSE 65; RESP 16; O2SAT 96
[2025-03-30] MEDS: POTASSIUM CHL 20 Meq TABLET PO ONE ×2 (09:04→09:15)
[2025-03-30] MEDS: IRON SUCROSE 20 mg/ml 10ml VIAL IV ONE (09:04)
[2025-03-30] MEDS: BUMETANIDE INJECTION 10 ML ONE (09:04)
[2025-03-30] MEDS: MILRINONE 20MG/100ML 100 ML IV ONE ×2 (09:04→09:14)
[2025-03-30] MEDS: BUMETANIDE 2.5mg/10ml (0.25 mg/ml) INJ IV ONE (09:12)
[2025-03-30] MEDS: IRON SUCROSE COMPLEX 110 ML IV ONE (12:16)
== END 2025-03-30 17:00 | disposition home or self-care (01) ==
LOC: CHF HDHVI 08:46
PROVIDERS: ATTEND Internal Medicine Cardiovascular Disease
DX: I13.0 Hypertensive heart and chronic kidney disease with heart failure and stage 1 through stage 4 chronic kidney disease, or unspecified chronic kidney disease (principal); E11.22 Type 2 diabetes mellitus with diabetic chronic kidney disease; I50.43 Acute on chronic combined systolic (congestive) and diastolic (congestive) heart failure; N18.4 Chronic kidney disease, stage 4 (severe); D50.9 Iron deficiency anemia, unspecified; I25.10 Atherosclerotic heart disease of native coronary artery without angina pectoris; I25.5 Ischemic cardiomyopathy; I25.2 Old myocardial infarction; I48.0 Paroxysmal atrial fibrillation; E11.51 Type 2 diabetes mellitus with diabetic peripheral angiopathy without gangrene; E11.42 Type 2 diabetes mellitus with diabetic polyneuropathy; E78.00 Pure hypercholesterolemia, unspecified; E03.9 Hypothyroidism, unspecified; F41.9 Anxiety disorder, unspecified; F32.A Depression, unspecified; Z79.01 Long term (current) use of anticoagulants; Z79.4 Long term (current) use of insulin; Z79.82 Long term (current) use of aspirin; Z79.899 Other long term (current) drug therapy; Z87.891 Personal history of nicotine dependence; Z95.810 Presence of automatic (implantable) cardiac defibrillator
CPT/HCPCS: 96365; 96366; 96367; 96375; G0463; J1756; J2260

== ENCOUNTER 2025-04-01 08:41 | Outpatient (CLI) | payer MEDICARE, OTHER ==
[2025-04-01] VITALS (9 sets, daily range): BP systolic 120–142; BP diastolic 52–67; PULSE 64–70; RESP 16; O2SAT 96
[2025-04-01] MEDS: MILRINONE 20MG/100ML 100 ML IV ONE ×2 (09:02→09:16)
[2025-04-01] MEDS: POTASSIUM CHL 20 Meq TABLET PO ONE ×2 (09:14→09:16)
[2025-04-01] MEDS: BUMETANIDE 2.5mg/10ml (0.25 mg/ml) INJ IV ONE (09:15)
[2025-04-01] MEDS: BUMETANIDE INJECTION 10 ML ONE (09:16)
== END 2025-04-01 17:00 | disposition home or self-care (01) ==
LOC: CHF HDHVI 08:41
PROVIDERS: ATTEND Internal Medicine Cardiovascular Disease
DX: I13.0 Hypertensive heart and chronic kidney disease with heart failure and stage 1 through stage 4 chronic kidney disease, or unspecified chronic kidney disease (principal); E11.22 Type 2 diabetes mellitus with diabetic chronic kidney disease; N18.4 Chronic kidney disease, stage 4 (severe); I50.23 Acute on chronic systolic (congestive) heart failure; I25.5 Ischemic cardiomyopathy; I25.10 Atherosclerotic heart disease of native coronary artery without angina pectoris; F41.9 Anxiety disorder, unspecified; F32.A Depression, unspecified; E03.9 Hypothyroidism, unspecified; I25.2 Old myocardial infarction; I48.0 Paroxysmal atrial fibrillation; E78.00 Pure hypercholesterolemia, unspecified; E11.42 Type 2 diabetes mellitus with diabetic polyneuropathy; E11.51 Type 2 diabetes mellitus with diabetic peripheral angiopathy without gangrene; J44.9 Chronic obstructive pulmonary disease, unspecified; E66.01 Morbid (severe) obesity due to excess calories; Z68.35 Body mass index [BMI] 35.0-35.9, adult; Z79.84 Long term (current) use of oral hypoglycemic drugs; Z79.01 Long term (current) use of anticoagulants; Z79.82 Long term (current) use of aspirin; Z79.4 Long term (current) use of insulin; Z79.899 Other long term (current) drug therapy; Z87.891 Personal history of nicotine dependence; Z95.810 Presence of automatic (implantable) cardiac defibrillator; Z95.1 Presence of aortocoronary bypass graft
CPT/HCPCS: 96365; 96366; 96375; G0463; J2260

== ENCOUNTER 2025-04-02 08:46 | Outpatient (CLI) | payer MEDICARE, OTHER ==
[2025-04-02] VITALS (9 sets, daily range): BP systolic 107–135; BP diastolic 49–61; PULSE 69–71; RESP 16–18; O2SAT 97
[2025-04-02] MEDS: MILRINONE 20MG/100ML 100 ML IV ONE ×2 (08:53→08:57)
[2025-04-02] MEDS: POTASSIUM CHL 20 Meq TABLET PO ONE ×2 (09:23→10:07)
[2025-04-02] MEDS: BUMETANIDE INJECTION 10 ML ONE (09:23)
[2025-04-02] MEDS: BUMETANIDE 2.5mg/10ml (0.25 mg/ml) INJ IV ONE (10:07)
[2025-04-06] MEDS: POTASSIUM CHL 20 Meq TABLET PO ONE (08:45)
[2025-04-06] MEDS: BUMETANIDE 2.5mg/10ml (0.25 mg/ml) INJ IV ONE (08:45)
[2025-04-06] MEDS: MILRINONE 20MG/100ML 100 ML IV ONE (08:45)
== END 2025-04-02 17:00 | disposition home or self-care (01) ==
LOC: CHF HDHVI 08:46
PROVIDERS: ATTEND Internal Medicine Cardiovascular Disease
DX: I13.0 Hypertensive heart and chronic kidney disease with heart failure and stage 1 through stage 4 chronic kidney disease, or unspecified chronic kidney disease (principal); E11.22 Type 2 diabetes mellitus with diabetic chronic kidney disease; N18.4 Chronic kidney disease, stage 4 (severe); I50.23 Acute on chronic systolic (congestive) heart failure; I25.5 Ischemic cardiomyopathy; F41.9 Anxiety disorder, unspecified; I25.10 Atherosclerotic heart disease of native coronary artery without angina pectoris; J44.9 Chronic obstructive pulmonary disease, unspecified; F32.A Depression, unspecified; E03.9 Hypothyroidism, unspecified; I25.2 Old myocardial infarction; I48.0 Paroxysmal atrial fibrillation; E78.00 Pure hypercholesterolemia, unspecified; E11.42 Type 2 diabetes mellitus with diabetic polyneuropathy; E11.51 Type 2 diabetes mellitus with diabetic peripheral angiopathy without gangrene; E66.01 Morbid (severe) obesity due to excess calories; Z68.35 Body mass index [BMI] 35.0-35.9, adult; Z79.899 Other long term (current) drug therapy; Z87.891 Personal history of nicotine dependence; Z79.01 Long term (current) use of anticoagulants; Z79.82 Long term (current) use of aspirin; Z79.84 Long term (current) use of oral hypoglycemic drugs; Z95.1 Presence of aortocoronary bypass graft; Z79.4 Long term (current) use of insulin; Z95.810 Presence of automatic (implantable) cardiac defibrillator
CPT/HCPCS: 96365; 96366; 96375; G0463; J2260

== ENCOUNTER 2025-04-06 09:19 | Outpatient (CLI) | payer MEDICARE, OTHER ==
[2025-04-06] VITALS (9 sets, daily range): BP systolic 111–140; BP diastolic 43–68; PULSE 69–71; RESP 16–18; O2SAT 96
[2025-04-06] MEDS: MILRINONE 20MG/100ML 100 ML IV ONE (08:58)
[2025-04-06] MEDS: DOBUTamine 1000MCG/ML 250 ML IV ONE (10:54)
== END 2025-04-06 17:00 | disposition home or self-care (01) ==
LOC: CHF HDHVI 09:19
PROVIDERS: ATTEND Internal Medicine Cardiovascular Disease
DX: I13.0 Hypertensive heart and chronic kidney disease with heart failure and stage 1 through stage 4 chronic kidney disease, or unspecified chronic kidney disease (principal); E11.22 Type 2 diabetes mellitus with diabetic chronic kidney disease; I50.43 Acute on chronic combined systolic (congestive) and diastolic (congestive) heart failure; N18.4 Chronic kidney disease, stage 4 (severe); E11.42 Type 2 diabetes mellitus with diabetic polyneuropathy; E11.51 Type 2 diabetes mellitus with diabetic peripheral angiopathy without gangrene; E11.65 Type 2 diabetes mellitus with hyperglycemia; I25.10 Atherosclerotic heart disease of native coronary artery without angina pectoris; F41.9 Anxiety disorder, unspecified; J44.9 Chronic obstructive pulmonary disease, unspecified; F32.A Depression, unspecified; E03.9 Hypothyroidism, unspecified; I25.2 Old myocardial infarction; E78.00 Pure hypercholesterolemia, unspecified; I48.0 Paroxysmal atrial fibrillation; D50.9 Iron deficiency anemia, unspecified; I25.5 Ischemic cardiomyopathy; E66.01 Morbid (severe) obesity due to excess calories; Z68.35 Body mass index [BMI] 35.0-35.9, adult; Z79.01 Long term (current) use of anticoagulants; Z79.899 Other long term (current) drug therapy; Z87.891 Personal history of nicotine dependence; Z79.84 Long term (current) use of oral hypoglycemic drugs; Z79.82 Long term (current) use of aspirin; Z95.1 Presence of aortocoronary bypass graft
CPT/HCPCS: 96365; 96366; G0463; J1250; J2260

== ENCOUNTER 2025-04-08 08:47 | Outpatient (CLI) | payer MEDICARE, OTHER ==
[2025-04-08] VITALS (9 sets, daily range): BP systolic 117–130; BP diastolic 57–68; PULSE 73–79; RESP 16; O2SAT 99
[2025-04-08] MEDS: MILRINONE 20MG/100ML 100 ML IV ONE ×2 (08:56→08:58)
[2025-04-08] MEDS: BUMETANIDE 2.5mg/10ml (0.25 mg/ml) INJ IV ONE (09:24)
[2025-04-08] MEDS: BUMETANIDE INJECTION 10 ML ONE (09:26)
[2025-04-08] MEDS: POTASSIUM CHL 20 Meq TABLET PO ONE ×2 (09:26→09:27)
== END 2025-04-08 17:00 | disposition home or self-care (01) ==
LOC: CHF HDHVI 08:47
PROVIDERS: ATTEND Internal Medicine Cardiovascular Disease
DX: I13.0 Hypertensive heart and chronic kidney disease with heart failure and stage 1 through stage 4 chronic kidney disease, or unspecified chronic kidney disease (principal); E11.22 Type 2 diabetes mellitus with diabetic chronic kidney disease; I50.43 Acute on chronic combined systolic (congestive) and diastolic (congestive) heart failure; N18.4 Chronic kidney disease, stage 4 (severe); I25.5 Ischemic cardiomyopathy; I25.10 Atherosclerotic heart disease of native coronary artery without angina pectoris; I25.2 Old myocardial infarction; I48.0 Paroxysmal atrial fibrillation; E11.42 Type 2 diabetes mellitus with diabetic polyneuropathy; E11.51 Type 2 diabetes mellitus with diabetic peripheral angiopathy without gangrene; J44.9 Chronic obstructive pulmonary disease, unspecified; D50.9 Iron deficiency anemia, unspecified; E78.00 Pure hypercholesterolemia, unspecified; E03.9 Hypothyroidism, unspecified; F41.9 Anxiety disorder, unspecified; F32.A Depression, unspecified; E66.01 Morbid (severe) obesity due to excess calories; Z68.35 Body mass index [BMI] 35.0-35.9, adult; Z79.01 Long term (current) use of anticoagulants; Z79.82 Long term (current) use of aspirin; Z79.84 Long term (current) use of oral hypoglycemic drugs; Z87.891 Personal history of nicotine dependence; Z95.810 Presence of automatic (implantable) cardiac defibrillator
CPT/HCPCS: 96365; 96366; 96375; G0463; J2260

== ENCOUNTER 2025-04-13 08:45 | Outpatient (CLI) | payer MEDICARE, OTHER ==
[~2025-04-13] VITALS: Ht 30.5 cm; Wt 87.1 kg
[2025-04-13] VITALS (10 sets, daily range): BP systolic 90–126; BP diastolic 49–65; PULSE 74–87; RESP 18; O2SAT 98
[2025-04-13] MEDS: MILRINONE 20MG/100ML 100 ML IV ONE ×2 (09:02→09:35)
== END 2025-04-13 17:00 | disposition home or self-care (01) ==
LOC: CHF HDHVI 08:45
PROVIDERS: ATTEND Internal Medicine Cardiovascular Disease
DX: I13.0 Hypertensive heart and chronic kidney disease with heart failure and stage 1 through stage 4 chronic kidney disease, or unspecified chronic kidney disease (principal); E11.22 Type 2 diabetes mellitus with diabetic chronic kidney disease; N18.4 Chronic kidney disease, stage 4 (severe); I50.23 Acute on chronic systolic (congestive) heart failure; I25.5 Ischemic cardiomyopathy; F41.9 Anxiety disorder, unspecified; I25.10 Atherosclerotic heart disease of native coronary artery without angina pectoris; J44.9 Chronic obstructive pulmonary disease, unspecified; F32.A Depression, unspecified; E03.9 Hypothyroidism, unspecified; E66.01 Morbid (severe) obesity due to excess calories; I25.2 Old myocardial infarction; I48.0 Paroxysmal atrial fibrillation; E78.00 Pure hypercholesterolemia, unspecified; E11.42 Type 2 diabetes mellitus with diabetic polyneuropathy; G47.33 Obstructive sleep apnea (adult) (pediatric); E11.51 Type 2 diabetes mellitus with diabetic peripheral angiopathy without gangrene; Z68.35 Body mass index [BMI] 35.0-35.9, adult; Z95.810 Presence of automatic (implantable) cardiac defibrillator; Z79.01 Long term (current) use of anticoagulants; Z79.82 Long term (current) use of aspirin; Z79.4 Long term (current) use of insulin; Z79.84 Long term (current) use of oral hypoglycemic drugs; Z79.899 Other long term (current) drug therapy; Z87.891 Personal history of nicotine dependence; Z95.1 Presence of aortocoronary bypass graft
CPT/HCPCS: 96365; 96366; G0463; J2260

== ENCOUNTER 2025-04-15 08:33 | Outpatient (CLI) | payer MEDICARE, OTHER ==
[2025-04-15] VITALS (9 sets, daily range): BP systolic 114–128; BP diastolic 50–65; PULSE 75–76; RESP 16; O2SAT 98
[2025-04-15] MEDS: MILRINONE 20MG/100ML 100 ML IV ONE ×2 (08:50→08:56)
[2025-04-15] MEDS: ACETAMINOPHEN 500 MG TAB or CAP PO ONE ×2 (11:24→11:28)
== END 2025-04-15 17:00 | disposition home or self-care (01) ==
LOC: CHF HDHVI 08:33
PROVIDERS: ATTEND Internal Medicine Cardiovascular Disease
DX: I13.0 Hypertensive heart and chronic kidney disease with heart failure and stage 1 through stage 4 chronic kidney disease, or unspecified chronic kidney disease (principal); E11.22 Type 2 diabetes mellitus with diabetic chronic kidney disease; I50.43 Acute on chronic combined systolic (congestive) and diastolic (congestive) heart failure; N18.4 Chronic kidney disease, stage 4 (severe); E11.42 Type 2 diabetes mellitus with diabetic polyneuropathy; E11.65 Type 2 diabetes mellitus with hyperglycemia; F41.9 Anxiety disorder, unspecified; E11.51 Type 2 diabetes mellitus with diabetic peripheral angiopathy without gangrene; I25.10 Atherosclerotic heart disease of native coronary artery without angina pectoris; J44.9 Chronic obstructive pulmonary disease, unspecified; F32.A Depression, unspecified; M54.50 Low back pain, unspecified; S31.501A Unspecified open wound of unspecified external genital organs, male, initial encounter; E03.9 Hypothyroidism, unspecified; I48.0 Paroxysmal atrial fibrillation; D50.9 Iron deficiency anemia, unspecified; I25.2 Old myocardial infarction; E78.00 Pure hypercholesterolemia, unspecified; I25.5 Ischemic cardiomyopathy; E66.01 Morbid (severe) obesity due to excess calories; Z79.01 Long term (current) use of anticoagulants; Z79.82 Long term (current) use of aspirin; Z79.84 Long term (current) use of oral hypoglycemic drugs; Z68.35 Body mass index [BMI] 35.0-35.9, adult; Z87.891 Personal history of nicotine dependence; Z79.899 Other long term (current) drug therapy; Z95.1 Presence of aortocoronary bypass graft; Z79.4 Long term (current) use of insulin
CPT/HCPCS: 96365; 96366; G0463; J2260

== ENCOUNTER 2025-04-20 08:51 | Outpatient (CLI) | payer MEDICARE, OTHER ==
[2025-04-20] VITALS (11 sets, daily range): BP systolic 121–143; BP diastolic 55–73; PULSE 73–79; RESP 16–18; O2SAT 100
[2025-04-20] MEDS: MILRINONE 20MG/100ML 100 ML IV ONE ×2 (09:10→12:00)
== END 2025-04-20 17:00 | disposition home or self-care (01) ==
LOC: CHF HDHVI 08:51
PROVIDERS: ATTEND Internal Medicine Cardiovascular Disease
DX: I13.0 Hypertensive heart and chronic kidney disease with heart failure and stage 1 through stage 4 chronic kidney disease, or unspecified chronic kidney disease (principal); E11.22 Type 2 diabetes mellitus with diabetic chronic kidney disease; I50.43 Acute on chronic combined systolic (congestive) and diastolic (congestive) heart failure; N18.4 Chronic kidney disease, stage 4 (severe); I25.5 Ischemic cardiomyopathy; I25.10 Atherosclerotic heart disease of native coronary artery without angina pectoris; I25.2 Old myocardial infarction; I48.0 Paroxysmal atrial fibrillation; R06.02 Shortness of breath; D50.9 Iron deficiency anemia, unspecified; J44.9 Chronic obstructive pulmonary disease, unspecified; E11.42 Type 2 diabetes mellitus with diabetic polyneuropathy; E11.51 Type 2 diabetes mellitus with diabetic peripheral angiopathy without gangrene; E03.9 Hypothyroidism, unspecified; E78.00 Pure hypercholesterolemia, unspecified; E66.01 Morbid (severe) obesity due to excess calories; Z68.35 Body mass index [BMI] 35.0-35.9, adult; Z79.01 Long term (current) use of anticoagulants; Z79.4 Long term (current) use of insulin; Z79.82 Long term (current) use of aspirin; Z79.899 Other long term (current) drug therapy; Z87.891 Personal history of nicotine dependence; Z95.810 Presence of automatic (implantable) cardiac defibrillator
CPT/HCPCS: 96365; 96366; G0463; J2260

== ENCOUNTER 2025-04-23 08:56 | Outpatient (CLI) | payer MEDICARE, OTHER ==
[2025-04-23] VITALS (9 sets, daily range): BP systolic 109–138; BP diastolic 55–86; PULSE 73–79; RESP 16–18; O2SAT 100
[2025-04-23] MEDS: MILRINONE 20MG/100ML 100 ML IV ONE ×2 (09:08→09:18)
[2025-04-23] MEDS: CYANOCOBALAMIN (B-12) 1000 MCG/1 ML VIAL IM ONE (12:26)
[2025-04-23] MEDS: CYANOCOBALAMIN (B-12) 1000 MCG/1 ML VIAL ONE (12:29)
== END 2025-04-23 17:00 | disposition home or self-care (01) ==
LOC: CHF HDHVI 08:56
PROVIDERS: ATTEND Internal Medicine Cardiovascular Disease
DX: I13.0 Hypertensive heart and chronic kidney disease with heart failure and stage 1 through stage 4 chronic kidney disease, or unspecified chronic kidney disease (principal); E11.22 Type 2 diabetes mellitus with diabetic chronic kidney disease; I50.43 Acute on chronic combined systolic (congestive) and diastolic (congestive) heart failure; N18.4 Chronic kidney disease, stage 4 (severe); D51.8 Other vitamin B12 deficiency anemias; I25.10 Atherosclerotic heart disease of native coronary artery without angina pectoris; I25.5 Ischemic cardiomyopathy; I48.0 Paroxysmal atrial fibrillation; I25.2 Old myocardial infarction; E11.51 Type 2 diabetes mellitus with diabetic peripheral angiopathy without gangrene; E11.42 Type 2 diabetes mellitus with diabetic polyneuropathy; J44.9 Chronic obstructive pulmonary disease, unspecified; E78.00 Pure hypercholesterolemia, unspecified; E03.9 Hypothyroidism, unspecified; E66.01 Morbid (severe) obesity due to excess calories; Z68.35 Body mass index [BMI] 35.0-35.9, adult; Z79.01 Long term (current) use of anticoagulants; Z79.4 Long term (current) use of insulin; Z79.82 Long term (current) use of aspirin; Z79.899 Other long term (current) drug therapy; Z87.891 Personal history of nicotine dependence; Z95.810 Presence of automatic (implantable) cardiac defibrillator
CPT/HCPCS: 96365; 96366; 96372; G0463; J2260; J3420

== ENCOUNTER 2025-04-27 08:47 | Outpatient (CLI) | payer MEDICARE, OTHER ==
[2025-04-27] VITALS (9 sets, daily range): BP systolic 118–146; BP diastolic 56–89; PULSE 73–77; RESP 16–18; O2SAT 97–98
[2025-04-27] MEDS: MILRINONE 20MG/100ML 100 ML IV ONE ×2 (08:58→09:21)
== END 2025-04-27 17:00 | disposition home or self-care (01) ==
LOC: CHF HDHVI 08:47
PROVIDERS: ATTEND Internal Medicine Cardiovascular Disease
DX: I13.0 Hypertensive heart and chronic kidney disease with heart failure and stage 1 through stage 4 chronic kidney disease, or unspecified chronic kidney disease (principal); E11.22 Type 2 diabetes mellitus with diabetic chronic kidney disease; I50.43 Acute on chronic combined systolic (congestive) and diastolic (congestive) heart failure; N18.4 Chronic kidney disease, stage 4 (severe); I25.10 Atherosclerotic heart disease of native coronary artery without angina pectoris; I25.5 Ischemic cardiomyopathy; I25.2 Old myocardial infarction; I48.0 Paroxysmal atrial fibrillation; J44.9 Chronic obstructive pulmonary disease, unspecified; E11.51 Type 2 diabetes mellitus with diabetic peripheral angiopathy without gangrene; E11.42 Type 2 diabetes mellitus with diabetic polyneuropathy; E78.00 Pure hypercholesterolemia, unspecified; E03.9 Hypothyroidism, unspecified; F41.9 Anxiety disorder, unspecified; F32.A Depression, unspecified; E66.01 Morbid (severe) obesity due to excess calories; Z68.35 Body mass index [BMI] 35.0-35.9, adult; Z79.01 Long term (current) use of anticoagulants; Z79.4 Long term (current) use of insulin; Z87.891 Personal history of nicotine dependence; Z95.810 Presence of automatic (implantable) cardiac defibrillator
CPT/HCPCS: 96365; 96366; G0463; J2260

== ENCOUNTER 2025-05-04 08:31 | Outpatient (CLI) | payer MEDICARE, OTHER ==
[2025-05-04] VITALS (9 sets, daily range): BP systolic 107–136; BP diastolic 49–69; PULSE 74–78; RESP 16; O2SAT 96–97
[2025-05-04] MEDS: MILRINONE 20MG/100ML 100 ML IV ONE ×2 (08:40→08:42)
== END 2025-05-04 17:00 | disposition home or self-care (01) ==
LOC: CHF HDHVI 08:31
PROVIDERS: ATTEND Internal Medicine Cardiovascular Disease
DX: I13.0 Hypertensive heart and chronic kidney disease with heart failure and stage 1 through stage 4 chronic kidney disease, or unspecified chronic kidney disease (principal); E11.22 Type 2 diabetes mellitus with diabetic chronic kidney disease; I50.43 Acute on chronic combined systolic (congestive) and diastolic (congestive) heart failure; N18.4 Chronic kidney disease, stage 4 (severe); E11.42 Type 2 diabetes mellitus with diabetic polyneuropathy; E11.51 Type 2 diabetes mellitus with diabetic peripheral angiopathy without gangrene; E11.65 Type 2 diabetes mellitus with hyperglycemia; F41.9 Anxiety disorder, unspecified; I25.10 Atherosclerotic heart disease of native coronary artery without angina pectoris; F32.A Depression, unspecified; E03.9 Hypothyroidism, unspecified; I25.5 Ischemic cardiomyopathy; I25.2 Old myocardial infarction; I48.0 Paroxysmal atrial fibrillation; J43.9 Emphysema, unspecified; E78.00 Pure hypercholesterolemia, unspecified; D51.8 Other vitamin B12 deficiency anemias; G47.33 Obstructive sleep apnea (adult) (pediatric); Z87.891 Personal history of nicotine dependence; Z79.01 Long term (current) use of anticoagulants; Z79.4 Long term (current) use of insulin; Z79.899 Other long term (current) drug therapy; Z95.1 Presence of aortocoronary bypass graft; Z79.82 Long term (current) use of aspirin
CPT/HCPCS: 96365; 96366; G0463; J2260

== ENCOUNTER 2025-05-06 07:45 | Outpatient (CLI) | payer MEDICARE, OTHER ==
[2025-05-06] VITALS (9 sets, daily range): BP systolic 121–143; BP diastolic 50–63; PULSE 65–78; RESP 16; O2SAT 99
[2025-05-06] MEDS: MILRINONE 20MG/100ML 100 ML IV ONE ×2 (08:46→09:02)
--- NOTE | 2025-05-10 14:26 | DVHSR ---
APPROVED REPORT EXAM: Two-dimensional and M-mode echocardiogram with Doppler and color Doppler. Surgery/Intervention Pacemaker: DIMENSIONS LVDd6.9 (3.8-5.7cm)LA (2D)4.7 (1.9-4.0cm)Aortic Root3.5 (2.0-3.7cm) LVDs6.5 (2.5-4.0cm)LA (MM) (1.9-4.0cm)Aortic Cusp Exc1.5 (1.5-2.0cm) EF (%) 10.0 (55-70%)Rt. Atrium5.1 (1.9-4.0cm)Asc. Aorta cm IVSd1.2 (0.7-1.1cm)RV (D)3.8 (1.8-2.4cm) PWd1.2 (0.7-1.1cm) Mitral Valve MitralMitral Stenosis E wave1.10m/sMV Mean GR.mmHg A wave0.40m/sMV Peak GR.mmHg E/A ratio2.82D MVAcm2 Aortic Valve Aortic ValveAortic Stenosis V10.50m/Vidya Mean GR.5mmHg V21.60m/Vidya Peak GR.11mmHg LVOT Diameter2.3 (1.8-2.4cm)Doppler AVA1.30cm2 Tricuspid Valve TR Velocity3.10m/s [id number] LEFT VENTRICLE The left ventricle is enlarged. There is borderline left ventricular hypertrophy. The Ejection Fraction is <25%. There is global hypokinesis of the left ventricle. RIGHT VENTRICLE The right ventricle is enlarged. ATRIA The left atrium is enlarged. The right atrium is enlarged. The interatrial septum is intact with no evidence for an atrial septal defect. MITRAL VALVE The mitral valve is normal in structure and function. Mitral regurgitation is mild. PULMONIC VALVE The pulmonic valve is not well visualized. TRICUSPID VALVE The tricuspid valve is grossly normal. There is mild tricuspid regurgitation. AORTIC VALVE The aortic valve is calcified but opens well. No aortic regurgitation is present. GREAT VESSELS The aortic root is normal size. PERICARDIAL EFFUSION There is no pericardial effusion. Conclusion MILD TR LVE KAMLA LAE EF <20% MILD PAH
== END 2025-05-06 17:00 | disposition home or self-care (01) ==
LOC: Rad HDHVI 07:45
PROVIDERS: ATTEND Internal Medicine Cardiovascular Disease
DX: I13.0 Hypertensive heart and chronic kidney disease with heart failure and stage 1 through stage 4 chronic kidney disease, or unspecified chronic kidney disease (principal); E11.22 Type 2 diabetes mellitus with diabetic chronic kidney disease; I50.43 Acute on chronic combined systolic (congestive) and diastolic (congestive) heart failure; N18.4 Chronic kidney disease, stage 4 (severe); E11.42 Type 2 diabetes mellitus with diabetic polyneuropathy; E11.65 Type 2 diabetes mellitus with hyperglycemia; E11.51 Type 2 diabetes mellitus with diabetic peripheral angiopathy without gangrene; F41.9 Anxiety disorder, unspecified; I25.10 Atherosclerotic heart disease of native coronary artery without angina pectoris; F32.A Depression, unspecified; J43.9 Emphysema, unspecified; I48.0 Paroxysmal atrial fibrillation; E78.00 Pure hypercholesterolemia, unspecified; E03.9 Hypothyroidism, unspecified; I08.3 Combined rheumatic disorders of mitral, aortic and tricuspid valves; I25.2 Old myocardial infarction; G47.33 Obstructive sleep apnea (adult) (pediatric); I27.21 Secondary pulmonary arterial hypertension; I25.5 Ischemic cardiomyopathy; D51.8 Other vitamin B12 deficiency anemias; Z79.01 Long term (current) use of anticoagulants; Z79.4 Long term (current) use of insulin; Z79.899 Other long term (current) drug therapy; Z87.891 Personal history of nicotine dependence; Z95.1 Presence of aortocoronary bypass graft
CPT/HCPCS: 93306; 96365; 96366; G0463; J2260

== ENCOUNTER 2025-05-11 08:37 | Outpatient (CLI) | payer MEDICARE, OTHER ==
[2025-05-11] VITALS (9 sets, daily range): BP systolic 121–137; BP diastolic 41–70; PULSE 63–72; RESP 16; O2SAT 95–97
[2025-05-11] MEDS: MILRINONE 20MG/100ML 100 ML IV ONE ×2 (08:48→09:33)
== END 2025-05-11 17:00 | disposition home or self-care (01) ==
LOC: CHF HDHVI 08:37
PROVIDERS: ATTEND Internal Medicine Cardiovascular Disease
DX: I13.0 Hypertensive heart and chronic kidney disease with heart failure and stage 1 through stage 4 chronic kidney disease, or unspecified chronic kidney disease (principal); E11.22 Type 2 diabetes mellitus with diabetic chronic kidney disease; I50.43 Acute on chronic combined systolic (congestive) and diastolic (congestive) heart failure; N18.4 Chronic kidney disease, stage 4 (severe); E11.42 Type 2 diabetes mellitus with diabetic polyneuropathy; E11.65 Type 2 diabetes mellitus with hyperglycemia; E11.51 Type 2 diabetes mellitus with diabetic peripheral angiopathy without gangrene; F41.9 Anxiety disorder, unspecified; I25.10 Atherosclerotic heart disease of native coronary artery without angina pectoris; F32.A Depression, unspecified; J43.9 Emphysema, unspecified; I48.0 Paroxysmal atrial fibrillation; E78.00 Pure hypercholesterolemia, unspecified; E03.9 Hypothyroidism, unspecified; I25.2 Old myocardial infarction; G47.33 Obstructive sleep apnea (adult) (pediatric); I27.21 Secondary pulmonary arterial hypertension; I25.5 Ischemic cardiomyopathy; D51.8 Other vitamin B12 deficiency anemias; Z79.01 Long term (current) use of anticoagulants; Z79.4 Long term (current) use of insulin; Z79.899 Other long term (current) drug therapy; Z87.891 Personal history of nicotine dependence; Z95.1 Presence of aortocoronary bypass graft
CPT/HCPCS: 96365; 96366; G0463; J2260

== ENCOUNTER 2025-05-13 08:40 | Outpatient (CLI) | payer MEDICARE, OTHER ==
[2025-05-13] VITALS (9 sets, daily range): BP systolic 109–123; BP diastolic 56–65; PULSE 78–84; RESP 96; O2SAT 97
[2025-05-13] MEDS: MILRINONE 20MG/100ML 100 ML IV ONE ×2 (09:01→09:05)
[2025-05-13] MEDS: ACETAMINOPHEN 500 MG TAB or CAP PO ONE ×2 (09:03→09:07)
[2025-05-13] MEDS: BUMETANIDE 2.5mg/10ml (0.25 mg/ml) INJ IV ONE (09:19)
[2025-05-13] MEDS: BUMETANIDE INJECTION 10 ML ONE (09:20)
[2025-05-13] MEDS: POTASSIUM CHL 20 Meq TABLET PO ONE ×2 (09:20→09:23)
== END 2025-05-13 17:00 | disposition home or self-care (01) ==
LOC: CHF HDHVI 08:40
PROVIDERS: ATTEND Internal Medicine Cardiovascular Disease
DX: I13.0 Hypertensive heart and chronic kidney disease with heart failure and stage 1 through stage 4 chronic kidney disease, or unspecified chronic kidney disease (principal); E11.22 Type 2 diabetes mellitus with diabetic chronic kidney disease; I50.43 Acute on chronic combined systolic (congestive) and diastolic (congestive) heart failure; N18.4 Chronic kidney disease, stage 4 (severe); E11.42 Type 2 diabetes mellitus with diabetic polyneuropathy; E11.65 Type 2 diabetes mellitus with hyperglycemia; E11.51 Type 2 diabetes mellitus with diabetic peripheral angiopathy without gangrene; F41.9 Anxiety disorder, unspecified; I25.10 Atherosclerotic heart disease of native coronary artery without angina pectoris; F32.A Depression, unspecified; J43.9 Emphysema, unspecified; E03.9 Hypothyroidism, unspecified; I48.0 Paroxysmal atrial fibrillation; E78.00 Pure hypercholesterolemia, unspecified; G47.33 Obstructive sleep apnea (adult) (pediatric); I25.2 Old myocardial infarction; R06.02 Shortness of breath; R60.9 Edema, unspecified; D51.8 Other vitamin B12 deficiency anemias; I25.5 Ischemic cardiomyopathy; M54.50 Low back pain, unspecified; Z79.01 Long term (current) use of anticoagulants; Z79.4 Long term (current) use of insulin; Z79.899 Other long term (current) drug therapy; Z87.891 Personal history of nicotine dependence; Z95.1 Presence of aortocoronary bypass graft; Z79.82 Long term (current) use of aspirin; Z79.84 Long term (current) use of oral hypoglycemic drugs
CPT/HCPCS: 96365; 96366; 96375; G0463; J2260

== ENCOUNTER 2025-05-18 08:40 | Outpatient (CLI) | payer MEDICARE, OTHER ==
[2025-05-18] VITALS (9 sets, daily range): BP systolic 110–131; BP diastolic 57–66; PULSE 76–82; RESP 16; O2SAT 98
[2025-05-18] MEDS: MILRINONE 20MG/100ML 100 ML IV ONE ×2 (08:53→08:56)
[2025-05-18] MEDS: ACETAMINOPHEN 500 MG TAB or CAP PO ONE ×2 (10:40)
== END 2025-05-18 17:00 | disposition home or self-care (01) ==
LOC: CHF HDHVI 08:40
PROVIDERS: ATTEND Internal Medicine Cardiovascular Disease
DX: I13.0 Hypertensive heart and chronic kidney disease with heart failure and stage 1 through stage 4 chronic kidney disease, or unspecified chronic kidney disease (principal); E11.22 Type 2 diabetes mellitus with diabetic chronic kidney disease; I50.43 Acute on chronic combined systolic (congestive) and diastolic (congestive) heart failure; N18.4 Chronic kidney disease, stage 4 (severe); I25.10 Atherosclerotic heart disease of native coronary artery without angina pectoris; I25.5 Ischemic cardiomyopathy; I25.2 Old myocardial infarction; I48.0 Paroxysmal atrial fibrillation; J43.9 Emphysema, unspecified; E11.42 Type 2 diabetes mellitus with diabetic polyneuropathy; E11.51 Type 2 diabetes mellitus with diabetic peripheral angiopathy without gangrene; E03.9 Hypothyroidism, unspecified; E78.00 Pure hypercholesterolemia, unspecified; F41.9 Anxiety disorder, unspecified; F32.A Depression, unspecified; E66.01 Morbid (severe) obesity due to excess calories; Z68.35 Body mass index [BMI] 35.0-35.9, adult; Z79.01 Long term (current) use of anticoagulants; Z79.82 Long term (current) use of aspirin; Z79.4 Long term (current) use of insulin; Z79.899 Other long term (current) drug therapy; Z87.891 Personal history of nicotine dependence; Z95.810 Presence of automatic (implantable) cardiac defibrillator
CPT/HCPCS: 96365; 96366; G0463; J2260

== ENCOUNTER 2025-05-19 08:41 | Outpatient (CLI) | payer MEDICARE, OTHER ==
[2025-05-19] VITALS (9 sets, daily range): BP systolic 119–139; BP diastolic 54–71; PULSE 75–82; RESP 16; O2SAT 100
[2025-05-19] MEDS: MILRINONE 20MG/100ML 100 ML IV ONE ×2 (08:53→08:54)
== END 2025-05-19 17:00 | disposition home or self-care (01) ==
LOC: CHF HDHVI 08:41
PROVIDERS: ATTEND Internal Medicine Cardiovascular Disease
DX: I13.0 Hypertensive heart and chronic kidney disease with heart failure and stage 1 through stage 4 chronic kidney disease, or unspecified chronic kidney disease (principal); E11.22 Type 2 diabetes mellitus with diabetic chronic kidney disease; I50.43 Acute on chronic combined systolic (congestive) and diastolic (congestive) heart failure; N18.4 Chronic kidney disease, stage 4 (severe); E11.42 Type 2 diabetes mellitus with diabetic polyneuropathy; E11.65 Type 2 diabetes mellitus with hyperglycemia; E11.51 Type 2 diabetes mellitus with diabetic peripheral angiopathy without gangrene; I25.5 Ischemic cardiomyopathy; F41.9 Anxiety disorder, unspecified; I25.10 Atherosclerotic heart disease of native coronary artery without angina pectoris; F32.A Depression, unspecified; J43.9 Emphysema, unspecified; E03.9 Hypothyroidism, unspecified; I25.2 Old myocardial infarction; I48.0 Paroxysmal atrial fibrillation; G47.33 Obstructive sleep apnea (adult) (pediatric); M54.50 Low back pain, unspecified; E78.00 Pure hypercholesterolemia, unspecified; D51.8 Other vitamin B12 deficiency anemias; R60.9 Edema, unspecified; Z79.01 Long term (current) use of anticoagulants; Z79.4 Long term (current) use of insulin; Z79.899 Other long term (current) drug therapy; Z87.891 Personal history of nicotine dependence; Z95.1 Presence of aortocoronary bypass graft; Z79.82 Long term (current) use of aspirin; Z79.84 Long term (current) use of oral hypoglycemic drugs
CPT/HCPCS: 96365; 96366; G0463; J2260

== ENCOUNTER 2025-05-25 08:33 | Outpatient (CLI) | payer MEDICARE, OTHER ==
[2025-05-25] VITALS (9 sets, daily range): BP systolic 109–137; BP diastolic 53–73; PULSE 76–81; RESP 16; O2SAT 97–98
[2025-05-25] MEDS: MILRINONE 20MG/100ML 100 ML IV ONE ×2 (08:46→09:42)
[2025-05-25] MEDS: CYANOCOBALAMIN (B-12) 1000 MCG/1 ML VIAL IM ONE (09:28)
[2025-05-25] MEDS: CYANOCOBALAMIN (B-12) 1000 MCG/1 ML VIAL ONE (10:00)
== END 2025-05-25 17:00 | disposition home or self-care (01) ==
LOC: CHF HDHVI 08:33
PROVIDERS: ATTEND Internal Medicine Cardiovascular Disease
DX: I13.0 Hypertensive heart and chronic kidney disease with heart failure and stage 1 through stage 4 chronic kidney disease, or unspecified chronic kidney disease (principal); E11.22 Type 2 diabetes mellitus with diabetic chronic kidney disease; I50.43 Acute on chronic combined systolic (congestive) and diastolic (congestive) heart failure; N18.4 Chronic kidney disease, stage 4 (severe); D51.8 Other vitamin B12 deficiency anemias; E11.42 Type 2 diabetes mellitus with diabetic polyneuropathy; E11.65 Type 2 diabetes mellitus with hyperglycemia; E11.51 Type 2 diabetes mellitus with diabetic peripheral angiopathy without gangrene; F41.9 Anxiety disorder, unspecified; I25.10 Atherosclerotic heart disease of native coronary artery without angina pectoris; F32.A Depression, unspecified; J43.9 Emphysema, unspecified; E03.9 Hypothyroidism, unspecified; I48.0 Paroxysmal atrial fibrillation; E78.00 Pure hypercholesterolemia, unspecified; G47.33 Obstructive sleep apnea (adult) (pediatric); I25.2 Old myocardial infarction; I25.5 Ischemic cardiomyopathy; M54.50 Low back pain, unspecified; Z79.01 Long term (current) use of anticoagulants; Z79.4 Long term (current) use of insulin; Z79.82 Long term (current) use of aspirin; Z79.84 Long term (current) use of oral hypoglycemic drugs; Z79.899 Other long term (current) drug therapy; Z87.891 Personal history of nicotine dependence; Z95.1 Presence of aortocoronary bypass graft
CPT/HCPCS: 96365; 96366; 96372; G0463; J2260; J3420

== ENCOUNTER 2025-05-27 08:36 | Outpatient (CLI) | payer MEDICARE, OTHER ==
[2025-05-27] VITALS (9 sets, daily range): BP systolic 99–109; BP diastolic 50–60; PULSE 75–86; RESP 16; O2SAT 95–97
[2025-05-27] MEDS: MILRINONE 20MG/100ML 100 ML IV ONE ×2 (08:47→08:54)
== END 2025-05-27 17:00 | disposition home or self-care (01) ==
LOC: CHF HDHVI 08:36
PROVIDERS: ATTEND Internal Medicine Cardiovascular Disease
DX: I13.0 Hypertensive heart and chronic kidney disease with heart failure and stage 1 through stage 4 chronic kidney disease, or unspecified chronic kidney disease (principal); E11.22 Type 2 diabetes mellitus with diabetic chronic kidney disease; I50.43 Acute on chronic combined systolic (congestive) and diastolic (congestive) heart failure; N18.4 Chronic kidney disease, stage 4 (severe); E11.42 Type 2 diabetes mellitus with diabetic polyneuropathy; E11.65 Type 2 diabetes mellitus with hyperglycemia; E11.51 Type 2 diabetes mellitus with diabetic peripheral angiopathy without gangrene; F41.9 Anxiety disorder, unspecified; I25.10 Atherosclerotic heart disease of native coronary artery without angina pectoris; F32.A Depression, unspecified; J43.9 Emphysema, unspecified; E03.9 Hypothyroidism, unspecified; I25.5 Ischemic cardiomyopathy; I25.2 Old myocardial infarction; I48.0 Paroxysmal atrial fibrillation; E78.00 Pure hypercholesterolemia, unspecified; G47.33 Obstructive sleep apnea (adult) (pediatric); D51.8 Other vitamin B12 deficiency anemias; Z79.01 Long term (current) use of anticoagulants; Z79.4 Long term (current) use of insulin; Z79.82 Long term (current) use of aspirin; Z79.84 Long term (current) use of oral hypoglycemic drugs; Z79.899 Other long term (current) drug therapy; Z87.891 Personal history of nicotine dependence; Z95.1 Presence of aortocoronary bypass graft
CPT/HCPCS: 96365; 96366; G0463; J2260

== ENCOUNTER 2025-06-03 08:47 | Outpatient (CLI) | payer MEDICARE, OTHER ==
[2025-06-03] VITALS (9 sets, daily range): BP systolic 104–133; BP diastolic 56–71; PULSE 74–78; RESP 16; O2SAT 97
[2025-06-03] MEDS: MILRINONE 20MG/100ML 100 ML IV ONE ×2 (08:52→08:54)
[2025-06-08] MEDS ORDERED: TIOT1AER IN (15:56)
[2025-06-08] MEDS ORDERED: ESOM40CA39 PO (15:56)
[2025-06-08] MEDS ORDERED: REVE175S IN (15:56)
[2025-06-08] MEDS ORDERED: DICL1GEL59 EX (15:56)
[2025-06-08] MEDS ORDERED: IPRIH INH (15:56)
[2025-06-08] MEDS ORDERED: MAGN100T9 PO (15:56)
== END 2025-06-03 17:00 | disposition home or self-care (01) ==
LOC: CHF HDHVI 08:47
PROVIDERS: ATTEND Internal Medicine Cardiovascular Disease
DX: I13.0 Hypertensive heart and chronic kidney disease with heart failure and stage 1 through stage 4 chronic kidney disease, or unspecified chronic kidney disease (principal); E11.22 Type 2 diabetes mellitus with diabetic chronic kidney disease; I50.43 Acute on chronic combined systolic (congestive) and diastolic (congestive) heart failure; N18.4 Chronic kidney disease, stage 4 (severe); E11.42 Type 2 diabetes mellitus with diabetic polyneuropathy; E11.65 Type 2 diabetes mellitus with hyperglycemia; E11.51 Type 2 diabetes mellitus with diabetic peripheral angiopathy without gangrene; F41.9 Anxiety disorder, unspecified; I25.10 Atherosclerotic heart disease of native coronary artery without angina pectoris; F32.A Depression, unspecified; J43.9 Emphysema, unspecified; E03.9 Hypothyroidism, unspecified; I48.0 Paroxysmal atrial fibrillation; D51.8 Other vitamin B12 deficiency anemias; E78.00 Pure hypercholesterolemia, unspecified; G47.33 Obstructive sleep apnea (adult) (pediatric); I25.2 Old myocardial infarction; I25.5 Ischemic cardiomyopathy; M54.50 Low back pain, unspecified; Z79.01 Long term (current) use of anticoagulants; Z79.4 Long term (current) use of insulin; Z79.82 Long term (current) use of aspirin; Z79.84 Long term (current) use of oral hypoglycemic drugs; Z79.899 Other long term (current) drug therapy; Z87.891 Personal history of nicotine dependence; Z95.1 Presence of aortocoronary bypass graft
CPT/HCPCS: 96365; 96366; G0463; J2260

== ENCOUNTER 2025-06-10 06:05 | Day surgery (SDC) | payer MEDICARE, OTHER ==
[2025-06-08 11:03] LABS: Hematocrit 33.4 % (41.0-53.0); Hemoglobin 10.7 g/dL (13.5-17.5); Mean Corpuscular Hemoglobin 27.2 pg (28.0-32.0); Mean Corpuscular Volume 84.6 fL (80.0-100.0); Nucleated Red Blood Cells % 0.1 %
[2025-06-08 11:15] LABS: INR 1.14 (0.9-1.15); Partial Thromboplastin Time 29.5 SEC (24.5-34.5); Prothrombin Time 11.9 sec (9.3-11.8)
[2025-06-08 11:25] LABS: Alanine Aminotransferase 60 U/L (7-40); Albumin 4.2 g/dL (3.2-4.8); Alkaline Phosphatase 169 U/L (46-116); Anion Gap 8 (5-15); BUN/Creatinine Ratio 12.6 (10.0-20.0); Bilirubin, Total 0.6 mg/dL (0.2-1.0); Blood Urea Nitrogen 16 mg/dL (9-23); Calcium 8.7 mg/dL (8.7-10.4); Carbon Dioxide 31 mmol/L (20-31); Chloride 103 mmol/L (98-107); Glucose 90 mg/dL (74-106); Potassium 4.3 mmol/L (3.5-5.1); Sodium 142 mmol/L (136-145); Total Protein 7.4 g/dL (5.7-8.2)
[2025-06-09 13:00] LABS: Urine Protein, UAD Negative (Negative)
--- NOTE | 2025-06-09 13:43 | DVHHP2 ---
History Allergies: Coded Allergies: Iodine (Verified Allergy, Intermediate, 03/15/25) Iodixanol (Verified Allergy, Unknown, 02/07/24) ITCHING, REDNESS Chief Complaint: Port-A-Cath placement Present Illness(Onset/Duration Mr. Hall is a 80-year-old male who is presenting today for elective Port-A-Cath placement. Patient needs the Port-A-Cath given that he receives twice weekly medication infusions, and he is a hard stick. Patient doing well this morning, no complaints, not sick or being recently sick. Denies fevers, chills, nausea, vomiting. Past Surgical History Past medical history hypertension, CHF, allergies, COPD, diabetes, hyperlipidem ia, [place] Past surgical history CABG, pacemaker, hernia repair Physical Exam Skin No jaundice Chest and Lungs Nonlabored breathing with symmetric expansion, pacemaker left upper chest Abdomen Soft, depressible, nontender Extremities Moves all with positive distal pulses sac for Plan Mr. Hall is a 80-year-old male who presents for elective Port-A-Cath placement for medication infusion. Patient has no concerns this morning and no additional questions regarding the procedure. We will proceed with surgery as planned. CAR HAYDEN MD Jun 09, 2025 13:43
[~2025-06-10] VITALS: Ht 177.8 cm; Wt 85.3 kg
[~2025-06-10 06:05] MED LIST changes: -ALPR0.5T PO; +DICL1GEL59 EX; +ESOM40CA39 PO; -GLIP10TA9 PO; -ISOS1TAB28 PO; +MAGN100T9 PO; +REVE175S IN; +TIOT1AER IN
[2025-06-10] MEDS ORDERED: HEPARIN 1,000 UNITS/ml 1ML VIAL ONE (06:25)
[2025-06-10] MEDS ORDERED: ceFAZolin 1GM VL ONE (06:25)
[2025-06-10] MEDS ORDERED: HEPARIN SODIUM (PORCINE) 5000 UNITS/ML 1ML VIAL ONE (06:25)
[2025-06-10] MEDS ORDERED: MIDAZOLAM HCL 2MG/2ML 2ml VIAL (1mg/ml) ONE (07:05)
[2025-06-10] MEDS ORDERED: KETAMINE 50mg/ML 1ml syringe ONE (07:05)
[2025-06-10] MEDS ORDERED: SODIUM CHLORIDE LOCK 10 ML ONE (07:05)
[2025-06-10] MEDS ORDERED: fentaNYL CITRATE 100 MCG/2 ML VL ONE (07:05)
[2025-06-10] MEDS ORDERED: LIDOCAINE 1% INJ PF 5ML AMP ONE (07:05)
[2025-06-10] MEDS ORDERED: PROPOFOL 10 MG/ML 20 ML IV ONE (07:05)
[2025-06-10] MEDS: ceFAZolin 2 GM/D5W50ml 50 ML IV ONE (07:28)
[2025-06-10] MEDS: LIDOCAINE 1% HCL (LOCAL ANESTH.) INJ 20ML MDV ONE (07:48)
[2025-06-10 08:50] VITALS: PULSE 69; RESP 16; O2SAT 95
[2025-06-10] MEDS ORDERED: PHENYLEPHRINE HCL 10 MG/ML VL ONE (08:54)
[2025-06-10 09:00] VITALS: PULSE 70; RESP 13; O2SAT 100
--- NOTE | 2025-06-10 09:08 | DVHOP2 ---
Operative Report - 2 Report Details Date: 06/10/25 Preop Diagnosis: Requiring biweekly infusions Postop Diagnosis: Same Surgeon: Car Copeland MD Urban Planner: Luis Alberto Gonzalez NP Anesthesiologist: Dr. rios Anesthesia: Mac Implant: Bard 9 Yor[place] Port-A-Cath Consent: The patient was informed of the risks and benefits of the procedure. These include but are not limited to complications of anesthesia, postoperative infection, incomplete relief of symptoms, recurrence of symptoms, damage to blood vessels, nerves and tendons, deep venous thrombosis, pulmonary embolism and possible need for repeat surgery in the future. Complications: None Estimated Blood Loss: 5 mL Findings: Normal anatomy Indications for Surgery: Patient requiring biweekly infusions Name of Procedure Performed Port-A-Cath placement Procedure Details Procedure Details: Upon arriving to the operating room the patient was transferred to the operating table and placed in the supine position with arms tucked. Monitored anesthesia care was induced. Time-out was observed. Patient was prepped and draped in the standard sterile surgical fashion with alcohol based prep. I then identified the right upper chest, deltopectoral groove and sternal notch. Utilizing landmarks I attempted to cannulate the right subclavian vein, and after several attempts I continued to hitting the clavicle, bony anatomy appears slightly altered given his previous surgeries. I then decided to utilize the right internal jugular vein. Under ultrasound guidance I was able to identify the right internal jugular vein immediately above the clavicle. I then cannulated the vein utilizing the guide needle and syringe, while aspirating. I then passed the guidewire through the syringe and needle. Needle and syringe were removed. X-ray was then taken intraop to verify wire placement, and the wire was at the atriocaval junction. I then proceeded to make the chest wall incision, for the port pocket, approximally 2 cm below the right clavicle at the midclavicular line. I carried the dissection down to the subcutaneous tissue of the chest wall and I then proceeded to create the pocket for the port at the inferior aspect of the incision, leaving dermis and a little bit of fat between the port and the skin. I then directed my attention back to the right neck at the wire site. I then made a skin stef over the wire large enough to accommodate the vein dilator/peel-away sheath. I then passed the dilator/peel- away sheath over the wire, until it was flush with the skin. I then directed my attention to the chest wall incision, catheter length was measured from the right chest wall incision up to the neck incision and immediately past the sternal angle (measurement was at 22 cm). Catheter was flushed with heparinized saline 5000 units in 500 of sterile saline, and then catheter was mounted on the tunneler and passed from the right chest wall incision and out through the right neck incision. Tunneler was removed from the catheter. It was tunneled through the subcutaneous tissue over the right clavicle. I then removed the wire and inner tunneler of the peel-away sheath. They both came intact. I then placed a hemostat distal and the catheter. I then fed the catheter through the peel-away sheath, and opened the peel-away sheath up to its intermediate point, at this point the catheter was completely inserted. I then proceeded to take another x-ray and it showed the catheter tip at the atriocaval junction. The remaining peel- away sheath was peeled away and passed off the table. I then proceeded to connect the port to the catheter and locked it with its locking mechanism. I then aspirated and flushed the port with the Sykes needle with the 5000 units of heparin in 500 mL of normal saline. Catheter flushed and aspirated properly. The port was then secured to the chest wall with 2 2-0 Prolenes on either side. The port was then flushed with 3 mL of heparin solution with a concentration of 1000 units/mL. Right chest wall incision was closed with 3-0 Vicryl at the dermis, interrupted. Skin closed with 4-0 Monocryl. Skin site at the right neck was also closed with 4-0 Monocryl. Lidocaine 1% was used as local anesthetic. Dermabond was used over both of the incisions. Both incisions dressed with folded 4 x 4 gauze and Tegaderm. All counts complete and correct at the end of the procedure. Patient tolerated the procedure well and was transferred to PACU in stable condition. Patient had another upright chest x-ray PACU, catheter intact with no kinks, at the atriocaval junction and no pneumothorax seen. Specimen: None Condition Stable Disposition Home CAR HAYDEN MD Jun 10, 2025 09:08
--- NOTE | 2025-06-10 09:17 | DVH ---
CLINICAL INFORMATION: PORTACATH PLACEMENT. TECHNIQUE: Single AP portable chest radiograph was obtained. COMPARISON: Radiographs dated 03/04/2025. FINDINGS: Lungs: Bilateral interstitial opacities and ill-defined airspace opacities, new compared to the prior exam. Opacities in the left lung base, possible pleural effusion with overlying atelectasis and/or consolidation. Portions of the left costophrenic angle are excluded from the [id number] of the exam. No pneumothorax. Cardiac: Unchanged cardiomegaly. Postsurgical changes of prior CABG. ICD leads are stable in position. Pulmonary vasculature: Prominence of the pulmonary vasculature. Mediastinum/adriano: Right internal jugular port catheter extends to the SVC/RA junction. Bones: No acute osseous abnormality identified. Other: No other significant findings. IMPRESSION: 1. Distal tip of the right internal jugular port catheter is at the SVC / RA junction. 2. Cardiomegaly, prominence of the pulmonary vasculature, and bilateral interstitial opacities suggesting pulmonary vascular congestion/ interstitial pulmonary edema in the appropriate clinical setting. Correlate with clinical findings. 3. Opacities in the left lung base, possible small left pleural effusion with overlying atelectasis and/or consolidation, although the left costophrenic angle is incompletely included in the [id number] of the exam, limiting evaluation. 4. Additional findings as described above.
[2025-06-10 09:40] VITALS: BP 134/65; PULSE 70; PULSE 72; RESP 15; O2SAT 97
--- NOTE | 2025-06-10 10:19 | DVH ---
INDICATION: Post portacath placement TECHNIQUE: Frontal view of the chest. COMPARISON: XY CHEST PORTABLE on DOS: 06/10/25, XY CHEST TWO VIEWS ROUTINE on DOS: 03/04/25, XY CHEST TWO VIEWS ROUTINE on DOS: 12/15/24, XY CHEST TWO VIEWS ROUTINE on DOS: 07/16/24, CT CHEST WITH CONTRAST on DOS: 02/07/24 FINDINGS: Right chest port with tip in the cavoatrial junction . Cardiomegaly with CHF . The heart and mediastinal contours are grossly unremarkable. There is no evidence of pleural disease. The lungs are clear. The bony structures of the chest are intact without fracture. IMPRESSION: 1. Cardiomegaly with CHF.
== END 2025-06-10 10:10 | disposition home or self-care (01) ==
LOC: SUR 06:05
PROVIDERS: ATTEND Student in an Organized Health Care Education/Training Program
DX: Z45.2 Encounter for adjustment and management of vascular access device (principal); I11.0 Hypertensive heart disease with heart failure; I50.9 Heart failure, unspecified; E11.9 Type 2 diabetes mellitus without complications; E78.5 Hyperlipidemia, unspecified; J44.9 Chronic obstructive pulmonary disease, unspecified; Z95.0 Presence of cardiac pacemaker; Z95.1 Presence of aortocoronary bypass graft; Z98.890 Other specified postprocedural states; Z88.8 Allergy status to other drugs, medicaments and biological substances; Z91.041 Radiographic dye allergy status
CPT/HCPCS: 36561; 71045; 81001; 82962; C1788; J0690; J1644; J2003; J2250; J2371; J2704; J3010; J7040; 36415; 80053; 85025; 85610; 85730; 86850; 86900; 86901

== ENCOUNTER 2025-06-11 08:38 | Outpatient (CLI) | payer MEDICARE, OTHER ==
[2025-06-11] VITALS (10 sets, daily range): BP systolic 108–126; BP diastolic 53–67; PULSE 69–70; RESP 16–18; O2SAT 97
[2025-06-11] MEDS: BUMETANIDE 2.5mg/10ml (0.25 mg/ml) INJ IV ONE (09:02)
[2025-06-11] MEDS: MILRINONE 20MG/100ML 100 ML IV ONE ×2 (09:04→09:09)
[2025-06-11] MEDS: POTASSIUM CHL 20 Meq TABLET PO ONE ×2 (09:04→09:09)
[2025-06-11] MEDS: BUMETANIDE INJECTION 10 ML ONE (09:09)
== END 2025-06-11 17:00 | disposition home or self-care (01) ==
LOC: CHF HDHVI 08:38
PROVIDERS: ATTEND Internal Medicine Cardiovascular Disease
DX: I13.0 Hypertensive heart and chronic kidney disease with heart failure and stage 1 through stage 4 chronic kidney disease, or unspecified chronic kidney disease (principal); E11.22 Type 2 diabetes mellitus with diabetic chronic kidney disease; N18.4 Chronic kidney disease, stage 4 (severe); I50.23 Acute on chronic systolic (congestive) heart failure; I25.5 Ischemic cardiomyopathy; F41.9 Anxiety disorder, unspecified; F32.A Depression, unspecified; G47.33 Obstructive sleep apnea (adult) (pediatric); I25.2 Old myocardial infarction; I48.0 Paroxysmal atrial fibrillation; I25.10 Atherosclerotic heart disease of native coronary artery without angina pectoris; J43.9 Emphysema, unspecified; E03.9 Hypothyroidism, unspecified; E78.00 Pure hypercholesterolemia, unspecified; E11.42 Type 2 diabetes mellitus with diabetic polyneuropathy; E11.51 Type 2 diabetes mellitus with diabetic peripheral angiopathy without gangrene; E66.01 Morbid (severe) obesity due to excess calories; Z68.35 Body mass index [BMI] 35.0-35.9, adult; Z79.01 Long term (current) use of anticoagulants; Z79.82 Long term (current) use of aspirin; Z79.84 Long term (current) use of oral hypoglycemic drugs; Z79.4 Long term (current) use of insulin; Z79.899 Other long term (current) drug therapy; Z88.8 Allergy status to other drugs, medicaments and biological substances; Z95.1 Presence of aortocoronary bypass graft; Z98.890 Other specified postprocedural states; Z87.891 Personal history of nicotine dependence; Z95.810 Presence of automatic (implantable) cardiac defibrillator
CPT/HCPCS: 96365; 96366; 96375; G0463; J2260

== ENCOUNTER 2025-06-28 02:51 | Inpatient (IN) | payer MEDICARE, OTHER ==
[~2025-06-28] VITALS: Ht 180.3 cm; Wt 84.5 kg
[2025-06-28] MEDS: AMIODARONE BOLUS KIT 100 ML IV ONE (03:05)
[2025-06-28 03:06] VITALS: RESP 14; O2SAT 99
[2025-06-28 03:15] LABS: Hematocrit 27.2 % (41.0-53.0); Hemoglobin 8.8 g/dL (13.5-17.5); Mean Corpuscular Hemoglobin 26.6 pg (28.0-32.0); Mean Corpuscular Volume 82.1 fL (80.0-100.0); Nucleated Red Blood Cells % 0.2 %
--- NOTE | 2025-06-28 03:23 | ED.PDOC ---
History of Present Illness HPI Comments 80-year-old male is brought in by ambulance from private residence status post unwitnessed fall with possible loss of consciousness. Per EMS personnel report, patient was found on the floor by next to the bed after hearing a loud crashing sound, this morning. On scene, patient was A&Ox4, GCS 15, pale, and diaphoretic, with no recollection on how he ended up on the floor after going to sleep, yesterday. Patient was also noted to have been found with multiple PVCs and V-tach heart rate on nuclear monitoring technician. He is on Eliquis, currently for heart failure and receives treatment by his as400 consultant, Dr. Holden, every week via Port-A-Cath. Patient was placed in C-collar. Significant history for AAA with repair, BiV AICD, CABG, CAD, CHF with reduced EF - on Eliquis, CKF, advanced COPD, DM, HLD, HTN, SD, TBI, ischemic cardiomyopathy, multiple vessel angioplasty, peripheral vascular disease, organic heart disease, thyroid disease, and tobacco cigarette abuse. At time of assessment, patient only reports on left shoulder pain, due to C-collar pressing against his left clavicle. Denies any further acute symptoms. Time Seen by MD: 02:50 Reviewed Notes: Nurses Notes, Tester Electronic Scale Notes, Medications, Allergies Allergies: Coded Allergies: Iodine (Verified Allergy, Intermediate, 03/15/25) Iodixanol (Verified Allergy, Unknown, 02/07/24) ITCHING, REDNESS Home Meds Reported Medications Tiotropium [place]-Olodaterol (Stiolto Respimat 2.5-2.5 Mcg/Act) 1 Aer Aer, IN, AER 06/08/25 Ipratropium [place] Hfa (Atrovent Hfa) 17 Mcg Aer, INH QID, #12.9 GRAMS 5 Refills 06/08/25 Revefenacin (Yupelri) 175 Mcg/3 Ml [place], [place], ML 06/08/25 Magnesium Bisglycinate (Mag Glycinate) 100 Mg Tab, PO, TAB 06/08/25 Esomeprazole Magnesium Trihydr (Nexium) 40 Mg Cap, PO, CAP 06/08/25 Diclofenac Sodium (Topical) (Voltaren Arthritis Pain) 1 % Gel, EX, GEL 06/08/25 Gabapentin (GABAPENTIN) 250 Mg/5 Ml [place]omen[place], 300 MG PO BID, ML 03/15/25 Bumetanide (Bumex) 2 Mg Tab, 1 MG PO BID 03/15/25 Dapagliflozin Propanediol (Farxiga) 10 Mg Tab, 5 MG PO DAILY, TAB 03/15/25 Vericiguat (Verquvo) 2.5 Mg Tab, 1 TAB PO DAILY 12/09/24 Levothyroxine Sodium (Levothyroxine Sodium) 200 Mcg Tab, 200 MCG PO QAM, MCG TAKE WITH LEVOTHYROXINE 50 MCG TABLET FOR TOTAL 250 MCG DAILY 12/30/23 Levothyroxine Sodium (SYNTHROID TABLET) 50 Mcg Tb, 1 TAB PO QAM for HYPOTHYROIDISM TAKE WITH LEVOTHYROXINE 200 MCG TABLET FOR TOTAL 250 MCG DAILY 10/16/23 Ipratropium [place] Hfa (Atrovent Hfa) 17 Mcg Aer, 2 PUFF INH BID PRN for SHORTNESS OF BREATH 10/16/23 Amiodarone HCl (Amiodarone Hydrochloride) 400 Mg Tab, 1 TAB PO DAILY for ARRHYTHMIA 10/16/23 Potassium Chloride (Klor-Con M20) 20 Meq Tab, 1 TAB PO DAILY for SUPPLEMENT 10/16/23 Apixaban Base (ELIQUIS) 2.5 Mg Tab, 1 TAB PO BID for ARRYTHMIA 10/16/23 Ivabradine Hydrochloride (Corlanor) 5 Mg Tab, 1 TAB PO BID for HEART FAILURE 10/16/23 Atorvastatin Calcium (ATORVASTATIN CALCIUM) 80 Mg Tab, 1 TAB PO QPM for HIGH CHOLESTEROL 10/16/23 Cholecalciferol (VITAMIN D3) 2,000 Unit Tab, 1 TAB PO DAILY for SUPPLEMENT 10/16/23 Nitroglycerin (NTROSTAT SUBLINGUAL) 0.4 Mg Sl, 1 MG SL PRN for FOR CHEST PAIN *MAY REPEAT EVERY 5 MINUTES X 3 TOTAL IF NO RELIEF, INITIATE ANALGESIC THERAPY. NOTIFY PHYSICIAN *Do not crush. 02/13/19 Information Source: Patient, Emergency Med Personnel Mode of Arrival: EMS Severity: Moderate Timing: Hours Duration: Minutes Prehospital treatment: 12 Lead EKG, Accucheck, Tailer Off, C-Collar Past Medical History PAST MEDICAL HISTORY: CAD, CHF (With reduce ejection fraction-on Eliquis), CKF, COPD (Advance), DM, High Lipids, HTN, SD, Thyroid Past Medical History (Other): AAA with repair Ischemic cardiomyopathy Multiple vessel angioplasty Peripheral vascular disease Organic heart disease TBI Surgical History: CABG, Pacemaker (BiV AICD) Surgical History (Other): AAA with repair Port-A-Cath Family History Family History: Unobtainable Social History Smoker: Cigarettes, Greater Than 1 Pack/Day Alcohol: Denies ETOH Use Drugs: Denies Drug Use Lives In: Home All Other Systems: Reviewed and Negative (Comprehensive review of systems are negative unless stated in HPI) Physical Exam General Appearance: No Apparent Distress, Normal HEENT: Head (Normocephalic, atraumatic), Normal ENT Inspection, Pharynx Normal, TMs Normal Neck: Full Range of Motion, Non-Tender, Normal, Normal Inspection, Other (C- collar in place) Respiratory: Chest Non-Tender, Lungs Clear, No Accessory Muscle Use, No Respira tory Distress, Normal Breath Sounds Cardiovascular: No Edema, No JVD, No Murmur, No Gallop, Normal Peripheral Pulses, Tachycardia (With regular rhythm) Breast Exam: Deferred Gastrointestinal: No Organomegaly, Non Tender, No Pulsatile Mass, Normal Bowel Sounds, Soft Genitalia: Deferred Pelvic: Deferred Rectal: Deferred Extremities: No calf tenderness, Normal capillary refill, Normal inspection, Normal range of motion, Non-tender, No pedal edema Musculoskeletal : Location: Left Extremity Location: Shoulder Apperance: Normal, Tenderness (Left shoulder tenderness), Other (Patient is able to move all extremities still) Neurologic: Alert, stopping builder II-XII nml as Tested, No Motor Deficits, Normal Affect, Normal Mood, No Sensory Deficits Cerebellar Function: Normal Reflexes: Normal Skin: Dry, Normal Color, Warm Lymphatic: No Adenopathy Was a procedure done? Was a procedure done?: Yes Sedation Sedation?: No Sedation provider statement: sling applied to left shoulder for comfort EKG EKG : Pulse Rate (adult): 80 [place]: Normal Cardiac Rhythm: Paced Block: None Hypertrophy: None ST: Normal Differential Dx Considerations may include: Arrhythmia, ventricular tachycardia, TBI, AMI, intracranial hemorrhaging, fractures, contusions, among others. X-Ray, Labs, Meds, VS Vital Signs Date Time Temp Pulse Resp B/P (MAP) Pulse Ox O2 Delivery O2 Flow Rate FiO2 06/28/25 04:14 80 06/28/25 04:01 80 14 115/68 06/28/25 04:00 81 06/28/25 03:23 80 06/28/25 02:59 125 06/28/25 02:57 80 06/28/25 02:51 97.8 109 20 102/66 97 97.8 Lab Test 06/28/25 03:45 06/28/25 03:00 Range/Units Troponin I High Sensitivity 53 53 </=54 ng/L White Blood Count 7.7 4.4-10.8 10^3/uL Red Blood Count 3.31 L 4.5-5.90 10^6/uL Hemoglobin 8.8 L 13.5-17.5 g/dL Hematocrit 27.2 L 41.0-53.0 % Mean Corpuscular Volume 82.1 80.0-100.0 fL Mean Corpuscular Hemoglobin 26.6 L 28.0-32.0 pg Mean Corpuscular Hemoglobin Concent 32.4 32.0-36.0 g/dL Red Cell Distribution Width 17.2 H 11.8-14.3 % Platelet Count 172 140-450 10^3/uL Mean Platelet Volume 9.1 6.9-10.8 fL Neutrophils (%) (Auto) 68.4 37.0-80.0 % Lymphocytes (%) (Auto) 19.3 10.0-50.0 % Monocytes (%) (Auto) 9.9 0.0-12.0 % Eosinophils (%) (Auto) 1.9 0.0-7.0 % Basophils (%) (Auto) 0.5 0.0-2.0 % Neutrophils # (Auto) 5.3 1.6-8.6 10 ^3/uL Lymphocytes # (Auto) 1.5 0.4-5.4 10 ^3/uL Monocytes # (Auto) 0.8 0-1.3 10 ^3/uL Eosinophils # (Auto) 0.1 0-0.8 10 ^3/uL Basophils # (Auto) 0 0-0.2 10 ^3/uL Nucleated Red Blood Cells 0.2 % Sodium Level 134 L 136-145 mmol/L Potassium Level 2.5 *L 3.5-5.1 mmol/L Chloride Level 91 L 98-107 mmol/L Carbon Dioxide Level 31 20-31 mmol/L Anion Gap 12 5-15 Blood Urea Nitrogen 30 H 9-23 mg/dL Creatinine 1.59 H 0.700-1.30 mg/dL Glomerular Filtration Rate Calc 44 >90 mL/min BUN/Creatinine Ratio 18.9 10.0-20.0 Serum Glucose 135 H 74-106 mg/dL Calcium Level 8.0 L 8.7-10.4 mg/dL Current Medications Medications (Trade) Dose Ordered Sig/Migue Route Start Time Stop Time Status Last Admin Amiodarone HCl 100 ml @ 600 mls/hr ONCE ONCE IV 06/28/25 03:00 06/28/25 03:09 DC 06/28/25 03:05 Amiodarone HCl 250 ml @ 33.33 mls/ hr Q7H31M ONCE IV 06/28/25 03:15 06/28/25 10:45 06/28/25 03:49 Morphine Sulfate 2 mg ONCE ONCE IV 06/28/25 03:00 06/28/25 03:01 DC 06/28/25 04:01 Ondansetron HCl (Zofran) 4 mg ONCE ONCE IV 06/28/25 03:00 06/28/25 03:01 DC 06/28/25 04:02 Potassium Chloride (Klor-Con Tablet) 40 meq ONCE ONCE PO 06/28/25 05:00 06/28/25 05:01 DC 06/28/25 05:04 [place] [id number] Ph: [phone] DIAGNOSTIC IMAGING Diagnostic Imaging Report : [id number] Signed PATIENT: DERRICK ROMO ACCT: [id number] UNIT: [id number] : 1945 LOC: ER ROOM / BED: / AGE / SEX: 80 / M ADM STATUS: REG ER SERVICE 025 ORDERING PHYSICIAN: SUDHEER BLACK MD PROCEDURE(s): HWOCT - HEAD WITHOUT CONTRAST REASON: injury ORDER NUMBER(s): [id number], ACCESSION NUMBER(s): [id number] EXAM: CT HEAD WITHOUT CONTRAST INDICATION: injury TECHNIQUE: CT of the head without intravenous contrast. Radiation Dose : 1. Head: CT Dose: CTDI volume is 63.27 mGy. Dose-length product is 1614.8 7 mGy*cm The dose indicators for CT are the volume Computed Tomography (CT) Dose Index (CTDIvol) and the Dose Length Product (DLP), and are measured in units of mGy and mGy-cm, respectively. These indicators are not patient dose, but values generated from the CT scanner acquisition factors. The report includes radiation exposure data for exposures received during this examination. COMPARISON: None FINDINGS: There is no evidence of acute intracranial hemorrhage, extra-axial collection, mass effect, midline shift, herniation or hydrocephalus. Increased prominence of the ventricles, sulci and cisterns consistent with sequelae of atrophic cortical volume loss. The armstrong-white differentiation is intact. Moderate diffuse confluent periventricular and subcortical white matter hypoattenuation is nonspecific but may be related to small vessel ischemic disease. The visualized paranasal sinuses and mastoid air cells are clear. Frontal scalp soft tissue swelling. The surrounding soft tissues and osseous str uctures are otherwise unremarkable. IMPRESSION: 1. No acute intracranial abnormality. 2. Chronic sequelae of microangiopathy and atrophic cortical volume loss. 3. Frontal scalp soft tissue swelling. Radiation optimization: All CT scans at this facility use at least one of these dose optimization techniques: automated exposure control mA and/or kV adjustment per patient size (includes targeted exams where dose is matched to clinical indication) or iterative reconstruction. ATED BY: AKHIL REED MD DICTATED DATE/TIME: 06/28/25346 SIGNED BY: AKHIL REED MD SIGNED DATE/TIME: 06/28/25346 CC: Time of 1ST Reevaluation: 03:30 Reevaluation 1ST: Unchanged Time of 2ND Reevaluation: 03:30 Reevaluation 2ND: Improved (less PVCs and less sustained) Patient Education/Counseling: Diagnosis, Treatment, Prognosis, Need For Follow Up, Other (Need for admission) Family Education/Counseling: No Family Present Additional Information Previous visits reviewed: March 18, 2025 encounter for status post AAA, May 06 2025 outpatient echocardiogram report Labs ordered: EKG, troponin, BMP, CBC Images reviewed: CT head and cervical neck without contrast, chest, left shoulder, and left humerus x-ray Additional historian is interviewed: EMS personnel SEPSIS Sepsis Screen Physician Orders Continuous Ekg Monitoring 08,12,16,20,00,04 (06/28/25 02:53) Electrocardigram (06/28/25 02:53) Head Without Contrast (06/28/25 02:53) Cervical Without Contrast (06/28/25 02:53) Chest Xray 1 View (06/28/25 02:53) Troponin-I Hs (06/28/25 05:53) Electrocardigram (06/28/25 03:53) Electrocardigram (06/28/25 05:53) Amiodarone 450mg/250ml Ae (Cordarone) (06/28/25 03:15) Amiodarone 450mg/250ml Ae (Cordarone) (06/28/25 09:15) L Shoulder 2+ View Xray (06/28/25 02:53) L Humerus Xray (06/28/25 02:53) Ok To Access Kyung-Cath (06/28/25 04:30) Apply Sling (06/28/25 04:48) Vital Signs Date Time Temp Pulse Resp B/P (MAP) Pulse Ox O2 Delivery O2 Flow Rate FiO2 06/28/25 04:14 80 06/28/25 04:01 80 14 115/68 06/28/25 04:00 81 06/28/25 03:23 80 06/28/25 02:59 125 06/28/25 02:57 80 06/28/25 02:51 97.8 109 20 102/66 97 97.8 Laboratory Tests Test 06/28/25 03:00 White Blood Count 7.7 10^3/uL (4.4-10.8) Medications Medications Dose Ordered Sig/Migue Route Start Time Stop Time Status Last Admin Dose Admin Amiodarone HCl 100 ml @ 600 mls/hr ONCE ONCE IV 06/28/25 03:00 06/28/25 03:09 DC 06/28/25 03:05 Amiodarone HCl 250 ml @ 33.33 mls/ hr Q7H31M ONCE IV 06/28/25 03:15 06/28/25 10:45 06/28/25 03:49 Morphine Sulfate 2 mg ONCE ONCE IV 06/28/25 03:00 06/28/25 03:01 DC 06/28/25 04:01 Ondansetron HCl 4 mg ONCE ONCE IV 06/28/25 03:00 06/28/25 03:01 DC 06/28/25 04:02 Potassium Chloride 40 meq ONCE ONCE PO 06/28/25 05:00 06/28/25 05:01 DC 06/28/25 05:04 Departure 1 Departure Time of Disposition: 05:11 Impression: Primary Impression: Syncopal episodes Additional Impressions: Hypokalemia Renal failure Ventricular tachyarrhythmia Shoulder pain Disposition: 09 ADMITTED INPATIENT Admit to: Tele Condition: Serious Discharged With: Self Critical Care Note Critical Care Time?: Yes (55 min-critical care time only) Critical care comment: Due to concerns for patients condition deteriorating, the care required my highest level of attention and readiness to intervene. I assessed the patient, reviewed the medical records, ordered the appropriate tests and treatments, then reassessed for results and responsiveness. I communicated with medical personnel and consultants and formulated a plan of care. Total critical care time excludes any procedures Stability Stability form required: No Heart Score Heart Score: Heart Score Response (Comments) Value History Moderate Suspicious 1 EKG Repolarization Disturb 1 Age >65 2 Risk Factors >3 or Hx ASHD 2 Troponin Normal limit 0 Total 6 I personally scribed for SUDHEER BLACK MD ([email or web address]) on 06/28/25 at 03:23. Electronically submitted by Skip Ferreira ([email or web address]). I personally scribed for SUDHEER BLACK MD ([email or web address]) on 06/28/25 at 04:27. Electronically submitted by Skip Ferreira ([email or web address]). SUDHEER BLACK MD Jun 28, 2025 03:23
[2025-06-28 03:32] LABS: Anion Gap 12 (5-15); Carbon Dioxide 31 mmol/L (20-31); Chloride 91 mmol/L (98-107); Sodium 134 mmol/L (136-145)
[2025-06-28 03:33] LABS: Calcium 8.0 mg/dL (8.7-10.4)
[2025-06-28 03:35] LABS: Potassium 2.5 mmol/L (3.5-5.1)
[2025-06-28 03:37] LABS: BUN/Creatinine Ratio 18.9 (10.0-20.0)
--- NOTE | 2025-06-28 03:50 | DVH ---
EXAM: CT HEAD WITHOUT CONTRAST INDICATION: injury TECHNIQUE: CT of the head without intravenous contrast. Radiation Dose : 1. Head: CT Dose: CTDI volume is 63.27 mGy. Dose-length product is 1614.87 mGy*cm The dose indicators for CT are the volume Computed Tomography (CT) Dose Index (CTDIvol) and the Dose Length Product (DLP), and are measured in units of mGy and mGy-cm, respectively. These indicators are not patient dose, but values generated from the CT scanner acquisition factors. The report includes radiation exposure data for exposures received during this examination. COMPARISON: None FINDINGS: There is no evidence of acute intracranial hemorrhage, extra-axial collection, mass effect, midline shift, herniation or hydrocephalus. Increased prominence of the ventricles, sulci and cisterns consistent with sequelae of atrophic cortical volume loss. The armstrong-white differentiation is intact. Moderate diffuse confluent periventricular and subcortical white matter hypoattenuation is nonspecific but may be related to small vessel ischemic disease. The visualized paranasal sinuses and mastoid air cells are clear. Frontal scalp soft tissue swelling. The surrounding soft tissues and osseous structures are otherwise unremarkable. IMPRESSION: 1. No acute intracranial abnormality. 2. Chronic sequelae of microangiopathy and atrophic cortical volume loss. 3. Frontal scalp soft tissue swelling. Radiation optimization: All CT scans at this facility use at least one of these dose optimization techniques: automated exposure control mA and/or kV adjustment per patient size (includes targeted exams where dose is matched to clinical indication) or iterative reconstruction.
--- NOTE | 2025-06-28 03:55 | DVH ---
CHEST RADIOGRAPH Indication: syncope Technique: Single frontal view of the chest was obtained COMPARISON: XY CHEST PORTABLE on DOS: 06/10/25, XY CHEST PORTABLE on DOS: 06/10/25, XY CHEST TWO VIEWS ROUTINE on DOS: 03/04/25, XY CHEST TWO VIEWS ROUTINE on DOS: 12/15/24, XY CHEST TWO VIEWS ROUTINE on DOS: 07/16/24 FINDINGS: Lines and Tubes: Right mediPort unchanged. Left anterior chest wall cardiac pacing device. Lungs: Clear. Right costophrenic sulcus excluded from the image. Pleura: No effusion. No pneumothorax. Cardiomediastinal contours: Enlarged status post median sternotomy. Bones: Unremarkable IMPRESSION: 1. Cardiomegaly. 2. Right MediPort.
[2025-06-28 03:56] LABS: Blood Urea Nitrogen 30 mg/dL (9-23); Glucose 135 mg/dL (74-106)
[2025-06-28] MEDS: MORPHINE SULFATE INJ 2 MG/ml SYRG IV ONE (04:01)
[2025-06-28] MEDS: ONDANSETRON HCL 4 MG/2 ML VIAL IV ONE (04:02)
--- NOTE | 2025-06-28 04:27 | DVH ---
EXAM: CT CERVICAL WITHOUT CONTRAST INDICATION: Injury. EXAM DATE: 06/28/2025 03:29 AM COMPARISON: None TECHNIQUE: Multiple axial CT images of the cervical spine were obtained using bone algorithm. Sagittal and coronal reformatting was done. Bone and soft tissue windows were reviewed. Radiation Dose Information: CT Dose: CTDI volume is 22.1 mGy. Dose-length product is 597.0 mGy*cm FINDINGS: The cervical alignment is intact. There is reversal of the cervical lordosis. No acute cervical spine fracture is identified. The vertebral body heights are intact. No suspicious osseous lesions are identified. Multilevel intervertebral disc space narrowing. No significant spinal stenosis. Multilevel neural foraminal stenosis. There is no prevertebral soft tissue swelling. Partially imaged AICD/pacemaker. There is a right central venous catheter with its tip terminating in the superior vena cava. The lung apices are clear. Severe centrilobular emphysema. IMPRESSION: 1. No evidence of acute cervical spine fracture or traumatic malalignment. 2. Multilevel degenerative changes of the cervical spine. 3. Severe centrilobular emphysema.
[2025-06-28] MEDS: POTASSIUM CHL 20 Meq TABLET PO ONE (05:04)
--- NOTE | 2025-06-28 05:13 | DVH ---
EXAM: XY L SHOULDER 2+ VIEW XRAY INDICATION: Pain injury TECHNIQUE: 3 views of the left shoulder COMPARISON: None available at the time of dictation. FINDINGS/IMPRESSION: No acute fracture. Glenohumeral joint space narrowing is present. Widening of the AC joint measuring 2.4 cm suggesting AC joint injury. AICD/pacemaker is present. Cardiomegaly.
--- NOTE | 2025-06-28 05:13 | DVH ---
EXAM: XY L HUMERUS XRAY HISTORY: injury COMPARISON: None TECHNIQUE: AP and lateral views of the left humerus were performed. FINDINGS/IMPRESSION: No acute fracture of the left humerus.
[2025-06-28 07:30] VITALS: PULSE 80; RESP 14; O2SAT 96
[2025-06-28] MEDS ORDERED: NITROGLYCERIN 0.4 MG SL TAB SL PRN (08:00)
[2025-06-28] MEDS ORDERED: GLIP10TA9 PO (08:33)
[2025-06-28] MEDS ORDERED: GABA-1250 PO (08:33)
[2025-06-28 08:50] VITALS: BP 103/59; PULSE 80; RESP 16; TEMP 97.8; O2SAT 99
--- NOTE | 2025-06-28 08:55 | ECG ---
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
--- NOTE | 2025-06-28 08:55 | ECG ---
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
--- NOTE | 2025-06-28 08:55 | ECG ---
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
[2025-06-28] MEDS ORDERED: DEXTROSE (50%) 50ML SYRG IV PRN (09:00)
[2025-06-28] MEDS ORDERED: PATIENTS OWN MEDICATION (Glipizide 1 TAB) PO SCH (10:00)
[2025-06-28] MEDS ORDERED: PATIENTS OWN MEDICATION (Cholecalciferol (Vitamin D3) 1 TAB) PO SCH (10:00)
[2025-06-28] MEDS ORDERED: BUMETANIDE 1 MG PO SCH (10:00)
[2025-06-28] MEDS ORDERED: AMIODARONE HCL PO SCH (10:00)
[2025-06-28] MEDS: IVABRADINE 5 MG TAB PO SCH (10:17)
[2025-06-28] MEDS: APIXABAN 2.5 MG TAB PO SCH (10:17)
--- NOTE | 2025-06-28 10:49 | DVHHP2 ---
History of Present Illness Reason for Visit: Syncopal event History of Present Illness Saulo Freeman is an 80-year-old male with past medical history of CHF, CAD, hypertension, hyperlipidemia, AICD, CABG, AAA repair, diabetes, hypothyroidism, and COPD who came to the hospital S/P syncopal episode. Patient does not remember then event. The is at the bedside and states she woke up to a "thud". That was him falling down. Seems like he was attempting to get up to use the bathroom, when he had a syncopal episode. The states he was sitting on the side of the bed and fell over and was wedged between furniture. She states he did urinate on the bed, and would not respond to her when she ran over to her. When EMS arrived he was awake, but does not remember the event. While in the ER he was having short runs of VTACH. Cardiovascular: CAD, CHF, HTN, hyperipidemia Pulmonary: COPD Past Surgical History: Appendectomy, CABG, Other, Tonsillectomy Smoke: Quit (5 years ago) ALCOHOL: none Drugs: None Lives: with Family Domestic Violence: Neg Review of Systems Constitutional: No: Fever, Chills, Sweats, Weakness, Malaise, Other Eyes: No: Pain, Vision change, Conjunctivae inflammation, Eyelid inflammation, Other, Redness ENT: No: Ear pain, Ear discharge, Nose pain, Nose discharge, Nose congestion, Mouth pain, Mouth swelling, Throat pain, Throat swelling, Other Respiratory: No: Cough, Dry, Shortness of breath, SOB with excertion, Wheezing, Hemoptysis, Pleuritic Pain, Sputum, Wheezing, Other Cardiovascular: Palpitations, Lt Headedness; No: Chest Pain, Orthopnea, Paroxysmal Noc. Dyspnea, Edema, Other Gastrointestinal: No: Nausea, Vomiting, Abdominal Pain, Diarrhea, Constipation, Melena, Hematochezia, Other Genitourinary: No Dysuria, No Frequency, No Incontinence, No Hematuria, No Retention, No Other Musculoskeletal: No: other, neck pain, shoulder pain, arm pain, back pain, hand pain, leg pain, foot pain Skin: No: Rash, Lesions, Jaundice, Bruising, Other Neurological: Incoordination, Other (syncopal event); No: Weakness, Numbness, Change in speech, Confusion, Seizures Allergies: Coded Allergies: Iodine (Verified Allergy, Intermediate, 03/15/25) Iodixanol (Verified Allergy, Unknown, 02/07/24) ITCHING, REDNESS Medications Current Medications Medications Dose Ordered Sig/Migue Route Start Time Stop Time Status Last Admin Dose Admin Amiodarone HCl 250 ml @ 16.66 mls/ hr Q15H1M IV 06/28/25 09:15 Exam Vital Signs Vital Signs Date Time Temp Pulse Resp B/P (MAP) Pulse Ox O2 Delivery O2 Flow Rate FiO2 06/28/25 06:30 80 06/28/25 05:11 13 110/65 (80) 100 06/28/25 03:06 Nasal Cannula* 6 44 06/28/25 03:03 98.7 98.7 General Appearance: Alert, Oriented X3, Cooperative, mild distress HEENT: Atraumatic, PERRLA Respiratory: Clear to auscultation, Normal air movement Cardiovascular: Normal S1, Normal S2, Other (Paced. Burst of VTACH) Abdominal: Normal bowel sounds, Soft, No tenderness Extremities: No clubbing, No cyanosis, No edema, Normal pulses, No tenderness/swelling Skin: No rashes, No breakdown, No significant lesion Neuro: Normal gait, Normal speech Psych/Mental Status: Mental status NL, Mood NL Labs/Xrays Labs Test 06/28/25 05:53 06/28/25 03:00 Range/Units Troponin I High Sensitivity 57 *H </=54 ng/L White Blood Count 7.7 4.4-10.8 10^3/uL Red Blood Count 3.31 L 4.5-5.90 10^6/uL Hemoglobin 8.8 L 13.5-17.5 g/dL Hematocrit 27.2 L 41.0-53.0 % Mean Corpuscular Volume 82.1 80.0-100.0 fL Mean Corpuscular Hemoglobin 26.6 L 28.0-32.0 pg Mean Corpuscular Hemoglobin Concent 32.4 32.0-36.0 g/dL Red Cell Distribution Width 17.2 H 11.8-14.3 % Platelet Count 172 140-450 10^3/uL Mean Platelet Volume 9.1 6.9-10.8 fL Neutrophils (%) (Auto) 68.4 37.0-80.0 % Lymphocytes (%) (Auto) 19.3 10.0-50.0 % Monocytes (%) (Auto) 9.9 0.0-12.0 % Eosinophils (%) (Auto) 1.9 0.0-7.0 % Basophils (%) (Auto) 0.5 0.0-2.0 % Neutrophils # (Auto) 5.3 1.6-8.6 10 ^3/uL Lymphocytes # (Auto) 1.5 0.4-5.4 10 ^3/uL Monocytes # (Auto) 0.8 0-1.3 10 ^3/uL Eosinophils # (Auto) 0.1 0-0.8 10 ^3/uL Basophils # (Auto) 0 0-0.2 10 ^3/uL Nucleated Red Blood Cells 0.2 % Sodium Level 134 L 136-145 mmol/L Potassium Level 2.5 *L 3.5-5.1 mmol/L Chloride Level 91 L 98-107 mmol/L Carbon Dioxide Level 31 20-31 mmol/L Anion Gap 12 5-15 Blood Urea Nitrogen 30 H 9-23 mg/dL Creatinine 1.59 H 0.700-1.30 mg/dL Glomerular Filtration Rate Calc 44 >90 mL/min BUN/Creatinine Ratio 18.9 10.0-20.0 Serum Glucose 135 H 74-106 mg/dL Calcium Level 8.0 L 8.7-10.4 mg/dL CHEST RADIOGRAPH FINDINGS: Lines and Tubes: Right mediPort unchanged. Left anterior chest wall cardiac pacing device. Lungs: Clear. Right costophrenic sulcus excluded from the image. Pleura: No effusion. No pneumothorax. Cardiomediastinal contours: Enlarged status post median sternotomy. Bones: Unremarkable IMPRESSION: 1. Cardiomegaly. 2. Right MediPort. EXAM: CT HEAD WITHOUT CONTRAST FINDINGS: There is no evidence of acute intracranial hemorrhage, extra-axial collection, mass effect, midline shift, herniation or hydrocephalus. Increased prominence of the ventricles, sulci and cisterns consistent with sequelae of atrophic cortical volume loss. The armstrong-white differentiation is intact. Moderate diffuse confluent periventricular and subcortical white matter hypoattenuation is nonspecific but may be related to small vessel ischemic disease. The visualized paranasal sinuses and mastoid air cells are clear. Frontal scalp soft tissue swelling. The surrounding soft tissues and osseous structures are otherwise unremarkable. IMPRESSION: 1. No acute intracranial abnormality. 2. Chronic sequelae of microangiopathy and atrophic cortical volume loss. 3. Frontal scalp soft tissue swelling. SEPSIS Sepsis Screen Date sepsis recognized/suspect: Jun 28, 2025 Time Sepsis recognized/suspect: 305 Recent Procedure: No On Antibiotic Therapy: No Respiratory Rate >20: No Heart Rate >90: Yes Temp<36 C (96.8 F) or >38.3 C: No SBP <90 or MAP <65 mmHG: No New Acute Mental Status Change: No Is the patient on CPAP, BIPAP,: No Physician Orders Continuous Ekg Monitoring 08,12,16,20,00,04 (06/28/25 02:53) Electrocardigram (06/28/25 02:53) Head Without Contrast (06/28/25 02:53) Cervical Without Contrast (06/28/25 02:53) Chest Xray 1 View (06/28/25 02:53) Electrocardigram (06/28/25 03:53) Electrocardigram (06/28/25 05:53) Amiodarone 450mg/250ml Ae (Cordarone) (06/28/25 03:15) Amiodarone 450mg/250ml Ae (Cordarone) (06/28/25 09:15) L Shoulder 2+ View Xray (06/28/25 02:53) L Humerus Xray (06/28/25 02:53) Ok To Access Kyung-Cath (06/28/25 04:30) Apply Sling (06/28/25 04:48) Admit (06/28/25 07:49) Code Status (06/28/25 07:49) Sodium Chloride Lock (Saline Lock Ns) (06/28/25 14:00) Hydrocodone-Acet 5/325mg Tab ([place] 5/32 (06/28/25 08:00) Ondansetron Hcl (Zofran) (06/28/25 08:00) Docusate Sodium Capsule (Colace Capsule) (06/28/25 08:00) Fall Risk Precautions In Place QSHIFT (06/28/25 07:49) Complete Blood Count (06/29/25 04:00) Comprehensive Metabolic Panel (06/29/25 04:00) Cardiac Diet-2gna,Lofat,Lochol (06/28/25 Breakfast) Echo 2d Mode Cardiac Dop (06/28/25 07:49) Condition: Critical (06/28/25 07:49) Acetaminophen Tablet (Tylenol Tablet) (06/28/25 08:00) Nitroglycerin Sublingual (Ntrostat Subli (06/28/25 08:00) Morphine Sulfate Injection (06/28/25 08:00) Stat Ekg For Chest Pain (06/28/25 07:49) Notify Md Of Changes From Base (06/28/25 07:49) Drugless Doctor For 24 Hours (06/28/25 07:49) Emergency Dysrhythmia Protocol (06/28/25 07:49) Rhythm Strips Once Every Shift (06/28/25 07:49) Oxygen By Nasal Cannula (06/28/25 07:49) Vital Signs Date Time Temp Pulse Resp B/P (MAP) Pulse Ox O2 Delivery O2 Flow Rate FiO2 06/28/25 06:30 80 06/28/25 05:11 80 13 110/65 (80) 100 06/28/25 04:14 80 06/28/25 04:01 80 14 115/68 06/28/25 04:00 81 06/28/25 04:00 81 113/68 (83) 100 06/28/25 03:38 80 30 119/66 (83) 99 06/28/25 03:23 80 06/28/25 03:11 80 13 110/62 (78) 99 06/28/25 03:06 14 99 Nasal Cannula* 6 44 06/28/25 03:03 98.7 117 17 97/57 (70) 97 98.7 06/28/25 02:59 125 06/28/25 02:57 80 06/28/25 02:51 97.8 109 20 102/66 97 97.8 Laboratory Tests Test 06/28/25 03:00 White Blood Count 7.7 10^3/uL (4.4-10.8) Medications Medications Dose Ordered Sig/Migue Route Start Time Stop Time Status Last Admin Dose Admin Amiodarone HCl 100 ml @ 600 mls/hr ONCE ONCE IV 06/28/25 03:00 06/28/25 03:09 DC 06/28/25 03:05 600 MLS/HR Amiodarone HCl 250 ml @ 33.33 mls/ hr Q7H31M ONCE IV 06/28/25 03:15 06/28/25 10:45 06/28/25 03:49 33.33 MLS/HR Morphine Sulfate 2 mg ONCE ONCE IV 06/28/25 03:00 06/28/25 03:01 DC 06/28/25 04:01 2 MG Ondansetron HCl 4 mg ONCE ONCE IV 06/28/25 03:00 06/28/25 03:01 DC 06/28/25 04:02 4 MG Potassium Chloride 40 meq ONCE ONCE PO 06/28/25 05:00 06/28/25 05:01 DC 06/28/25 05:04 40 MEQ Assessment/Plan Assessment/Plan Assessment: Ventricular tachyarrhythmia, Syncopal event, CHF, COPD, Diabetes, Hypertension, Hyperlipidemia, Hypothyroidism, Plan: Admit to SDU, Cardiology consult, IV amiodarone drip, Fall risk, Accu checks with sliding scale, Home medications reconciled, Plan discussed with: Patient, Spouse My Orders Orders - KRISTINA YOUSSEF FLOOR SWEEPER Procedure Category Date Status Time Admit ADMIT 06/28/25 Verified 07:49 Code Status CODE 06/28/25 Verified 07:49 Sodium Chloride Lock PHA 06/28/25 Verified (Saline Lock Ns) 14:00 Hydrocodone-Acet PHA 06/28/25 Verified 5/325mg Tab ([place] 08:00 Ondansetron Hcl PHA 06/28/25 Verified (Zofran) 08:00 Docusate Sodium PHA 06/28/25 Verified Capsule (Colace 08:00 Fall Risk Precautions CHARLI 06/28/[address] 07:49 Complete Blood Count LAB 06/29/25 Verified 04:00 Comprehensive LAB 06/29/25 Verified Metabolic Panel 04:00 Cardiac DIET 06/28/25 Verified Diet-2gna,Lofat,Lochol Breakfast Echo 2d Mode Cardiac US 06/28/25 Verified DOP 07:49 Condition: Critical CHARLI 06/28/25 Verified 07:49 Acetaminophen Tablet PHA 06/28/25 Verified (Tylenol Tablet) 08:00 Nitroglycerin PHA 06/28/25 Verified Sublingual (Ntrostat 08:00 Morphine Sulfate PHA 06/28/25 Verified Injection 08:00 Stat Ekg For Chest CHARLI 06/28/25 Verified Pain 07:49 Notify Of Changes CHARLI 06/28/25 Verified From Base 07:49 Drugless Doctor For CHARLI 06/28/25 Verified 24 Hours 07:49 Emergency Dysrhythmia [facility] 06/28/25 Verified Protocol 07:49 Rhythm Strips Once [facility] 06/28/25 Verified Every Shift 07:49 Oxygen By Nasal RT 06/28/25 Verified Cannula 07:49 Date of Service: Jun 28, 2025 Billing Provider: KRISTINA YOUSSEF Common Visit Codes: [id number] INP/OBS CARE (HIGH) KRISTINA YOUSSEF Jun 28, 2025 10:49
[2025-06-28] MEDS: ACCU-CHEK COMFORT CURVE STRIP VI SCH (11:56)
[2025-06-28] MEDS: InsuLIN REG 1unit/0.01ml Soln (100units/ml) SC SCH ×2 (12:02→21:51)
--- NOTE | 2025-06-28 13:12 | DVHPN2 ---
Progress Note Date Seen: Jun 28, 2025 Medical Necessity Reason Pt with a Central, PICC or Fol: No Subjective Patient reports: No new complaints Review of Systems: HEENT:Normal, CVS:Normal, RESPIRATORY:Normal, GI:Normal, :Normal, MSK:Normal, NEURO:Normal Objective vital signs Vital Sign Date Time Temp Pulse Resp B/P (MAP) Pulse Ox O2 Delivery O2 Flow Rate FiO2 06/28/25 12:59 80 06/28/25 12:30 16 106/65 (79) 99 06/28/25 10:37 97.8 97.8 06/28/25 08:50 2.0 06/28/25 07:30 Nasal Cannula* 28 Total Intake and Output 06/27/25 06/27/25 06/28/25 15:00 23:00 07:00 Intake Total 166.66 ml Balance 166.66 ml medications Current Medications Medications Dose Ordered Sig/Migue Route Start Time Stop Time Status Last Admin Dose Admin Amiodarone HCl 250 ml @ 16.66 mls/ hr Q15H1M IV 06/28/25 09:15 06/28/25 09:47 16.66 MLS/HR Sodium Chloride 10 ml Q8HR IV 06/28/25 14:00 Acetaminophen/ Hydrocodone Bitart 1 tab Q4HP PRN PO 06/28/25 08:00 Ondansetron HCl 4 mg Q4HP PRN IV 06/28/25 08:00 Docusate Sodium 100 mg BIDPRN PRN PO 06/28/25 08:00 Acetaminophen 650 mg Q6HP PRN PO 06/28/25 08:00 Nitroglycerin 0.4 mg Q5MINP PRN SL 06/28/25 08:00 Morphine Sulfate 2 mg Q30M PRN IV 06/28/25 08:00 Apixaban 2.5 mg BID PO 06/28/25 10:00 06/28/25 10:17 2.5 MG Ivabradine 5 mg BID PO 06/28/25 10:00 06/28/25 10:17 5 MG Levothyroxine Sodium 50 mcg QAM PO 06/29/25 07:00 Patient Own Medication 1 tab DAILY PO 06/28/25 10:00 UNV Patient Own Medication 1 tab QPM PO 06/28/25 18:00 UNV Patient Own Medication 1 mg BID PO 06/28/25 10:00 UNV Patient Own Medication 1 tab DAILY PO 06/28/25 10:00 UNV Patient Own Medication 5 mg DAILY PO 06/28/25 10:00 Patient Own Medication 200 mcg QAM PO 06/29/25 07:00 UNV Patient Own Medication 1 tab DAILY PO 06/28/25 10:00 Gabapentin 300 mg TID PO 06/28/25 14:00 Patient Own Medication 1 tab BID PO 06/28/25 10:00 UNV Ipratropium Raymond 0.5 mg Q4HPRN PRN NEB 06/28/25 08:45 Albuterol 2.5 mg Q4HPRN PRN NEB 06/28/25 08:45 Diagnostic Test (Pha) 1 strip ACHS 06/28/25 11:30 06/28/25 11:56 1 STRIP Insulin Human Regular HS SC 06/28/25 22:00 Insulin Human Regular AC SC 06/28/25 11:30 06/28/25 12:02 2 UNITS Dextrose 50 ml UD PRN IV 06/28/25 09:00 Amiodarone HCl 400 mg DAILY PO 06/29/25 10:00 Atorvastatin Calcium 80 mg HS PO 06/28/25 22:00 Bumetanide 1 mg BID PO 06/28/25 22:00 Cholecalciferol 2,000 unit DAILY PO 06/29/25 10:00 Glipizide 10 mg BID PO 06/28/25 22:00 Levothyroxine Sodium 200 mcg QAM@0600 PO 06/29/25 06:00 Examination: GENERAL:Normal, HEENT:Normal, NECK:Normal, LUNGS:Normal, CVS:Normal, ABDOMEN:Normal, MSK:Normal, MSK:Abnormal (left leg swelling), SKIN:Normal, NEURO:Normal, :Normal laboratory and microbiology Laboratory Tests 06/28/25 03:00 Test 06/28/25 03:00 Range/Units Serum Glucose 135 H 74-106 mg/dL Problem List/Assessment/Plan Problem List/Assessment/Plan #1 syncopy / vtach: amiodarone drip, cardio eval #2 hypokalemia: replace #3 cad s/p cabg/stent: cont meds #4 dm: ssi #5 copd with chronic resp failure #6 s/p aicd #7 ? 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 #12 hypothyroidism: check tsh #13 hyperlipidemia Plan discussed with: Patient My Orders My Orders Orders - HOLLY CARY MD Procedure Category Date Status Time Potassium LAB 06/28/25 Verified 13:01 Magnesium LAB 06/28/25 Verified 13:01 Urinalysis LAB 06/28/25 Uncollected 13:01 Complete Blood Count LAB 06/29/25 Verified 06:00 Comprehensive LAB 06/29/25 Verified Metabolic Panel 06:00 PTPTT LAB 06/29/25 Verified 04:00 Critical Care Time (mins): 38 (critical care time excluding procedures is 38 mins) Date of Service: Jun 28, 2025 Billing Provider: HOLLY CARY MD Common Visit Codes: [id number] CARE 30-74 MIN HOLLY CARY MD Jun 28, 2025 13:12
[2025-06-28 13:43] LABS: Potassium 2.6 mmol/L (3.5-5.1)
[2025-06-28 13:49] LABS: Magnesium 2.5 mg/dL (1.6-2.6)
[2025-06-28] MEDS: SODIUM CHLOR 0.9% PF (SALINE LOCK) 10ML VIAL/SYR IV SCH (14:00)
--- NOTE | 2025-06-28 14:17 | DVH ---
Left lower extremity venous duplex Clinical History: LEFT LEG DVT Comparison: US BILAT LOWER DVT on DOS: 08/12/23, US BILAT LOW EXT ART DUPLEX on DOS: 03/13/23, BILAT LOW EXT ART DUPLEX on DOS: 01/15/22 Findings: Duplex Doppler evaluation of the deep venous system of the left lower extremity from the common femoral vein to the popliteal vein including color Doppler and spectral/pulsed waveform analysis was performed. The common femoral vein demonstrates appropriate compressibility and waveform variability. There is compressibility/patency of the great saphenous vein at the proximal thigh. The femoral vein demonstrates appropriate compressibility and waveform variability. The deep femoral vein demonstrates appropriate compressibility and waveform variability. The popliteal vein demonstrates appropriate compressibility and waveform variability. There is normal compressibility at the tibioperoneal trunk. Impression: No left femoropopliteal venous thrombosis. If clinical concern/symptoms persist or worsen, short-interval follow-up study is suggested.
[2025-06-28] MEDS: GABAPENTIN 300 MG CAP PO SCH (14:40)
[2025-06-28] MEDS: MORPHINE SULFATE INJ 2 MG/ml SYRG IV PRN (15:52)
[2025-06-28] MEDS ORDERED: PATIENTS OWN MEDICATION (Atorvastatin Calcium 1 TAB) PO SCH (18:00)
[2025-06-28 19:17] VITALS: PULSE 80; RESP 12; O2SAT 100
[2025-06-28 19:26] VITALS: O2SAT 100
[2025-06-28 20:37] LABS: Urine Protein, UAD Negative (Negative)
[2025-06-28] MEDS: ONDANSETRON HCL 4 MG/2 ML VIAL IV PRN (21:31)
[2025-06-28] MEDS: ATORVASTATIN 20 MG TAB PO SCH (21:50)
[2025-06-28] MEDS: BUMETANIDE 1 MG TAB PO SCH (21:50)
[2025-06-28] MEDS ORDERED: glipiZIDE 5 MG TAB PO SCH (22:00)
[2025-06-28 23:40] VITALS: BP 106/63; PULSE 80; RESP 15; TEMP 97.5; O2SAT 98
[2025-06-29] VITALS (92 sets, daily range): BP systolic 41–117; BP diastolic 41–90; PULSE 79–118; RESP 10–96; TEMP 97.5–98.9; O2SAT 91–100
[2025-06-29 03:11] LABS: Hematocrit 28.2 % (41.0-53.0); Hemoglobin 9.3 g/dL (13.5-17.5); Mean Corpuscular Hemoglobin 26.4 pg (28.0-32.0); Mean Corpuscular Volume 80.3 fL (80.0-100.0); Nucleated Red Blood Cells % 0.0 %
[2025-06-29 03:16] LABS: INR 1.28 (0.9-1.15); Partial Thromboplastin Time 32.5 SEC (24.5-34.5); Prothrombin Time 13.2 sec (9.3-11.8)
[2025-06-29 03:24] LABS: Anion Gap 10 (5-15); BUN/Creatinine Ratio 21.8 (10.0-20.0); Glucose 100 mg/dL (74-106); Total Protein 6.5 g/dL (5.7-8.2)
[2025-06-29 03:25] LABS: Albumin 3.8 g/dL (3.2-4.8); Bilirubin, Total 0.7 mg/dL (0.2-1.0)
[2025-06-29 03:31] LABS: Alanine Aminotransferase 45 U/L (7-40); Alkaline Phosphatase 164 U/L (46-116); Blood Urea Nitrogen 36 mg/dL (9-23); Calcium 8.5 mg/dL (8.7-10.4); Carbon Dioxide 35 mmol/L (20-31); Chloride 85 mmol/L (98-107); Potassium 3.2 mmol/L (3.5-5.1); Sodium 130 mmol/L (136-145)
[2025-06-29] MEDS: AMIODARONE BOLUS KIT 100 ML IV ONE ×2 (04:53→07:26)
[2025-06-29 05:22] LABS: Mean Corpuscular Hemoglobin 26.5 pg (28.0-32.0)
[2025-06-29 05:24] LABS: Hematocrit 31.4 % (41.0-53.0); Hemoglobin 9.9 g/dL (13.5-17.5); Mean Corpuscular Volume 83.9 fL (80.0-100.0); Nucleated Red Blood Cells % 0.6 %
[2025-06-29 05:28] LABS: Albumin 3.9 g/dL (3.2-4.8); Anion Gap 18 (5-15); BUN/Creatinine Ratio 19.0 (10.0-20.0); Carbon Dioxide 26 mmol/L (20-31); Magnesium 2.6 mg/dL (1.6-2.6); Total Protein 6.8 g/dL (5.7-8.2)
[2025-06-29 05:29] LABS: Bilirubin, Total 0.7 mg/dL (0.2-1.0)
[2025-06-29 05:34] LABS: Alanine Aminotransferase 53 U/L (7-40); Alkaline Phosphatase 173 U/L (46-116); Blood Urea Nitrogen 34 mg/dL (9-23); Calcium 8.3 mg/dL (8.7-10.4); Chloride 85 mmol/L (98-107); Glucose 181 mg/dL (74-106); Potassium 3.2 mmol/L (3.5-5.1); Sodium 129 mmol/L (136-145)
[2025-06-29 05:43] LABS: Lactic Acid w/Reflex 9.1 mmol/L (0.4-2.0)
[2025-06-29] MEDS: POTASSIUM EFFERVESENT TAB 25 MEQ PO ONE (05:59)
[2025-06-29] MEDS: NOREPINEPHRINE 8 MG/250ML KIT 250 ML IV ONE (06:07)
[2025-06-29] MEDS: POTASSIUM EFFERVESENT TAB 25 MEQ ONE (06:07)
[2025-06-29] MEDS: ETOMIDATE (2MG/ML) 20ML VIAL IV ONE (06:07)
[2025-06-29] MEDS: MIDAZOLAM DRIP 100 mg/100mL NS 100 ML IV ONE (06:07)
[2025-06-29] MEDS: NOREPINEPHRINE 8 MG/250ML KIT 250 ML IV SCH (06:08)
--- NOTE | 2025-06-29 06:17 | RESUS ---
CODE BLUE ASSESSSMENT History of Events History of Events: Patient was found to be in asymptomatic vtach, amio bolus was initated but pt became unresponsive and CPR was initiated Initial Information Date: Jun 29, 2025 Time: 04:29 Location of Arrest: [place] [facility] Witnessed: Yes CPR started by whom: Hospital Staff Pre-Hospital Care: ACLS Type of arrest: Cardiac, Respiratory, Adult, Witnessed Spontaneous Respirations: Yes Pulse Present: No Monitoring: ECG Crash Cart Opened and Supplies: Yes Airway Ventilation Breathing at Onset: Assisted Oxygen Delivery Method: Ambu-Bag Time of first Assisted Ventila: 04:29 Artificial Ventilation: Bag/Mask Intubation Time: 04:32 Intubation Size: 8.0 cuffed Intubated by: Matias RECREATION WORKER Intubated orally: Yes Tube secured at: 25 Suctioning (Oral/Tracheal): Yes Comments: Pt immediatley self extubated Circulation Circulation #1: Time: 04:29 Pulse Rate (adult): 144 Blood Pressure Systolic: 68 Blood Pressure Diastolic: 46 Circulation Comment: CPR initated Circulation #2: Time: 04:31 Pulse Rate (adult): 180 Circulation Comment: Pulseless Vtach Shocked Circulation #3: Time: 04:32 Pulse Rate (adult): 98 Circulation Comment: ROSC Defibrillation Defbrillation : Time Defibrillator Applied: :31 EKG Rhythm: V-Tachycardia Compressions: Manual Defib. Joules: 120 Pulse Present: Yes EKG Rhythm: Sinus Rhythm Procedure - IV Procedure - IV : Comment IV present before code Medications & Response Medications and Responses : ADULT Medications Given ADULT: Epinephrine 1 mg Route of Administration: IV EKG Rhythm: PEA Nurses Notes [place] Coma Scale Eye Opening: Spontaneous (4) [place] Coma Scale Verbal: Oriented (5) [place] Coma Scale Motor: Obeys Commands (6) [place] Total: 15 Pupil Reaction: RON Bedside Blood Glucose: 120 EKG Rhythm: Sinus Rhythm Nurses Notes - Comment: After ROSC, patient immediatley awake, able to listen and follow commands. Time Code Ended Time Code Ended: 04:22 Post Arrest Status: Awake Outcome of code: Successful Family notified: Yes Attending called: Yes Code Team Present: Matias RECREATION WORKER, Raquel Roberson RN, Silverio RN, Akilah RN, Patrick CCT, Wes HERRERA CCT Post Resuscitation Neurologica Pupil Size: 4 Comment: ANEUDY ROSC Time of ROSC: 04:32 Pt Meets Criteria for Therapeu: CESAR Arevalo Jun 29, 2025 06:17
--- NOTE | 2025-06-29 06:31 | DVH ---
CHEST RADIOGRAPH INDICATION: S/P CPR TECHNIQUE: Single frontal view of the chest was obtained COMPARISON: XY CHEST XRAY 1 VIEW on DOS: 06/28/25 FINDINGS: Lines and Tubes: There is a right central venous catheter with its tip terminating in the superior vena cava. AICD/pacemaker is noted. Lungs: Pulmonary congestion noted. Pleura: No effusion. No pneumothorax. Cardiomediastinal contours: Cardiomegaly. Bones: No acute osseous abnormality. Widening of the bilateral AC joints. IMPRESSION: 1. Cardiomegaly and pulmonary vascular congestion.
[2025-06-29] MEDS: POTASSIUM CHL 20MEQ/100ML 100 ML IV ONE ×2 (06:42→13:33)
[2025-06-29] MEDS ORDERED: PATIENTS OWN MEDICATION (Levothyroxine Sodium 200 MCG) PO SCH (07:00)
[2025-06-29] MEDS ORDERED: LEVOTHYROXINE SODIUM 50 MCG TAB PO SCH (07:00)
[2025-06-29 07:41] LABS: Urine Budding Yeast OCCASIONAL /hpf (None Seen); Urine Protein, UAD 2+ (Negative)
[2025-06-29] MEDS ORDERED: KETOROLAC TROMETH 30 MG/ML 1ML VIAL IV ONE (08:15)
[2025-06-29] MEDS: AMIODARONE HCL 200 MG TAB PO SCH (08:32)
[2025-06-29] MEDS: KETOROLAC TROMETH 30 MG/ML 1ML VIAL IV ONE (09:00)
[2025-06-29] MEDS: KETOROLAC TROMETH 30 MG/ML 1ML VIAL ONE (09:11)
[2025-06-29 10:37] LABS: INR 1.23 (0.9-1.15); Partial Thromboplastin Time 28.9 SEC (24.5-34.5); Prothrombin Time 12.8 sec (9.3-11.8)
[2025-06-29 10:41] LABS: Potassium 3.8 mmol/L (3.5-5.1)
--- NOTE | 2025-06-29 10:42 | DVHPN2 ---
Progress Note Date Seen: Jun 29, 2025 Medical Necessity Reason Pt with a Central, PICC or Fol: No Subjective Patient reports: No new complaints Review of Systems: HEENT:Normal, CVS:Normal, RESPIRATORY:Normal, GI:Normal, :Normal, MSK:Normal, NEURO:Normal Objective vital signs Vital Sign Date Time Temp Pulse Resp B/P (MAP) Pulse Ox O2 Delivery O2 Flow Rate FiO2 06/29/25 08:18 98 Nasal Cannula* 2 28 06/29/25 07:22 98 06/29/25 07:00 13 104/62 (76) 06/29/25 04:00 97.8 97.8 Total Intake and Output 06/28/25 06/28/25 06/29/25 15:00 23:00 07:00 Intake Total 224.95 ml 49.98 ml 346.64 ml Output Total 300 ml Balance 224.95 ml 49.98 ml 46.64 ml medications Current Medications Medications Dose Ordered Sig/Migue Route Start Time Stop Time Status Last Admin Dose Admin Amiodarone HCl 250 ml @ 16.66 mls/ hr Q15H1M IV 06/28/25 09:15 06/29/25 08:22 16.66 MLS/HR Sodium Chloride 10 ml Q8HR IV 06/28/25 14:00 06/29/25 06:32 10 ML Acetaminophen/ Hydrocodone Bitart 1 tab Q4HP PRN PO 06/28/25 08:00 Ondansetron HCl 4 mg Q4HP PRN IV 06/28/25 08:00 06/28/25 21:31 4 MG Docusate Sodium 100 mg BIDPRN PRN PO 06/28/25 08:00 Acetaminophen 650 mg Q6HP PRN PO 06/28/25 08:00 Nitroglycerin 0.4 mg Q5MINP PRN SL 06/28/25 08:00 Morphine Sulfate 2 mg Q30M PRN IV 06/28/25 08:00 06/28/25 21:30 2 MG Apixaban 2.5 mg BID PO 06/28/25 10:00 06/28/25 21:50 2.5 MG Ivabradine 5 mg BID PO 06/28/25 10:00 06/28/25 21:50 5 MG Patient Own Medication 1 tab DAILY PO 06/28/25 10:00 UNV Patient Own Medication 1 tab QPM PO 06/28/25 18:00 UNV Patient Own Medication 1 mg BID PO 06/28/25 10:00 UNV Patient Own Medication 1 tab DAILY PO 06/28/25 10:00 UNV Patient Own Medication 5 mg DAILY PO 06/28/25 10:00 Patient Own Medication 200 mcg QAM PO 06/29/25 07:00 UNV Patient Own Medication 1 tab DAILY PO 06/28/25 10:00 Gabapentin 300 mg TID PO 06/28/25 14:00 06/28/25 21:49 300 MG Patient Own Medication 1 tab BID PO 06/28/25 10:00 UNV Ipratropium [place] 0.5 mg Q4HPRN PRN NEB 06/28/25 08:45 Albuterol 2.5 mg Q4HPRN PRN NEB 06/28/25 08:45 Diagnostic Test (Pha) 1 strip ACHS 06/28/25 11:30 06/29/25 09:11 1 STRIP Insulin Human Regular HS SC 06/28/25 22:00 06/28/25 21:51 2 UNITS Insulin Human Regular AC SC 06/28/25 11:30 06/28/25 17:16 2 UNITS Dextrose 50 ml UD PRN IV 06/28/25 09:00 Amiodarone HCl 400 mg DAILY PO 06/29/25 10:00 Atorvastatin Calcium 80 mg HS PO 06/28/25 22:00 06/28/25 21:50 80 MG Bumetanide 1 mg BID PO 06/28/25 22:00 06/28/25 21:50 1 MG Cholecalciferol 2,000 unit DAILY PO 06/29/25 10:00 Levothyroxine Sodium 200 mcg QAM@0600 PO 06/29/25 06:00 Levothyroxine Sodium 50 mcg QAM@0600 PO 06/29/25 06:00 Norepinephrine Bitartrate 250 ml @ 3.75 mls/hr Q24H IV 06/29/25 05:15 Examination: GENERAL:Normal, HEENT:Normal, NECK:Normal, LUNGS:Normal, CVS:Normal, ABDOMEN:Normal, MSK:Normal, SKIN:Normal, NEURO:Normal, :Normal laboratory and microbiology Laboratory Tests 06/29/25 04:40 Test 06/29/25 04:40 Range/Units Serum Glucose 181 H 74-106 mg/dL Problem List/Assessment/Plan Problem List/Assessment/Plan #1 syncopy / vtach: amiodarone drip, cardio eval #2 hypokalemia: replace #3 cad s/p cabg/stent: cont meds #4 dm: ssi #5 copd with chronic resp failure #6 s/p aicd #7 ? 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
[2025-06-29 10:48] LABS: Magnesium 2.3 mg/dL (1.6-2.6)
[2025-06-29] MEDS: LEVOTHYROXINE SODIUM 100 MCG TAB PO SCH (11:49)
[2025-06-29] MEDS: LEVOTHYROXINE SODIUM 50 MCG TAB PO SCH (11:49)
[2025-06-29] MEDS: CHOLECALCIFEROL (VITD3) 1,000UNIT=25mCg TAB PO SCH (11:50)
[2025-06-29] MEDS: ACETAMINOPHEN 325 MG TAB PO PRN (16:00)
[2025-06-29] MEDS: APIXABAN 2.5 MG TAB PO SCH (16:15)
[2025-06-29] MEDS: MUPIROCIN 2% OINT 15gm or 22gm FOR MRSA NARES EACHNOSTRI SCH (22:01)
[2025-06-30] VITALS (102 sets, daily range): BP systolic 92–128; BP diastolic 53–69; PULSE 80–83; RESP 10–23; TEMP 97.7–98.9; O2SAT 92–100
[2025-06-30] MEDS: DOCUSATE SOD 100 MG CAP PO PRN
[2025-06-30] MEDS: POTASSIUM CHL 20 Meq TABLET PO ONE (00:01)
[2025-06-30 03:26] LABS: Hemoglobin 9.4 g/dL (13.5-17.5); Nucleated Red Blood Cells % 0.1 %
[2025-06-30 03:28] LABS: Hematocrit 28.5 % (41.0-53.0); Mean Corpuscular Hemoglobin 26.6 pg (28.0-32.0); Mean Corpuscular Volume 80.6 fL (80.0-100.0)
[2025-06-30 03:41] LABS: Albumin 3.7 g/dL (3.2-4.8); Anion Gap 10 (5-15); BUN/Creatinine Ratio 17.2 (10.0-20.0); Bilirubin, Total 0.9 mg/dL (0.2-1.0); Carbon Dioxide 31 mmol/L (20-31); Magnesium 2.3 mg/dL (1.6-2.6); Potassium 3.5 mmol/L (3.5-5.1); Total Protein 6.5 g/dL (5.7-8.2)
[2025-06-30 03:45] LABS: Alanine Aminotransferase 47 U/L (7-40); Alkaline Phosphatase 168 U/L (46-116); Blood Urea Nitrogen 36 mg/dL (9-23); Calcium 8.4 mg/dL (8.7-10.4); Chloride 84 mmol/L (98-107); Glucose 129 mg/dL (74-106); Sodium 125 mmol/L (136-145)
[2025-06-30] MEDS: POTASSIUM EFFERVESENT TAB 25 MEQ PO ONE (04:35)
[2025-06-30] MEDS: SOD CHL 0.9%/ KCL 20MEQ 1,000 ML IV ONE (04:58)
--- NOTE | 2025-06-30 05:09 | DVH ---
CHEST RADIOGRAPH INDICATION: CHF TECHNIQUE: 1 view COMPARISON: XY CHEST PORTABLE on DOS: 06/29/25, XY CHEST XRAY 1 VIEW on DOS: 06/28/25, XY CHEST PORTABLE on DOS: 06/10/25, XY CHEST PORTABLE on DOS: 06/10/25, XY CHEST PORTABLE on DOS: 12/28/23 FINDINGS: Lines and Tubes: Unchanged. Lungs/Pleura: Unchanged. Cardiomediastinum: Unchanged. Other: Unchanged osseous structures. IMPRESSION: 1. No significant change from the previous study. Post CABG chest with heart failure pattern.
[2025-06-30] MEDS: ALBUTEROL SULF 2.5 MG/0.5ML(0.5%) NEB SOLN NEB PRN (07:34)
[2025-06-30] MEDS: IPRATROPIUM BROM 0.5 MG/2.5ML INH SOL NEB PRN (07:34)
--- NOTE | 2025-06-30 12:20 | DVHPN2 ---
Progress Note Date Seen: Jun 30, 2025 Medical Necessity Reason Pt with a Central, PICC or Fol: Yes The following are medically ne: Ortiz Catheter Reason for ortiz catheter: Strict I&O Subjective Patient reports: No new complaints Review of Systems: HEENT:Normal, CVS:Normal, RESPIRATORY:Normal, GI:Normal, :Normal, MSK:Normal, NEURO:Normal Objective vital signs Vital Sign Date Time Temp Pulse Resp B/P (MAP) Pulse Ox O2 Delivery O2 Flow Rate FiO2 06/30/25 10:30 80 17 104/57 (73) 93 06/30/25 10:26 Nasal Cannula* 2 28 06/30/25 08:00 98.6 98.6 Total Intake and Output 06/29/25 06/29/25 06/30/25 15:00 23:00 07:00 Intake Total 152.03 ml 633.75 ml 830.00 ml Output Total 600 ml 800 ml Balance 152.03 ml 33.75 ml 30.00 ml medications Current Medications Medications Dose Ordered Sig/Migue Route Start Time Stop Time Status Last Admin Dose Admin Sodium Chloride 10 ml Q8HR IV 06/28/25 14:00 06/30/25 06:00 10 ML Acetaminophen/ Hydrocodone Bitart 1 tab Q4HP PRN PO 06/28/25 08:00 Ondansetron HCl 4 mg Q4HP PRN IV 06/28/25 08:00 06/28/25 21:31 4 MG Docusate Sodium 100 mg BIDPRN PRN PO 06/28/25 08:00 06/30/25 00:00 100 MG Acetaminophen 650 mg Q6HP PRN PO 06/28/25 08:00 06/30/25 00:00 650 MG Nitroglycerin 0.4 mg Q5MINP PRN SL 06/28/25 08:00 Morphine Sulfate 2 mg Q30M PRN IV 06/28/25 08:00 06/28/25 21:30 2 MG Ivabradine 5 mg BID PO 06/28/25 10:00 06/30/25 08:52 5 MG Patient Own Medication 1 tab DAILY PO 06/28/25 10:00 UNV Patient Own Medication 1 tab QPM PO 06/28/25 18:00 UNV Patient Own Medication 1 mg BID PO 06/28/25 10:00 UNV Patient Own Medication 1 tab DAILY PO 06/28/25 10:00 UNV Patient Own Medication 5 mg DAILY PO 06/28/25 10:00 06/30/25 08:49 5 MG Patient Own Medication 200 mcg QAM PO 06/29/25 07:00 UNV Patient Own Medication 1 tab DAILY PO 06/28/25 10:00 06/30/25 08:50 1 TAB Gabapentin 300 mg TID PO 06/28/25 14:00 06/30/25 05:35 300 MG Patient Own Medication 1 tab BID PO 06/28/25 10:00 UNV Ipratropium [place] 0.5 mg Q4HPRN PRN NEB 06/28/25 08:45 06/30/25 07:34 0.5 MG Albuterol 2.5 mg Q4HPRN PRN NEB 06/28/25 08:45 06/30/25 07:34 2.5 MG Diagnostic Test (Pha) 1 strip ACHS 06/28/25 11:30 06/30/25 06:41 1 STRIP Insulin Human Regular HS SC 06/28/25 22:00 06/29/25 22:11 3 UNITS Insulin Human Regular AC SC 06/28/25 11:30 06/30/25 06:41 2 UNITS Dextrose 50 ml UD PRN IV 06/28/25 09:00 Amiodarone HCl 400 mg DAILY PO 06/29/25 10:00 06/30/25 08:51 400 MG Atorvastatin Calcium 80 mg HS PO 06/28/25 22:00 06/29/25 22:02 80 MG Bumetanide 1 mg BID PO 06/28/25 22:00 06/30/25 08:55 1 MG Cholecalciferol 2,000 unit DAILY PO 06/29/25 10:00 06/30/25 08:48 2,000 UNIT Levothyroxine Sodium 200 mcg QAM@0600 PO 06/29/25 06:00 06/30/25 05:37 200 MCG Levothyroxine Sodium 50 mcg QAM@0600 PO 06/29/25 06:00 06/30/25 05:35 50 MCG Norepinephrine Bitartrate 250 ml @ 3.75 mls/hr Q24H IV 06/29/25 05:15 06/29/25 12:00 3.75 MLS/HR Apixaban 2.5 mg BID PO 06/29/25 16:15 Mupirocin 1 applic BID EACHNOSTRI 06/29/25 22:00 07/04/25 21:59 06/30/25 08:47 1 APPLIC Examination: GENERAL:Normal, HEENT:Normal, NECK:Normal, LUNGS:Normal, LUNGS:Abnormal (on oxygen), CVS:Normal, ABDOMEN:Normal, MSK:Normal, SKIN:Normal, NEURO:Normal, :Normal laboratory and microbiology Laboratory Tests 06/30/25 02:44 Test 06/30/25 02:44 Range/Units Serum Glucose 129 H 74-106 mg/dL Microbiology Date/Time Source Procedure Growth Status 06/29/25 02:00 Nose MRSA Screen - Final Methicillin Resistant S.aureus Complete Problem List/Assessment/Plan Problem List/Assessment/Plan #1 syncopy / vtach: amiodarone drip, cardio eval #2 hypokalemia: replace #3 cad s/p cabg/stent: cont meds #4 dm: ssi #5 copd with chronic resp failure #6 s/p aicd #7 ? 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 #12 hypothyroidism: check tsh #13 hyperlipidemia #14 S/P cpr/vtach: dw dr Camargo, replace aicd battery in am #15 hyponatremia: ns for 250 ml advance care planning- full code- time spent 18 mins Plan discussed with: Patient, Spouse My Orders My Orders Orders - HOLLY CARY MD Procedure Category Date Status Time Tap Water Enema ORDERS 06/29/25 Transmitted 18:56 NS PHA 06/30/25 Verified 12:15 Basic Metabolic Panel LAB 07/01/25 Verified 06:00 Date of Service: Jun 30, 2025 Billing Provider: HOLLY CARY MD Common Visit Codes: [id number] INP/OBS CARE(HIGH) Secondary Visit Codes: [id number] CARE PLAN 30 MINUTES HOLYL CARY MD Jun 30, 2025 12:20
[2025-06-30] MEDS: SODIUM CHLORIDE 0.9% 250 ML IV ONE (12:55)
--- NOTE | 2025-06-30 13:53 | ECG ---
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
--- NOTE | 2025-06-30 14:19 | DVHPN2 ---
Progress Note - Dictate Date Seen: Jun 29, 2025 Medical Necessity Reason Pt with a Central, PICC or Fol: Yes The following are medically ne: Ortiz Catheter Reason for ortiz catheter: Strict I&O Subjective PT WITH SS COMPLEX OF NEAR SYNCOPE CHEST PAIN HYPOKALEMIA NOW WITH VT SECONDARY TO HYPOKALEMIA SEVERAL DAYS OF DIARRHEA GASTROENTERIS BECAUSE OF HYPOKALEMIA DEVELOPED VT REQUIREING RESSUSCITATION PT ALERT POST RESUSCITATION A 79 years old with history of: * Organic heart disease: A. Coronary artery disease. B. Coronary artery bypass grafting. C. Ischemic cardiomyopathy. D. Multivessel angioplasty. E. BiV AICD implantation. * History of tobacco use continues. * Advanced COPD. He continues to smoke. * Heart failure with reduced ejection fraction. * Ischemic cardiomyopathy. Now the patient with abdominal aortic aneurysm, peripheral vascular disease, now to undergo abdominal aortic aneurysm repair. The patient also has mild renal insufficiency, chronic kidney disease stage II/III and the patient with a creatinine of 1.79. Therefore, adequate measures will be taken prior to intervention because high dye load may be required. Risks and benefits were explained to the patient. The patient understands even though he does not have any bleeding diathesis, high risk for bleeding from abdominal aortic aneurysm repair especially groin repair and perforation. S/P AAA STENT GRAFT PLACEMENT vital signs Vital Sign Date Time Temp Pulse Resp B/P (MAP) Pulse Ox O2 Delivery O2 Flow Rate FiO2 06/30/25 10:30 80 17 104/57 (73) 93 06/30/25 10:26 Nasal Cannula* 2 28 06/30/25 08:00 98.6 98.6 Total Intake and Output 06/29/25 06/29/25 06/30/25 15:00 23:00 07:00 Intake Total 152.03 ml 633.75 ml 830.00 ml Output Total 600 ml 800 ml Balance 152.03 ml 33.75 ml 30.00 ml medications Current Medications Medications Dose Ordered Sig/Migue Route Start Time Stop Time Status Last Admin Dose Admin Sodium Chloride 10 ml Q8HR IV 06/28/25 14:00 06/30/25 12:55 10 ML Acetaminophen/ Hydrocodone Bitart 1 tab Q4HP PRN PO 06/28/25 08:00 Ondansetron HCl 4 mg Q4HP PRN IV 06/28/25 08:00 06/28/25 21:31 4 MG Docusate Sodium 100 mg BIDPRN PRN PO 06/28/25 08:00 06/30/25 00:00 100 MG Acetaminophen 650 mg Q6HP PRN PO 06/28/25 08:00 06/30/25 12:54 650 MG Nitroglycerin 0.4 mg Q5MINP PRN SL 06/28/25 08:00 Morphine Sulfate 2 mg Q30M PRN IV 06/28/25 08:00 06/28/25 21:30 2 MG Ivabradine 5 mg BID PO 06/28/25 10:00 06/30/25 08:52 5 MG Patient Own Medication 1 tab DAILY PO 06/28/25 10:00 UNV Patient Own Medication 1 tab QPM PO 06/28/25 18:00 UNV Patient Own Medication 1 mg BID PO 06/28/25 10:00 UNV Patient Own Medication 1 tab DAILY PO 06/28/25 10:00 UNV Patient Own Medication 5 mg DAILY PO 06/28/25 10:00 06/30/25 08:49 5 MG Patient Own Medication 200 mcg QAM PO 06/29/25 07:00 UNV Patient Own Medication 1 tab DAILY PO 06/28/25 10:00 06/30/25 08:50 1 TAB Gabapentin 300 mg TID PO 06/28/25 14:00 06/30/25 12:54 300 MG Patient Own Medication 1 tab BID PO 06/28/25 10:00 UNV Ipratropium [place] 0.5 mg Q4HPRN PRN NEB 06/28/25 08:45 06/30/25 07:34 0.5 MG Albuterol 2.5 mg Q4HPRN PRN NEB 06/28/25 08:45 06/30/25 07:34 2.5 MG Diagnostic Test (Pha) 1 strip ACHS 06/28/25 11:30 06/30/25 12:55 1 STRIP Insulin Human Regular HS SC 06/28/25 22:00 06/29/25 22:11 3 UNITS Insulin Human Regular AC SC 06/28/25 11:30 06/30/25 13:05 3 UNITS Dextrose 50 ml UD PRN IV 06/28/25 09:00 Amiodarone HCl 400 mg DAILY PO 06/29/25 10:00 06/30/25 08:51 400 MG Atorvastatin Calcium 80 mg HS PO 06/28/25 22:00 06/29/25 22:02 80 MG Cholecalciferol 2,000 unit DAILY PO 06/29/25 10:00 06/30/25 08:48 2,000 UNIT Levothyroxine Sodium 200 mcg QAM@0600 PO 06/29/25 06:00 06/30/25 05:37 200 MCG Levothyroxine Sodium 50 mcg QAM@0600 PO 06/29/25 06:00 06/30/25 05:35 50 MCG Norepinephrine Bitartrate 250 ml @ 3.75 mls/hr Q24H IV 06/29/25 05:15 06/29/25 12:00 3.75 MLS/HR Apixaban 2.5 mg BID PO 06/29/25 16:15 Mupirocin 1 applic BID EACHNOSTRI 06/29/25 22:00 07/04/25 21:59 06/30/25 08:47 1 APPLIC objective PHYSICAL EXAMINATION: VITAL SIGNS: Blood pressure is 128/84. Pulse is 77. O2 saturation 94% on 2 liters. HEENT: Pupils are reactive. Funduscopic exam shows some AV nicking, some exudates. No papilledema. Sclerae anicteric. Extraocular muscles are intact. NECK: No JVD appreciated. Carotid pulses are 2+ and symmetrical. No cervical adenopathy. No supraclavicular adenopathy. PULMONARY: Scattered rhonchi throughout. CARDIOVASCULAR: Regular rate. PMI is diffuse laterally displaced. ABDOMEN: Obese. Unable to appreciate organomegaly. EXTREMITIES: 2+ pulses bilaterally. laboratory and microbiology Laboratory Tests 06/30/25 12:43 06/30/25 02:44 Test 06/30/25 02:44 Range/Units Serum Glucose 129 H 74-106 mg/dL Problem List PT WITH SS COMPLEX OF NEAR SYNCOPE CHEST PAIN HYPOKALEMIA NOW WITH VT SECONDARY TO HYPOKALEMIA SEVERAL DAYS OF DIARRHEA GASTROENTERIS BECAUSE OF HYPOKALEMIA DEVELOPED VT REQUIREING RESSUSCITATION PT ALERT POST RESUSCITATION A 79 years old with history of: * Organic heart disease: A. Coronary artery disease. B. Coronary artery bypass grafting. C. Ischemic cardiomyopathy. D. Multivessel angioplasty. E. BiV AICD implantation. * History of tobacco use continues. * Advanced COPD. He continues to smoke. * Heart failure with reduced ejection fraction. * Ischemic cardiomyopathy. Now the patient with abdominal aortic aneurysm, peripheral vascular disease, now to undergo abdominal aortic aneurysm repair. The patient also has mild renal insufficiency, chronic kidney disease stage II/III and the patient with a creatinine of 1.79. Therefore, adequate measures will be taken prior to intervention because high dye load may be required. Risks and benefits were explained to the patient. The patient understands even though he does not have any bleeding diathesis, high risk for bleeding from abdominal aortic aneurysm repair especially groin repair and perforation. S/P AAA STENT GRAFT PLACEMENT Assessment/Plan CORRECT K DC AMIODARONE DRIP AICD GENERATOR CHANGE Plan discussed with: Patient Critical Care Time(min): 35 MIRIAN VALENTINO MD Jun 30, 2025 14:19
[2025-06-30] MEDS: POTASSIUM CHL 20MEQ/100ML 100 ML IV SCH (15:21)
[2025-06-30 22:40] LABS: Potassium 4.2 mmol/L (3.5-5.1)
[2025-06-30 22:47] LABS: Magnesium 2.1 mg/dL (1.6-2.6)
[2025-07-01] VITALS (62 sets, daily range): BP systolic 89–115; BP diastolic 39–69; PULSE 75–93; RESP 10–24; TEMP 97–98.8; O2SAT 95–100
[2025-07-01 02:09] LABS: Hemoglobin 8.9 g/dL (13.5-17.5); Mean Corpuscular Hemoglobin 25.9 pg (28.0-32.0); Nucleated Red Blood Cells % 0.0 %
[2025-07-01 02:10] LABS: Hematocrit 27.7 % (41.0-53.0); Mean Corpuscular Volume 80.8 fL (80.0-100.0)
[2025-07-01 02:24] LABS: Potassium 3.9 mmol/L (3.5-5.1)
[2025-07-01 02:25] LABS: Anion Gap 7 (5-15)
[2025-07-01 02:26] LABS: Calcium 8.2 mg/dL (8.7-10.4); Carbon Dioxide 32 mmol/L (20-31); Chloride 90 mmol/L (98-107); Sodium 129 mmol/L (136-145)
[2025-07-01 02:30] LABS: BUN/Creatinine Ratio 21.9 (10.0-20.0); Blood Urea Nitrogen 39 mg/dL (9-23); Glucose 126 mg/dL (74-106)
[2025-07-01 02:31] LABS: INR 1.34 (0.9-1.15); Magnesium 2.1 mg/dL (1.6-2.6); Partial Thromboplastin Time 32.4 SEC (24.5-34.5); Prothrombin Time 13.8 sec (9.3-11.8)
[2025-07-01] MEDS: POTASSIUM CHL 20MEQ/100ML 100 ML IV ONE (05:45)
--- NOTE | 2025-07-01 06:30 | DVH ---
CHEST RADIOGRAPH INDICATION: PULMONARY VASCULAR CONGESTION TECHNIQUE: Single frontal view of the chest was obtained COMPARISON: XY CHEST PORTABLE on DOS: 06/30/25. FINDINGS: Lines and Tubes: Right central venous catheter terminates in the superior vena cava. AICD/pacemaker. Lungs: Bilateral interstitial prominence. Pleura: No effusion. No pneumothorax. Cardiomediastinal contours: Cardiomegaly. Neurostimulator overlying the lower thoracic spine. Bones: No acute osseous abnormality. Status post median sternotomy. Uppermost sternal wires are fractured. IMPRESSION: 1. Cardiomegaly with mild pulmonary vascular congestion.
[2025-07-01] MEDS ORDERED: EPINEPHrine HCL 1 MG/10 ML SYRG IV ONE (11:09)
[2025-07-01] MEDS: VANCOMYCIN HCL 1000 MG VL ONE (11:52)
[2025-07-01] MEDS: MIDAZOLAM HCL 2MG/2ML 2ml VIAL (1mg/ml) ONE (11:52)
[2025-07-01] MEDS: fentaNYL CITRATE 100 MCG/2 ML VL ONE (11:52)
[2025-07-01] MEDS: LIDOCAINE 2%HCL (LOCAL ANESTH.) INJ 20ML MDV ONE ×2 (11:53→12:38)
[2025-07-01] MEDS: ceFAZolin 1GM/50ML 50 ML IV ONE (11:53)
--- NOTE | 2025-07-01 12:36 | ECG ---
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
--- NOTE | 2025-07-01 12:37 | ECG ---
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
--- NOTE | 2025-07-01 13:15 | DVHPN2 ---
Progress Note - Dictate Date Seen: Jul 01, 2025 Medical Necessity Reason Pt with a Central, PICC or Fol: Yes The following are medically ne: Ortiz Catheter Reason for ortiz catheter: Strict I&O Subjective PT WITH SS COMPLEX OF NEAR SYNCOPE CHEST PAIN HYPOKALEMIA NOW WITH VT SECONDARY TO HYPOKALEMIA SEVERAL DAYS OF DIARRHEA GASTROENTERIS BECAUSE OF HYPOKALEMIA DEVELOPED VT REQUIREING RESSUSCITATION PT ALERT POST RESUSCITATION A 79 years old with history of: * Organic heart disease: A. Coronary artery disease. B. Coronary artery bypass grafting. C. Ischemic cardiomyopathy. D. Multivessel angioplasty. E. BiV AICD implantation. * History of tobacco use continues. * Advanced COPD. He continues to smoke. * Heart failure with reduced ejection fraction. * Ischemic cardiomyopathy. Now the patient with abdominal aortic aneurysm, peripheral vascular disease, now to undergo abdominal aortic aneurysm repair. The patient also has mild renal insufficiency, chronic kidney disease stage II/III and the patient with a creatinine of 1.79. Therefore, adequate measures will be taken prior to intervention because high dye load may be required. Risks and benefits were explained to the patient. The patient understands even though he does not have any bleeding diathesis, high risk for bleeding from abdominal aortic aneurysm repair especially groin repair and perforation. S/P AAA STENT GRAFT PLACEMENT vital signs Vital Sign Date Time Temp Pulse Resp B/P (MAP) Pulse Ox O2 Delivery O2 Flow Rate FiO2 07/01/25 08:00 98.0 80 22 112/68 (83) 99 98.0 07/01/25 08:00 Nasal Cannula* 2 28 Total Intake and Output 06/30/25 06/30/25 07/01/25 14:59 22:59 06:59 Intake Total 132.50 ml 1275 ml 480 ml Output Total 2300 ml 1700 ml Balance 132.50 ml -1025 ml -1220 ml medications Current Medications Medications Dose Ordered Sig/Migue Route Start Time Stop Time Status Last Admin Dose Admin Sodium Chloride 10 ml Q8HR IV 06/28/25 14:00 07/01/25 05:38 10 ML Acetaminophen/ Hydrocodone Bitart 1 tab Q4HP PRN PO 06/28/25 08:00 Ondansetron HCl 4 mg Q4HP PRN IV 06/28/25 08:00 06/28/25 21:31 4 MG Docusate Sodium 100 mg BIDPRN PRN PO 06/28/25 08:00 06/30/25 00:00 100 MG Acetaminophen 650 mg Q6HP PRN PO 06/28/25 08:00 06/30/25 20:19 650 MG Nitroglycerin 0.4 mg Q5MINP PRN SL 06/28/25 08:00 Morphine Sulfate 2 mg Q30M PRN IV 06/28/25 08:00 06/28/25 21:30 2 MG Ivabradine 5 mg BID PO 06/28/25 10:00 06/30/25 08:52 5 MG Patient Own Medication 1 tab DAILY PO 06/28/25 10:00 UNV Patient Own Medication 1 tab QPM PO 06/28/25 18:00 UNV Patient Own Medication 1 mg BID PO 06/28/25 10:00 UNV Patient Own Medication 1 tab DAILY PO 06/28/25 10:00 UNV Patient Own Medication 5 mg DAILY PO 06/28/25 10:00 06/30/25 08:49 5 MG Patient Own Medication 200 mcg QAM PO 06/29/25 07:00 UNV Patient Own Medication 1 tab DAILY PO 06/28/25 10:00 06/30/25 08:50 1 TAB Gabapentin 300 mg TID PO 06/28/25 14:00 06/30/25 22:00 300 MG Patient Own Medication 1 tab BID PO 06/28/25 10:00 UNV Ipratropium [place] 0.5 mg Q4HPRN PRN NEB 06/28/25 08:45 06/30/25 07:34 0.5 MG Albuterol 2.5 mg Q4HPRN PRN NEB 06/28/25 08:45 06/30/25 07:34 2.5 MG Diagnostic Test (Pha) 1 strip ACHS 06/28/25 11:30 07/01/25 07:00 1 STRIP Insulin Human Regular HS SC 06/28/25 22:00 06/30/25 22:00 2 UNITS Insulin Human Regular AC SC 06/28/25 11:30 06/30/25 17:30 3 UNITS Dextrose 50 ml UD PRN IV 06/28/25 09:00 Atorvastatin Calcium 80 mg HS PO 06/28/25 22:00 06/30/25 22:00 80 MG Cholecalciferol 2,000 unit DAILY PO 06/29/25 10:00 06/30/25 08:48 2,000 UNIT Levothyroxine Sodium 200 mcg QAM@0600 PO 06/29/25 06:00 06/30/25 05:37 200 MCG Levothyroxine Sodium 50 mcg QAM@0600 PO 06/29/25 06:00 06/30/25 05:35 50 MCG Norepinephrine Bitartrate 250 ml @ 3.75 mls/hr Q24H IV 06/29/25 05:15 06/29/25 12:00 3.75 MLS/HR Apixaban 2.5 mg BID PO 06/29/25 16:15 Mupirocin 1 applic BID EACHNOSTRI 06/29/25 22:00 07/04/25 21:59 06/30/25 22:00 1 APPLIC objective PHYSICAL EXAMINATION: VITAL SIGNS: Blood pressure is 128/84. Pulse is 77. O2 saturation 94% on 2 liters. HEENT: Pupils are reactive. Funduscopic exam shows some AV nicking, some exudates. No papilledema. Sclerae anicteric. Extraocular muscles are intact. NECK: No JVD appreciated. Carotid pulses are 2+ and symmetrical. No cervical adenopathy. No supraclavicular adenopathy. PULMONARY: Scattered rhonchi throughout. CARDIOVASCULAR: Regular rate. PMI is diffuse laterally displaced. ABDOMEN: Obese. Unable to appreciate organomegaly. EXTREMITIES: 2+ pulses bilaterally. laboratory and microbiology Laboratory Tests 07/01/25 01:54 Test 07/01/25 01:54 Range/Units Serum Glucose 126 H 74-106 mg/dL Problem List PT WITH SS COMPLEX OF NEAR SYNCOPE CHEST PAIN HYPOKALEMIA NOW WITH VT SECONDARY TO HYPOKALEMIA SEVERAL DAYS OF DIARRHEA GASTROENTERIS BECAUSE OF HYPOKALEMIA DEVELOPED VT REQUIREING RESSUSCITATION PT ALERT POST RESUSCITATION A 79 years old with history of: * Organic heart disease: A. Coronary artery disease. B. Coronary artery bypass grafting. C. Ischemic cardiomyopathy. D. Multivessel angioplasty. E. BiV AICD implantation. * History of tobacco use continues. * Advanced COPD. He continues to smoke. * Heart failure with reduced ejection fraction. * Ischemic cardiomyopathy. Now the patient with abdominal aortic aneurysm, peripheral vascular disease, now to undergo abdominal aortic aneurysm repair. The patient also has mild renal insufficiency, chronic kidney disease stage II/III and the patient with a creatinine of 1.79. Therefore, adequate measures will be taken prior to intervention because high dye load may be required. Risks and benefits were explained to the patient. The patient understands even though he does not have any bleeding diathesis, high risk for bleeding from abdominal aortic aneurysm repair especially groin repair and perforation. S/P AAA STENT GRAFT PLACEMENT Assessment/Plan CORRECT K DC AMIODARONE DRIP AICD GENERATOR CHANGE S/P BIV AICD GENERATOR CHANGE DC HOME IN AM CHECK LABS PRIOR TO DC Dietary Evaluation Review Comments: 1. Refer to nephrology consult [facility]-45 Cardiac diet with protein restriction of 50-68g/d, yet maintain current body weight. Increase dietary protein if GFR imprvoes. 3. F/U with consults and updated lab values 4. Reassess PRN Expected Outcomes/Goals: lesson uremic syndrome Prevent weight loss Plan discussed with: Patient, Spouse Critical Care Time(min): 45 MIRIAN VALENTINO MD Jul 01, 2025 13:15
--- NOTE | 2025-07-01 14:12 | DVHPN2 ---
Progress Note Date Seen: Jul 01, 2025 Medical Necessity Reason Pt with a Central, PICC or Fol: Yes The following are medically ne: Ortiz Catheter Reason for ortiz catheter: Strict I&O Subjective Patient reports: No new complaints Review of Systems: HEENT:Normal, CVS:Normal, RESPIRATORY:Normal, GI:Normal, :Normal, MSK:Normal, NEURO:Normal Objective vital signs Vital Sign Date Time Temp Pulse Resp B/P (MAP) Pulse Ox O2 Delivery O2 Flow Rate FiO2 07/01/25 08:00 98.0 80 22 112/68 (83) 99 98.0 07/01/25 08:00 Nasal Cannula* 2 28 Total Intake and Output 06/30/25 06/30/25 07/01/25 15:00 23:00 07:00 Intake Total 103.75 ml 1225 ml 480 ml Output Total 2300 ml 1700 ml Balance 103.75 ml -1075 ml -1220 ml medications Current Medications Medications Dose Ordered Sig/Migue Route Start Time Stop Time Status Last Admin Dose Admin Sodium Chloride 10 ml Q8HR IV 06/28/25 14:00 07/01/25 05:38 10 ML Acetaminophen/ Hydrocodone Bitart 1 tab Q4HP PRN PO 06/28/25 08:00 Ondansetron HCl 4 mg Q4HP PRN IV 06/28/25 08:00 06/28/25 21:31 4 MG Docusate Sodium 100 mg BIDPRN PRN PO 06/28/25 08:00 06/30/25 00:00 100 MG Acetaminophen 650 mg Q6HP PRN PO 06/28/25 08:00 06/30/25 20:19 650 MG Nitroglycerin 0.4 mg Q5MINP PRN SL 06/28/25 08:00 Morphine Sulfate 2 mg Q30M PRN IV 06/28/25 08:00 06/28/25 21:30 2 MG Ivabradine 5 mg BID PO 06/28/25 10:00 06/30/25 08:52 5 MG Patient Own Medication 1 tab DAILY PO 06/28/25 10:00 UNV Patient Own Medication 1 tab QPM PO 06/28/25 18:00 UNV Patient Own Medication 1 mg BID PO 06/28/25 10:00 UNV Patient Own Medication 1 tab DAILY PO 06/28/25 10:00 UNV Patient Own Medication 5 mg DAILY PO 06/28/25 10:00 06/30/25 08:49 5 MG Patient Own Medication 200 mcg QAM PO 06/29/25 07:00 UNV Patient Own Medication 1 tab DAILY PO 06/28/25 10:00 06/30/25 08:50 1 TAB Gabapentin 300 mg TID PO 06/28/25 14:00 06/30/25 22:00 300 MG Patient Own Medication 1 tab BID PO 06/28/25 10:00 UNV Ipratropium [place] 0.5 mg Q4HPRN PRN NEB 06/28/25 08:45 06/30/25 07:34 0.5 MG Albuterol 2.5 mg Q4HPRN PRN NEB 06/28/25 08:45 06/30/25 07:34 2.5 MG Diagnostic Test (Pha) 1 strip ACHS 06/28/25 11:30 07/01/25 07:00 1 STRIP Insulin Human Regular HS SC 06/28/25 22:00 06/30/25 22:00 2 UNITS Insulin Human Regular AC SC 06/28/25 11:30 06/30/25 17:30 3 UNITS Dextrose 50 ml UD PRN IV 06/28/25 09:00 Atorvastatin Calcium 80 mg HS PO 06/28/25 22:00 06/30/25 22:00 80 MG Cholecalciferol 2,000 unit DAILY PO 06/29/25 10:00 06/30/25 08:48 2,000 UNIT Levothyroxine Sodium 200 mcg QAM@0600 PO 06/29/25 06:00 06/30/25 05:37 200 MCG Levothyroxine Sodium 50 mcg QAM@0600 PO 06/29/25 06:00 06/30/25 05:35 50 MCG Norepinephrine Bitartrate 250 ml @ 3.75 mls/hr Q24H IV 06/29/25 05:15 06/29/25 12:00 3.75 MLS/HR Apixaban 2.5 mg BID PO 06/29/25 16:15 Mupirocin 1 applic BID EACHNOSTRI 06/29/25 22:00 07/04/25 21:59 06/30/25 22:00 1 APPLIC Examination: GENERAL:Normal, HEENT:Normal, NECK:Normal, LUNGS:Normal, CVS:Normal, ABDOMEN:Normal, MSK:Normal, SKIN:Normal, NEURO:Normal, :Normal laboratory and microbiology Laboratory Tests 07/01/25 01:54 Test 07/01/25 01:54 Range/Units Serum Glucose 126 H 74-106 mg/dL Microbiology Date/Time Source Procedure Growth Status 06/30/25 08:39 Sputum Gram Stain Pending Resulted 06/30/25 08:39 Sputum Respiratory Culture - Preliminary Resulted 06/29/25 02:00 Nose MRSA Screen - Final Methicillin Resistant S.aureus Complete Problem List/Assessment/Plan Problem List/Assessment/Plan #1 syncopy / vtach: amiodarone drip, cardio eval #2 hypokalemia: replace #3 cad s/p cabg/stent: cont meds #4 dm: ssi #5 copd with chronic resp failure #6 s/p aicd #7 ? 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 [facility] with protein restriction of 50-68g/d, yet maintain current body weight. Increase dietary protein if GFR imprvoes. 3. F/U with consults and updated lab values 4. Reassess PRN Expected Outcomes/Goals: lesson uremic syndrome Prevent weight loss Date of Service: Jul 01, 2025 Billing Provider: HOLLY CARY MD Common Visit Codes: [id number] INP/OBS CARE(HIGH) HOLLY CARY MD Jul 01, 2025 14:12
[2025-07-01] MEDS ORDERED: MORPHINE SULFATE INJ 2 MG/ml SYRG IV PRN (18:45)
[2025-07-01] MEDS: HYDROcodone-ACET 5/325MG TAB PO PRN (22:21)
[2025-07-02] VITALS (35 sets, daily range): BP systolic 100–133; BP diastolic 49–69; PULSE 75–79; RESP 11–26; TEMP 97.8–98.4; O2SAT 88–100
[2025-07-02 03:25] LABS: Potassium 3.9 mmol/L (3.5-5.1)
[2025-07-02 03:26] LABS: Anion Gap 9 (5-15)
[2025-07-02 03:28] LABS: Nucleated Red Blood Cells % 0.0 %
[2025-07-02 03:31] LABS: BUN/Creatinine Ratio 23.4 (10.0-20.0); Hematocrit 27.5 % (41.0-53.0); Hemoglobin 8.9 g/dL (13.5-17.5); Mean Corpuscular Hemoglobin 26.3 pg (28.0-32.0); Mean Corpuscular Volume 81.4 fL (80.0-100.0)
[2025-07-02 03:36] LABS: Blood Urea Nitrogen 36 mg/dL (9-23); Calcium 8.7 mg/dL (8.7-10.4); Carbon Dioxide 32 mmol/L (20-31); Chloride 91 mmol/L (98-107); Glucose 130 mg/dL (74-106); Sodium 132 mmol/L (136-145)
[2025-07-02] MEDS ORDERED: HYDROcodone-ACET 10/325MG TAB PO PRN (08:45)
--- NOTE | 2025-07-02 08:50 | DVHPN2 ---
Subjective Patient continues to report having left-sided chest pain, worse with deep breaths Reviewed: Care Plan, H&P, Labs Changes from previous H/P or p: No Changes Eyes: No Pain, No Vision change, No Conjunctivae inflammation, No Eyelid inflammation, No Other, No Redness ENT: No Ear pain, No Ear discharge, No Nose pain, No Nose discharge, No Nose congestion, No Mouth pain, No Mouth swelling, No Throat pain, No Throat swelling, No Other Cardiovascular: No Chest Pain; Palpitations; No Orthopnea, No Paroxysmal Noc. Dyspnea, No Edema; Lt Headedness; No Other Respiratory: No Cough, No Dry, No Shortness of breath, No SOB with excertion, No Wheezing, No Hemoptysis, No Pleuritic Pain, No Sputum, No Other Gastrointestinal: No Nausea, No Vomiting, No Abdominal Pain, No Diarrhea, No Constipation, No Melena, No Hematochezia, No Other Genitourinary: No Dysuria, No Frequency, No Incontinence, No Hematuria, No Retention, No Other Musculoskeletal: No other, No neck pain, No shoulder pain, No arm pain, No back pain, No hand pain, No leg pain, No foot pain Skin: No Rash, No Lesions, No Jaundice, No Bruising, No Other Objective Vitals Vital Signs Date Time Temp Pulse Resp B/P (MAP) Pulse Ox O2 Delivery O2 Flow Rate FiO2 07/02/25 08:00 97.8 75 21 130/58 (82) 95 97.8 07/02/25 05:55 Nasal Cannula* 2 28 Intake/Output Intake and Output 07/02/25 07:00 Intake Total 1200 ml Output Total 2200 ml Balance -1000 ml Intake Oral 1200 ml Output Urine Total 2200 ml General Appearance: Alert, Oriented X3, Cooperative, mild distress HEENT: Atraumatic, PERRLA Chest/Breasts: Other (Pleuritic chest pain. Unable to take deep breaths) Cardiovascular: Normal S1, Normal S2 Abdomen: Normal bowel sounds, Soft, No tenderness, No hepatospenomegaly Musculoskeletal: Normal sensory function, Normal motor function Skin: Dry, Intact Psych/Mental Status: Mental status NL, Mood NL Medications Current Medications Medications Dose Ordered Sig/Migue Route Start Time Stop Time Status Last Admin Dose Admin Sodium Chloride 10 ml Q8HR IV 06/28/25 14:00 07/02/25 06:00 10 ML Acetaminophen/ Hydrocodone Bitart 1 tab Q4HP PRN PO 06/28/25 08:00 07/01/25 22:21 1 TAB Ondansetron HCl 4 mg Q4HP PRN IV 06/28/25 08:00 06/28/25 21:31 4 MG Docusate Sodium 100 mg BIDPRN PRN PO 06/28/25 08:00 06/30/25 00:00 100 MG Acetaminophen 650 mg Q6HP PRN PO 06/28/25 08:00 07/01/25 07:35 650 MG Nitroglycerin 0.4 mg Q5MINP PRN SL 06/28/25 08:00 Morphine Sulfate 2 mg Q30M PRN IV 06/28/25 08:00 06/28/25 21:30 2 MG Ivabradine 5 mg BID PO 06/28/25 10:00 07/01/25 22:00 5 MG Patient Own Medication 1 tab DAILY PO 06/28/25 10:00 UNV Patient Own Medication 1 tab QPM PO 06/28/25 18:00 UNV Patient Own Medication 1 mg BID PO 06/28/25 10:00 UNV Patient Own Medication 1 tab DAILY PO 06/28/25 10:00 UNV Patient Own Medication 5 mg DAILY PO 06/28/25 10:00 07/01/25 14:40 5 MG Patient Own Medication 200 mcg QAM PO 06/29/25 07:00 UNV Patient Own Medication 1 tab DAILY PO 06/28/25 10:00 07/01/25 14:41 1 TAB Gabapentin 300 mg TID PO 06/28/25 14:00 07/02/25 06:33 300 MG Patient Own Medication 1 tab BID PO 06/28/25 10:00 UNV Ipratropium [place] 0.5 mg Q4HPRN PRN NEB 06/28/25 08:45 07/01/25 22:38 0.5 MG Albuterol 2.5 mg Q4HPRN PRN NEB 06/28/25 08:45 07/01/25 22:38 2.5 MG Diagnostic Test (Pha) 1 strip ACHS 06/28/25 11:30 07/02/25 06:40 1 STRIP Insulin Human Regular HS SC 06/28/25 22:00 07/01/25 22:31 3 UNITS Insulin Human Regular AC SC 06/28/25 11:30 07/02/25 06:41 3 UNITS Dextrose 50 ml UD PRN IV 06/28/25 09:00 Atorvastatin Calcium 80 mg HS PO 06/28/25 22:00 07/01/25 22:19 80 MG Cholecalciferol 2,000 unit DAILY PO 06/29/25 10:00 07/01/25 14:38 2,000 UNIT Levothyroxine Sodium 200 mcg QAM@0600 PO 06/29/25 06:00 07/02/25 06:32 200 MCG Levothyroxine Sodium 50 mcg QAM@0600 PO 06/29/25 06:00 07/02/25 06:32 50 MCG Norepinephrine Bitartrate 250 ml @ 3.75 mls/hr Q24H IV 06/29/25 05:15 06/29/25 12:00 3.75 MLS/HR Apixaban 2.5 mg BID PO 06/29/25 16:15 Mupirocin 1 applic BID EACHNOSTRI 06/29/25 22:00 07/04/25 21:59 07/01/25 22:21 1 APPLIC Bumetanide 1 mg DAILY PO 07/02/25 10:00 Morphine Sulfate 1 mg Q4HP PRN IV 07/01/25 18:45 Hold Laboratory Results Laboratory Tests 07/02/25 02:28 Chemistry Test 07/02/25 02:28 Calcium Level 8.7 mg/dL (8.7-10.4) Urinalysis Test 06/29/25 06:12 Urine Color Light-yellow (Yellow) Urine Clarity Clear (Clear) Urine pH 6.5 (5.0-9.0) Urine Specific [place] 1.010 (1.001-1.035) Urine Protein 2+ (Negative) H Urine Ketones Negative (Negative) Urine Blood Negative /uL (Negative) Urine Nitrite Negative (Negative) Urine Bilirubin Negative (Negative) Urine Urobilinogen Normal mg/dL (Negative) Urine Leukocyte Esterase Negative /uL (Negative) Urine RBC <1 /hpf (0 - 3) Urine Microscopic WBC 1 /HPF (0-3) Urine Squamous Epithelial Cells Few /hpf (<5) Urine Bacteria None seen /hpf (None Seen) Urine Hyaline Casts Few /lpf (0 - 2) Urine Yeast (Budding) Occasional /hpf (None Urine Glucose 1+ mg/dL (Normal) H Microbiology Microbiology Date/Time Source Procedure Growth Status 06/30/25 08:39 Sputum Gram Stain - Final Resulted 06/30/25 08:39 Sputum Respiratory Culture - Preliminary Resulted 06/29/25 02:00 Nose MRSA Screen - Final Methicillin Resistant S.aureus Complete Labs and/or images reviewed: Labs reviewed by me, Image(s) reviewed by me Assessment/Plan Assessment/Plan Impression: -acute on chronic hypoxic respiratory failure -VT with cardiac arrest -hypokalemia -history of nicotine dependence -recent history of AAA repair -CKD stage IIIB -pleuritic chest pain secondary to compressions -acute on chronic systolic heart failure -status post AICD replacement secondary to end of life battery -coronary artery disease with previous CABG Plan: -patient 100% V paced, potassium repleted -cardiology consultation: Recommendations reviewed -continue anticoagulation -IV diuresis -guideline directed medical therapy -pain management: Increase [place], add lidocaine patch -patient with severe difficulty taking deep breaths. High-risk for pneumonia. Discussed with the patient. -defer to Cardiology for discharge clearance -DC [place] catheter Total time spent with patient discussing and formulating plan of care: 35 minutes. This medical document was created using an electronic medical record system with [employer] dictation system. Although this document has been carefully reviewed, there may still be some phonetic and typographical errors. These areas are purely typographical due to imperfections of the software programs, and do not reflect any compromise in the patient's medical care. Plan discussed with: Patient, Other (RN) Date of Service: Jul 02, 2025 Billing Provider: NEW MONDRAGON NP Common Visit Codes: [id number] INP/OBS CARE(HIGH) NEW MONDRAGON NP Jul 02, 2025 08:50
[2025-07-02] MEDS: BUMETANIDE 1 MG TAB PO SCH (09:57)
[2025-07-02] MEDS: LIDOCAINE 5% TOPICAL PATCH TOP SCH (09:58)
[2025-07-02] MEDS: MAGNESIUM SULFATE 1GM/100ML 100 ML IV ONE (12:26)
--- NOTE | 2025-07-02 15:51 | DVHDS2 ---
Discharge Summary Date of Admission Jun 28, 2025 at 07:49 Date of Discharge: Jul 02, 2025 Admitting Diagnosis CARDIAC ARREST Labs/Diagnostic Data: Laboratory Results Test 07/02/25 12:02 07/02/25 02:28 07/01/25 01:54 06/30/25 02:44 POC Glucose 157 mg/dl (70-106) White Blood Count 8.8 10^3/uL (4.4-10.8) Red Blood Count 3.38 10^6/uL (4.5-5.90) Hemoglobin 8.9 g/dL (13.5-17.5) Hematocrit 27.5 % (41.0-53.0) Mean Corpuscular Volume 81.4 fL (80.0-100.0) Mean Corpuscular Hemoglobin 26.3 pg (28.0-32.0) Mean Corpuscular Hemoglobin Concent 32.3 g/dL (32.0-36.0) Red Cell Distribution Width 17.2 % (11.8-14.3) Platelet Count 178 10^3/uL (140-450) Mean Platelet Volume 9.6 fL (6.9-10.8) Neutrophils (%) (Auto) 71.9 % (37.0-80.0) Lymphocytes (%) (Auto) 14.6 % (10.0-50.0) Monocytes (%) (Auto) 12.3 % (0.0-12.0) Eosinophils (%) (Auto) 0.7 % (0.0-7.0) Basophils (%) (Auto) 0.5 % (0.0-2.0) Neutrophils # (Auto) 6.4 10 ^3/uL (1.6-8.6) Lymphocytes # (Auto) 1.3 10 ^3/uL (0.4-5.4) Monocytes # (Auto) 1.1 10 ^3/uL (0-1.3) Eosinophils # (Auto) 0.1 10 ^3/uL (0-0.8) Basophils # (Auto) 0 10 ^3/uL (0-0.2) Nucleated Red Blood Cells 0.0 % Sodium Level 132 mmol/L (136-145) Potassium Level 3.9 mmol/L (3.5-5.1) Chloride Level 91 mmol/L (98-107) Carbon Dioxide Level 32 mmol/L (20-31) Anion Gap 9 (5-15) Blood Urea Nitrogen 36 mg/dL (9-23) Creatinine 1.54 mg/dL (0.700-1.30) Glomerular Filtration Rate Calc 45 mL/min (>90) BUN/Creatinine Ratio 23.4 (10.0-20.0) Serum Glucose 130 mg/dL (74-106) Calcium Level 8.7 mg/dL (8.7-10.4) Prothrombin Time 13.8 sec (9.3-11.8) Prothrombin Time INR 1.34 (0.9-1.15) Activated Partial Thromboplast Time 32.4 SEC (24.5-34.5) Magnesium Level 2.1 mg/dL (1.6-2.6) Total Bilirubin 0.9 mg/dL (0.2-1.0) Aspartate Amino Transferase (AST) 53 U/L (13-40) Alanine Aminotransferase (ALT) 47 U/L (7-40) Alkaline Phosphatase 168 U/L (46-116) Total Protein 6.5 g/dL (5.7-8.2) Albumin 3.7 g/dL (3.2-4.8) Test 06/29/25 09:48 06/29/25 06:12 06/29/25 04:40 Lactic Acid Level 1.4 mmol/L (0.4-2.0) Troponin I High Sensitivity 91 ng/L (</=54) Urine Color Light-yellow (Yellow) Urine Clarity Clear (Clear) Urine pH 6.5 (5.0-9.0) Urine Specific [place] 1.010 (1.001-1.035) Urine Protein 2+ (Negative) Urine Ketones Negative (Negative) Urine Blood Negative /uL (Negative) Urine Nitrite Negative (Negative) Urine Bilirubin Negative (Negative) Urine Urobilinogen Normal mg/dL (Negative) Urine Leukocyte Esterase Negative /uL (Negative) Urine RBC <1 /hpf (0 - 3) Urine Microscopic WBC 1 /HPF (0-3) Urine Squamous Epithelial Cells Few /hpf (<5) Urine Bacteria None seen /hpf (None Seen) Urine Hyaline Casts Few /lpf (0 - 2) Urine Yeast (Budding) Occasional /hpf (None Urine Glucose 1+ mg/dL (Normal) Thyroid Stimulating Hormone (TSH) 2.10 uIU/mL (0.55-4.78) Other Laboratory Tests 07/02/25 02:28 Brief Hx & Hospital Course: PT WITH SS COMPLEX OF NEAR SYNCOPE CHEST PAIN HYPOKALEMIA NOW WITH VT SECONDARY TO HYPOKALEMIA SEVERAL DAYS OF DIARRHEA GASTROENTERIS BECAUSE OF HYPOKALEMIA DEVELOPED VT REQUIREING RESSUSCITATION PT ALERT POST RESUSCITATION A 79 years old with history of: * Organic heart disease: A. Coronary artery disease. B. Coronary artery bypass grafting. C. Ischemic cardiomyopathy. D. Multivessel angioplasty. E. BiV AICD implantation. * History of tobacco use continues. * Advanced COPD. He continues to smoke. * Heart failure with reduced ejection fraction. * Ischemic cardiomyopathy. Now the patient with abdominal aortic aneurysm, peripheral vascular disease, now to undergo abdominal aortic aneurysm repair. The patient also has mild renal insufficiency, chronic kidney disease stage II/III and the patient with a creatinine of 1.79. Therefore, adequate measures will be taken prior to intervention because high dye load may be required. Risks and benefits were explained to the patient. The patient understands even though he does not have any bleeding diathesis, high risk for bleeding from abdominal aortic aneurysm repair especially groin repair and perforation. S/P AAA STENT GRAFT PLACEMENT Assessment/Plan CORRECT K DC AMIODARONE DRIP AICD GENERATOR CHANGE S/P BIV AICD GENERATOR CHANGE DC HOME IN AM CHECK LABS PRIOR TO DC Operations or Procedures AICD GENERATOR CHANGE Final Diagnosis/Problems List VT HFrEF ACUTE HYPOKALEMIA AICD END OF LIFE S/P AICD REPLACEMENT Discharge Disposition: Home Discharge Instruct/Medications Diet: Cardiac 2g Na,low cholest Activity: Light activity Follow Up/Referral: 1 WEEK Medications: CONT HOME MEDS HOLD ELIQUIS X 5 DAYS Scheduled Amiodarone HCl (Amiodarone Hydrochloride), 1 TAB PO DAILY, (Reported) Apixaban Base (Eliquis), 1 TAB PO BID, (Reported) Atorvastatin Calcium (Atorvastatin Calcium), 1 TAB PO QPM, (Reported) Bumetanide (Bumex), 1 MG PO BID, (Reported) Bumetanide (Bumetanide), 1 TAB PO BID, (Reported) Cholecalciferol (Vitamin D3), 1 TAB PO DAILY, (Reported) Dapagliflozin Propanediol (Farxiga), 5 MG PO DAILY, (Reported) Dapagliflozin Propanediol (Farxiga), 5 MG PO DAILY, (Reported) Doxycycline Hyclate (Doxycycline Hyclate), 100 MG PO BID Gabapentin (Gabapentin), 300 MG PO TID, (Reported) Glipizide (Glipizide), 1 TAB PO BID, (Reported) Ipratropium Hamel Hfa (Atrovent Hfa), Unknown Dose INH QID, (Reported) Ivabradine Hydrochloride (Corlanor), 1 TAB PO BID, (Reported) Levothyroxine Sodium (Synthroid Tablet), 1 TAB PO QAM, (Reported) Levothyroxine Sodium (Levothyroxine Sodium), 200 MCG PO QAM, (Reported) Levothyroxine Sodium (Synthroid), 1 TAB PO DAILY, (Reported) Levothyroxine Sodium (Synthroid), 1 TAB PO DAILY, (Reported) Potassium Chloride (Klor-Con M20), 1 TAB PO DAILY, (Reported) Potassium Chloride (Potassium Chloride ER), 1 TAB PO BID, (Reported) Tamsulosin Hcl (Tamsulosin Hcl), 2 CAP PO DAILY, (Reported) Vericiguat (Verquvo), 1 TAB PO DAILY, (Reported) Scheduled PRN Ipratropium Hamel Hfa (Atrovent Hfa), 2 PUFF INH BID PRN for SHORTNESS OF BREATH, (Reported) Nitroglycerin (Ntrostat Sublingual), 1 MG SL for FOR CHEST PAIN, (Reported) Miscellaneous Medications Diclofenac Sodium (Topical) (Voltaren Arthritis Pain), Unknown Dose EX, (Reported) Esomeprazole Magnesium Trihydr (Nexium), Unknown Dose PO, (Reported) Ivabradine HCl (Ivabradine Hydrochloride), TAB PO, (Reported) Lactulose (Lactulose), ML PO, (Reported) Magnesium Bisglycinate (Mag Glycinate), Unknown Dose PO, (Reported) Revefenacin (Yupelri), Unknown Dose IN, (Reported) Tiotropium Hamel-Olodaterol (Stiolto Respimat 2.5-2.5 Mcg/Act), Unknown Dose IN, (Reported) Discharge Statement: "Patient was advised to return to the ER or call 911 if any headaches, dizziness, shortness of breath, chest pain, abdominal pain, bleeding, fevers, or worsening of medical condition. Patient was counseled about treatment plan, medications, possible side effects, patientverbalized understanding. All questions were answered to the best of my ability. This discharge took greater then 30 minutes in planning, reviewing documentation, counseling the patient, and discussing with other team members." ASSESSMENT ASSESSMENT Assessment VT HFrEF ACUTE HYPOKALEMIA AICD END OF LIFE S/P AICD REPLACEMENT MIRIAN VALENTINO MD Jul 02, 2025 15:51
[2025-07-02] MEDS: HEPARIN 1,000 UNITS/ml 1ML VIAL IV ONE (18:56)
--- NOTE | 2025-07-08 20:35 | DVHNC2 ---
Intubation Indication: Respiratory Insufficiency, Altered Mental Status Intubation size: cm (8.0) Informed consent obtained: Yes Risks/benefits/alt described: Yes UTO Consent Code blue. Emergent intubation Notes A time out was performed. My hands were washed immediately prior to the procedure. I wore a surgical cap, mask with protective eyewear, gown and gloves throughout the procedure. The patient was placed on a rn cardiac including continuous pulse oximetry. Rapid Sequence Intubation was conducted. Code blue Emergent intubation, no sedative or paralytic administered. Cricoid pressure was maintained from time induction agent was given to time of cuff balloon inflation. Using a mac four laryngoscope and a size 8.0 endotracheal tube with stylet, the patient was intubated on the 1st attempt. The stylet was removed and cuff balloon was inflated. Appropriate endotracheal tube position was confirmed by direct visualization of vocal cord passage, fogging of the tube, CO2 colormetric indicator and symmetric breath sounds. Post intubation x-ray confirmed placement. Date of Service: Jun 29, 2025 Billing Provider: HOLLY ARIZA Common Visit Codes: PROCEDURE ONLY Procedure Codes: [id number] HOLLY ARIZA Jul 08, 2025 20:35
--- NOTE | 2025-07-26 17:38 | DVHOP ---
DATE OF SURGERY: 07/01/2025 DATE OF SURGERY: 07/01/2025 PROCEDURE TO BE PERFORMED: * Explantation of BiV AICD implantation, new BiV AICD. * Conscious sedation. * Venography. PROCEDURE IN DETAIL: The patient was prepped and draped in a sterile condition. Xylocaine 1% was used to anesthetize the left subclavicular region using a 10-blade. A linear incision was made using blunt dissection and electrocautery. Pocket was then dissected out. The patient was given conscious sedation. Then, the old generator was explanted. The new generator was implanted. The patient's previous leads were all patent and were functioning within normal limits, so no additional changes were required. Venography was performed in anticipation that one of the leads may need to be exchanged. Then, the pocket was irrigated using vancomycin saline solution. Pocket was closed using 3-0 Monoderm subcutaneous sutures followed by 3-0 Monoderm subcuticular sutures. There were no complications. The patient tolerated the procedure well. RESULTS: The patient had a [employer] explantation of BiV AICD, which is [place] 7HF-T. Initial implantation date was 02/13/2019. The new generator was implanted. Please see details of the insertion sheet for details of the pacemaker. 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 CONCLUSION: The patient had successful explantation of BiV AICD implantation, new BiV AICD Biotronik MRI compatible AICD, but the lead is also MRI compatible. So, this is an MRI compatible system. Raman Felton MD SA/[place] TID: [id number] RECEIPT: [id number]
== END 2025-07-02 19:15 | disposition home or self-care (01) | DRG 245 ==
LOC: EDBD 02:51 → ER 02:51 → OVERFLOW 07:49 → DOU 23:58 → ICU CENTRL 06-29 04:50
PROVIDERS: ADMIT Internal Medicine; ATTEND Internal Medicine
PROC: 5A12012 Performance of Cardiac Output, Single, Manual (ICD-10-PCS; principal; 2025-06-29)
PROC: 5A2204Z Restoration of Cardiac Rhythm, Single (ICD-10-PCS; 2025-06-29)
PROC: 0JH609Z Insertion of Cardiac Resynchronization Defibrillator Pulse Generator into Chest Subcutaneous Tissue and Fascia, Open Approach (ICD-10-PCS; 2025-07-01)
PROC: 0JPT0PZ Removal of Cardiac Rhythm Related Device from Trunk Subcutaneous Tissue and Fascia, Open Approach (ICD-10-PCS; 2025-07-01)
PROC: B5171ZZ Fluoroscopy of Left Subclavian Vein using Low Osmolar Contrast (ICD-10-PCS; 2025-07-01)
PROC: 0BH17EZ Insertion of Endotracheal Airway into Trachea, Via Natural or Artificial Opening (ICD-10-PCS; 2025-07-01)
DX: I21.4 Non-ST elevation (NSTEMI) myocardial infarction (principal); I46.2 Cardiac arrest due to underlying cardiac condition; I50.23 Acute on chronic systolic (congestive) heart failure; J96.21 Acute and chronic respiratory failure with hypoxia; I13.0 Hypertensive heart and chronic kidney disease with heart failure and stage 1 through stage 4 chronic kidney disease, or unspecified chronic kidney disease; I47.20 Ventricular tachycardia, unspecified; Z79.01 Long term (current) use of anticoagulants; E11.51 Type 2 diabetes mellitus with diabetic peripheral angiopathy without gangrene; J44.9 Chronic obstructive pulmonary disease, unspecified; E03.9 Hypothyroidism, unspecified; N18.32 Chronic kidney disease, stage 3b; E87.1 Hypo-osmolality and hyponatremia; E87.6 Hypokalemia; I49.3 Ventricular premature depolarization; E78.5 Hyperlipidemia, unspecified; I25.5 Ischemic cardiomyopathy; I25.10 Atherosclerotic heart disease of native coronary artery without angina pectoris; E11.22 Type 2 diabetes mellitus with diabetic chronic kidney disease; Z95.1 Presence of aortocoronary bypass graft; Z86.79 Personal history of other diseases of the circulatory system; Z95.810 Presence of automatic (implantable) cardiac defibrillator; Z88.8 Allergy status to other drugs, medicaments and biological substances; Z91.041 Radiographic dye allergy status; Z87.891 Personal history of nicotine dependence; Z45.02 Encounter for adjustment and management of automatic implantable cardiac defibrillator
CPT/HCPCS: 33263; 36012; 36415; 70450; 71045; 72125; 73030; 73060; 80048; 80053; 81001; 82962; 83605; 83735; 84132; 84443; 84484; 85025; 85610; 85730; 86850; 86900; 86901; 87070; 87077; 87081; 87186; 87205; 92950; 93005; 93971; 94640; 96365; 96366; 96375; 97163; 99152; 99291; G0378; G0463; J1642; J1815; J1885; J2250; J2405; J3480

== ENCOUNTER 2025-07-06 08:42 | Outpatient (CLI) | payer MEDICARE, OTHER ==
[2025-07-06] VITALS (10 sets, daily range): BP systolic 94–115; BP diastolic 40–67; PULSE 79–91; RESP 18; O2SAT 100
[~2025-07-06 08:42] MED LIST changes: +GABA-1250 PO; -GABA250S7 PO; +GLIP10TA9 PO
[2025-07-06] MEDS: MILRINONE 20MG/100ML 100 ML IV ONE ×2 (08:57→09:02)
== END 2025-07-06 17:00 | disposition home or self-care (01) ==
LOC: CHF HDHVI 08:42
PROVIDERS: ATTEND Internal Medicine Cardiovascular Disease
DX: I13.0 Hypertensive heart and chronic kidney disease with heart failure and stage 1 through stage 4 chronic kidney disease, or unspecified chronic kidney disease (principal); E11.22 Type 2 diabetes mellitus with diabetic chronic kidney disease; I50.43 Acute on chronic combined systolic (congestive) and diastolic (congestive) heart failure; N18.4 Chronic kidney disease, stage 4 (severe); E11.42 Type 2 diabetes mellitus with diabetic polyneuropathy; E11.65 Type 2 diabetes mellitus with hyperglycemia; E11.51 Type 2 diabetes mellitus with diabetic peripheral angiopathy without gangrene; F41.9 Anxiety disorder, unspecified; I25.10 Atherosclerotic heart disease of native coronary artery without angina pectoris; D51.8 Other vitamin B12 deficiency anemias; F32.A Depression, unspecified; J43.9 Emphysema, unspecified; E03.9 Hypothyroidism, unspecified; I48.0 Paroxysmal atrial fibrillation; E78.00 Pure hypercholesterolemia, unspecified; G47.33 Obstructive sleep apnea (adult) (pediatric); I25.2 Old myocardial infarction; I25.5 Ischemic cardiomyopathy; M54.50 Low back pain, unspecified; Z79.01 Long term (current) use of anticoagulants; Z79.82 Long term (current) use of aspirin; Z79.84 Long term (current) use of oral hypoglycemic drugs; Z79.899 Other long term (current) drug therapy; Z87.891 Personal history of nicotine dependence; Z95.1 Presence of aortocoronary bypass graft; Z79.4 Long term (current) use of insulin; Z98.890 Other specified postprocedural states; Z95.0 Presence of cardiac pacemaker
CPT/HCPCS: 96365; 96366; G0463; J1642; J2260

== ENCOUNTER 2025-07-07 09:03 | Outpatient (CLI) | payer MEDICARE, OTHER ==
[2025-07-07] VITALS (8 sets, daily range): BP systolic 91–107; BP diastolic 48–61; PULSE 89–91; RESP 16–18; O2SAT 98
[2025-07-07] MEDS: KETOROLAC TROMETH 60MG/2ML VIAL ONE (09:14)
[2025-07-07] MEDS: MILRINONE 20MG/100ML 100 ML IV ONE ×2 (09:15→09:18)
[2025-07-07] MEDS: KETOROLAC TROMETH 60MG/2ML VIAL IM ONE (10:06)
== END 2025-07-07 17:00 | disposition home or self-care (01) ==
LOC: CHF HDHVI 09:03
PROVIDERS: ATTEND Internal Medicine Cardiovascular Disease
DX: I13.0 Hypertensive heart and chronic kidney disease with heart failure and stage 1 through stage 4 chronic kidney disease, or unspecified chronic kidney disease (principal); E11.22 Type 2 diabetes mellitus with diabetic chronic kidney disease; I50.43 Acute on chronic combined systolic (congestive) and diastolic (congestive) heart failure; N18.4 Chronic kidney disease, stage 4 (severe); E11.42 Type 2 diabetes mellitus with diabetic polyneuropathy; E11.65 Type 2 diabetes mellitus with hyperglycemia; E11.51 Type 2 diabetes mellitus with diabetic peripheral angiopathy without gangrene; F41.9 Anxiety disorder, unspecified; I25.10 Atherosclerotic heart disease of native coronary artery without angina pectoris; F32.A Depression, unspecified; J43.9 Emphysema, unspecified; E03.9 Hypothyroidism, unspecified; I48.0 Paroxysmal atrial fibrillation; E78.00 Pure hypercholesterolemia, unspecified; G47.33 Obstructive sleep apnea (adult) (pediatric); I25.2 Old myocardial infarction; I25.5 Ischemic cardiomyopathy; M54.50 Low back pain, unspecified; D51.8 Other vitamin B12 deficiency anemias; Z79.01 Long term (current) use of anticoagulants; Z79.4 Long term (current) use of insulin; Z79.82 Long term (current) use of aspirin; Z79.84 Long term (current) use of oral hypoglycemic drugs; Z79.899 Other long term (current) drug therapy; Z87.891 Personal history of nicotine dependence; Z95.1 Presence of aortocoronary bypass graft; Z98.890 Other specified postprocedural states
CPT/HCPCS: 96365; 96366; 96372; G0463; J1642; J1885; J2260

== ENCOUNTER 2025-07-11 02:01 | Inpatient (IN) | payer MEDICARE, OTHER ==
[~2025-07-11] VITALS: Ht 177.8 cm; Wt 85.9 kg
--- NOTE | 2025-07-11 02:26 | ECG ---
[facility] Test Date: 2025-07-11 Test Time: 02:15:31 Pat Name: DERRICK ROMO Department: [facility] Room: 0231T Gender: M Bit Tapper: JUANJOSE : 1945 Requested By: SUDHEER BLACK Order Number: [id number] Reading MD: Epi Velasquez Measurements Intervals Post Rate: 70 P: 0 VT: 0 QRS: 96 QRSD: 178 T: 0 QT: 515 QTc: 556 Interpretive Statements Afib/flut and V-paced complexes No further analysis attempted due to paced rhythm Electronically Signed On 07-12-2025 15:28:09 PST by Epi Velasquez Please click the below link to view image of tracing.
--- NOTE | 2025-07-11 02:45 | ED.PDOC ---
History of Present Illness HPI Comments 80 y/o M is BIBA from private residence for c/c of nonradiating, mid-abdominal pain w/ distension, multiple episodes of nausea and vomiting, and constipation x1 week. Significant history for AAA w/repair, AICD, CABG, CAD, CHF, CKF, DM, HLD, HTN, SD, hypothyroidism, appendectomy, and former tobacco cigarette user (quite 5x years ago). Denial of any bloody or bilious vomitus, diarrhea, urinary problems, or further acute symptoms. 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, Medications, Allergies Allergies: Coded Allergies: Iodine (Verified Allergy, Intermediate, 03/15/25) Iodixanol (Verified Allergy, Unknown, 02/07/24) ITCHING, REDNESS Home Meds Reported Medications Glipizide (Glipizide) 10 Mg Tab, 1 TAB PO BID 06/28/25 Gabapentin (Gabapentin) 300 Mg Cap, 300 MG PO TID 06/28/25 Tiotropium [place]-Olodaterol (Stiolto Respimat 2.5-2.5 Mcg/Act) 1 Aer Aer, IN, AER 06/08/25 Ipratropium [place] Hfa (Atrovent Hfa) 17 Mcg Aer, INH QID, #12.9 GRAMS 5 Refill s 06/08/25 Revefenacin (Yupelri) 175 Mcg/3 Ml [place], [place], ML 06/08/25 Magnesium Bisglycinate (Mag Glycinate) 100 Mg Tab, PO, TAB 06/08/25 Esomeprazole Magnesium Trihydr (Nexium) 40 Mg Cap, PO, CAP 06/08/25 Diclofenac Sodium (Topical) (Voltaren Arthritis Pain) 1 % Gel, EX, GEL 06/08/25 Bumetanide (Bumex) 2 Mg Tab, 1 MG PO BID 03/15/25 Dapagliflozin Propanediol (Farxiga) 10 Mg Tab, 5 MG PO DAILY, TAB 03/15/25 Vericiguat (Verquvo) 2.5 Mg Tab, 1 TAB PO DAILY 12/09/24 Levothyroxine Sodium (Levothyroxine Sodium) 200 Mcg Tab, 200 MCG PO QAM, MCG TAKE WITH LEVOTHYROXINE 50 MCG TABLET FOR TOTAL 250 MCG DAILY 12/30/23 Levothyroxine Sodium (SYNTHROID TABLET) 50 Mcg Tb, 1 TAB PO QAM for HYPOTHYROIDISM TAKE WITH LEVOTHYROXINE 200 MCG TABLET FOR TOTAL 250 MCG DAILY 10/16/23 Ipratropium [place] Hfa (Atrovent Hfa) 17 Mcg Aer, 2 PUFF INH BID PRN for SHORTNESS OF BREATH 10/16/23 Amiodarone HCl (Amiodarone Hydrochloride) 400 Mg Tab, 1 TAB PO DAILY for ARRHYTHMIA 10/16/23 Potassium Chloride (Klor-Con M20) 20 Meq Tab, 1 TAB PO DAILY for SUPPLEMENT 10/16/23 Apixaban Base (ELIQUIS) 2.5 Mg Tab, 1 TAB PO BID for ARRYTHMIA 10/16/23 Ivabradine Hydrochloride (Corlanor) 5 Mg Tab, 1 TAB PO BID for HEART FAILURE 10/16/23 Atorvastatin Calcium (ATORVASTATIN CALCIUM) 80 Mg Tab, 1 TAB PO QPM for HIGH CHOLESTEROL 10/16/23 Cholecalciferol (VITAMIN D3) 2,000 Unit Tab, 1 TAB PO DAILY for SUPPLEMENT 10/16/23 Nitroglycerin (NTROSTAT SUBLINGUAL) 0.4 Mg Sl, 1 MG SL PRN for FOR CHEST PAIN *MAY REPEAT EVERY 5 MINUTES X 3 TOTAL IF NO RELIEF, INITIATE ANALGESIC THERAPY. NOTIFY PHYSICIAN *Do not crush. 02/13/19 Information Source: Patient, Emergency Med Personnel, [facility] Medical Record, Past Medical Record Mode of Arrival: EMS Severity: Moderate Timing: Days Duration: Since onset Prehospital treatment: 12 Lead EKG, Want Ad Supervisor Past Medical History PAST MEDICAL HISTORY: CAD, CHF, CKF, COPD, DM, High Lipids, HTN, SD, Thyroid (Hypothyroidism ) Past Medical History (Other): AAA s/p repair Surgical History: Appendectomy, CABG, Pacemaker (AICD ) Surgical History (Other): AAA repair Family History Family History: Unobtainable Social History Smoker: Quit Greater Than 1 Year Alcohol: Denies ETOH Use Drugs: Denies Drug Use Lives In: Home All Other Systems: Reviewed and Negative (Comprehensive systems review obtained and negative except for what is stated in the HPI.) Physical Exam General Appearance: No Apparent Distress, Normal HEENT: Normal ENT Inspection, Pharynx Normal, TMs Normal Neck: Full Range of Motion, Non-Tender, Normal, Normal Inspection Respiratory: Chest Non-Tender, Lungs Clear, No Accessory Muscle Use, No Respiratory Distress, Normal Breath Sounds Cardiovascular: No Edema, No JVD, No Murmur, No Gallop, Normal Peripheral Pulses, Regular Rate/Rhythm Breast Exam: Deferred Gastrointestinal: Abnormal Bowel Sounds (absent \), Distended, No Organomegaly, No Pulsatile Mass, Soft, Tenderness (mild with depalpation ), Other (tympanic sounds ) Genitalia: Deferred Pelvic: Deferred Rectal: Deferred Extremities: No calf tenderness, Normal capillary refill, Normal inspection, Normal range of motion, Non-tender, No pedal edema Musculoskeletal : Apperance: Normal Neurologic: Alert, 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 Was a procedure done?: No EKG EKG : Pulse Rate (adult): 70 [place]: Normal Cardiac Rhythm: Paced Block: None Hypertrophy: None ST: Normal Differential Dx Considerations may include: AAA, gastritis, gastroenteritis, GERD, bowel obstruction, constipation, among others X-Ray, Labs, Meds, VS Vital Signs Date Time Temp Pulse Resp B/P (MAP) Pulse Ox O2 Delivery O2 Flow Rate FiO2 07/11/25 04:00 72 07/11/25 03:06 112/60 07/11/25 02:45 70 07/11/25 02:19 98.0 69 22 130/72 95 98.0 07/11/25 02:15 70 Lab Test 07/11/25 05:17 07/11/25 02:31 Range/Units Lactic Acid Level Pending White Blood Count 12.6 H 4.4-10.8 10^3/uL Red Blood Count 3.59 L 4.5-5.90 10^6/uL Hemoglobin 9.2 L 13.5-17.5 g/dL Hematocrit 29.4 L 41.0-53.0 % Mean Corpuscular Volume 81.8 80.0-100.0 fL Mean Corpuscular Hemoglobin 25.6 L 28.0-32.0 pg Mean Corpuscular Hemoglobin Concent 31.3 L 32.0-36.0 g/dL Red Cell Distribution Width 18.3 H 11.8-14.3 % Platelet Count 199 140-450 10^3/uL Mean Platelet Volume 8.8 6.9-10.8 fL Neutrophils (%) (Auto) 92.0 H 37.0-80.0 % Lymphocytes (%) (Auto) 4.2 L 10.0-50.0 % Monocytes (%) (Auto) 3.6 0.0-12.0 % Eosinophils (%) (Auto) 0.1 0.0-7.0 % Basophils (%) (Auto) 0.1 0.0-2.0 % Neutrophils # (Auto) 11.6 H 1.6-8.6 10 ^3/uL Lymphocytes # (Auto) 0.5 0.4-5.4 10 ^3/uL Monocytes # (Auto) 0.5 0-1.3 10 ^3/uL Eosinophils # (Auto) 0 0-0.8 10 ^3/uL Basophils # (Auto) 0 0-0.2 10 ^3/uL Nucleated Red Blood Cells 0.0 % Sodium Level 139 136-145 mmol/L Potassium Level 4.3 3.5-5.1 mmol/L Chloride Level 100 98-107 mmol/L Carbon Dioxide Level 28 20-31 mmol/L Anion Gap 11 5-15 Blood Urea Nitrogen 29 H 9-23 mg/dL Creatinine 1.66 H 0.700-1.30 mg/dL Glomerular Filtration Rate Calc 41 >90 mL/min BUN/Creatinine Ratio 17.5 10.0-20.0 Serum Glucose 185 H 74-106 mg/dL Calcium Level 9.0 8.7-10.4 mg/dL Lipase 27 12-53 U/L Current Medications Medications (Trade) Dose Ordered Sig/Migue Route Start Time Stop Time Status Last Admin Fentanyl Citrate 12.5 mcg ONCE ONCE IV 07/11/25 02:30 07/11/25 02:31 DC 07/11/25 03:06 Ondansetron HCl (Zofran) 4 mg ONCE ONCE IV 07/11/25 02:30 07/11/25 02:31 DC 07/11/25 03:07 Vancomycin HCl 250 ml @ 250 mls/hr ONCE ONCE IV 07/11/25 04:45 07/11/25 05:44 DC 07/11/25 05:20 Time of 1ST Reevaluation: 02:50 Reevaluation 1ST: Unchanged Patient Education/Counseling: Diagnosis, Treatment Family Education/Counseling: No Family Present Comments This is a patient who presents with abdominal pain and distention and one-week of lack of bowel movement. He has CT does show ileus. However patient also has sepsis likely due to pneumonia shown on the CAT scan. In addition patient is dehydrated with renal insufficiency. Patient will be admitted for further treatment and evaluation. The CAT scan also shows possible pneumobilia. Patient will need to have MRCP. Additional Information Previous history reviewed: June 28, 2025 encounter for ventricular tachyarrhythmia The following tests were ordered, and results were reviewed by me: EKG, BMP, CBC, lipase, CT abdomen/pelvis w/o contrast Additional Information was gathered from interviewing the following independent historians: EMS personnel I reviewed and agreed with the following test results read by other providers: CT abdomen/pelvis w/o contrast I discussed treatment and results with medical personnel and: patient SEPSIS Sepsis Screen Date sepsis recognized/suspect: Jul 11, 2025 Time Sepsis recognized/suspect: 04:40 Recent Procedure: Yes On Antibiotic Therapy: No Respiratory Rate >20: Yes Heart Rate >90: No Temp<36 C (96.8 F) or >38.3 C: No SBP <90 or MAP <65 mmHG: No New Acute Mental Status Change: No Is the patient on CPAP, BIPAP,: No IV fluid challenge completed?: Yes Physician Orders Ct Ab Pel Wo Con-No Oral Or Iv (07/11/25 02:20) Urinalysis (07/11/25 04:38) Chest Portable (07/11/25 04:38) Accucheck (07/11/25 04:38) Blood Culture (07/11/25 04:38) Lactic Acid W/ Reflex Order (07/11/25 06:00) Cefepime 1gm/50ml (Maxipime 1gm/50ml) (07/11/25 04:45) Notify Md If Map <65 Or Bp<90 (07/11/25 04:38) If Map<65 Start Vasopressor (07/11/25 04:38) Sepsis Reassesment After Fluid (07/11/25 05:38) Ngt/Ogt (07/11/25 ) Vital Signs Date Time Temp Pulse Resp B/P (MAP) Pulse Ox O2 Delivery O2 Flow Rate FiO2 07/11/25 04:00 72 07/11/25 03:06 112/60 07/11/25 02:45 70 07/11/25 02:19 98.0 69 22 130/72 95 98.0 07/11/25 02:15 70 Laboratory Tests Test 07/11/25 02:31 07/11/25 05:17 White Blood Count 12.6 10^3/uL (4.4-10.8) H Lactic Acid Level Pending Medications Medications Dose Ordered Sig/Migue Route Start Time Stop Time Status Last Admin Dose Admin Fentanyl Citrate 12.5 mcg ONCE ONCE IV 07/11/25 02:30 07/11/25 02:31 DC 07/11/25 03:06 Ondansetron HCl 4 mg ONCE ONCE IV 07/11/25 02:30 07/11/25 02:31 DC 07/11/25 03:07 Vancomycin HCl 250 ml @ 250 mls/hr ONCE ONCE IV 07/11/25 04:45 07/11/25 05:44 DC 07/11/25 05:20 Reassessment Post Fluid SEPSIS FOCUS EXAM(REASSESSMENT 2200 cc LR administered Date of Reassessment: Jul 11, 2025 Time of Reassessment: 05:44 Pulse Location: Radial Pulse Strength: Normal Capillary Refill Exam: < 3 seconds Skin Temperature: Warm Skin Tugor: WNL Skin Color: WNL Fingernail Color: WNL Departure 1 Departure Time of Disposition: 05:55 Impression: Primary Impression: Pneumonia Additional Impressions: Sepsis Pneumobilia Ileus Anemia Renal insufficiency Disposition: ADMITTED INPATIENT Admit to: Med Surg Condition: Serious Discharged With: Self Critical Care Note Critical Care Time?: Yes (55 min-critical care time only) Critical care comment: Total critical care time: Approximately 55 minutes Due to a high probability of clinically significant, life threatening deterioration, the patient required my highest level of preparedness to in [facility] emergently and I personally spent this critical care time directly and personally managing the patient. This critical care time included obtaining a history; examining the patient; pulse oximetry; ordering and review of studies; arranging urgent treatment with development of a management plan; evaluation of patient's response to treatment; frequent reassessment; and, discussions with other providers. This critical care time was performed to assess and manage the high probability of imminent, life-threatening deterioration that could result in multi-organ failure. It was exclusive of separately billable procedures and treating other patients. Stability Stability form required: No Heart Score Heart Score: Heart Score Response (Comments) Value History N/A 0 EKG N/A 0 Age N/A 0 Risk Factors N/A 0 Troponin N/A 0 Total 0 I personally scribed for SUDHEER BLACK MD ([email or web address]) on 07/11/25 at 02:45. Elect ronically submitted by Skip Ferreira ([email or web address]). SUDHEER BLACK MD Jul 11, 2025 02:45
[2025-07-11 02:52] LABS: Hematocrit 29.4 % (41.0-53.0); Hemoglobin 9.2 g/dL (13.5-17.5); Mean Corpuscular Hemoglobin 25.6 pg (28.0-32.0); Mean Corpuscular Volume 81.8 fL (80.0-100.0); Nucleated Red Blood Cells % 0.0 %
[2025-07-11 02:54] LABS: Chloride 100 mmol/L (98-107); Potassium 4.3 mmol/L (3.5-5.1); Sodium 139 mmol/L (136-145)
[2025-07-11 02:55] LABS: Anion Gap 11 (5-15); Carbon Dioxide 28 mmol/L (20-31)
[2025-07-11 02:56] LABS: Calcium 9.0 mg/dL (8.7-10.4)
[2025-07-11 03:00] VITALS: PULSE 70; RESP 15; O2SAT 97
[2025-07-11 03:01] LABS: BUN/Creatinine Ratio 17.5 (10.0-20.0); Lipase 27 U/L (12-53)
[2025-07-11 03:03] LABS: Blood Urea Nitrogen 29 mg/dL (9-23); Glucose 185 mg/dL (74-106)
[2025-07-11] MEDS: fentaNYL CITRATE 100 MCG/2 ML VL IV ONE (03:06)
[2025-07-11] MEDS: ONDANSETRON HCL 4 MG/2 ML VIAL IV ONE (03:07)
--- NOTE | 2025-07-11 03:21 | [facility] ---
EXAM: CT CT AB PEL WO CON-NO ORAL OR IV History: sbo, ileus Comparison Study: [facility] on DOS: 01/10/22 TECHNIQUE: Multidetector CT of the abdomen and pelvis was performed from lung bases to pubic symphysis. Imaging was performed without IV contrast. Axial, coronal and sagittal multiplanar reformats were obtained from the axial data set by the technologist. Radiation optimization: All CT scans at this facility use at least one of these dose optimization techniques: automated exposure control mA and/or kV adjustment per patient size (includes targeted exams where dose is matched to clinical indication) or iterative reconstruction. Radiation Dose Information: CT Dose: CTDI volume is 15.77 mGy. Dose-length product is 901.78 mGy*cm FINDINGS: Evaluation of solid organs is limited due to lack of intravenous contrast use. Imaged portions of the lung bases demonstrate patchy consolidation basilar left upper lobe and interstitial thickening of the left lower lobe. Air and branching distribution is noted predominantly in the posterior right hepatic lobe proximally there is cholelithiasis in a nondistended gallbladder. Spleen, adrenal glands appear unremarkable. The pancreas is atrophic. There right renal cysts measuring up to 2.9 cm. There is abdominal aortic repair with stent graft. There are multiple prominent predominantly air-filled loops of small bowel in the abdomen measuring up to 3.5 cm. Large amount of fluid and stool within the colon Severe degenerative changes of the spine. IMPRESSION: 1. Branching air predominantly within the central and right posterior liver, distribution favors pneumobilia, however difficult to exclude portal venous gas. Correlation with clinical and laboratory findings is recommended with imaging follow-up to be clinically determined. 2. Air-filled mildly dilated loops of small bowel and prominent loops of colon containing fluid and stool. Findings favor ileus, however follow-up is recommended to exclude developing obstruction. 3. Consolidation left lower pulmonary lobe favors infectious process.
[2025-07-11] MEDS: VANCOMYCIN 1GM/250ML KIT 250 ML IV ONE (05:20)
--- NOTE | 2025-07-11 05:20 | [facility] ---
CHEST RADIOGRAPH INDICATION: pain TECHNIQUE: Single frontal view of the chest was obtained COMPARISON: XY CHEST PORTABLE on DOS: 07/01/25, XY CHEST PORTABLE on DOS: 06/30/25, XY CHEST PORTABLE on DOS: 06/29/25 IMPRESSION: Heart is enlarged with multilead left cardiac device and postsurgical changes. [id number] pulmonary vascular congestion and interstitial prominence, similar to prior examination. No sizable effusion or pneumothorax. Right infusion catheter tip appear stable in position of the SVC.
[2025-07-11] MEDS: LACTATED RINGER'S 2,200 ML IV ONE (06:22)
[2025-07-11] MEDS: CEFEPIME 1GM/50ML 50 ML IV ONE (07:45)
--- NOTE | 2025-07-11 09:50 | [facility] ---
CHEST RADIOGRAPH INDICATION: NG TUBE PLACEMENT TECHNIQUE: Single frontal view of the chest was obtained COMPARISON: XY CHEST PORTABLE on DOS: 07/11/25, XY CHEST PORTABLE on DOS: 07/01/25, XY CHEST PORTABLE on DOS: 06/30/25, XY CHEST PORTABLE on DOS: 06/29/25, XY CHEST XRAY 1 VIEW on DOS: 06/28/25, XY CHEST PORTABLE on DOS: 07/11/25 FINDINGS: Heart is enlarged with multilead left cardiac device and postsurgical changes. [id number] pulmonary vascular congestion and interstitial prominence, similar to prior examination. No sizable effusion or pneumothorax. Right infusion catheter tip appear stable in position of the SVC. IMPRESSION: NO interval change.
[2025-07-11 10:15] LABS: Urine Protein, UAD Negative (Negative)
[2025-07-11] MEDS ORDERED: DOCUSATE SOD 100 MG CAP PO PRN (10:45)
[2025-07-11] MEDS ORDERED: DEXTROSE (50%) 50ML SYRG IV PRN (10:45)
[2025-07-11] MEDS ORDERED: IPRATROPIUM BROM 0.5 MG/2.5ML INH SOL NEB PRN (10:45)
[2025-07-11] MEDS ORDERED: ONDANSETRON HCL 4 MG/2 ML VIAL IV PRN (10:45)
[2025-07-11] MEDS ORDERED: ALBUTEROL SULF 2.5 MG/0.5ML(0.5%) NEB SOLN NEB PRN (10:45)
[2025-07-11 11:30] VITALS: PULSE 70; RESP 11; O2SAT 99
[2025-07-11] MEDS ORDERED: MORPHINE SULFATE INJ 2 MG/ml SYRG IV PRN (11:45)
[2025-07-11] MEDS ORDERED: NITROGLYCERIN 0.4 MG SL TAB SL PRN (11:45)
--- NOTE | 2025-07-11 11:46 | DVHHP2 ---
History of Present Illness Reason for Visit: Pneumonia, unspecified organism History of Present Illness The patient is a 80-year-old male with multiple past medical history including Coronary artery disease, CHF, COPD, diabetes mellitus, and hypertension who presented to [facility] ED with complaint of abdominal pain. Patient reports that he has been experiencing acute abdominal pain, nonradiating, rating 8/10 numeric scale, associated with abdominal distention, shortness of breaths, multiple episodes of nausea, vomiting, and constipation for the past 1 week. Patient was seen and evaluated in the ED, laboratory data shows WBC 12.6, hemoglobin 9.2, hematocrit 29.4, platelets 199, sodium 139, potassium 4.3, BUN 29, creatinine 1.66, GFR 41, glucose 185, calcium 9.0, TSH 1.50, BNP 1030.70, lipase 27, blood pressure 117/59, heart rate 70, temperature 97.6 F, O2 saturation 96% on oxygen. Abdomen/pelvis CT revealing branching predominantly within the central and right posterior liver, distribution favors pneumobilia; filled mildly dilated loops of small bowel and prominent loops of colon containing fluid and stool; finding favors ileus, however follow-up is recommended to exclude developing obstruction; consolidation left lower pulmonary lobe favors infectious process. Chest x-ray revealing enteric tube extending into the proximal stomach. Please see medication orders section in the computer. On my assessment, at bedside, patient denied chest pain, no headache, dizziness, diaphoresis, currently on oxygen, no diarrhea, nausea, vomiting, fever, no chills. Patient was admitted for further evaluation and medical management. Past Medical History CAD, CHF, CKF, COPD, DM, High Lipids, HTN, PA, Thyroid (Hypothyroidism), AAA. Past Surgical History Appendectomy, CABG, Pacemaker (AICD), AAA repair Family History Reviewed, noncontributory to the management of this case. Past Social History The patient lives at home, denies smoking, alcohol or illicit drugs abuse. Review of Systems Constitutional: Yes: Weakness; No: Fever, Chills, Sweats, Malaise, Other Eyes: No: Pain, Vision change, Conjunctivae inflammation, Eyelid inflammation, Other, Redness ENT: No: Ear pain, Ear discharge, Nose pain, Nose discharge, Nose congestion, Mouth pain, Mouth swelling, Throat pain, Throat swelling, Other Respiratory: Shortness of breath; No: Cough, Dry, SOB with excertion, Wheezing, Hemoptysis, Pleuritic Pain, Sputum, Wheezing, Other Cardiovascular: Other (Pacemaker to the right upper chest); No: Chest Pain, Palpitations, Orthopnea, Paroxysmal Noc. Dyspnea, Edema, Lt Headedness Gastrointestinal: Nausea, Vomiting, Abdominal Pain; No: Diarrhea, Constipation, Melena, Hematochezia, Other Genitourinary: No Dysuria, No Frequency, No Incontinence, No Hematuria, No Retention, No Other Musculoskeletal: No: other, neck pain, shoulder pain, arm pain, back pain, hand pain, leg pain, foot pain Skin: No: Rash, Lesions, Jaundice, Bruising, Other Neurological: No: Weakness, Numbness, Incoordination, Change in speech, Confusion, Seizures, Other Allergies: Coded Allergies: Iodine (Verified Allergy, Intermediate, 03/15/25) Iodixanol (Verified Allergy, Unknown, 02/07/24) ITCHING, REDNESS Medications Current Medications Medications Dose Ordered Sig/Migue Route Start Time Stop Time Status Last Admin Dose Admin Doxycycline Hyclate 100 ml @ 50 mls/hr Q12H IV 07/11/25 10:45 UNV Ceftriaxone Sodium 50 ml @ 100 mls/hr DAILY@09 IV 07/12/25 09:00 UNV Atorvastatin Calcium 40 mg HS PO 07/11/25 22:00 UNV Apixaban 2.5 mg BID PO 07/11/25 22:00 UNV Diagnostic Test (Pha) 1 strip Q6HR 07/11/25 12:00 UNV Insulin Human Regular Q6HR SC 07/11/25 12:00 UNV Dextrose 50 ml UD PRN IV 07/11/25 10:45 UNV Sodium Chloride 1,000 ml @ 60 mls/hr [id number] IV 07/11/25 10:45 UNV Acetaminophen/ Hydrocodone Bitart 1 tab Q4HP PRN PO 07/11/25 10:45 UNV Ondansetron HCl 4 mg Q4HP PRN IV 07/11/25 10:45 UNV Docusate Sodium 100 mg BIDPRN PRN PO 07/11/25 10:45 UNV Acetaminophen 650 mg Q6HP PRN PO 07/11/25 10:45 UNV Albuterol 2.5 mg Q4HPRN PRN NEB 07/11/25 10:45 UNV Ipratropium [place] 0.5 mg Q4HPRN PRN NEB 07/11/25 10:45 UNV Levothyroxine Sodium 75 mcg QAM@0600 PO 07/12/25 06:00 UNV Exam Vital Signs Vital Signs Date Time Temp Pulse Resp B/P (MAP) Pulse Ox O2 Delivery O2 Flow Rate FiO2 07/11/25 10:00 70 17 122/59 (80) 99 07/11/25 08:00 Nasal Cannula* 2 28 07/11/25 03:00 97.6 97.6 General Appearance: Alert, Oriented X3, Cooperative, No acute distress HEENT: Atraumatic, PERRLA, EOMI, Mucous membr. moist/pink Respiratory: Normal air movement, Other (Diminished breath sounds) Cardiovascular: Regular rate, Normal S1, Normal S2, No murmurs Abdominal: Normal bowel sounds, Soft, No tenderness, No hepatospenomegaly, No masses Extremities: No clubbing, No cyanosis, No edema, Normal pulses, No tend erness/swelling Skin: No rashes, No significant lesion Neuro: Normal speech, Normal tone, Sensation intact, Cranial nerves 3-12 NL, Reflexes 2+, Other (Generalized weakness) Psych/Mental Status: Mental status NL, Mood NL Labs/Xrays Labs Test 07/11/25 09:30 07/11/25 05:17 07/11/25 02:31 07/11/25 02:21 Range/Units Urine Color Yellow Yellow Urine Clarity Clear Clear Urine pH 5.0 5.0-9.0 Urine Specific [place] 1.011 1.001-1.035 Urine Protein Negative Negative Urine Ketones Negative Negative Urine Blood Negative Negative /uL Urine Nitrite Negative Negative Urine Bilirubin Negative Negative Urine Urobilinogen Normal Negative mg/dL Urine Leukocyte Esterase Negative Negative /uL Urine RBC <1 0 - 3 /hpf Urine Microscopic WBC 7 H 0-3 /HPF Urine Squamous Epithelial Cells None seen <5 /hpf Urine Bacteria Few H None Seen /hpf Urine Hyaline Casts Few 0 - 2 /lpf Urine Glucose 4+ H Normal mg/dL Lactic Acid Level 1.1 0.4-2.0 mmol/L White Blood Count 12.6 H 4.4-10.8 10^3/uL Red Blood Count 3.59 L 4.5-5.90 10^6/uL Hemoglobin 9.2 L 13.5-17.5 g/dL Hematocrit 29.4 L 41.0-53.0 % Mean Corpuscular Volume 81.8 80.0-100.0 fL Mean Corpuscular Hemoglobin 25.6 L 28.0-32.0 pg Mean Corpuscular Hemoglobin Concent 31.3 L 32.0-36.0 g/dL Red Cell Distribution Width 18.3 H 11.8-14.3 % Platelet Count 199 140-450 10^3/uL Mean Platelet Volume 8.8 6.9-10.8 fL Neutrophils (%) (Auto) 92.0 H 37.0-80.0 % Lymphocytes (%) (Auto) 4.2 L 10.0-50.0 % Monocytes (%) (Auto) 3.6 0.0-12.0 % Eosinophils (%) (Auto) 0.1 0.0-7.0 % Basophils (%) (Auto) 0.1 0.0-2.0 % Neutrophils # (Auto) 11.6 H 1.6-8.6 10 ^3/uL Lymphocytes # (Auto) 0.5 0.4-5.4 10 ^3/uL Monocytes # (Auto) 0.5 0-1.3 10 ^3/uL Eosinophils # (Auto) 0 0-0.8 10 ^3/uL Basophils # (Auto) 0 0-0.2 10 ^3/uL Nucleated Red Blood Cells 0.0 % Sodium Level 139 136-145 mmol/L Potassium Level 4.3 3.5-5.1 mmol/L Chloride Level 100 98-107 mmol/L Carbon Dioxide Level 28 20-31 mmol/L Anion Gap 11 5-15 Blood Urea Nitrogen 29 H 9-23 mg/dL Creatinine 1.66 H 0.700-1.30 mg/dL Glomerular Filtration Rate Calc 41 >90 mL/min BUN/Creatinine Ratio 17.5 10.0-20.0 Serum Glucose 185 H 74-106 mg/dL Calcium Level 9.0 8.7-10.4 mg/dL Lipase 27 12-53 U/L B-Type Natriuretic Peptide 1030.70 0-100 pg/mL Thyroid Stimulating Hormone (TSH) 1.50 0.55-4.78 uIU/mL PATIENT: DERRICK ROMO DACCT: [id number] UNIT: [id number] : 1945 LOC: ER ROOM / BED: / AGE / SEX: 80 / M ADM STATUS: REG ER SERVICE ORDERING PHYSICIAN: SUDHEER BLACK MD PROCEDURE(s): ABPL - CT AB PEL WO CON-NO ORAL OR IV REASON: sbo, ileus ORDER NUMBER(s): [id number], ACCESSION NUMBER(s): [id number] EXAM: CT CT AB PEL WO CON-NO ORAL OR IV History: sbo, ileus Comparison Study: [facility] on DOS: 01/10/22 TECHNIQUE: Multidetector CT of the abdomen and pelvis was performed from lung bases to pubic symphysis. Imaging was performed without IV contrast. Axial, coronal and sagittal multiplanar reformats were obtained from the axial data set by the technologist. Radiation optimization: All CT scans at this facility use at least one of these dose optimization techniques: automated exposure control mA and/or kV adjustment per patient size (includes targeted exams where dose is matched to clinical indication) or iterative reconstruction. Radiation Dose Information: CT Dose: CTDI volume is 15.77 mGy. Dose-length product is 901.78 mGy*cm FINDINGS: Evaluation of solid organs is limited due to lack of intravenous contrast use. Imaged portions of the lung bases demonstrate patchy consolidation basilar left upper lobe and interstitial thickening of the left lower lobe. Air and branching distribution is noted predominantly in the posterior right hepatic lobe proximally there is cholelithiasis in a nondistended gallbladder. Spleen, adrenal glands appear unremarkable. The pancreas is atrophic. There right renal cysts measuring up to 2.9 cm. There is abdominal aortic repair with stent graft. There are multiple prominent predominantly air-filled loops of small bowel in the abdomen measuring up to 3.5 cm. Large amount of fluid and stool within the colon Severe degenerative changes of the spine. IMPRESSION: 1. Branching air predominantly within the central and right posterior liver, distribution favors pneumobilia, however difficult to exclude portal venous gas. Correlation with clinical and laboratory findings is recommended with imaging follow-up to be clinically determined. 2. Air-filled mildly dilated loops of small bowel and prominent loops of colon containing fluid and stool. Findings favor ileus, however follow-up is recommended to exclude developing obstruction. 3. Consolidation left lower pulmonary lobe favors infectious process. ORDERING PHYSICIAN: MIGUE LYLE DNP PROCEDURE(s): CXR1 - CHEST XRAY 1 VIEW REASON: NG TUBE PLACEMENT ORDER NUMBER(s): [id number], ACCESSION NUMBER(s): [id number] EXAM: XY CHEST XRAY 1 VIEW HISTORY: NG TUBE PLACEMENT TECHNIQUE: 1 view of the chest COMPARISON: XY CHEST XRAY 1 VIEW on DOS: 07/11/25 FINDINGS/IMPRESSION: LUNGS: Low lung volumes, which cause crowding of the bronchovascular markings. Peripheral interstitial edema. Trace fluid along the right minor fissure. MEDIASTINUM: Borderline cardiomegaly with postoperative changes likely compatible with a prior coronary artery bypass graft surgery. Left anterior chest cardiac device. BONES: Widening of bilateral acromioclavicular joints which may be related to prior distal clavicular resection versus acromioclavicular injury. Suture tract of the right superior glenoid. OTHER: Enteric tube extending into the proximal stomach. Indeterminate radiopaque line/densities may be artifactual projecting in the left upper quadrant. Right internal jugular central venous catheter with distal tip at the cavoatrial junction SEPSIS Sepsis Screen Date sepsis recognized/suspect: Jul 11, 2025 Time Sepsis recognized/suspect: 0800 Recent Procedure: Yes On Antibiotic Therapy: Yes Respiratory Rate >20: No Heart Rate >90: No Temp<36 C (96.8 F) or >38.3 C: No SBP <90 or MAP <65 mmHG: No New Acute Mental Status Change: No Is the patient on CPAP, BIPAP,: No IV fluid challenge completed?: Yes Physician Orders Chest Portable (07/11/25 04:38) Accucheck (07/11/25 04:38) Blood Culture (07/11/25 04:38) Notify Md If Map <65 Or Bp<90 (07/11/25 04:38) If Map<65 Start Vasopressor (07/11/25 04:38) Sepsis Reassesment After Fluid (07/11/25 05:38) Ngt/Ogt (07/11/25 ) Chest Xray 1 View (07/11/25 09:01) Doxycycline 100mg/100ml (Vibramycin) (07/11/25 10:45) Ceftriaxone 1gm/50ml (Rocephin) (07/12/25 09:00) Atorvastatin (Lipitor) (07/11/25 22:00) * Surgical Consult (07/11/25 ) Apixaban (Eliquis) (07/11/25 22:00) Glucose Blood (Accu-Chek Comfort Curve T (07/11/25 12:00) Insulin R (Human) (Insulin R) (07/11/25 12:00) Dextrose 50% Syringe (07/11/25 10:45) Allergies (07/11/25 10:36) Code Status (07/11/25 10:36) Sodium Chloride 0.9% (07/11/25 10:45) Oxygen Per Hour (07/11/25 10:36) Hydrocodone-Acet 5/325mg Tab ([facility] 5/32 (07/11/25 10:45) Ondansetron Hcl (Zofran) (07/11/25 10:45) Docusate Sodium Capsule (Colace Capsule) (07/11/25 10:45) Fall Risk Precautions In Place QSHIFT (07/11/25 10:36) Complete Blood Count (07/12/25 04:00) Comprehensive Metabolic Panel (07/12/25 04:00) Condition: Serious (07/11/25 10:36) Acetaminophen Tablet (Tylenol Tablet) (07/11/25 10:45) Clear Liq Diet (07/11/25 Lunch) Maintain Bed Rest (07/11/25 10:36) Sequential Compression Device (07/11/25 ) Levothyroxine Tablet (Synthroid Tablet) (07/12/25 06:00) Small Bowel Series-W Gastrogra (07/11/25 10:36) Admit (07/11/25 11:45) Nitroglycerin Sublingual (Ntrostat Subli (07/11/25 11:45) Morphine Sulfate Injection (07/11/25 11:45) Stat Ekg For Chest Pain (07/11/25 11:45) Notify Md Of Changes From Base (07/11/25 11:45) Tray Delivery Aide For 24 Hours (07/11/25 11:45) Emergency Dysrhythmia Protocol (07/11/25 11:45) Rhythm Strips Once Every Shift (07/11/25 11:45) Oxygen By Nasal Cannula (07/11/25 11:45) Vital Signs Date Time Temp Pulse Resp B/P (MAP) Pulse Ox O2 Delivery O2 Flow Rate FiO2 07/11/25 10:00 70 17 122/59 (80) 99 07/11/25 08:00 Nasal Cannula* 2 28 07/11/25 08:00 70 18 117/59 (78) 96 07/11/25 06:00 71 126/63 (84) 95 07/11/25 05:00 70 18 115/58 (77) 96 07/11/25 04:00 72 07/11/25 04:00 72 13 107/65 (79) 98 Laboratory Tests Test 07/11/25 02:31 07/11/25 05:17 White Blood Count 12.6 10^3/uL (4.4-10.8) H Lactic Acid Level 1.1 mmol/L (0.4-2.0) Medications Medications Dose Ordered Sig/Migue Route Start Time Stop Time Status Last Admin Dose Admin Cefepime HCl 50 ml @ 12.5 mls/hr ONCE ONCE IV 07/11/25 04:45 07/11/25 08:44 DC 07/11/25 07:45 12.5 MLS/HR Fentanyl Citrate 12.5 mcg ONCE ONCE IV 07/11/25 02:30 07/11/25 02:31 DC 07/11/25 03:06 12.5 MCG Lactated Ringer's 2,200 ml @ 2,200 mls/hr ONCE ONCE IV 07/11/25 04:45 07/11/25 05:44 DC 07/11/25 06:22 2,200 MLS/HR Ondansetron HCl 4 mg ONCE ONCE IV 07/11/25 02:30 07/11/25 02:31 DC 07/11/25 03:07 4 MG Vancomycin HCl 250 ml @ 250 mls/hr ONCE ONCE IV 07/11/25 04:45 07/11/25 05:44 DC 07/11/25 05:20 250 MLS/HR Reassessment Post Fluid Date of Reassessment: Jul 11, 2025 Time of Reassessment: 05:44 Pulse Location: Radial Pulse Strength: Normal Capillary Refill Exam: < 3 seconds Skin Temperature: Warm Skin Tugor: WNL Skin Color: WNL Fingernail Color: WNL Assessment/Plan Assessment/Plan Pneumonia, unspecified organisms Ileus Pneumobilia Diabetes mellitus with hyperglycemia Anemia, unspecified Renal insufficiency Acute exacerbation of congestive heart failure Generalized weakness Plan 1. Admit to telemetry unit 2. Breathing treatment 3. Pain control management 4. IV antibiotic management 5. Management of fluids and electrolytes 6. Consultation for cardiology 7. Diagnostic test chest x-ray 8. DVT prophylaxis on 9. Repeat labs CBC, CMP in a.m. 10. Home medication reviewed and reconciled 11. Continue with current medical management 12. Treatment plan discussed with patient/ and RN. Patient/ verbalized understanding. Plan discussed with: Patient, Spouse (At bedside), Other (RN) My Orders Orders - MIGUE LYLE DNP Procedure Category Date Status Time Doxycycline PHA 07/11/25 Logged 100mg/100ml 10:45 Ceftriaxone 1gm/50ml PHA 07/12/25 Logged (Rocephin) 09:00 Atorvastatin (Lipitor) PHA 07/11/25 Logged 22:00 * Surgical Consult CONS 07/11/25 Transmitted Apixaban (Eliquis) PHA 07/11/25 Logged 22:00 Glucose Blood PHA 07/11/25 Logged (Accu-Chek Comfort 12:00 Insulin R (Human) PHA 07/11/25 Logged (Insulin R) 12:00 Dextrose 50% Syringe PHA 07/11/25 Logged 10:45 Allergies CHARLI 07/11/25 In Process 10:36 Code Status CODE 07/11/25 Transmitted 10:36 Sodium Chloride 0.9% PHA 07/11/25 Logged 10:45 Oxygen Per Hour RT 07/11/25 Transmitted 10:36 Hydrocodone-Acet PHA 07/11/25 Logged 5/325mg Tab ([facility] 10:45 Ondansetron Hcl PHA 07/11/25 Logged (Zofran) 10:45 Docusate Sodium PHA 07/11/25 Logged Capsule (Colace 10:45 Fall Risk Precautions CHARLI 07/11/[address] 10:36 Complete Blood Count LAB 07/12/25 Verified 04:00 Comprehensive LAB 07/12/25 Verified Metabolic Panel 04:00 Condition: Serious CHARLI 07/11/25 In Process 10:36 Acetaminophen Tablet PHA 07/11/25 Logged (Tylenol Tablet) 10:45 Clear Liq Diet DIET 07/11/25 Transmitted Lunch Maintain Bed Rest CHARLI 07/11/25 In Process 10:36 Sequential [facility] 07/11/25 In Process Compression Device Levothyroxine Tablet [facility] 07/12/25 Logged (Synthroid Tablet) 06:00 Small Bowel Series-W XY 07/11/25 Logged Gastrogra 10:36 Admit ADMIT 07/11/25 Verified 11:45 Nitroglycerin [facility] 07/11/25 Verified Sublingual (Ntrostat 11:45 Morphine Sulfate [facility] 07/11/25 Verified Injection 11:45 Stat Ekg For Chest [facility] 07/11/25 Verified Pain 11:45 Notify Md Of Changes [facility] 07/11/25 Verified From Base 11:45 Tray Delivery Aide For [facility] 07/11/25 Verified 24 Hours 11:45 Emergency Dysrhythmia [facility] 07/11/25 Verified Protocol 11:45 Rhythm Strips Once [facility] 07/11/25 Verified Every Shift 11:45 Oxygen By Nasal RT 07/11/25 Verified Cannula 11:45 Problem List: (1) Pneumonia, unspecified organism (2) Ileus (3) Pneumobilia (4) Diabetes mellitus with hyperglycemia (5) Anemia, unspecified (6) Renal insufficiency (7) Acute exacerbation of congestive heart failure Date of Service: Jul 11, 2025 Billing Provider: MIGUE LYLE DNP Common Visit Codes: [id number] INP/OBS CARE (HIGH) MIGUE LYLE DNP Jul 11, 2025 11:46
[2025-07-11] MEDS: ACCU-CHEK COMFORT CURVE STRIP VI SCH (12:13)
[2025-07-11] MEDS: DOXYCYCLINE 100MG/100ML 100 ML IV ONE (12:18)
[2025-07-11] MEDS: DOXYCYCLINE 100MG/100ML 100 ML IV SCH (12:24)
[2025-07-11] MEDS: InsuLIN REG 1unit/0.01ml Soln (100units/ml) SC SCH (12:30)
--- NOTE | 2025-07-11 12:48 | DVH ---
EXAM: XY CHEST XRAY 1 VIEW HISTORY: NG TUBE PLACEMENT TECHNIQUE: 1 view of the chest COMPARISON: XY CHEST XRAY 1 VIEW on DOS: 07/11/25 FINDINGS/IMPRESSION: LUNGS: Low lung volumes, which cause crowding of the bronchovascular markings. Peripheral interstitial edema. Trace fluid along the right minor fissure. MEDIASTINUM: Borderline cardiomegaly with postoperative changes likely compatible with a prior coronary artery bypass graft surgery. Left anterior chest cardiac device. BONES: Widening of bilateral acromioclavicular joints which may be related to prior distal clavicular resection versus acromioclavicular injury. Suture tract of the right superior glenoid. OTHER: Enteric tube extending into the proximal stomach. Indeterminate radiopaque line /densities may be artifactual projecting in the left upper quadrant. Right internal jugular central venous catheter with distal tip at the cavoatrial junction
[2025-07-11] MEDS: SODIUM CHLORIDE 0.9% 1,000 ML IV SCH ×2 (13:00→14:39)
--- NOTE | 2025-07-11 14:07 | DVHINCON2 ---
Date of service: Jul 11, 2025 History of Present Illness 80-year-old male with a history of multiple medical problems including CAD, CABG, CHF, CKD, hypertension and history of NE admitted secondary to diffuse abdominal pain associated with nausea and vomiting. Past Medical History As mentioned in HPI Past Surgical History CABG. AICD. AAA repair. Appendectomy. Family History: Alcoholism G8 FATHER FH: uterine cancer G8 MOTHER Family history: Cardiovascular disease G8 FATHER Family history: Diabetes mellitus G8 MOTHER G8 FATHER Family history: Hypercholesterolemia (situation) Family history: Hypertension G8 MOTHER G8 FATHER Family History Noncontributory Social History Quit tobacco five years ago. No alcohol IV drug use Allergies: Coded Allergies: Iodine (Verified Allergy, Intermediate, 03/15/25) Iodixanol (Verified Allergy, Unknown, 02/07/24) ITCHING, REDNESS Home Meds Reported Medications Glipizide (Glipizide) 10 Mg Tab, 1 TAB PO BID 06/28/25 Gabapentin (Gabapentin) 300 Mg Cap, 300 MG PO TID 06/28/25 Tiotropium [place]-Olodaterol (Stiolto Respimat 2.5-2.5 Mcg/Act) 1 Aer Aer, IN, AER 06/08/25 Ipratropium [place] Hfa (Atrovent Hfa) 17 Mcg Aer, INH QID, #12.9 GRAMS 5 Refills 06/08/25 Revefenacin (Yupelri) 175 Mcg/3 Ml [place], [place], ML 06/08/25 Magnesium Bisglycinate (Mag Glycinate) 100 Mg Tab, PO, TAB 06/08/25 Esomeprazole Magnesium Trihydr (Nexium) 40 Mg Cap, PO, CAP 06/08/25 Diclofenac Sodium (Topical) (Voltaren Arthritis Pain) 1 % Gel, EX, GEL 06/08/25 Bumetanide (Bumex) 2 Mg Tab, 1 MG PO BID 03/15/25 Dapagliflozin Propanediol (Farxiga) 10 Mg Tab, 5 MG PO DAILY, TAB 03/15/25 Vericiguat (Verquvo) 2.5 Mg Tab, 1 TAB PO DAILY 12/09/24 Levothyroxine Sodium (Levothyroxine Sodium) 200 Mcg Tab, 200 MCG PO QAM, MCG TAKE WITH LEVOTHYROXINE 50 MCG TABLET FOR TOTAL 250 MCG DAILY 12/30/23 Levothyroxine Sodium (SYNTHROID TABLET) 50 Mcg Tb, 1 TAB PO QAM for HYPOTHYROIDISM TAKE WITH LEVOTHYROXINE 200 MCG TABLET FOR TOTAL 250 MCG DAILY 10/16/23 Ipratropium [place] Hfa (Atrovent Hfa) 17 Mcg Aer, 2 PUFF INH BID PRN for SHORTNESS OF BREATH 10/16/23 Amiodarone HCl (Amiodarone Hydrochloride) 400 Mg Tab, 1 TAB PO DAILY for ARRHYTHMIA 10/16/23 Potassium Chloride (Klor-Con M20) 20 Meq Tab, 1 TAB PO DAILY for SUPPLEMENT 10/16/23 Apixaban Base (ELIQUIS) 2.5 Mg Tab, 1 TAB PO BID for ARRYTHMIA 10/16/23 Ivabradine Hydrochloride (Corlanor) 5 Mg Tab, 1 TAB PO BID for HEART FAILURE 10/16/23 Atorvastatin Calcium (ATORVASTATIN CALCIUM) 80 Mg Tab, 1 TAB PO QPM for HIGH CHOLESTEROL 10/16/23 Cholecalciferol (VITAMIN D3) 2,000 Unit Tab, 1 TAB PO DAILY for SUPPLEMENT 10/16/23 Nitroglycerin (NTROSTAT SUBLINGUAL) 0.4 Mg Sl, 1 MG SL PRN for FOR CHEST PAIN *MAY REPEAT EVERY 5 MINUTES X 3 TOTAL IF NO RELIEF, INITIATE ANALGESIC THERAPY. NOTIFY PHYSICIAN *Do not crush. 02/13/19 Current Medications Current Medications Medications (Trade) Dose Ordered Sig/Migue Route PRN Reason Start Time Stop Time Status Last Admin Doxycycline Hyclate 100 ml @ 50 mls/hr Q12H IV 07/11/25 10:45 07/11/25 12:24 Ceftriaxone Sodium 50 ml @ 100 mls/hr DAILY@09 IV 07/12/25 09:00 Atorvastatin Calcium (Lipitor) 40 mg HS PO 07/11/25 22:00 Apixaban (Eliquis) 2.5 mg BID PO 07/11/25 22:00 Diagnostic Test (Pha) (Accu-Chek Comfort Curve T) 1 strip Q6HR 07/11/25 12:00 07/11/25 12:13 Insulin Human Regular (InsuLIN R) Q6HR SC 07/11/25 12:00 07/11/25 12:30 Dextrose 50 ml UD PRN IV Blood Sugar LESS THAN 60 07/11/25 10:45 Sodium Chloride 1,000 ml @ 60 mls/hr [id number] IV 07/11/25 10:45 07/11/25 13:00 Acetaminophen/ Hydrocodone Bitart ([place] 5/325MG Tab) 1 tab Q4HP PRN PO MODERATE PAIN (4-6 PAIN SCALE) 07/11/25 10:45 Ondansetron HCl (Zofran) 4 mg Q4HP PRN IV NAUSEA / VOMITING 07/11/25 10:45 Docusate Sodium (Colace Capsule) 100 mg BIDPRN PRN PO FOR CONSTIPATION 07/11/25 10:45 Acetaminophen (Tylenol Tablet) 650 mg Q6HP PRN PO PAIN SCALE 1-3 OR TEMP>100.4 07/11/25 10:45 Albuterol (Ventolin Medneb) 2.5 mg Q4HPRN PRN NEB SHORTNESS OF BREATH 07/11/25 10:45 UNV Ipratropium [place] (Atrovent Medneb) 0.5 mg Q4HPRN PRN NEB SHORTNESS OF BREATH 07/11/25 10:45 UNV Levothyroxine Sodium (Synthroid Tablet) 75 mcg QAM@0600 PO 07/12/25 06:00 Nitroglycerin (Ntrostat Sublingual) 0.4 mg Q5MINP PRN SL FOR CHEST PAIN 07/11/25 11:45 Morphine Sulfate 2 mg Q30M PRN IV FOR CHEST PAIN 07/11/25 11:45 Vital Signs Vital Signs Date Time Temp Pulse Resp B/P (MAP) Pulse Ox O2 Delivery O2 Flow Rate FiO2 07/11/25 13:53 70 16 117/60 (79) 99 07/11/25 12:00 98.4 98.4 07/11/25 08:00 Nasal Cannula* 2 28 Physical Exam GEN: Elderly male in no acute distress. Alert. HEENT: Normocephalic atraumatic. Moist mucous membranes. Anicteric sclerae. NG tube intact CV: RRR Respiratory: Coarse breath sounds ABD: Obese abdomen but soft. Minimal distention. Nontender. Multiple incisional scars. CT of the abdomen and pelvis: Branching air within the central and right posterior liver which favors pneumobilia. Air-filled mildly dilated loops of small bowel and prominent loops of colon containing fluid and stool possible developing obstruction. Left lower pulmonary lobe consolidation Labs/Diagnostic Data Labs Test 07/11/25 12:12 07/11/25 09:30 07/11/25 05:17 07/11/25 02:31 Range/Units POC Glucose 145 H 70-106 mg/dl Urine Color Yellow Yellow Urine Clarity Clear Clear Urine pH 5.0 5.0-9.0 Urine Specific [place] 1.011 1.001-1.035 Urine Protein Negative Negative Urine Ketones Negative Negative Urine Blood Negative Negative /uL Urine Nitrite Negative Negative Urine Bilirubin Negative Negative Urine Urobilinogen Normal Negative mg/dL Urine Leukocyte Esterase Negative Negative /uL Urine RBC <1 0 - 3 /hpf Urine Microscopic WBC 7 H 0-3 /HPF Urine Squamous Epithelial Cells None seen <5 /hpf Urine Bacteria Few H None Seen /hpf Urine Hyaline Casts Few 0 - 2 /lpf Urine Glucose 4+ H Normal mg/dL Lactic Acid Level 1.1 0.4-2.0 mmol/L White Blood Count 12.6 H 4.4-10.8 10^3/uL Red Blood Count 3.59 L 4.5-5.90 10^6/uL Hemoglobin 9.2 L 13.5-17.5 g/dL Hematocrit 29.4 L 41.0-53.0 % Mean Corpuscular Volume 81.8 80.0-100.0 fL Mean Corpuscular Hemoglobin 25.6 L 28.0-32.0 pg Mean Corpuscular Hemoglobin Concent 31.3 L 32.0-36.0 g/dL Red Cell Distribution Width 18.3 H 11.8-14.3 % Platelet Count 199 140-450 10^3/uL Mean Platelet Volume 8.8 6.9-10.8 fL Neutrophils (%) (Auto) 92.0 H 37.0-80.0 % Lymphocytes (%) (Auto) 4.2 L 10.0-50.0 % Monocytes (%) (Auto) 3.6 0.0-12.0 % Eosinophils (%) (Auto) 0.1 0.0-7.0 % Basophils (%) (Auto) 0.1 0.0-2.0 % Neutrophils # (Auto) 11.6 H 1.6-8.6 10 ^3/uL Lymphocytes # (Auto) 0.5 0.4-5.4 10 ^3/uL Monocytes # (Auto) 0.5 0-1.3 10 ^3/uL Eosinophils # (Auto) 0 0-0.8 10 ^3/uL Basophils # (Auto) 0 0-0.2 10 ^3/uL Nucleated Red Blood Cells 0.0 % Sodium Level 139 136-145 mmol/L Potassium Level 4.3 3.5-5.1 mmol/L Chloride Level 100 98-107 mmol/L Carbon Dioxide Level 28 20-31 mmol/L Anion Gap 11 5-15 Blood Urea Nitrogen 29 H 9-23 mg/dL Creatinine 1.66 H 0.700-1.30 mg/dL Glomerular Filtration Rate Calc 41 >90 mL/min BUN/Creatinine Ratio 17.5 10.0-20.0 Serum Glucose 185 H 74-106 mg/dL Calcium Level 9.0 8.7-10.4 mg/dL Lipase 27 12-53 U/L Test 07/11/25 02:21 Range/Units B-Type Natriuretic Peptide 1030.70 0-100 pg/mL Thyroid Stimulating Hormone (TSH) 1.50 0.55-4.78 uIU/mL Assessment 1. Abdominal pain possibly from ischemic bowel with small bowel obstruction Plan/Recommendation 1. Continue with NG tube decompression IV fluid resuscitation. 2. Small-bowel follow-through with Gastrografin tomorrow. Plan discussed with: Patient ROMAIN SCHMITT MD Jul 11, 2025 14:07
[2025-07-11] MEDS: HYDROcodone-ACET 5/325MG TAB PO PRN (16:27)
[2025-07-11] MEDS: BUMETANIDE 1mg/4ml VIAL (0.25mg/ml) IV SCH (18:22)
[2025-07-11] MEDS: ACETAMINOPHEN 325 MG TAB PO PRN (22:20)
[2025-07-11] MEDS: ATORVASTATIN 20 MG TAB PO SCH (22:20)
[2025-07-11] MEDS: APIXABAN 2.5 MG TAB PO SCH (22:21)
[2025-07-11 22:30] VITALS: BP 109/56; PULSE 70; RESP 16; TEMP 97.8; O2SAT 100
[2025-07-12] VITALS (9 sets, daily range): BP systolic 105–126; BP diastolic 50–83; PULSE 68–71; RESP 14–18; TEMP 97.6–98.1; O2SAT 97–100
[2025-07-12] MEDS ORDERED: LEVO200T PO (00:08)
[2025-07-12] MEDS ORDERED: IVAB5TAB2 PO (00:08)
[2025-07-12] MEDS ORDERED: LEVO50TA3 PO (00:08)
[2025-07-12] MEDS ORDERED: LACT10SO3 PO (00:08)
[2025-07-12] MEDS ORDERED: BUME2TAB5 PO (00:08)
[2025-07-12] MEDS ORDERED: TAMS0.4C39 PO (00:08)
[2025-07-12] MEDS ORDERED: POTA-180 PO (00:08)
--- NOTE | 2025-07-12 05:20 | DVH ---
CHEST RADIOGRAPH Indication: NG TUBE PLACEMENT Technique: Single frontal view of the chest was obtained COMPARISON: XY CHEST XRAY 1 VIEW on DOS: 07/11/25, XY CHEST XRAY 1 VIEW on DOS: 07/11/25, XY CHEST PORTABLE on DOS: 07/11/25, XY CHEST PORTABLE on DOS: 07/01/25, XY CHEST PORTABLE on DOS: 06/30/25 FINDINGS: Lines and Tubes: Endotracheal tube and enteric catheter in satisfactory position. Right chest port in satisfactory position. Left chest wall AICD. Lungs: Increased interstital prominence. This may represent pulmonary vascular congestion and/or viral pneumonia. Pleura: No effusion. No pneumothorax. Cardiomediastinal contours: Median sternotomy. Cardiomegaly. Bones: Unremarkable IMPRESSION: Lines and tubes in satisfactory position. Increased pulmonary vascular congestion.
[2025-07-12] MEDS: LEVOTHYROXINE SODIUM 25 MCG TAB PO SCH (05:51)
[2025-07-12 05:59] LABS: Hematocrit 27.1 % (41.0-53.0); Hemoglobin 8.6 g/dL (13.5-17.5)
[2025-07-12 06:02] LABS: Mean Corpuscular Hemoglobin 26.1 pg (28.0-32.0); Mean Corpuscular Volume 82.3 fL (80.0-100.0); Nucleated Red Blood Cells % 0.1 %
[2025-07-12 06:15] LABS: Anion Gap 8 (5-15); BUN/Creatinine Ratio 16.8 (10.0-20.0); Carbon Dioxide 31 mmol/L (20-31); Chloride 103 mmol/L (98-107); Glucose 77 mg/dL (74-106); Sodium 142 mmol/L (136-145); Total Protein 6.4 g/dL (5.7-8.2)
[2025-07-12 06:16] LABS: Albumin 3.6 g/dL (3.2-4.8); Bilirubin, Total 0.7 mg/dL (0.2-1.0)
[2025-07-12 06:18] LABS: Alanine Aminotransferase 49 U/L (7-40); Alkaline Phosphatase 186 U/L (46-116); Blood Urea Nitrogen 24 mg/dL (9-23); Potassium 3.4 mmol/L (3.5-5.1)
[2025-07-12 06:19] LABS: Calcium 8.3 mg/dL (8.7-10.4)
[2025-07-12] MEDS ORDERED: GASTROGRAFIN 120 ML SOL ONE (08:39)
--- NOTE | 2025-07-12 11:04 | DVHPN2 ---
Progress Note Date Seen: Jul 12, 2025 Medical Necessity Reason Pt with a Central, PICC or Fol: No Subjective Patient reports: No new complaints Review of Systems: HEENT:Normal, CVS:Normal, RESPIRATORY:Normal, GI:Normal, :Normal, MSK:Normal, NEURO:Normal Objective vital signs Vital Sign Date Time Temp Pulse Resp B/P (MAP) Pulse Ox O2 Delivery O2 Flow Rate FiO2 07/12/25 09:00 98.1 70 16 126/64 (84) 98 98.1 07/12/25 08:02 Nasal Cannula* 2 28 Total Intake and Output 07/11/25 07/11/25 07/12/25 15:00 23:00 07:00 Intake Total 1197.5 ml 500 ml 100 ml Output Total 250 ml Balance 1197.5 ml 500 ml -150 ml medications Current Medications Medications Dose Ordered Sig/Migue Route Start Time Stop Time Status Last Admin Dose Admin Doxycycline Hyclate 100 ml @ 50 mls/hr Q12H IV 07/11/25 10:45 07/11/25 22:20 50 MLS/HR Ceftriaxone Sodium 50 ml @ 100 mls/hr DAILY@09 IV 07/12/25 09:00 07/12/25 10:40 100 MLS/HR Atorvastatin Calcium 40 mg HS PO 07/11/25 22:00 07/11/25 22:20 40 MG Apixaban 2.5 mg BID PO 07/11/25 22:00 07/12/25 10:41 2.5 MG Diagnostic Test (Pha) 1 strip Q6HR 07/11/25 12:00 07/12/25 06:01 1 STRIP Insulin Human Regular Q6HR SC 07/11/25 12:00 07/11/25 12:30 2 UNITS Dextrose 50 ml UD PRN IV 07/11/25 10:45 Acetaminophen/ Hydrocodone Bitart 1 tab Q4HP PRN PO 07/11/25 10:45 07/12/25 10:40 1 TAB Ondansetron HCl 4 mg Q4HP PRN IV 07/11/25 10:45 Docusate Sodium 100 mg BIDPRN PRN PO 07/11/25 10:45 Acetaminophen 650 mg Q6HP PRN PO 07/11/25 10:45 07/11/25 22:20 650 MG Albuterol 2.5 mg Q4HPRN PRN NEB 07/11/25 10:45 UNV Ipratropium [place] 0.5 mg Q4HPRN PRN NEB 07/11/25 10:45 UNV Levothyroxine Sodium 75 mcg QAM@0600 PO 07/12/25 06:00 07/12/25 05:51 75 MCG Nitroglycerin 0.4 mg Q5MINP PRN SL 07/11/25 11:45 Morphine Sulfate 2 mg Q30M PRN IV 07/11/25 11:45 Bumetanide 1 mg BIDD IV 07/11/25 18:00 07/12/25 05:54 1 MG Examination: GENERAL:Normal, HEENT:Normal, NECK:Normal, LUNGS:Normal, CVS:Normal, ABDOMEN:Normal, ABDOMEN:Abnormal (NG), MSK:Normal, SKIN:Normal, NEURO:Normal, :Normal laboratory and microbiology Laboratory Tests 07/12/25 04:45 Test 07/12/25 04:45 Range/Units Serum Glucose 77 # 74-106 mg/dL Microbiology Date/Time Source Procedure Growth Status 07/11/25 05:25 Blood Blood Culture - Preliminary NO GROWTH AFTER 24 HOURS OF INCUBATION. Resulted Problem List/Assessment/Plan Problem List/Assessment/Plan #1 left pneumonia- gram positive/neg with sepsis: iv antibiotics #2 ?sbo: sbft, npo #3 h/o syncopy / vtach: amiodarone #4 cad s/p cabg/stent: cont meds #5 dm: ssi #6 copd with chronic resp failure #7 s/p aicd #8 ckd stage 3 #9 acute on chronic systolic heart failure: iv bumex #10 aaa repair #11 hypokalemia: replace #12 hypothyroidism: check tsh #13 hyperlipidemia #14 S/P cpr/vtach: aicd battery replaced advance care planning- full code- time spent 18 mins Plan discussed with: Patient Date of Service: Jul 12, 2025 Billing Provider: HOLLY CARY MD Common Visit Codes: [id number] INP/OBS CARE(HIGH) Secondary Visit Codes: [id number] CARE PLAN 30 MINUTES HOLLY CARY MD Jul 12, 2025 11:04
--- NOTE | 2025-07-12 11:14 | DVHPN2 ---
Progress Note - Dictate Date Seen: Jul 12, 2025 Medical Necessity Reason Pt with a Central, PICC or Fol: No Subjective E: no major events o/n. c/o min epigastric pain. vital signs Vital Sign Date Time Temp Pulse Resp B/P (MAP) Pulse Ox O2 Delivery O2 Flow Rate FiO2 07/12/25 09:00 98.1 70 16 126/64 (84) 98 98.1 07/12/25 08:02 Nasal Cannula* 2 28 Total Intake and Output 07/11/25 07/11/25 07/12/25 15:00 23:00 07:00 Intake Total 1197.5 ml 500 ml 100 ml Output Total 250 ml Balance 1197.5 ml 500 ml -150 ml medications Current Medications Medications Dose Ordered Sig/Migue Route Start Time Stop Time Status Last Admin Dose Admin Doxycycline Hyclate 100 ml @ 50 mls/hr Q12H IV 07/11/25 10:45 07/11/25 22:20 50 MLS/HR Ceftriaxone Sodium 50 ml @ 100 mls/hr DAILY@09 IV 07/12/25 09:00 07/12/25 10:40 100 MLS/HR Diagnostic Test (Pha) 1 strip Q6HR 07/11/25 12:00 07/12/25 06:01 1 STRIP Insulin Human Regular Q6HR SC 07/11/25 12:00 07/11/25 12:30 2 UNITS Dextrose 50 ml UD PRN IV 07/11/25 10:45 Acetaminophen/ Hydrocodone Bitart 1 tab Q4HP PRN PO 07/11/25 10:45 07/12/25 10:40 1 TAB Ondansetron HCl 4 mg Q4HP PRN IV 07/11/25 10:45 Docusate Sodium 100 mg BIDPRN PRN PO 07/11/25 10:45 Acetaminophen 650 mg Q6HP PRN PO 07/11/25 10:45 07/11/25 22:20 650 MG Albuterol 2.5 mg Q4HPRN PRN NEB 07/11/25 10:45 UNV Ipratropium [place] 0.5 mg Q4HPRN PRN NEB 07/11/25 10:45 UNV Nitroglycerin 0.4 mg Q5MINP PRN SL 07/11/25 11:45 Morphine Sulfate 2 mg Q30M PRN IV 07/11/25 11:45 Bumetanide 1 mg BIDD IV 07/11/25 18:00 07/12/25 05:54 1 MG objective GEN: NAD ABD: epigastric TTP. SFBT: pending laboratory and microbiology Laboratory Tests 07/12/25 04:45 Test 07/12/25 04:45 Range/Units Serum Glucose 77 # 74-106 mg/dL Assessment/Plan A: 1. PNA 2. poss SBO P: 1. SBFT pending Plan discussed with: Patient ROMAIN SCHMITT MD Jul 12, 2025 11:14
[2025-07-12] MEDS: POTASSIUM CHLORIDE 20 MEQ, LIDOCAINE 1% (LOCAL ANESTH.) 2 ML in SODIUM CHL 0.9% 100 ML IV ONE (13:52)
--- NOTE | 2025-07-12 17:01 | DVHPN2 ---
Progress Note - Dictate Date Seen: Jul 12, 2025 Medical Necessity Reason Pt with a Central, PICC or Fol: No Subjective PT WITH ABD PAIN SBO ILEUS HX OF NEAR SYNCOPE CHEST PAIN HYPOKALEMIA NOW WITH VT SECONDARY TO HYPOKALEMIA SEVERAL DAYS OF DIARRHEA GASTROENTERIS BECAUSE OF HYPOKALEMIA DEVELOPED VT REQUIREING RESSUSCITATION PT ALERT POST RESUSCITATION A 79 years old with history of: * Organic heart disease: A. Coronary artery disease. B. Coronary artery bypass grafting. C. Ischemic cardiomyopathy. D. Multivessel angioplasty. E. BiV AICD implantation. * History of tobacco use continues. * Advanced COPD. He continues to smoke. * Heart failure with reduced ejection fraction. * Ischemic cardiomyopathy. Now the patient with abdominal aortic aneurysm, peripheral vascular disease, now to undergo abdominal aortic aneurysm repair. The patient also has mild renal insufficiency, chronic kidney disease stage II/III and the patient with a creatinine of 1.79. Therefore, adequate measures will be taken prior to intervention because high dye load may be required. Risks and benefits were explained to the patient. The patient understands even though he does not have any bleeding diathesis, high risk for bleeding from abdominal aortic aneurysm repair especially groin repair and perforation. S/P AAA STENT GRAFT PLACEMENT vital signs Vital Sign Date Time Temp Pulse Resp B/P (MAP) Pulse Ox O2 Delivery O2 Flow Rate FiO2 07/12/25 16:40 97.8 68 14 125/83 (97) 98 97.8 07/12/25 08:02 Nasal Cannula* 2 28 Total Intake and Output 07/11/25 07/11/25 07/12/25 15:00 23:00 07:00 Intake Total 1197.5 ml 500 ml 100 ml Output Total 250 ml Balance 1197.5 ml 500 ml -150 ml medications Current Medications Medications Dose Ordered Sig/Migue Route Start Time Stop Time Status Last Admin Dose Admin Doxycycline Hyclate 100 ml @ 50 mls/hr Q12H IV 07/11/25 10:45 07/12/25 11:52 50 MLS/HR Ceftriaxone Sodium 50 ml @ 100 mls/hr DAILY@09 IV 07/12/25 09:00 07/12/25 10:40 100 MLS/HR Diagnostic Test (Pha) 1 strip Q6HR 07/11/25 12:00 07/12/25 11:47 1 STRIP Insulin Human Regular Q6HR SC 07/11/25 12:00 07/11/25 12:30 2 UNITS Dextrose 50 ml UD PRN IV 07/11/25 10:45 Acetaminophen/ Hydrocodone Bitart 1 tab Q4HP PRN PO 07/11/25 10:45 07/12/25 10:40 1 TAB Ondansetron HCl 4 mg Q4HP PRN IV 07/11/25 10:45 Docusate Sodium 100 mg BIDPRN PRN PO 07/11/25 10:45 Acetaminophen 650 mg Q6HP PRN PO 07/11/25 10:45 07/11/25 22:20 650 MG Albuterol 2.5 mg Q4HPRN PRN NEB 07/11/25 10:45 UNV Ipratropium [place] 0.5 mg Q4HPRN PRN NEB 07/11/25 10:45 UNV Nitroglycerin 0.4 mg Q5MINP PRN SL 07/11/25 11:45 Morphine Sulfate 2 mg Q30M PRN IV 07/11/25 11:45 Bumetanide 1 mg BIDD IV 07/11/25 18:00 07/12/25 05:54 1 MG Lidocaine 1 patch DAILY TOP 07/13/25 10:00 objective PHYSICAL EXAMINATION: VITAL SIGNS: Blood pressure is 128/84. Pulse is 77. O2 saturation 94% on 2 liters. HEENT: Pupils are reactive. Funduscopic exam shows some AV nicking, some exudates. No papilledema. Sclerae anicteric. Extraocular muscles are intact. NECK: No JVD appreciated. Carotid pulses are 2+ and symmetrical. No cervical adenopathy. No supraclavicular adenopathy. PULMONARY: Scattered rhonchi throughout. CARDIOVASCULAR: Regular rate. PMI is diffuse laterally displaced. ABDOMEN: Obese. Unable to appreciate organomegaly.DIFF TENDERNESS WITGH DISTENTION EXTREMITIES: 2+ pulses bilaterally. laboratory and microbiology Laboratory Tests 07/12/25 04:45 Test 07/12/25 04:45 Range/Units Serum Glucose 77 # 74-106 mg/dL Problem List ABD PAIN SBO ILEUS HX OF NEAR SYNCOPE CHEST PAIN HYPOKALEMIA NOW WITH VT SECONDARY TO HYPOKALEMIA SEVERAL DAYS OF DIARRHEA GASTROENTERIS BECAUSE OF HYPOKALEMIA DEVELOPED VT REQUIREING RESSUSCITATION PT ALERT POST RESUSCITATION A 79 years old with history of: * Organic heart disease: A. Coronary artery disease. B. Coronary artery bypass grafting. C. Ischemic cardiomyopathy. D. Multivessel angioplasty. E. BiV AICD implantation. * History of tobacco use continues. * Advanced COPD. He continues to smoke. * Heart failure with reduced ejection fraction. * Ischemic cardiomyopathy. Now the patient with abdominal aortic aneurysm, peripheral vascular disease, now to undergo abdominal aortic aneurysm repair. The patient also has mild renal insufficiency, chronic kidney disease stage II/III and the patient with a creatinine of 1.79. Therefore, adequate measures will be taken prior to intervention because high dye load may be required. Risks and benefits were explained to the patient. The patient understands even though he does not have any bleeding diathesis, high risk for bleeding from abdominal aortic aneurysm repair especially groin repair and perforation. S/P AAA STENT GRAFT PLACEMENT ANEMIA Assessment/Plan SMALL BOWEL FOLLOW THROUGH IV FLUID NG TO SUCTION Plan discussed with: Patient, Spouse MIRIAN VALENTINO MD Jul 12, 2025 17:01
[2025-07-12] MEDS: LIDOCAINE 5% TOPICAL PATCH TOP ONE (17:03)
--- NOTE | 2025-07-12 17:26 | DVH ---
PROCEDURE: XY SMALL BOWEL SERIES-W GASTROGRA Reason for study/Clinical History: Rule out obstruction Comparison Study: CT CT AB PEL WO CON-NO ORAL OR IV on DOS: 07/11/25, XY KUB ABDOMEN SINGLE VIEW on DOS: 12/15/24, XY KUB ABDOMEN SINGLE VIEW on DOS: 12/11/24, XY KUB ABDOMEN SINGLE VIEW on DOS: 12/10/24, XY KUB ABDOMEN SINGLE VIEW on DOS: 12/09/24 TECHNIQUE: Single contrast small bowel series performed. FINDINGS/IMPRESSION: Initial cold meat chef view of the abdomen and pelvis appears demonstrates no acute process. Contrast is identified within the colon by 4 minutes and 45 seconds. This represents a significant delay in small bowel transit time consistent without obstruction.
[2025-07-13 01:01] VITALS: BP 132/64; PULSE 98; RESP 18; TEMP 97.9; O2SAT 71
[2025-07-13 05:00] VITALS: BP 120/51; PULSE 69; RESP 18; TEMP 98.1; O2SAT 94
[2025-07-13 05:36] LABS: Hematocrit 26.1 % (41.0-53.0); Hemoglobin 8.2 g/dL (13.5-17.5); Mean Corpuscular Hemoglobin 25.5 pg (28.0-32.0); Mean Corpuscular Volume 81.0 fL (80.0-100.0); Nucleated Red Blood Cells % 0.1 %
[2025-07-13 05:53] LABS: INR 1.37 (0.9-1.15); Partial Thromboplastin Time 32.2 SEC (24.5-34.5); Prothrombin Time 14.1 sec (9.3-11.8)
[2025-07-13 06:41] LABS: Albumin 3.4 g/dL (3.2-4.8); Anion Gap 10 (5-15); BUN/Creatinine Ratio 17.4 (10.0-20.0); Blood Urea Nitrogen 23 mg/dL (9-23); Carbon Dioxide 28 mmol/L (20-31); Chloride 103 mmol/L (98-107); Glucose 83 mg/dL (74-106); Magnesium 2.1 mg/dL (1.6-2.6); Potassium 3.9 mmol/L (3.5-5.1); Sodium 141 mmol/L (136-145); Total Protein 6.3 g/dL (5.7-8.2)
[2025-07-13 06:42] LABS: Bilirubin, Total 0.6 mg/dL (0.2-1.0)
[2025-07-13 06:49] LABS: Alanine Aminotransferase 46 U/L (7-40); Alkaline Phosphatase 187 U/L (46-116); Calcium 8.5 mg/dL (8.7-10.4)
--- NOTE | 2025-07-13 07:25 | DVHPN2 ---
Progress Note - Dictate Date Seen: Jul 13, 2025 Medical Necessity Reason Pt with a Central, PICC or Fol: No Subjective E: no major events o/n. +BM. yolanda po. no complaints. vital signs Vital Sign Date Time Temp Pulse Resp B/P (MAP) Pulse Ox O2 Delivery O2 Flow Rate FiO2 07/13/25 05:23 132/64 07/13/25 05:00 98.1 69 18 94 98.1 07/12/25 20:00 Nasal Cannula* 2 28 Total Intake and Output 07/12/25 07/12/25 07/13/25 15:00 23:00 07:00 Intake Total 262 ml 900 ml 700 ml Output Total 750 ml Balance 262 ml 150 ml 700 ml medications Current Medications Medications Dose Ordered Sig/Migue Route Start Time Stop Time Status Last Admin Dose Admin Doxycycline Hyclate 100 ml @ 50 mls/hr Q12H IV 07/11/25 10:45 07/12/25 21:51 50 MLS/HR Ceftriaxone Sodium 50 ml @ 100 mls/hr DAILY@09 IV 07/12/25 09:00 07/12/25 10:40 100 MLS/HR Diagnostic Test (Pha) 1 strip Q6HR 07/11/25 12:00 07/13/25 05:59 1 STRIP Insulin Human Regular Q6HR SC 07/11/25 12:00 07/13/25 00:04 2 UNITS Dextrose 50 ml UD PRN IV 07/11/25 10:45 Acetaminophen/ Hydrocodone Bitart 1 tab Q4HP PRN PO 07/11/25 10:45 07/12/25 10:40 1 TAB Ondansetron HCl 4 mg Q4HP PRN IV 07/11/25 10:45 Docusate Sodium 100 mg BIDPRN PRN PO 07/11/25 10:45 Acetaminophen 650 mg Q6HP PRN PO 07/11/25 10:45 07/13/25 05:52 650 MG Albuterol 2.5 mg Q4HPRN PRN NEB 07/11/25 10:45 UNV Ipratropium [place] 0.5 mg Q4HPRN PRN NEB 07/11/25 10:45 UNV Nitroglycerin 0.4 mg Q5MINP PRN SL 07/11/25 11:45 Morphine Sulfate 2 mg Q30M PRN IV 07/11/25 11:45 Bumetanide 1 mg BIDD IV 07/11/25 18:00 07/13/25 05:23 1 MG Lidocaine 1 patch DAILY TOP 07/13/25 10:00 objective GEN: NAD ABD: soft. NT SBFT: contrast in colon slt delayed. laboratory and microbiology Laboratory Tests 07/13/25 04:35 Test 07/13/25 04:35 Range/Units Serum Glucose 83 74-106 mg/dL Assessment/Plan A: 1. PNA 2. resolved SBO P: 1. advance diet slowly. 2. stable from surgery POV. DC Plan per hospitalist. Plan discussed with: Patient ROMAIN SCHMITT MD Jul 13, 2025 07:25
[2025-07-13 08:00] VITALS: PULSE 70
[2025-07-13 09:00] VITALS: BP 111/57; PULSE 72; RESP 16; TEMP 97.8; O2SAT 100
[2025-07-13] MEDS: LIDOCAINE 5% TOPICAL PATCH TOP SCH (10:32)
--- NOTE | 2025-07-13 10:40 | DVHDS2 ---
Discharge Summary Date of Admission Jul 11, 2025 at 11:45 Date of Discharge: Jul 13, 2025 Labs/Diagnostic Data: Laboratory Results Test 07/13/25 06:00 07/13/25 04:35 07/11/25 09:30 07/11/25 05:17 POC Glucose 91 mg/dl (70-106) White Blood Count 6.9 10^3/uL (4.4-10.8) Red Blood Count 3.22 10^6/uL (4.5-5.90) Hemoglobin 8.2 g/dL (13.5-17.5) Hematocrit 26.1 % (41.0-53.0) Mean Corpuscular Volume 81.0 fL (80.0-100.0) Mean Corpuscular Hemoglobin 25.5 pg (28.0-32.0) Mean Corpuscular Hemoglobin Concent 31.5 g/dL (32.0-36.0) Red Cell Distribution Width 18.0 % (11.8-14.3) Platelet Count 154 10^3/uL (140-450) Mean Platelet Volume 8.8 fL (6.9-10.8) Neutrophils (%) (Auto) 75.3 % (37.0-80.0) Lymphocytes (%) (Auto) 14.0 % (10.0-50.0) Monocytes (%) (Auto) 8.9 % (0.0-12.0) Eosinophils (%) (Auto) 1.2 % (0.0-7.0) Basophils (%) (Auto) 0.6 % (0.0-2.0) Neutrophils # (Auto) 5.2 10 ^3/uL (1.6-8.6) Lymphocytes # (Auto) 1.0 10 ^3/uL (0.4-5.4) Monocytes # (Auto) 0.6 10 ^3/uL (0-1.3) Eosinophils # (Auto) 0.1 10 ^3/uL (0-0.8) Basophils # (Auto) 0 10 ^3/uL (0-0.2) Nucleated Red Blood Cells 0.1 % Prothrombin Time 14.1 sec (9.3-11.8) Prothrombin Time INR 1.37 (0.9-1.15) Activated Partial Thromboplast Time 32.2 SEC (24.5-34.5) Sodium Level 141 mmol/L (136-145) Potassium Level 3.9 mmol/L (3.5-5.1) Chloride Level 103 mmol/L (98-107) Carbon Dioxide Level 28 mmol/L (20-31) Anion Gap 10 (5-15) Blood Urea Nitrogen 23 mg/dL (9-23) Creatinine 1.32 mg/dL (0.700-1.30) Glomerular Filtration Rate Calc 55 mL/min (>90) BUN/Creatinine Ratio 17.4 (10.0-20.0) Serum Glucose 83 mg/dL (74-106) Calcium Level 8.5 mg/dL (8.7-10.4) Magnesium Level 2.1 mg/dL (1.6-2.6) Total Bilirubin 0.6 mg/dL (0.2-1.0) Aspartate Amino Transferase (AST) 44 U/L (13-40) Alanine Aminotransferase (ALT) 46 U/L (7-40) Alkaline Phosphatase 187 U/L (46-116) Total Protein 6.3 g/dL (5.7-8.2) Albumin 3.4 g/dL (3.2-4.8) Urine Color Yellow (Yellow) Urine Clarity Clear (Clear) Urine pH 5.0 (5.0-9.0) Urine Specific [place] 1.011 (1.001-1.035) Urine Protein Negative (Negative) Urine Ketones Negative (Negative) Urine Blood Negative /uL (Negative) Urine Nitrite Negative (Negative) Urine Bilirubin Negative (Negative) Urine Urobilinogen Normal mg/dL (Negative) Urine Leukocyte Esterase Negative /uL (Negative) Urine RBC <1 /hpf (0 - 3) Urine Microscopic WBC 7 /HPF (0-3) Urine Squamous Epithelial Cells None seen /hpf (<5) Urine Bacteria Few /hpf (None Seen) Urine Hyaline Casts Few /lpf (0 - 2) Urine Glucose 4+ mg/dL (Normal) Lactic Acid Level 1.1 mmol/L (0.4-2.0) Test 07/11/25 02:31 07/11/25 02:21 Lipase 27 U/L (12-53) B-Type Natriuretic Peptide 1030.70 pg/mL (0-100) Thyroid Stimulating Hormone (TSH) 1.50 uIU/mL (0.55-4.78) Other Laboratory Tests 07/13/25 04:35 Brief Hx & Hospital Course: SEE DICTATED NOTE Condition at Discharge: Fair Final Diagnosis/Problems List SBO Discharge Disposition: Home Discharge Instruct/Medications Diet: Consistent carbohydrate, Cardiac 2g Na,low cholest Activity: No Restrictions, As Tolerated Follow Up/Referral: FU WITH DR VELA Medications: RESUME HOME MEDS DC HOME AFTER LUNCH Scheduled Amiodarone HCl (Amiodarone Hydrochloride), 1 TAB PO DAILY, (Reported) Apixaban Base (Eliquis), 1 TAB PO BID, (Reported) Atorvastatin Calcium (Atorvastatin Calcium), 1 TAB PO QPM, (Reported) Bumetanide (Bumex), 1 MG PO BID, (Reported) Bumetanide (Bumetanide), 1 TAB PO BID, (Reported) Cholecalciferol (Vitamin D3), 1 TAB PO DAILY, (Reported) Dapagliflozin Propanediol (Farxiga), 5 MG PO DAILY, (Reported) Dapagliflozin Propanediol (Farxiga), 5 MG PO DAILY, (Reported) Gabapentin (Gabapentin), 300 MG PO TID, (Reported) Glipizide (Glipizide), 1 TAB PO BID, (Reported) Ipratropium [place] Hfa (Atrovent Hfa), Unknown Dose INH QID, (Reported) Ivabradine Hydrochloride (Corlanor), 1 TAB PO BID, (Reported) Levothyroxine Sodium (Synthroid Tablet), 1 TAB PO QAM, (Reported) Levothyroxine Sodium (Levothyroxine Sodium), 200 MCG PO QAM, (Reported) Levothyroxine Sodium (Synthroid), 1 TAB PO DAILY, (Reported) Levothyroxine Sodium (Synthroid), 1 TAB PO DAILY, (Reported) Potassium Chloride (Klor-Con M20), 1 TAB PO DAILY, (Reported) Potassium Chloride (Potassium Chloride ER), 1 TAB PO BID, (Reported) Tamsulosin Hcl (Tamsulosin Hcl), 2 CAP PO DAILY, (Reported) Vericiguat (Verquvo), 1 TAB PO DAILY, (Reported) Scheduled PRN Ipratropium [place] Hfa (Atrovent Hfa), 2 PUFF INH BID PRN for SHORTNESS OF BREATH, (Reported) Nitroglycerin (Ntrostat Sublingual), 1 MG SL for FOR CHEST PAIN, (Reported) Miscellaneous Medications Diclofenac Sodium (Topical) (Voltaren Arthritis Pain), Unknown Dose EX, (Reported) Esomeprazole Magnesium Trihydr (Nexium), Unknown Dose PO, (Reported) Ivabradine HCl (Ivabradine Hydrochloride), TAB PO, (Reported) Lactulose (Lactulose), ML PO, (Reported) Magnesium Bisglycinate (Mag Glycinate), Unknown Dose PO, (Reported) Revefenacin (Yupelri), Unknown Dose IN, (Reported) Tiotropium [place]-Olodaterol (Stiolto Respimat 2.5-2.5 Mcg/Act), Unknown Dose IN, (Reported) Discharge Statement: "Patient was advised to return to the ER or call 911 if any headaches, dizziness, shortness of breath, chest pain, abdominal pain, bleeding, fevers, or worsening of medical condition. Patient was counseled about treatment plan, medications, possible side effects, patientverbalized understanding. All questions were answered to the best of my ability. This discharge took greater then 30 minutes in planning, reviewing documentation, counseling the patient, and discussing with other team members." ASSESSMENT ASSESSMENT Assessment SBO Date of Service: Jul 13, 2025 Billing Provider: HOLLY CARY MD Common Visit Codes: 76136-IDT/OBS DISCH DAY >30min HOLLY CARY MD Jul 13, 2025 10:40
[2025-07-13] MEDS ORDERED: DOXY-286 PO (10:42)
--- NOTE | 2025-07-13 11:34 | DVHDS ---
DATE OF DISCHARGE: 07/13/2025 HISTORY OF PRESENT ILLNESS: The patient is an 80-year-old gentleman who is admitted with a history of abdominal pain with shortness of breath, nausea, and vomiting. The patient has a previous history of coronary artery disease, COPD, chronic respiratory failure, congestive heart failure, previous CABG, AICD, hypothyroidism, AAA repair, diabetes mellitus, and hypertension. HOSPITAL COURSE: The patient had a CT of abdomen and pelvis that showed possible ileus versus small bowel obstruction. He was seen in Surgery Consult by Dr. Maurice. The patient had a small bowel follow-through that showed contrast in the colon within 4 minutes. No obstruction was seen. The patient has had bowel activity. The patient also had evidence of a left-sided infiltrate suggestive of possible pneumonia as well as increased pulmonary venous congestion. He now wishes to go home and will be discharged to resume his home medications as well as to be on doxycycline 100 mg p.o. b.i.d. for 7 days. He will follow up with his primary doctor, Dr. Portillo, in 1 week. FINAL DIAGNOSES: * Questionable small bowel obstruction, questionable ileus. * Left-sided pneumonia, gram-negative with sepsis. * Previous history of ventricular tachycardia. * Coronary artery disease status post coronary artery bypass grafting, status post stent. * Diabetes mellitus. * Chronic obstructive pulmonary disease with chronic respiratory failure. * History of AICD. * Anemia. * [id number] systolic heart failure. * Chronic kidney disease stage 3. * History of AAA repair. * Hypothyroidism. * Hyperlipidemia. * History of Bi-V AICD. * Hypokalemia. Time spent on discharge planning and review of plan with the patient and nursing was 39 minutes. MD EDWARD Brito/[place] TID: [id number] RECEIPT: [id number]
[2025-07-13 13:00] VITALS: BP 132/69; PULSE 67; RESP 18; TEMP 98; O2SAT 100
--- NOTE | 2025-07-13 15:04 | CONS ---
Pharmacy Clinical Information: From Heart Failure Fallout Report on CQM Application, [place], Robert D is an 80-year-old male with PMH of CAD, CHF, CKD, COPD, DM, High Lipids, HTN, [place], Thyroid (Hypothyroidism), AAA His scheduled home medications for CHF include atorvastatin and dapagliflozin The patient is not receiving VELIA inhibitors, ARBs, ARNIs, mineralocorticoid receptor antagonists (MRAs), or beta-blockers due to recurrent episodes of hypotension, which increases his risk for syncope. NAIDA CARRASCO [facility] RESIDENT Jul 13, 2025 15:04
== END 2025-07-13 15:59 | disposition home or self-care (01) | DRG 871 ==
LOC: ER 02:01 → EDBD 02:01 → OVERFLOW 11:45 → TELE-EAST 21:25
PROVIDERS: ADMIT Internal Medicine; ATTEND Internal Medicine
DX: A41.59 Other Gram-negative sepsis (principal); I50.23 Acute on chronic systolic (congestive) heart failure; J15.69 Pneumonia due to other Gram-negative bacteria; J15.9 Unspecified bacterial pneumonia; K56.699 Other intestinal obstruction unspecified as to partial versus complete obstruction; I13.0 Hypertensive heart and chronic kidney disease with heart failure and stage 1 through stage 4 chronic kidney disease, or unspecified chronic kidney disease; J44.0 Chronic obstructive pulmonary disease with (acute) lower respiratory infection; I25.5 Ischemic cardiomyopathy; D64.9 Anemia, unspecified; E11.22 Type 2 diabetes mellitus with diabetic chronic kidney disease; J96.10 Chronic respiratory failure, unspecified whether with hypoxia or hypercapnia; Z79.01 Long term (current) use of anticoagulants; N18.30 Chronic kidney disease, stage 3 unspecified; E03.9 Hypothyroidism, unspecified; E11.65 Type 2 diabetes mellitus with hyperglycemia; I25.10 Atherosclerotic heart disease of native coronary artery without angina pectoris; E87.6 Hypokalemia; E78.5 Hyperlipidemia, unspecified; Z88.8 Allergy status to other drugs, medicaments and biological substances; Z95.810 Presence of automatic (implantable) cardiac defibrillator; Z95.1 Presence of aortocoronary bypass graft; Z86.79 Personal history of other diseases of the circulatory system; Z83.3 Family history of diabetes mellitus; Z82.49 Family history of ischemic heart disease and other diseases of the circulatory system; I25.2 Old myocardial infarction
CPT/HCPCS: 36415; 71045; 74176; 74250; 80048; 80053; 81001; 82962; 83605; 83690; 83735; 83880; 84443; 85025; 85610; 85730; 87040; 93005; 96365; 96366; 96375; 99291; G0378; G0463; J1815; J2003; J2405

== ENCOUNTER 2025-07-19 09:01 | Outpatient (CLI) | payer MEDICARE, OTHER ==
[2025-07-19] VITALS (11 sets, daily range): BP systolic 91–121; BP diastolic 41–61; PULSE 69–70; RESP 16–18; O2SAT 100
[~2025-07-19 09:01] MED LIST changes: +BUME2TAB5 PO; +DOXY-286 PO; +GABA250S7 PO; +IVAB5TAB2 PO; +LACT10SO3 PO; +LEVO200T PO; +LEVO50TA3 PO; +POTA-180 PO; +TAMS0.4C39 PO
[2025-07-19] MEDS: MILRINONE 20MG/100ML 100 ML IV ONE ×2 (09:14→13:03)
== END 2025-07-19 17:00 | disposition home or self-care (01) ==
LOC: CHF HDHVI 09:01
PROVIDERS: ATTEND Internal Medicine Cardiovascular Disease
DX: I13.0 Hypertensive heart and chronic kidney disease with heart failure and stage 1 through stage 4 chronic kidney disease, or unspecified chronic kidney disease (principal); E11.22 Type 2 diabetes mellitus with diabetic chronic kidney disease; I50.43 Acute on chronic combined systolic (congestive) and diastolic (congestive) heart failure; N18.4 Chronic kidney disease, stage 4 (severe); E11.42 Type 2 diabetes mellitus with diabetic polyneuropathy; E11.65 Type 2 diabetes mellitus with hyperglycemia; E11.51 Type 2 diabetes mellitus with diabetic peripheral angiopathy without gangrene; F41.9 Anxiety disorder, unspecified; I25.10 Atherosclerotic heart disease of native coronary artery without angina pectoris; F32.A Depression, unspecified; J43.9 Emphysema, unspecified; E03.9 Hypothyroidism, unspecified; D51.8 Other vitamin B12 deficiency anemias; I48.0 Paroxysmal atrial fibrillation; E78.00 Pure hypercholesterolemia, unspecified; G47.33 Obstructive sleep apnea (adult) (pediatric); I25.2 Old myocardial infarction; I25.5 Ischemic cardiomyopathy; M54.50 Low back pain, unspecified; Z79.01 Long term (current) use of anticoagulants; Z79.4 Long term (current) use of insulin; Z79.82 Long term (current) use of aspirin; Z79.84 Long term (current) use of oral hypoglycemic drugs; Z79.899 Other long term (current) drug therapy; Z87.891 Personal history of nicotine dependence; Z95.1 Presence of aortocoronary bypass graft
CPT/HCPCS: 96365; 96366; G0463; J1642; J2260

== ENCOUNTER 2025-07-21 08:42 | Outpatient (CLI) | payer MEDICARE, OTHER ==
[2025-07-21] VITALS (9 sets, daily range): BP systolic 102–134; BP diastolic 52–66; PULSE 69–72; RESP 16; O2SAT 98
[2025-07-21] MEDS: MILRINONE 20MG/100ML 100 ML IV ONE ×2 (08:56→10:21)
[2025-07-21] MEDS: ACETAMINOPHEN 500 MG TAB or CAP PO ONE (11:47)
[2025-07-21] MEDS ORDERED: ACETAMINOPHEN 500 MG TAB or CAP PO ONE (11:48)
== END 2025-07-21 17:00 | disposition home or self-care (01) ==
LOC: CHF HDHVI 08:42
PROVIDERS: ATTEND Internal Medicine Cardiovascular Disease
DX: I13.0 Hypertensive heart and chronic kidney disease with heart failure and stage 1 through stage 4 chronic kidney disease, or unspecified chronic kidney disease (principal); E11.22 Type 2 diabetes mellitus with diabetic chronic kidney disease; I50.43 Acute on chronic combined systolic (congestive) and diastolic (congestive) heart failure; N18.4 Chronic kidney disease, stage 4 (severe); M54.50 Low back pain, unspecified; E11.42 Type 2 diabetes mellitus with diabetic polyneuropathy; E11.65 Type 2 diabetes mellitus with hyperglycemia; E11.51 Type 2 diabetes mellitus with diabetic peripheral angiopathy without gangrene; D51.8 Other vitamin B12 deficiency anemias; F41.9 Anxiety disorder, unspecified; I25.10 Atherosclerotic heart disease of native coronary artery without angina pectoris; F32.A Depression, unspecified; J43.9 Emphysema, unspecified; E03.9 Hypothyroidism, unspecified; I48.0 Paroxysmal atrial fibrillation; E78.00 Pure hypercholesterolemia, unspecified; G47.33 Obstructive sleep apnea (adult) (pediatric); I25.2 Old myocardial infarction; I25.5 Ischemic cardiomyopathy; Z79.01 Long term (current) use of anticoagulants; Z79.4 Long term (current) use of insulin; Z79.82 Long term (current) use of aspirin; Z79.84 Long term (current) use of oral hypoglycemic drugs; Z79.899 Other long term (current) drug therapy; Z87.891 Personal history of nicotine dependence; Z95.1 Presence of aortocoronary bypass graft
CPT/HCPCS: 96365; 96366; G0463; J1642; J2260